=== PATIENT | female | born 2005 | race Caucasian/White ===

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

== ENCOUNTER 2023-02-24 12:30 | Outpatient (CLI) | payer OTHER, SELFPAY ==
[2023-02-24 18:53] LABS: Basophils Absolute Auto 0.1 K/mm3 (0.0-0.1); Basophils Percent Auto 0.6 % (0.2-1.2); Eosinophils Absolute Auto 0.2 K/mm3 (0-0.3); Eosinophils Percent Auto 1.8 % (0-4.4); Hematocrit 38.9 % (37.0-47.0); Hemoglobin 12.2 g/dL (12.0-15.0); Immature Granulocyte Absolute 0.02 K/mm3 (0.00-0.031); Immature Granulocyte Percent A 0.2 % (0-0.5); Lymphocytes Absolute Auto 2.04 K/mm3 (0.9-3.2); Mean Corpuscular HGB Conc 31.4 g/dl (32-36); Mean Corpuscular Hemoglobin 24.9 pg (26-34); Mean Corpuscular Volume 79.4 fl (80-100); Mean Platelet Volume 9.4 fl (7.4-10.4); Monocytes Absolute Auto 0.5 K/mm3 (0.1-0.6); Neutrophils Absolute Auto 5.4 K/mm3 (1.3-6.7); Neutrophils Percent Auto 66.4 % (45.5-73.1); Platelet Count Result 390 k/mm3 (150-375); Red Cell Distribution Width 13.8 % (11.5-14.5); White Blood Count 8.2 K/mm3 (4.5-10.0)
[2023-02-24 18:57] LABS: Alanine Aminotransferase 28 U/L (6-35); Alkaline Phosphatase 94 U/L (38-126); Anion Gap 5 mmol/L (8-16); Aspartate Amino Transferase 47 U/L (14-36); Bilirubin,Total 0.4 mg/dL (0.2-1.3); Blood Urea Nitrogen 12 mg/dL (7-17); Calcium 8.9 mg/dL (8.4-10.2); Carbon Dioxide 30 mmol/L (22-30); Chloride 102 mmol/L (98-107); Cholesterol 168 mg/dL (0-200); Estimated Glomerular Filt Rate > 60; Glucose 72 mg/dL (65-110); HDL Direct 40 mg/dL; Potassium 4.1 mmol/L (3.4-5.0); Sodium 137 mmol/L (137-145); Triglycerides 103 mg/dL (<150)
[2023-02-24 19:11] LABS: LDL Cholesterol Direct 98 mg/dL
[2023-02-24 19:14] LABS: Beta HCG Quantitative < 2.39 mIU/ML
[2023-02-27 12:18] LABS: DHEA-Sulfate 173 mcg/dL (51-321)
[2023-02-28 09:50] LABS: Testosterone Free 3.1 pg/mL (0.1-6.4); Testosterone Total 37 ng/dL (2-45)
[2023-03-02 07:26] LABS: Prolactin 9.4 ng/mL (***)
== END 2023-02-24 12:31 | disposition home or self-care (01) ==
LOC: ANHGOSHLAB 12:32
PROVIDERS: Visit Provider Obstetrics & Gynecology
DX: R79.89 Other specified abnormal findings of blood chemistry (principal); N92.6 Irregular menstruation, unspecified; E66.01 Morbid (severe) obesity due to excess calories
CPT/HCPCS: 36415; 80053; 80061; 82627; 84146; 84402; 84403; 84702; 85025

== ENCOUNTER 2023-04-06 13:54 | Outpatient (CLI) | payer OTHER, SELFPAY ==
--- NOTE | ~2023-04-06 | US_ITS ---
EXAMINATION: US pelvic complete w TV DATE: 04/06/2023 15:24 INDICATION: Unspecified dyspareunia. TECHNIQUE: Multiple transabdominal and transvaginal sonographic images of the pelvis were obtained. COMPARISON: Ultrasound 08/18/2022 FINDINGS: TRANSABDOMINAL ULTRASOUND: The uterus measures 6.4 x 3.9 x 5.8 cm. There is physiologic free fluid in the pelvis. TRANSVAGINAL ULTRASOUND: The endometrial complex measures 3 mm in thickness. There are small nabothian cysts in the cervix. Th e right ovary measures 2.6 x 2.4 x 2.1 cm. The left ovary measures 3.7 x 1.9 x 1.8 cm. There is lilli l vascular flow in the ovaries. IMPRESSION: 1. No etiology for the patient's symptoms. Reviewed, dictated and finalized at location E.
--- NOTE | ~2023-04-06 | US_ITS ---
EXAMINATION: US thyroid DATE: 04/06/2023 15:24 INDICATION: Thyroid disorder. Sofiya's. TECHNIQUE: Multiple ultrasound images of the thyroid were obtained. COMPARISON: None. FINDINGS: The right thyroid lobe measures 5.1 x 1.4 x 2.3 cm. The left thyroid lobe measures 4.8 x 1.5 x 2.2 c m. The thyroid isthmus measures 3-4 mm in maximal thickness. No discrete nodules identified. There is normal echotexture, echogenicity and vascular flow throughout the thyroid gland. IMPRESSION: 1. Normal thyroid ultrasound. Reviewed, dictated and finalized at location A.
== END 2023-04-06 13:55 | disposition home or self-care (01) ==
PROVIDERS: Referring Provider Otolaryngology; Visit Provider Obstetrics & Gynecology
DX: N94.10 Unspecified dyspareunia (principal); R10.2 Pelvic and perineal pain; E07.9 Disorder of thyroid, unspecified
CPT/HCPCS: 76536; 76830; 76856

== ENCOUNTER 2023-08-06 11:32 | Outpatient (CLI) | payer OTHER, SELFPAY ==
[2023-08-06 12:48] LABS: Basophils Percent Auto 0.5 % (0.2-1.2); Eosinophils Absolute Auto 0.1 K/mm3 (0-0.3); Eosinophils Percent Auto 1.5 % (0-4.4); Hematocrit 41.1 % (37.0-47.0); Hemoglobin 12.9 g/dL (12.0-15.0); Immature Granulocyte Absolute 0.02 K/mm3 (0.00-0.031); Immature Granulocyte Percent A 0.2 % (0-0.5); Lymphocytes Absolute Auto 2.48 K/mm3 (0.9-3.2); Lymphocytes Percent Auto 28.6 % (18.3-44.2); Mean Corpuscular HGB Conc 31.4 g/dl (32-36); Mean Corpuscular Hemoglobin 25.4 pg (26-34); Mean Corpuscular Volume 81.1 fl (80-100); Mean Platelet Volume 9.5 fl (7.4-10.4); Monocytes Absolute Auto 0.5 K/mm3 (0.1-0.6); Monocytes Percent Auto 5.8 % (2.6-8.5); Neutrophils Absolute Auto 5.5 K/mm3 (1.3-6.7); Neutrophils Percent Auto 63.4 % (45.5-73.1); Platelet Count Result 416 k/mm3 (150-375); Red Blood Count 5.07 M/mm3 (4.2-5.4); Red Cell Distribution Width 13.2 % (11.5-14.5); White Blood Count 8.7 K/mm3 (4.5-10.0)
[2023-08-06 12:59] LABS: Hemoglobin A1C 4.8 % (<5.7)
[2023-08-06 13:38] LABS: Alanine Aminotransferase 21 U/L (6-35); Albumin Level 4.2 g/dL (3.5-5.1); Alkaline Phosphatase 107 U/L (38-126); Anion Gap 8 mmol/L (8-16); Aspartate Amino Transferase 57 U/L (14-36); Bilirubin,Total 0.5 mg/dL (0.2-1.3); Blood Urea Nitrogen 13 mg/dL (7-17); Calcium 9.5 mg/dL (8.4-10.2); Carbon Dioxide 27 mmol/L (22-30); Chloride 102 mmol/L (98-107); Cholesterol 185 mg/dL (0-200); Estimated Glomerular Filt Rate > 60; Glucose 77 mg/dL (65-110); HDL Direct 44 mg/dL; Potassium 3.9 mmol/L (3.4-5.0); Sodium 137 mmol/L (137-145); Triglycerides 138 mg/dL (<150)
[2023-08-06 13:48] LABS: LDL Cholesterol Direct 104 mg/dL
[2023-08-06 17:05] LABS: Free T4 Free Thyroxine 1.28 ng/mL (0.78-2.19); Vitamin D 25 Hydroxy 19.3 ng/mL
[2023-08-09 03:29] LABS: Thyroid Peroxidase Antibodies <1 IU/mL (<9)
== END 2023-08-06 11:33 | disposition home or self-care (01) ==
LOC: ANHGOSHLAB 11:33
PROVIDERS: PCP Family Medicine; Visit Provider Nurse Practitioner Family
DX: E16.2 Hypoglycemia, unspecified (principal); R53.83 Other fatigue; R60.9 Edema, unspecified; R63.5 Abnormal weight gain; Z00.00 Encounter for general adult medical examination without abnormal findings; E55.9 Vitamin D deficiency, unspecified; Z13.29 Encounter for screening for other suspected endocrine disorder; E78.5 Hyperlipidemia, unspecified; E53.8 Deficiency of other specified B group vitamins
CPT/HCPCS: 36415; 80053; 80061; 82306; 82607; 83036; 84439; 84443; 85025; 86376

== ENCOUNTER 2023-09-30 09:58 | Outpatient (CLI) | payer OTHER, MEDICAID, SELFPAY ==
[2023-09-30 19:05] LABS: Basophils Absolute Auto 0.1 K/mm3 (0.0-0.1); Basophils Percent Auto 0.6 % (0.2-1.2); Eosinophils Absolute Auto 0.1 K/mm3 (0-0.3); Eosinophils Percent Auto 0.5 % (0-4.4); Hematocrit 38.5 % (37.0-47.0); Hemoglobin 12.2 g/dL (12.0-15.0); Immature Granulocyte Absolute 0.02 K/mm3 (0.00-0.031); Immature Granulocyte Percent A 0.2 % (0-0.5); Lymphocytes Absolute Auto 1.95 K/mm3 (0.9-3.2); Lymphocytes Percent Auto 21.1 % (18.3-44.2); Mean Corpuscular HGB Conc 31.7 g/dl (32-36); Mean Corpuscular Hemoglobin 26.1 pg (26-34); Mean Corpuscular Volume 82.4 fl (80-100); Mean Platelet Volume 10.1 fl (7.4-10.4); Monocytes Absolute Auto 0.7 K/mm3 (0.1-0.6); Neutrophils Absolute Auto 6.5 K/mm3 (1.3-6.7); Neutrophils Percent Auto 70.6 % (45.5-73.1); Platelet Count Result 344 k/mm3 (150-375); Red Blood Count 4.67 M/mm3 (4.2-5.4); Red Cell Distribution Width 13.9 % (11.5-14.5); White Blood Count 9.2 K/mm3 (4.5-10.0)
[2023-09-30 19:36] LABS: Glucose 1 Hour PP 50gm Dose 77 mg/dL
[2023-09-30 19:48] LABS: Hepatitis B Surface Antigen Negative (Negative); Rubella IgG Antibody 55.8 IU/ML
[2023-09-30 19:57] LABS: HIV 1/2 Ab P24 Ag Result Negative (Negative)
[2023-10-01 07:33] LABS: Rapid Plasma Reagin Non-Reactive (NonReactive)
[2023-10-02 17:36] LABS: CMV IgG Antibody <0.60 U/mL (<0.60)
== END 2023-09-30 09:59 | disposition home or self-care (01) ==
LOC: ANHGOSHLAB 09:59
PROVIDERS: PCP Family Medicine; Visit Provider Student in an Organized Health Care Education/Training Program
DX: N94.89 Other specified conditions associated with female genital organs and menstrual cycle (principal)
CPT/HCPCS: 36415; 82947; 85025; 86592; 86644; 86703; 86747; 86762; 86787; 86850; 86900; 86901; 87086; 87088; 87340; G0432

== ENCOUNTER 2023-11-02 09:11 | Outpatient (CLI) | payer OTHER, MEDICAID, SELFPAY ==
[2023-11-02 11:35] LABS: Influenza A QL RT-PCR Negative (Negative); Influenza B QL RT-PCR Negative (Negative); RSV RNA, RT-PCR Negative (Negative); SARS-CoV-2 RNA PCR Negative (Negative)
== END 2023-11-02 09:12 | disposition home or self-care (01) ==
LOC: ANHGOSHLAB 09:12
PROVIDERS: PCP Family Medicine; Visit Provider Nurse Practitioner Family
DX: Z34.90 Encounter for supervision of normal pregnancy, unspecified, unspecified trimester (principal); Z20.822 Contact with and (suspected) exposure to COVID-19
CPT/HCPCS: 87637

== ENCOUNTER 2023-11-11 16:01 | Outpatient (CLI) | payer OTHER, MEDICAID, SELFPAY ==
[2023-11-11 16:36] LABS: Basophils Percent Auto 0.3 % (0.2-1.2); Eosinophils Absolute Auto 0.1 K/mm3 (0-0.3); Eosinophils Percent Auto 0.8 % (0-4.4); Hemoglobin 12.2 g/dL (12.0-15.0); Immature Granulocyte Absolute 0.02 K/mm3 (0.00-0.031); Immature Granulocyte Percent A 0.2 % (0-0.5); Lymphocytes Absolute Auto 2.02 K/mm3 (0.9-3.2); Lymphocytes Percent Auto 19.6 % (18.3-44.2); Mean Corpuscular HGB Conc 33.9 g/dl (32-36); Mean Corpuscular Hemoglobin 27.1 pg (26-34); Mean Corpuscular Volume 79.8 fl (80-100); Mean Platelet Volume 9.5 fl (7.4-10.4); Monocytes Absolute Auto 0.5 K/mm3 (0.1-0.6); Monocytes Percent Auto 4.6 % (2.6-8.5); Neutrophils Absolute Auto 7.7 K/mm3 (1.3-6.7); Neutrophils Percent Auto 74.5 % (45.5-73.1); Platelet Count Result 306 k/mm3 (150-375); Red Blood Count 4.51 M/mm3 (4.2-5.4); Red Cell Distribution Width 13.7 % (11.5-14.5); White Blood Count 10.3 K/mm3 (4.5-10.0)
[2023-11-11 16:49] LABS: Alanine Aminotransferase 16 U/L (6-35); Albumin Level 3.9 g/dL (3.5-5.1); Alkaline Phosphatase 73 U/L (38-126); Anion Gap 7 mmol/L (4-12); Aspartate Amino Transferase 20 U/L (14-36); Bilirubin,Total 0.5 mg/dL (0.2-1.3); Blood Urea Nitrogen 8 mg/dL (7-17); Calcium 9.2 mg/dL (8.4-10.2); Carbon Dioxide 23 mmol/L (22-30); Chloride 107 mmol/L (98-107); Estimated Glomerular Filt Rate > 60; Glucose 113 mg/dL (65-110); Lactate Dehydrogenase 159 U/L (120-246); Potassium 3.6 mmol/L (3.4-5.0); Sodium 137 mmol/L (137-145); Uric Acid 4.2 mg/dL (2.5-7.5)
== END 2023-11-11 16:02 | disposition home or self-care (01) ==
LOC: ANHLAB 16:02
PROVIDERS: PCP Family Medicine; Visit Provider Obstetrics & Gynecology
DX: O16.9 Unspecified maternal hypertension, unspecified trimester (principal)
CPT/HCPCS: 36415; 80053; 83615; 84550; 85025

== ENCOUNTER 2023-11-14 11:59 | Outpatient (CLI) | payer OTHER, MEDICAID, SELFPAY ==
[2023-11-14 14:46] LABS: Total Volume 24 Hour Urine 1500 ml
[2023-11-14 14:56] LABS: Creatinine Urine 124.3 mg/dL
[2023-11-14 15:38] LABS: Creatinine 24 Hour Urine 1.8 gm/24 (0.8-1.8); Total Protein Urine 24 Hr 75 mg/24hr (28-141); Total Protein Urine Random < 5 mg/dL; Total Volume 24 Hour Urine 1500 ml
== END 2023-11-14 12:00 | disposition home or self-care (01) ==
LOC: ANHLAB 12:01
PROVIDERS: PCP Family Medicine; Visit Provider Obstetrics & Gynecology
DX: O16.9 Unspecified maternal hypertension, unspecified trimester (principal); Z3A.00 Weeks of gestation of pregnancy not specified
CPT/HCPCS: 81050; 82570; 84156

== ENCOUNTER 2023-11-19 17:20 | Emergency (ER) | payer OTHER, MEDICAID, SELFPAY ==
--- NOTE | ~2023-11-19 | US_ITS ---
EXAMINATION: US OB limited DATE: 11/19/2023 18:10 INDICATION: Fall. Estimated gestational age of 16 weeks and 5 days. TECHNIQUE: Real-time ultrasound of the pelvis was performed. COMPARISON: Ultrasound 10/14/2023 FINDINGS: There is a single fetus in breech presentation. The placenta is fundal and anterior. heart rat e is 142 beats per minute (bpm). The amniotic fluid volume is subjectively normal. IMPRESSION: 1. Single living fetus in breech presentation. Reviewed, dictated and finalized at location E.
[2023-11-19 17:27] VITALS: BP 136/90; PULSE 75; RESP 16; TEMP 36.7; O2SAT 100
[2023-11-19 18:41] LABS: Appearance Urine Clear (Clear); Bacteria Urine Rare /hpf; Bilirubin Urine Negative (Negative); Blood Urine Negative (Negative); Color Urine Yellow (Yellow); Glucose Urine UA Negative (Negative); Ketones Urine Negative (Negative); Leukocyte Esterase Ur Trace LEU/UL (Negative); Nitrate Urine Negative (Negative); Non Pathogenic Casts 0-2; Protein Urine Negative (Negative); RBC Urine 0-2 /hpf (0-2); Specific Grav Ur 1.012 (1.001-1.035); Squamous Epithelial Cell Urine Few /hpf (Few); Urobilinogen Urine 0.2 mg/dL (<2.0); pH Urine 6.5 (5.0-9.0)
[2023-11-19 18:47] LABS: Add Urine Microscopic? YES
--- NOTE | 2023-11-19 18:58 | ED.FALL ---
HPI - Fall General Chief Complaint: Fall Stated Complaint: fall Time Seen by Provider: 11/19/23 17:43 Source: patient Mode of arrival: ambulatory Limitations: no limitations History of Present Illness HPI Narrative: 18-year-old 1 about 16 weeks of here with the complaints of low back pain. Patient states that she fell yesterday on a lower back and while she was at work today started having increased pain. She states occasionally her legs go numb. She denies any vaginal bleeding or discharge complaint: fall Onset (ago): day(s) (1) Fall from: standing Place fall occurred: home Loss of consciousness: none Symptoms prior to fall: none Context: tripped/slipped Location of injury: back Quality: dull Associated symptoms (after fall): denies Related Data Home Medications Medication Instructions Recorded Confirmed vits no.126-ferrous fum tablet PO 09/23/23 11/11/23 28 mg iron-folic acid 800 mcg tablet (Classic ) aspirin 81 mg tablet,delayed 162 mg PO DAILY 11/11/23 11/11/23 release Allergies Allergy/AdvReac Type Severity Reaction Status Date / Time nitrofurantoin Allergy Hives Verified 11/11/23 14:16 [From Macrobid] Review of Systems Review of Systems: All systems reviewed & are unremarkable except as noted in HPI and below Constitutional: Constitutional: Reports no additional constitutional complaints Eyes: Eyes: Reports no additional eye complaints ENT: Reports system reviewed and no additional complaints, except as documented Cardiovascular: Cardiovascular: Reports no additional cardiovascular complaints Respiratory: Respiratory: Reports no additional respiratory complaints Gastrointestinal: Gastrointestinal: Reports no additional gastrointestinal complaints Musculoskeletal: Musculoskeletal: Reports as per HPI Neurologic: Reports system reviewed and no additional complaints, except as documented [facility] Past Medical History Medical History Acute sore throat Annual visit for general adult medical examination without abnormal findings Asthma Contraception management Dyspareunia Ear pain, right Elevated serum creatinine Encounter for elective induction of labor Encounter for imaging to assess thyroid enlargement Encounter for incision and drainage procedure Essential (primary) hypertension Fatigue Healthy female adult Initiation of Depo Provera Irregular menstrual cycle Morbid obesity Morbid obesity with BMI of 50.0-59.9, adult Normal vaginal delivery Obesity affecting in third trimester Perirectal abscess (~05/2019) I&D depression and not yet delivered Suppression of menses Surveillance for Depo-Provera contraception Tonsillectomy planned Vaginal delivery 09/11/21 Vaginal discharge during Weight gain with edema Surgical History Surgical History History of tonsillectomy (~2009) Family History Family History Grandparent Diabetes mellitus paternal grandmother Hypertension Thyroid disorder Mother Depression Grandparent Diabetes mellitus Other No pertinent family history Social History Social History Smoking status: Never smoker Alcohol intake: never Substance use: never Lack of Transportation: No Lack of Food: Never True Current Housing: I Have Housing Concerned About Future Housing: No Difficulty Paying Gas/Electric Bills: No Difficulty Paying for Meds: No Currently Unemployed: No Education: High School Diploma/GED Difficulty w/ Childcare or Family Care: No Living arrangements: alone Additional living arrangements comments: daughter Occupation/Education: occupation Gender identity (if verbalized by the patient): Female Sexual Or
[2023-11-19 19:30] VITALS: BP 132/68; PULSE 70; RESP 15; O2SAT 100
== END 2023-11-19 19:31 | disposition home or self-care (01) ==
PROVIDERS: Emergency Provider Family Medicine; PCP Family Medicine
DX: O9A.212 Injury, poisoning and certain other consequences of external causes complicating pregnancy, second trimester (principal); S30.0XXA Contusion of lower back and pelvis, initial encounter; Z3A.16 16 weeks gestation of pregnancy; W18.30XA Fall on same level, unspecified, initial encounter
CPT/HCPCS: 76815; 81001; 87086; 87088; 99284

== ENCOUNTER 2023-12-15 14:00 | Emergency (ER) | payer MEDICAID, SELFPAY ==
[2023-12-15 14:06] VITALS: BP 122/64; PULSE 94; RESP 17; TEMP 36.3; O2SAT 98
[2023-12-15 14:07] VITALS: BP 122/64; PULSE 96; RESP 19; O2SAT 98
--- NOTE | 2023-12-15 14:09 | ECG_ITS ---
SEE SCANNED COPY FOR CONFIRMED REPORT MTDD
[2023-12-15 14:16] VITALS: BP 116/77; PULSE 102; RESP 15; O2SAT 97
[2023-12-15 14:22] LABS: Basophils Percent Auto 0.1 % (0.2-1.2); Eosinophils Absolute Auto 0.1 K/mm3 (0-0.3); Eosinophils Percent Auto 0.9 % (0-4.4); Hematocrit 33.1 % (37.0-47.0); Hemoglobin 11.5 g/dL (12.0-15.0); Immature Granulocyte Absolute 0.06 K/mm3 (0.00-0.031); Immature Granulocyte Percent A 0.6 % (0-0.5); Lymphocytes Absolute Auto 1.75 K/mm3 (0.9-3.2); Lymphocytes Percent Auto 17.1 % (18.3-44.2); Mean Corpuscular HGB Conc 34.7 g/dl (32-36); Mean Corpuscular Hemoglobin 28.2 pg (26-34); Mean Corpuscular Volume 81.1 fl (80-100); Mean Platelet Volume 9.5 fl (7.4-10.4); Monocytes Absolute Auto 0.4 K/mm3 (0.1-0.6); Monocytes Percent Auto 4.3 % (2.6-8.5); Neutrophils Absolute Auto 7.9 K/mm3 (1.3-6.7); Platelet Count Result 297 k/mm3 (150-375); Red Blood Count 4.08 M/mm3 (4.2-5.4); Red Cell Distribution Width 13.6 % (11.5-14.5); White Blood Count 10.3 K/mm3 (4.5-10.0)
[2023-12-15 14:31] VITALS: BP 112/62; PULSE 89; RESP 18; O2SAT 100
[2023-12-15 14:32] LABS: Alanine Aminotransferase 12 U/L (6-35); Albumin Level 3.5 g/dL (3.5-5.1); Alkaline Phosphatase 85 U/L (38-126); Anion Gap 6 mmol/L (4-12); Aspartate Amino Transferase 19 U/L (14-36); Bilirubin,Total 0.3 mg/dL (0.2-1.3); Blood Urea Nitrogen 9 mg/dL (7-17); Calcium 8.6 mg/dL (8.4-10.2); Carbon Dioxide 24 mmol/L (22-30); Chloride 105 mmol/L (98-107); Estimated CRCL calculation 203 ml/min; Estimated Glomerular Filt Rate > 60; Glucose 102 mg/dL (65-110); Lipase 114 U/L (23-300); Potassium 3.5 mmol/L (3.4-5.0); Sodium 135 mmol/L (137-145)
[2023-12-15 14:34] LABS: Prothrombin Time 13.5 Seconds (11.1-14.7)
[2023-12-15 14:44] LABS: Troponin I < 0.012 ng/mL (0.000-0.034)
--- NOTE | 2023-12-15 15:18 | ED.DIZZY ---
HPI - Dizziness General Chief Complaint: Dizziness Stated Complaint: dizzy, cp Time Seen by Provider: 12/15/23 14:28 Source: patient Mode of arrival: ambulatory Limitations: no limitations History of Present Illness HPI Narrative: This is a 18-year-old female who is approximately 20 weeks and who presents to the ED with chief complaint of dizziness that occurred while at work today. 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 Denies syncope or fall. Endorses associated chest tightness and headache as well. States that time she was seeing spots. Patient is , following with OB. Denies any recent illness. Denies fevers, chills, abdominal pain, vaginal symptoms. Denies any bleeding. Patient states that her symptoms lasted 5 minutes and seemed to have fully resolved . Related Data Home Medications Medication Instructions Recorded Confirmed vits no.126-ferrous fum tablet PO 09/23/23 11/11/23 28 mg iron-folic acid 800 mcg tablet (Classic ) aspirin 81 mg tablet,delayed 162 mg PO DAILY 11/11/23 11/11/23 release Allergies Allergy/AdvReac Type Severity Reaction Status Date / Time nitrofurantoin Allergy Hives Verified 11/11/23 14:16 [From Macrobid] Review of Systems Review of Systems: All systems as dictated in HPI PMFSH Past Medical History Medical History Acute sore throat Annual visit for general adult medical examination without abnormal findings Asthma Contraception management Dyspareunia Ear pain, right Elevated serum creatinine Encounter for elective induction of labor Encounter for imaging to assess thyroid enlargement Encounter for incision and drainage procedure Essential (primary) hypertension Fatigue Healthy female adult Initiation of Depo Provera Irregular menstrual cycle Morbid obesity Morbid obesity with BMI of 50.0-59.9, adult Normal vaginal delivery Obesity affecting in third trimester Perirectal abscess (~05/2019) I&D depression and not yet delivered Suppression of menses Surveillance for Depo-Provera contraception Tonsillectomy planned Vaginal delivery 09/11/21 Vaginal discharge during Weight gain with edema Surgical History Surgical History History of tonsillectomy (~2009) Family History Family History Grandparent Diabetes mellitus paternal grandmother Hypertension Thyroid disorder Mother Depression Grandparent Diabetes mellitus Other No pertinent family history Social History Social History Smoking status: Never smoker Alcohol intake: never Substance use: never Lack of Transportation: No Lack of Food: Never True Current Housing: I Have Housing Concerned About Future Housing: No Difficulty Paying Gas/Electric Bills: No Difficulty Paying for Meds: No Currently Unemployed: No Education: High School Diploma/GED Difficulty w/ Childcare or Family Care: No Living arrangements: alone Additional living arrangements comments: daughter Occupation/Education: occupation Gender identity (if verbalized by the patient): Female Sexual Orientation (if Verbalized by the Patient): Straight or Heterosexual Spiritual care concerns: No Exam Narrative: GENERAL: Well-appearing, well-nourished, and in no acute distress. HEAD: Normocephalic, atraumatic. EYES: PERRLA and EOMI. ENT: Nares clear, no rhinorrhea or epistaxis. Mucous membranes moist. Oropharynx without tonsillar hypertrophy exudate or other lesions. NECK: Supple. No adenopathy or masses. CHEST: No respiratory distress. Clear to auscultation. No wheezes rales or rhonchi HEART: Regular ra
[2023-12-15 15:39] LABS: D Dimer 0.84 ug/mL (<0.48)
[2023-12-15 15:46] LABS: NT Pro B Type Natriuretic Pept < 20 pg/mL (19.9-100)
[2023-12-15 15:51] LABS: Appearance Urine Cloudy (Clear); Bacteria Urine 4+ /hpf; Bilirubin Urine Negative (Negative); Blood Urine Negative (Negative); Color Urine Yellow (Yellow); Glucose Urine UA Negative (Negative); Ketones Urine Trace mg/dL (Negative); Leukocyte Esterase Ur Trace LEU/UL (Negative); Need Manual Microscopic Reviewed; Nitrate Urine Negative (Negative); Non Pathogenic Casts 0-2; Protein Urine Negative (Negative); RBC Urine 0-2 /hpf (0-2); Specific Grav Ur 1.026 (1.001-1.035); Squamous Epithelial Cell Urine Moderate /hpf (Few); pH Urine 6.5 (5.0-9.0)
[2023-12-15 15:52] LABS: Add Urine Microscopic? YES
[2023-12-15 16:06] VITALS: BP 120/69; PULSE 88; RESP 16; TEMP 36.6; O2SAT 99
--- NOTE | 2023-12-17 15:48 | PC.NURSE ---
Was notified by lab that the urine culture that was obtained on 12/15/23 was unable to be processed. Christina CRESPO on duty was asked to review the chart to determine if we needed to have specimen recollected. Christina felt it would be best to recollect. This director called patient at [phone] and had to leave a message ([phone]) for patient to call me back.
== END 2023-12-15 16:07 | disposition home or self-care (01) ==
PROVIDERS: Emergency Medicine; Emergency Provider Physician Assistant; PCP Family Medicine
DX: O26.892 Other specified pregnancy related conditions, second trimester (principal); R42 Dizziness and giddiness; O16.2 Unspecified maternal hypertension, second trimester; O99.512 Diseases of the respiratory system complicating pregnancy, second trimester; J45.909 Unspecified asthma, uncomplicated; O99.212 Obesity complicating pregnancy, second trimester; E66.9 Obesity, unspecified; Z3A.20 20 weeks gestation of pregnancy
CPT/HCPCS: 36415; 80053; 81001; 83690; 83880; 84484; 85025; 85380; 85610; 85730; 87086; 93005; 99284

== ENCOUNTER 2023-12-23 14:28 | Outpatient (CLI) | payer OTHER, SELFPAY ==
[2023-12-23 20:47] LABS: Thyroid Stimulating Hormone Reflex 0.899 uIU/mL (0.465-4.68)
== END 2023-12-23 14:29 | disposition home or self-care (01) ==
LOC: ANHGOSHLAB 14:30
PROVIDERS: PCP Family Medicine; Visit Provider Nurse Practitioner Family
DX: E03.9 Hypothyroidism, unspecified (principal); E07.9 Disorder of thyroid, unspecified; Z34.90 Encounter for supervision of normal pregnancy, unspecified, unspecified trimester
CPT/HCPCS: 36415; 84443

== ENCOUNTER 2024-01-19 10:31 | Observation (INO) | payer OTHER, SELFPAY ==
[2024-01-19 11:05] VITALS: BMI 55.0
[2024-01-19 11:13] VITALS: BP 112/68; PULSE 83
--- NOTE | 2024-01-19 12:00 | PC.NURSE ---
Waiting for UA results due to [employer] downtime.
[2024-01-19 13:09] LABS: Bacteria Urine 4+ /hpf; Need Manual Microscopic Reviewed; RBC Urine 0-2 /hpf (0-2); Squamous Epithelial Cell Urine Moderate /hpf (Few); WBC Urine 21-50 /hpf (0-3)
[2024-01-19 13:16] LABS: Appearance Urine Cloudy (Clear); Bilirubin Urine Negative (Negative); Blood Urine Negative (Negative); Color Urine Dark Yellow (Yellow); Glucose Urine UA Negative (Negative); Ketones Urine Trace mg/dL (Negative); Leukocyte Esterase Ur Trace LEU/UL (Negative); Nitrate Urine Negative (Negative); Protein Urine 1+ mg/dL (Negative); Specific Grav Ur 1.029 (1.001-1.035); pH Urine 6.5 (5.0-9.0)
[2024-01-19 13:17] LABS: Add Urine Microscopic? YES
--- NOTE | 2024-01-20 07:11 | PM.OBTRLD ---
OB - Triage/Final Diagnosis Visit Information Comments/Additional reasons for admission: I have assessed the risk for this patient, Janessa Mendoza, and determined that she would benefit from observation care. Evaluation Laboratory results: Laboratory Tests 01/19/24 11:48 Urine Color Dark yellow Urine Appearance Cloudy H Urine pH 6.5 Ur Specific [place] 1.029 Urine Protein 1+ H Urine Glucose (UA) Negative Urine Ketones Trace H Ur Blood (Man) Negative Urine Nitrate Negative Urine Bilirubin Negative Urine Urobilinogen 1.0 Ur Leukocyte Esterase Trace H Add Ur Microanalysis Reviewed Urine RBC 0-2 Urine WBC 21-50 H Ur Squamous Epith Cells Moderate Urine Bacteria 4+ H Urine Casts 3-5 Vital signs: Vital Signs - 24 hr 01/19/24 11:13 01/19/24 11:05 Pulse Rate 83 Blood Pressure 112/68 Oxygen Delivery Room Air Final Diagnosis (1) Abdominal pain affecting : Code(s): O26.899 - Other specified related conditions, unspecified trimester; R10.9 - Unspecified abdominal pain Status: Acute
== END 2024-01-19 13:30 | disposition home or self-care (01) ==
PROVIDERS: Admitting Provider Obstetrics & Gynecology; PCP Family Medicine; Visit Provider Obstetrics & Gynecology
DX: O26.892 Other specified pregnancy related conditions, second trimester (principal); R10.9 Unspecified abdominal pain; Z3A.25 25 weeks gestation of pregnancy
CPT/HCPCS: 81001; 87086; G0378; G0379

== ENCOUNTER 2024-01-29 10:22 | Outpatient (CLI) | payer OTHER, SELFPAY ==
--- NOTE | ~2024-01-29 | US_ITS ---
US abdomen limited INDICATION: Abdomen pain PROCEDURE: Realtime right upper abdominal ultrasound. COMPARISON: No prior studies for comparison. FINDINGS: The pancreas is normal without focal mass or pancreatic ductal dilation. Liver echotexture is normal without focal mass or intrahepatic biliary dilatation. There is normal directional flow i n the portal vein. Gallstones. No gallbladder wall thickening or pericholecystic fluid. Common bile duct measures 3 mm. No sonographic Hester's sign. IMPRESSION: 1: Cholelithiasis. Reviewed, dictated and finalized at location B. IMPRESSION: 1: Cholelithiasis.
== END 2024-01-29 10:23 | disposition home or self-care (01) ==
PROVIDERS: PCP Family Medicine; Visit Provider Obstetrics & Gynecology
DX: O26.899 Other specified pregnancy related conditions, unspecified trimester (principal); K80.20 Calculus of gallbladder without cholecystitis without obstruction; Z3A.00 Weeks of gestation of pregnancy not specified
CPT/HCPCS: 76705

== ENCOUNTER 2024-02-11 20:45 | Outpatient (CLI) | payer OTHER, SELFPAY ==
[2024-02-11] VITALS (14 sets, daily range): BP systolic 115–128; BP diastolic 63–69; PULSE 86–113; O2SAT 93–100; BMI 53.1
[2024-02-11 21:22] LABS: Basophils Percent Auto 0.3 % (0.2-1.2); Eosinophils Absolute Auto 0.2 K/mm3 (0-0.3); Eosinophils Percent Auto 1.1 % (0-4.4); Hematocrit 31.6 % (37.0-47.0); Hemoglobin 10.6 g/dL (12.0-15.0); Immature Granulocyte Absolute 0.19 K/mm3 (0.00-0.031); Immature Granulocyte Percent A 1.4 % (0-0.5); Lymphocytes Absolute Auto 2.34 K/mm3 (0.9-3.2); Lymphocytes Percent Auto 17.4 % (18.3-44.2); Mean Corpuscular HGB Conc 33.5 g/dl (32-36); Mean Corpuscular Hemoglobin 27.5 pg (26-34); Mean Corpuscular Volume 81.9 fl (80-100); Mean Platelet Volume 9.4 fl (7.4-10.4); Monocytes Absolute Auto 0.8 K/mm3 (0.1-0.6); Neutrophils Absolute Auto 9.9 K/mm3 (1.3-6.7); Neutrophils Percent Auto 73.8 % (45.5-73.1); Platelet Count Result 300 k/mm3 (150-375); Red Blood Count 3.86 M/mm3 (4.2-5.4); Red Cell Distribution Width 13.5 % (11.5-14.5); White Blood Count 13.4 K/mm3 (4.5-10.0)
[2024-02-11 21:23] LABS: Appearance Urine Clear (Clear); Bacteria Urine 2+ /hpf; Bilirubin Urine Negative (Negative); Blood Urine Negative (Negative); Color Urine Yellow (Yellow); Glucose Urine UA Negative (Negative); Ketones Urine Negative (Negative); Leukocyte Esterase Ur Trace LEU/UL (Negative); Nitrate Urine Negative (Negative); Non Pathogenic Casts 0-2; Protein Urine Negative (Negative); RBC Urine 0-2 /hpf (0-2); Specific Grav Ur 1.013 (1.001-1.035); Squamous Epithelial Cell Urine Moderate /hpf (Few); Urobilinogen Urine 0.2 mg/dL (<2.0)
[2024-02-11 21:27] LABS: Creatinine Urine 70.4 mg/dL; Total Protein Urine Random 7 mg/dL
[2024-02-11 21:30] LABS: Alanine Aminotransferase 13 U/L (6-35); Albumin Level 3.4 g/dL (3.5-5.1); Alkaline Phosphatase 98 U/L (38-126); Anion Gap 9 mmol/L (4-12); Aspartate Amino Transferase 18 U/L (14-36); Bilirubin,Total 0.2 mg/dL (0.2-1.3); Blood Urea Nitrogen 8 mg/dL (7-17); Calcium 8.5 mg/dL (8.4-10.2); Carbon Dioxide 21 mmol/L (22-30); Chloride 103 mmol/L (98-107); Estimated Glomerular Filt Rate > 60; Glucose 106 mg/dL (65-110); Potassium 3.5 mmol/L (3.4-5.0); Sodium 133 mmol/L (137-145); Uric Acid 3.5 mg/dL (2.5-7.5)
[2024-02-11 21:31] LABS: Add Urine Microscopic? YES
--- NOTE | 2024-02-11 21:40 | PC.NURSE ---
Called Dr. Hodge with pt admission. Pt brought from ED stating that BP was 179/110. BPs here 115/69, 116/63, 128/66. Reactive tracing and appropriate for gestational age of 28.5weeks. Lab results given. Informed of pt complaints of dizziness, nausea, RUQ pain, swelling, and tingling in feet and legs. Pt states that she has gallstones. Pt complaining of generalized pain and headache. Pt states that she has been unable to sleep for a few days. Orders received. November D/C home. Pt's visitor will be driving home. Ambien, tylenol and zofran given.
[2024-02-11] MEDS: ZOLPIDEM TARTRATE (*CRX) 5 MG TABLET PO (21:56)
[2024-02-11] MEDS: ONDANSETRON HCL ODT 4 MG TABLET PO (21:56)
[2024-02-11] MEDS: ACETAMINOPHEN 500 MG TABLET 1000 MG PO (21:56)
== END 2024-02-11 22:00 | disposition home or self-care (01) ==
LOC: ANHOBOP 20:49 → ANHOBPP 22:00
PROVIDERS: Student in an Organized Health Care Education/Training Program; PCP Family Medicine; Visit Provider Obstetrics & Gynecology
DX: O13.9 Gestational [pregnancy-induced] hypertension without significant proteinuria, unspecified trimester (principal); Z3A.00 Weeks of gestation of pregnancy not specified
CPT/HCPCS: 36415; 59025; 80053; 81001; 82570; 84156; 84550; 85025; 87086; 87088; 99199; A9270

== ENCOUNTER 2024-02-23 14:21 | Outpatient (CLI) | payer OTHER, SELFPAY ==
[2024-02-23] VITALS (17 sets, daily range): BP systolic 80–114; BP diastolic 48–63; PULSE 95–106; O2SAT 97–99
[2024-02-23 14:51] LABS: Glucose Point of Care 91 mg/dl (65-105)
--- NOTE | 2024-02-23 15:45 | PC.NURSE ---
Dr. Cadet notified of patient on unit with complaints of feeling dizzy. notfied of NST and vital signs. Okay to discharge and patient has appt with MD tomorrow.
[2024-02-23 16:55] LABS: Iron 72 ug/dL (37-170); Percent Iron Saturation 18 % (20-50)
== END 2024-02-23 15:45 | disposition home or self-care (01) ==
LOC: ANHOBOP 14:26 → ANHOBPP 14:27
PROVIDERS: PCP Family Medicine; Visit Provider Obstetrics & Gynecology
DX: Z34.90 Encounter for supervision of normal pregnancy, unspecified, unspecified trimester (principal); Z3A.00 Weeks of gestation of pregnancy not specified
CPT/HCPCS: 36415; 59025; 82948; 83540; 83550; 99199

== ENCOUNTER 2024-03-03 15:12 | Observation (INO) | payer OTHER, SELFPAY ==
[2024-03-03] VITALS (12 sets, daily range): BP systolic 91–127; BP diastolic 49–83; PULSE 87–103; RESP 20; TEMP 36.6; O2SAT 99–100; BMI 57.2
--- NOTE | ~2024-03-03 | XR_ITS ---
EXAMINATION: XR chest 2V DATE: 03/03/2024 17:07 INDICATION: Chest pain and shortness of breath. COVID positive. TECHNIQUE: PA and lateral views of the chest were obtained. COMPARISON: Chest radiograph dated 06/03/2023 FINDINGS: The lungs are clear with no focal airspace opacities, pulmonary edema, pleural effusion or pneumothor ax. The cardiomediastinal silhouette is normal. Mild thoracic spondylosis. IMPRESSION: 1. No acute cardiopulmonary disease. Reviewed, dictated and finalized at location A.
--- NOTE | 2024-03-03 16:15 | OBADM ---
This patient, Janessa Mendoza, admitted to the OB room 115 for observation. Patient/family oriented to hospital policies and general routines including ID bracelet, bed and alarms, visiting hours, pain management, procedures, bathroom and other care routines, personal items, smoking policy, room service/diet, and visiting hours. Patient/Family are encouraged to report perceived risks to care and to ask questions if they do not understand what they are told or what they should do.
[2024-03-03 18:02] LABS: Add Urine Microscopic? YES; Appearance Urine Cloudy (Clear); Bacteria Urine 4+ /hpf; Bilirubin Urine Negative (Negative); Blood Urine Negative (Negative); Color Urine Yellow (Yellow); Glucose Urine UA Negative (Negative); Ketones Urine Trace mg/dL (Negative); Leukocyte Esterase Ur 1+ LEU/UL (Negative); Need Manual Microscopic Reviewed; Nitrate Urine Negative (Negative); Non Pathogenic Casts 0-2; Protein Urine Trace mg/dL (Negative); RBC Urine 0-2 /hpf (0-2); Specific Grav Ur 1.028 (1.001-1.035); Squamous Epithelial Cell Urine Many /hpf (Few); WBC Urine 21-50 /hpf (0-3)
--- NOTE | 2024-03-03 18:08 | PC.NURSE ---
Dr. Duran informed of this 31 11/[address] Cadet here with c/o increased shortness of breath with exertion, low back pain since last night, and had 3 episodes at work today of dizziness followed by emesis. Pt tested positive for COVID last Thursday (9 days ago). Breath sounds clear, O2 sats 98-99%. Resp 20 and regular. Pt is 146 kg. Chest xray was normal. FHT's with 10 beat accels and no contractions. Compared UA results from 02/10 and today with her. MD will wait for culture to result. Orders received to send pt home with instructions that she can take Tylenol for her back pain and Meclizine over the counter for dizziness.
--- NOTE | 2024-03-18 10:17 | PM.OBTRLD ---
OB - Triage/Final Diagnosis Visit Information Comments/Additional reasons for admission: I have assessed the risk for this patient, Janessa Mendoza, and determined that she would benefit from observation care. Evaluation Laboratory results: Laboratory Tests 03/03/24 17:19 Urine Color Yellow Urine Appearance Cloudy H Urine pH 7.0 Ur Specific [place] 1.028 Urine Protein Trace Urine Glucose (UA) Negative Urine Ketones Trace H Ur Blood (Man) Negative Urine Nitrate Negative Urine Bilirubin Negative Urine Urobilinogen 1.0 Add Ur Microanalysis Reviewed Leukocyte Esterase Rfl 1+ H Urine RBC 0-2 Urine WBC 21-50 H Ur Squamous Epith Cells Many H Urine Bacteria 4+ H Urine Casts 0-2 Final Diagnosis (1) Back pain affecting : Code(s): O99.891 - Other specified diseases and conditions complicating ; M54.9 - Dorsalgia, unspecified Status: Acute
== END 2024-03-03 18:26 | disposition home or self-care (01) ==
PROVIDERS: Admitting Provider Obstetrics & Gynecology; PCP Family Medicine; Visit Provider Obstetrics & Gynecology
DX: O26.893 Other specified pregnancy related conditions, third trimester (principal); R06.02 Shortness of breath; M54.50 Low back pain, unspecified; R42 Dizziness and giddiness; Z3A.31 31 weeks gestation of pregnancy
CPT/HCPCS: 71046; 81001; 87086; 87088; G0378; G0379

== ENCOUNTER 2024-03-08 13:23 | Outpatient (CLI) | payer OTHER, SELFPAY ==
[2024-03-08 15:02] LABS: Basophils Percent Auto 0.3 % (0.2-1.2); Eosinophils Absolute Auto 0.1 K/mm3 (0-0.3); Eosinophils Percent Auto 1.2 % (0-4.4); Hematocrit 32.5 % (37.0-47.0); Hemoglobin 10.5 g/dL (12.0-15.0); Immature Granulocyte Absolute 0.13 K/mm3 (0.00-0.031); Immature Granulocyte Percent A 1.1 % (0-0.5); Lymphocytes Absolute Auto 1.97 K/mm3 (0.9-3.2); Lymphocytes Percent Auto 16.4 % (18.3-44.2); Mean Corpuscular HGB Conc 32.3 g/dl (32-36); Mean Corpuscular Hemoglobin 26.6 pg (26-34); Mean Corpuscular Volume 82.5 fl (80-100); Mean Platelet Volume 9.6 fl (7.4-10.4); Monocytes Absolute Auto 0.7 K/mm3 (0.1-0.6); Monocytes Percent Auto 5.7 % (2.6-8.5); Neutrophils Percent Auto 75.3 % (45.5-73.1); Platelet Count Result 316 k/mm3 (150-375); Red Blood Count 3.94 M/mm3 (4.2-5.4); Red Cell Distribution Width 14.1 % (11.5-14.5)
[2024-03-08 15:27] LABS: Iron 52 ug/dL (37-170)
[2024-03-08 15:49] LABS: Percent Iron Saturation 14 % (20-50)
[2024-03-08 16:04] LABS: HIV 1/2 Ab P24 Ag Result Negative (Negative)
[2024-03-08 16:11] LABS: Glucose 1 Hour PP 50gm Dose 106 mg/dL
[2024-03-09 11:11] LABS: Rapid Plasma Reagin Non-Reactive (NonReactive)
== END 2024-03-08 13:24 | disposition home or self-care (01) ==
PROVIDERS: PCP Family Medicine; Visit Provider Obstetrics & Gynecology
DX: Z34.90 Encounter for supervision of normal pregnancy, unspecified, unspecified trimester (principal); Z3A.00 Weeks of gestation of pregnancy not specified
CPT/HCPCS: 36415; 82728; 82947; 83540; 83550; 85025; 86592; 86703; G0432

== ENCOUNTER 2024-03-17 14:15 | Observation (INO) | payer OTHER, SELFPAY ==
[2024-03-17 14:44] VITALS: BP 124/79; PULSE 97
[2024-03-17 15:00] VITALS: BP 105/77; PULSE 97
[2024-03-17 15:15] VITALS: BP 116/77; PULSE 100; BMI 57.1
[2024-03-17 15:37] LABS: OBXCEM ROM Plus Negative
--- NOTE | 2024-04-18 09:57 | PM.OBTRLD ---
OB - Triage/Final Diagnosis Visit Information Comments/Additional reasons for admission: I have assessed the risk for this patient, Janessa Mendoza, and determined that she would benefit from observation care. Evaluation Laboratory results: Laboratory Tests 03/17/24 15:31 Membranes Rupture Rom plus negative Final Diagnosis (1) Threatened labor, antepartum: Code(s): O47.00 - False labor before 37 completed weeks of gestation, unspecified trimester Status: Acute
== END 2024-03-17 15:27 | disposition home or self-care (01) ==
PROVIDERS: Admitting Provider Obstetrics & Gynecology; PCP Family Medicine; Visit Provider Obstetrics & Gynecology
DX: O47.03 False labor before 37 completed weeks of gestation, third trimester (principal); Z3A.33 33 weeks gestation of pregnancy
CPT/HCPCS: 70450; 84112; G0378; G0379

== ENCOUNTER 2024-03-17 15:36 | Outpatient (CLI) | payer OTHER, SELFPAY ==
--- NOTE | ~2024-03-17 | CT_ITS ---
EXAMINATION: CT brain wo con DATE: 03/17/2024 15:58 INDICATION: Headache, unspecified. TECHNIQUE: Computed tomography (CT) of the head was performed without intravenous contrast. The mA wa s adjusted according to patient size. Iterative reconstruction technique was employed. The dose-lengt h product was 605.33 mGy-cm. COMPARISON: None FINDINGS: There is no intracranial hemorrhage, acute infarction, or abnormal intracranial mass lesion . The ventricles are normal in size. The paranasal sinuses are clear. The mastoid air cells are lilli l. IMPRESSION: 1. Normal brain. Reviewed, dictated and finalized at location A. IMPRESSION: 1. Normal brain.
== END 2024-03-17 15:37 | disposition home or self-care (01) ==
LOC: ANHIMG 15:38
PROVIDERS: PCP Family Medicine; Visit Provider Obstetrics & Gynecology
DX: R51.9 Headache, unspecified (principal)
CPT/HCPCS: 70450

== ENCOUNTER 2024-03-23 15:24 | Observation (INO) | payer OTHER, SELFPAY ==
[2024-03-23 15:39] VITALS: BP 127/73; PULSE 124
[2024-03-23 15:46] VITALS: BP 126/87; PULSE 109
[2024-03-23 16:01] VITALS: BP 121/66; PULSE 110
[2024-03-23] MEDS: LACTATED RINGERS 1,000 ML 999 ML IV CONT (16:04)
[2024-03-23] MEDS: ONDANSETRON INJ 4 MG/2 ML VIAL IV PUSH (16:05)
[2024-03-23] MEDS: FAMOTIDINE 20 MG/2 ML VIAL IV PUSH (16:06)
[2024-03-23 16:08] VITALS: BP 127/73; PULSE 109
[2024-03-23 16:13] VITALS: BP 126/78; PULSE 119
[2024-03-23 16:15] VITALS: BP 104/68; PULSE 118
[2024-03-23 16:39] LABS: Add Urine Microscopic? YES; Appearance Urine Clear (Clear); Bacteria Urine 2+ /hpf; Bilirubin Urine Negative (Negative); Blood Urine Negative (Negative); Color Urine Yellow (Yellow); Glucose Urine UA Negative (Negative); Ketones Urine Negative (Negative); Leukocyte Esterase Ur Trace LEU/UL (Negative); Nitrate Urine Negative (Negative); Non Pathogenic Casts 0-2; Protein Urine Trace mg/dL (Negative); RBC Urine 0-2 /hpf (0-2); Specific Grav Ur 1.029 (1.001-1.035); Squamous Epithelial Cell Urine Moderate /hpf (Few); Urobilinogen Urine 0.2 mg/dL (<2.0); WBC Urine 21-50 /hpf (0-3)
[2024-03-23 16:56] VITALS: BMI 57.2
--- NOTE | 2024-03-23 17:23 | PC.NURSE ---
Dr Hodge informed that patient is feeling better, orthostatic BP's and UA results. OK to dc home.
--- NOTE | 2024-03-27 18:50 | P.PNOB_ITS ---
OB - Triage/Final Diagnosis Visit Information Date of evaluation: 03/23/24 Reason for evaluation: other (dizziness) Comments/Additional reasons for admission: I have assessed the risk for this patient, Janessa Aguirre Reji, and determined that she would benefit from observation care. Evaluation Laboratory results: Laboratory Tests 03/23/24 16:23 Urine Color Yellow Urine Appearance Clear Urine pH 6.0 Ur Specific [place] 1.029 Urine Protein Trace Urine Glucose (UA) Negative Urine Ketones Negative Ur Blood (Man) Negative Urine Nitrate Negative Urine Bilirubin Negative Urine Urobilinogen 0.2 Ur Leukocyte Esterase Trace H Urine RBC 0-2 Urine WBC 21-50 H Ur Squamous Epith Cells Moderate Urine Bacteria 2+ H Urine Casts 0-2
== END 2024-03-23 17:33 | disposition home or self-care (01) ==
PROVIDERS: Admitting Provider Obstetrics & Gynecology; PCP Family Medicine; Visit Provider Student in an Organized Health Care Education/Training Program
DX: O26.893 Other specified pregnancy related conditions, third trimester (principal); R42 Dizziness and giddiness; Z3A.34 34 weeks gestation of pregnancy
CPT/HCPCS: 59025; 81001; 87086; 87088; 96374; G0378; G0379; J2405; J7120

== ENCOUNTER 2024-03-28 12:55 | Outpatient (CLI) | payer OTHER, SELFPAY ==
--- NOTE | 2024-03-28 13:25 | ECHO_ITS ---
Patient Info Name: Janessa Mendoza Age: 19 years : 2005 Gender: Female Ht: 63 in Wt: 320 lbs BSA: 2.64 m2 HR: 110 bpm BP: 140 / 79 mmHg Heart Rhythm: Sinus Rhythm Technical Quality: Good Exam Date: 03/28/2024 1:35 PM Exam Location: Echo Lab Patient Status: Outpatient Admit Date: 03/28/2024 Staff Ordering Physician: Ning Cadet MD Estate Planning Counselor: Carrie Huff RDCS Attending Provider: Ning Cadet MD Referring Physician: Helio DICKERSON; Exam Type: CA echo doppler color flow Study Info Indications - Fainting episode, , covid recently Complete two-dimensional, color flow and Doppler transthoracic echocardiogram is performed. Summary 1. Complete two-dimensional, color flow and Doppler transthoracic echocardiogram is performed. 2. Left ventricular chamber dimension is normal. 3. Left ventricular systolic function is normal, estimated at 60-65%. 4. The left ventricular diastolic function is normal. 5. E/e' 9 is minimally elevated. 6. There is mild tricuspid valve regurgitation. 7. No pulmonary hypertension, estimated pulmonary arterial systolic pressure is 29 mmHg. 8. There is trace pulmonic regurgitation. 9. There is trivial pericardial effusion. Left Ventricle E/e' 9 is minimally elevated. Left ventricular chamber dimension is normal. Left ventricular systolic function is normal, estimated at 60-65%. The left ventricular diastolic function is normal. Right Ventricle Right ventricular systolic function is normal and with normal TAPSE 2.6 cm. Right ventricular chamber dimension is normal. Left Atria Left atrial chamber dimension is normal. Right Atria Right atrial chamber dimension is normal. Aortic Valve The aortic valve is trileaflet. There is no aortic valve stenosis. There is no aortic valve regurgitation. Pulmonic Valve There is trace pulmonic regurgitation. Mitral Valve There is no mitral valve stenosis. There is no mitral valve regurgitation. Tricuspid Valve There is mild tricuspid valve regurgitation. No pulmonary hypertension, estimated pulmonary arterial systolic pressure is 29 mmHg. Pericardium/Pleural There is trivial pericardial effusion. Inferior Vena Cava Normal inferior vena cava with >50% collapse upon inspiration consistent with normal right atrial pressure, 5 mmHg. Aorta The aortic root size at the sinus of Valsalva is normal. Left Ventricular Outflow Tract Name Value Normal LVOT 2D LVOT Diameter 2.3 cm LVOT Doppler LVOT Peak Gradient 5 mmHg LVOT Mean Gradient 3 mmHg LVOT VTI 19 cm LVOT VTI/AV VTI Ratio 0.9 LVOT Stroke Volume 76 ml LVOT CO 7.2 l/min LVOT CI 2.7 l/min/m2 Pulmonic Valve Name Value Normal RVOT Doppler RVOT Peak Gradient 3 mmHg
== END 2024-03-28 12:56 | disposition home or self-care (01) ==
LOC: ANHCARD 12:56
PROVIDERS: PCP Family Medicine; Visit Provider Obstetrics & Gynecology
DX: O16.9 Unspecified maternal hypertension, unspecified trimester (principal); I07.1 Rheumatic tricuspid insufficiency; J90 Pleural effusion, not elsewhere classified; Z86.16 Personal history of COVID-19
CPT/HCPCS: 93306

== ENCOUNTER 2024-03-29 09:30 | Outpatient (RCR) | payer OTHER, SELFPAY ==
--- NOTE | 2024-03-15 10:36 | OPREHPOC ---
Outpatient Therapy Plan of Care This is a Multidisciplinary Plan of Care that may contain components documented by all disciplines (PT, OT, and ST.) PT Problem 1 PT Problem #1 Knowledge Deficit PT Goal 1 Goal / Goal Update 1. Patient will perform independent HEP Target Visit 3 PT Problem 2 PT Problem #2 Pain PT Goal 1 Goal / Goal Update 1. Patient will report pain no higher than 5/10 with activities including stairs or rolling in bed Target Visit 8 PT Problem 3 PT Problem #3 Impaired Strength PT Goal 1 Goal / Goal Update 1. Hip abduction 4+/5 stephanie and pain free to support activities like stairs Target Visit 8
--- NOTE | 2024-03-15 10:36 | PTOPEVAL1 ---
Assessment and note entered by Mayra Davidson DPT Evaluation Information Assessment Status Evaluation ICD-10 Condition Codes (PT) R10.2 Subjective Information Pt is 33 weeks and reports she is having pain. Also had pain with and since her first (delivered in 2021). Currently states her pain is in her hips and throughout her pelvis. Highest pain recently 10/10 and lowest 5/10. Pain increases with certain movements like trying to roll out of bed, with stairs. Also pain with intercourse, pelvic exam, etc. One flight of stairs to bedroom at home. Voids 6-7 times a day and up to 5 times at night. Can hold urge as long as needed. Denies pain with urination. Leaks urine small amounts throughout the day and has been since her first baby. BM 3 times a week, denies pain. Denies fecal incontinence. First delivery was vaginal with tearing/stitching. Has had cysts behind her rectum surgically removed and has gall stones currently, may need surgery eventually. No other GOLD LETTERER or b/b history. Goal: be pain free Returns to MD next week. Reported Pain Level Pain Score 5: Self Report Assessment PT Clinical Summary The patient is presenting to skilled therapy at 33 weeks with a history of pelvic pain for several years. She presents with decreased hip strength and s/s consistent with pubic symphysis dysfunction which are contributing to her pain and difficulty with activities like stairs and rolling over. She will highly benefit from therapy in order to reduce pain and improve function as her progresses. She may also benefit from internal assessment with OB-GOLD LETTERER approval to further address pelvic pain and reports of urinary incontinence. Plan of Care Interventions Hot Pack/Cold Pack,Manual Therapy,Neuro Re- education,Patient/Caregiver Education,Therapeutic Activities,Therapeutic Exercise PT Services Indicated Yes Treatment Frequency and 1-2 times a week for 4-8 visits Duration These treatments will address the objective and functional deficits as defined above. The patient will be advanced safely and appropriately in order for the patient to progress towards his/her prior level of function. Additional exercises will be introduced and as well as a comprehensive home exercise program upon dis
--- NOTE | 2024-03-22 08:37 | PCPTNOTE ---
Patient called to cancel appointment 03/22/24 due to illness.
--- NOTE | 2024-04-07 13:43 | PCPTNOTE ---
Patient called to cancel appointment due to illness.
--- NOTE | 2024-04-14 15:05 | PCPTNOTE ---
Patient did not show up for appointment 04/14/24. Attempted to call patient and phone was answered but then hung up.
--- NOTE | 2024-05-05 14:59 | PTOPDC ---
Assessment and note entered by Mayra Davidson DPT Evaluation Information Assessment Status Discharge - Pt Not Present ICD-10 Condition Codes (PT) R10.2 Subjective Information - Assessment PT Clinical Summary The patient has not attended therapy since 03/29/24 and has likely delivered her baby. She will be discharged this date. Plan of Care PT Services Indicated No
== END 2024-05-05 15:39 | disposition home or self-care (01) ==
LOC: ANHPT 09:30
PROVIDERS: PCP Family Medicine; Visit Provider Obstetrics & Gynecology
DX: O99.891 Other specified diseases and conditions complicating pregnancy (principal); R10.2 Pelvic and perineal pain; Z3A.33 33 weeks gestation of pregnancy
CPT/HCPCS: 97112; 97161; 97530

== ENCOUNTER 2024-04-15 14:57 | Observation (INO) | payer OTHER, SELFPAY ==
[2024-04-15 15:15] VITALS: BP 119/70; PULSE 106
[2024-04-15 15:30] VITALS: BP 108/71; PULSE 105
[2024-04-15 15:44] LABS: Add Urine Microscopic? YES; Appearance Urine Clear (Clear); Bacteria Urine None Seen /hpf; Bilirubin Urine Negative (Negative); Blood Urine Negative (Negative); Color Urine Yellow (Yellow); Glucose Urine UA Negative (Negative); Ketones Urine Negative (Negative); Leukocyte Esterase Ur Trace LEU/UL (Negative); Nitrate Urine Negative (Negative); Non Pathogenic Casts 0-2; Protein Urine Negative (Negative); RBC Urine 0-2 /hpf (0-2); Specific Grav Ur 1.017 (1.001-1.035); Squamous Epithelial Cell Urine Few /hpf (Few); WBC Urine 0-5 /hpf (0-3)
[2024-04-15 15:45] VITALS: BP 100/60; PULSE 104
[2024-04-15 15:46] VITALS: BMI 57.8
--- NOTE | 2024-04-15 15:47 | LDADM ---
This patient, Janessa Mendoza, was admitted to OB Post 116 on 04/15/24 at 14:57. Plans for labor, pain management and were discussed with patient. Patient/family oriented to hospital policies and general routines including ID bracelet, bed and alarms, visiting hours, pain management, procedures, bathroom and other care routines, personal items, smoking policy, room service/diet and guest tray routines, infant security routines, and visiting hours. Patient/Family are encouraged to report perceived risks to care and to ask questions if they do not understand what they are told or what they should do. See OBIX for further documentation.
[2024-04-15] MEDS: LACTATED RINGERS 1,000 ML 999 ML IV CONT (16:23)
[2024-04-15] MEDS: ONDANSETRON INJ 4 MG/2 ML VIAL IV PUSH (16:23)
[2024-04-15 16:30] LABS: Alanine Aminotransferase 12 U/L (6-35); Albumin Level 3.6 g/dL (3.5-5.1); Alkaline Phosphatase 134 U/L (38-126); Anion Gap 8 mmol/L (4-12); Aspartate Amino Transferase 22 U/L (14-36); Bilirubin,Total 0.3 mg/dL (0.2-1.3); Blood Urea Nitrogen 7 mg/dL (7-17); Calcium 8.6 mg/dL (8.4-10.2); Carbon Dioxide 22 mmol/L (22-30); Chloride 104 mmol/L (98-107); Estimated CRCL calculation 157 ml/min; Estimated Glomerular Filt Rate > 60; Glucose 105 mg/dL (65-110); Potassium 3.9 mmol/L (3.4-5.0); Sodium 134 mmol/L (137-145)
--- NOTE | 2024-04-15 17:13 | PC.NURSE ---
Dr. Duran notified of patient's arrival on unit with complaints of vomiting. NST reactive, no contractions and urine results negative. Orders received to give bolus of LR, zofran and cmp. If patient feels better, okay to discharge. Patient with no complaints and no nausea, feels okay to be discharged.
[2024-04-15 17:21] VITALS: BP 119/70; PULSE 95
--- NOTE | 2024-05-03 12:41 | PM.OBTRLD ---
OB - Triage/Final Diagnosis Visit Information Comments/Additional reasons for admission: I have assessed the risk for this patient, Janessa Mendoza, and determined that she would benefit from observation care. Evaluation Laboratory results: Laboratory Tests 04/15/24 04/15/24 15:35 16:07 Sodium 134 L Potassium 3.9 Chloride 104 Carbon Dioxide 22 Anion Gap 8 BUN 7 Creatinine 0.70 Estim Creat Clear Calc 157 Estimated GFR > 60 Glucose 105 Calcium 8.6 Total Bilirubin 0.3 AST 22 ALT 12 Alkaline Phosphatase 134 H Total Protein 7.0 Albumin 3.6 Urine Color Yellow Urine Appearance Clear Urine pH 7.0 Ur Specific [place] 1.017 Urine Protein Negative Urine Glucose (UA) Negative Urine Ketones Negative Ur Blood (Man) Negative Urine Nitrate Negative Urine Bilirubin Negative Urine Urobilinogen 1.0 Leukocyte Esterase Rfl Trace H Urine RBC 0-2 Urine WBC 0-5 Ur Squamous Epith Cells Few Urine Bacteria None seen Urine Casts 0-2 Final Diagnosis (1) Nausea & vomiting: Code(s): R11.2 - Nausea with vomiting, unspecified Status: Acute
== END 2024-04-15 17:22 | disposition home or self-care (01) ==
PROVIDERS: Admitting Provider Obstetrics & Gynecology; PCP Family Medicine; Visit Provider Obstetrics & Gynecology
DX: O21.2 Late vomiting of pregnancy (principal); Z3A.37 37 weeks gestation of pregnancy
CPT/HCPCS: 36415; 59025; 80053; 81001; 96374; G0378; G0379; J2405; J7120

== ENCOUNTER 2024-04-23 01:28 | Outpatient (CLI) | payer OTHER, SELFPAY ==
[2024-04-23 02:36] LABS: OBXCEM ROM Plus Negative (Negative)
== END 2024-04-23 02:48 ==
LOC: ANHOBOP 02:25 → ANHLDR 02:36
PROVIDERS: Obstetrics & Gynecology; PCP Family Medicine; Visit Provider Obstetrics & Gynecology
DX: O42.90 Premature rupture of membranes, unspecified as to length of time between rupture and onset of labor, unspecified weeks of gestation (principal); Z3A.00 Weeks of gestation of pregnancy not specified
CPT/HCPCS: 59025; 84112; 99199

== ENCOUNTER 2024-04-26 14:35 | Observation (INO) | payer OTHER, SELFPAY ==
[2024-04-26 14:58] VITALS: BP 102/73; PULSE 117
[2024-04-26 15:00] VITALS: BP 103/69; PULSE 113
[2024-04-26] MEDS: ONDANSETRON INJ 4 MG/2 ML VIAL IV PUSH (15:12)
[2024-04-26] MEDS: LACTATED RINGERS 1,000 ML 999 ML IV CONT (15:13)
[2024-04-26 15:15] VITALS: BP 103/58; PULSE 102
[2024-04-26 15:23] LABS: Basophils Percent Auto 0.4 % (0.2-1.2); Eosinophils Absolute Auto 0.1 K/mm3 (0-0.3); Eosinophils Percent Auto 1.3 % (0-4.4); Hematocrit 32.1 % (37.0-47.0); Hemoglobin 10.3 g/dL (12.0-15.0); Immature Granulocyte Absolute 0.11 K/mm3 (0.00-0.031); Immature Granulocyte Percent A 1.1 % (0-0.5); Lymphocytes Absolute Auto 1.87 K/mm3 (0.9-3.2); Lymphocytes Percent Auto 18.4 % (18.3-44.2); Mean Corpuscular HGB Conc 32.1 g/dl (32-36); Mean Corpuscular Hemoglobin 24.9 pg (26-34); Mean Corpuscular Volume 77.5 fl (80-100); Mean Platelet Volume 9.6 fl (7.4-10.4); Monocytes Absolute Auto 0.7 K/mm3 (0.1-0.6); Monocytes Percent Auto 6.9 % (2.6-8.5); Neutrophils Absolute Auto 7.3 K/mm3 (1.3-6.7); Neutrophils Percent Auto 71.9 % (45.5-73.1); Platelet Count Result 353 k/mm3 (150-375); Red Blood Count 4.14 M/mm3 (4.2-5.4); Red Cell Distribution Width 14.6 % (11.5-14.5); White Blood Count 10.2 K/mm3 (4.5-10.0)
[2024-04-26 15:28] LABS: Add Urine Microscopic? YES; Appearance Urine Cloudy (Clear); Bacteria Urine Rare /hpf; Bilirubin Urine Negative (Negative); Blood Urine Negative (Negative); Color Urine Dark Yellow (Yellow); Glucose Urine UA Negative (Negative); Ketones Urine Trace mg/dL (Negative); Leukocyte Esterase Ur 2+ LEU/UL (Negative); Nitrate Urine Negative (Negative); Non Pathogenic Casts 0-2; Protein Urine Trace mg/dL (Negative); RBC Urine 0-2 /hpf (0-2); Specific Grav Ur 1.029 (1.001-1.035); Squamous Epithelial Cell Urine Moderate /hpf (Few); Urobilinogen Urine 0.2 mg/dL (<2.0); pH Urine 6.5 (5.0-9.0)
[2024-04-26 15:36] LABS: Alanine Aminotransferase 13 U/L (6-35); Albumin Level 3.6 g/dL (3.5-5.1); Alkaline Phosphatase 143 U/L (38-126); Anion Gap 10 mmol/L (4-12); Aspartate Amino Transferase 22 U/L (14-36); Bilirubin,Total 0.4 mg/dL (0.2-1.3); Blood Urea Nitrogen 10 mg/dL (7-17); Calcium 8.6 mg/dL (8.4-10.2); Carbon Dioxide 19 mmol/L (22-30); Chloride 102 mmol/L (98-107); Estimated Glomerular Filt Rate > 60; Glucose 98 mg/dL (65-110); Potassium 3.8 mmol/L (3.4-5.0); Sodium 131 mmol/L (137-145)
[2024-04-26 15:44] VITALS: BP 103/58; PULSE 102
[2024-04-26 16:03] VITALS: BMI 57.9
--- NOTE | 2024-04-26 16:09 | PM.OBTRLD ---
OB - Triage/Final Diagnosis Visit Information Comments/Additional reasons for admission: I have assessed the risk for this patient, Janessa Mendoza, and determined that she would benefit from observation care. Evaluation Laboratory results: Laboratory Tests 04/26/24 15:02 WBC 10.2 H RBC 4.14 L Hgb 10.3 L Hct 32.1 L MCV 77.5 L MCH 24.9 L MCHC 32.1 RDW 14.6 H Plt Count 353 MPV 9.6 Immature Gran % (Auto) 1.1 H Neut % (Auto) 71.9 Lymph % (Auto) 18.4 [place] % (Auto) 6.9 Eos % (Auto) 1.3 Baso % (Auto) 0.4 Lymph # (Auto) 1.87 [place] # (Auto) 0.7 H Eos # (Auto) 0.1 Baso # (Auto) 0.0 Abs Immat Gran (auto) 0.11 H Absolute Neuts (auto) 7.3 H Absolute Nucleated RBC 0.000 Nucleated RBC % 0.0 Sodium 131 L Potassium 3.8 Chloride 102 Carbon Dioxide 19 L Anion Gap 10 BUN 10 Creatinine 0.50 L Estim Creat Clear Calc Not Reportable Estimated GFR > 60 Glucose 98 Calcium 8.6 Total Bilirubin 0.4 AST 22 ALT 13 Alkaline Phosphatase 143 H Total Protein 7.0 Albumin 3.6 Urine Color Dark yellow Urine Appearance Cloudy H Urine pH 6.5 Ur Specific [place] 1.029 Urine Protein Trace Urine Glucose (UA) Negative Urine Ketones Trace H Ur Blood (Man) Negative Urine Nitrate Negative Urine Bilirubin Negative Urine Urobilinogen 0.2 Leukocyte Esterase Rfl 2+ H Urine RBC 0-2 Urine WBC 11-20 H Ur Squamous Epith Cells Moderate Urine Bacteria Rare Urine Casts 0-2 Vital signs: Vital Signs - 24 hr 04/26/24 14:58 04/26/24 15:00 04/26/24 15:15 Pulse Rate 117 H 113 H 102 H Blood Pressure 102/73 103/69 103/58 L Blood Pressure [Left Arm] 04/26/24 15:44 Pulse Rate 102 H Blood Pressure Blood Pressure [Left Arm] 103/58 L Final Diagnosis (1) Nausea & vomiting: Code(s): R11.2 - Nausea with vomiting, unspecified Status: Acute
== END 2024-04-26 16:30 | disposition home or self-care (01) ==
PROVIDERS: Admitting Provider Obstetrics & Gynecology; PCP Family Medicine; Visit Provider Obstetrics & Gynecology
DX: O21.2 Late vomiting of pregnancy (principal); Z3A.38 38 weeks gestation of pregnancy
CPT/HCPCS: 36415; 59025; 80053; 81001; 85025; 87086; G0378; G0379; J2405; J7120

== ENCOUNTER 2024-04-29 21:38 | Inpatient (IN) | payer OTHER, SELFPAY ==
[2024-04-29 22:04] VITALS: BP 103/68; PULSE 114; TEMP 36.7
[2024-04-29] MEDS: DINOPROSTONE 10 MG VAG INSERT VAGINAL (22:28)
[2024-04-29 22:30] VITALS: BMI 56.6
[2024-04-29 22:39] LABS: Basophils Absolute Auto 0.1 K/mm3 (0.0-0.1); Basophils Percent Auto 0.4 % (0.2-1.2); Eosinophils Absolute Auto 0.1 K/mm3 (0-0.3); Hematocrit 30.7 % (37.0-47.0); Hemoglobin 9.9 g/dL (12.0-15.0); Immature Granulocyte Absolute 0.14 K/mm3 (0.00-0.031); Immature Granulocyte Percent A 1.1 % (0-0.5); Lymphocytes Absolute Auto 2.54 K/mm3 (0.9-3.2); Lymphocytes Percent Auto 19.5 % (18.3-44.2); Mean Corpuscular HGB Conc 32.2 g/dl (32-36); Mean Corpuscular Hemoglobin 24.9 pg (26-34); Mean Corpuscular Volume 77.1 fl (80-100); Mean Platelet Volume 9.6 fl (7.4-10.4); Monocytes Absolute Auto 0.8 K/mm3 (0.1-0.6); Monocytes Percent Auto 6.4 % (2.6-8.5); Neutrophils Absolute Auto 9.3 K/mm3 (1.3-6.7); Neutrophils Percent Auto 71.6 % (45.5-73.1); Platelet Count Result 405 k/mm3 (150-375); Red Blood Count 3.98 M/mm3 (4.2-5.4); Red Cell Distribution Width 14.6 % (11.5-14.5)
--- NOTE | 2024-04-29 22:58 | LDADM ---
This patient, Janessa Mendoza, was admitted to Labor/Delivery/Recovery 108 on 04/29/24 at 21:38. Plans for labor, pain management and were discussed with patient. Patient/family oriented to hospital policies and general routines including ID bracelet, bed and alarms, visiting hours, pain management, procedures, bathroom and other care routines, personal items, smoking policy, room service/diet and guest tray routines, security routines, and visiting hours. Patient/Family are encouraged to report perceived risks to care and to ask questions if they do not understand what they are told or what they should do. See [facility]BIX for further documentation.
[2024-04-29 23:34] VITALS: BP 112/77; PULSE 99
[2024-04-29 23:48] LABS: HIV 1/2 Ab P24 Ag Result Negative (Negative)
[2024-04-29 23:53] LABS: Rapid Plasma Reagin Non-Reactive (NonReactive)
[2024-04-30] VITALS (291 sets, daily range): BP systolic 78–136; BP diastolic 39–104; PULSE 66–123; TEMP 36.1–38.2; O2SAT 95–100
[2024-04-30] MEDS: LACTATED RINGERS 1,000 ML 125 ML IV CONT ×4 (05:40→18:05)
--- NOTE | 2024-04-30 06:40 | WPDANESEPP ---
Anes - Eval Pre Procedure Procedure: [place] Epidural Date/Time: 04/30/24 06:40 Surgeon: Helio Preop Diagnosis: Labor Pain Pre Op Diagnosis: IOL Patient Data Age: 19 Gender: F Height: 1.6 m Weight: 145 kg Last Vital Signs Temp 36.7 C 04/29/24 22:04 Pulse 98 04/30/24 06:38 BP 105/66 04/30/24 06:38 Pulse Ox 99 04/30/24 06:35 O2 Del Method Room Air 04/29/24 22:32 Allergies Allergy/AdvReac Type Severity Reaction Status Date / Time nitrofurantoin Allergy Hives Verified 04/30/24 00:02 [From Macrobid] Home Medications Medication Instructions Recorded Confirmed Type ergocalciferol (vitamin D2) 1,250 1,250 mcg PO WEEKLY #6 caps 08/07/23 04/30/24 Rx mcg (50,000 unit) capsule (Drisdol) albuterol sulfate 90 mcg/actuation 2 puff inhalation Q4H PRN 09/17/23 04/30/24 Rx aerosol inhaler shortness of breath or wheezing #6.7 grams vits no.126-ferrous fum 1 tablet PO DAILY 09/23/23 04/30/24 History 28 mg iron-folic acid 800 mcg tablet (Classic ) aspirin 81 mg tablet,delayed 162 mg PO DAILY 11/11/23 04/30/24 History release metoclopramide HCl 10 mg tablet 10 mg PO Q6H PRN nausea and 11/11/23 04/30/24 Rx (Reglan) vomiting #40 tabs ferrous sulfate 325 mg (65 mg 325 mg PO DAILY 03/03/24 04/30/24 History iron) tablet Laboratory Tests 04/29/24 21:55 WBC 13.0 H K/mm3 (4.5-10.0) RBC 3.98 L M/mm3 (4.2-5.4) Hgb 9.9 L g/dL (12.0-15.0) Hct 30.7 L % (37.0-47.0) MCV 77.1 L fl (80-100) MCH 24.9 L pg (26-34) MCHC 32.2 g/dl (32-36) RDW 14.6 H % (11.5-14.5) Plt Count 405 H k/mm3 (150-375) MPV 9.6 fl (7.4-10.4) Immature Gran % (Auto) 1.1 H % (0-0.5) Neut % (Auto) 71.6 % (45.5-73.1) Lymph % (Auto) 19.5 % (18.3-44.2) [place] % (Auto) 6.4 % (2.6-8.5) Eos % (Auto) 1.0 % (0-4.4) Baso % (Auto) 0.4 % (0.2-1.2) Lymph # (Auto) 2.54 K/mm3 (0.9-3.2) [place] # (Auto) 0.8 H K/mm3 (0.1-0.6) Eos # (Auto) 0.1 K/mm3 (0-0.3) Baso # (Auto) 0.1 K/mm3 (0.0-0.1) Abs Immat Gran (auto) 0.14 H K/mm3 (0.00-0.031) Absolute Neuts (auto) 9.3 H K/mm3 (1.3-6.7) Absolute Nucleated RBC 0.000 K/mm3 (0.0-0.012) Nucleated RBC % 0.0 % (0.0-0.2) RPR Non-reactive (NonReactive) HIV 1&2 Ab/P24 Ag 4thGn Negative (Negative) Blood Type O Positive Antibody Screen Negative : gestational age ([place] 05/04/24, ) Patient hx anesthesia problems: none Family hx anesthesia problems: none Results Review: All pre-operative results and documents have been reviewed as part of the pre-operative evaluation. [facility] Past Medical History Medical History Acute sore throat Annual visit for general adult medical examination without abnormal findings Asthma Contraception management Dyspareunia Ear pain, right Elevated serum creatinine Encounter for elective induction of labor Encounter for imaging to assess thyroid enlargement Encounter for incision and drainage procedure Essential (primary) hypertension Fainting Fatigue Healthy female adult Initiation of Depo Provera Irregular menstrual cycle Morbid obesity Morbid obesity with BMI of 50.0-59.9, adult Normal vaginal delivery Obesity affecting in third trimester Perirectal abscess (~05/2019) I&D depression and not yet delivered Suppression of menses Surveillance for Depo-Provera contraception Tonsillectomy planned Vaginal delivery 09/11/21 Vaginal discharge during Weight gain with edema Surgical History Surgical History History of tonsillectomy (~2009) Family History Family History Grandparent Diabetes mellitus paternal grandmother Hypertension Thyroid
[2024-04-30] MEDS: ONDANSETRON INJ 4 MG/2 ML VIAL IV PUSH ×3 (07:19→20:48)
--- NOTE | 2024-04-30 09:20 | PM.IMHP ---
H&P: HPI History of Present Illness Date/Time: 04/30/24 09:20 Chief Complaint: IOL Narrative: Janessa is a 19yo @ 39.3wks who presents for elective IOL. She is s/p cervidil and epidural-- now comfortable. Her is complicated by: - CHTN- ASA, EKG, Echo, mfm consult all normal - Obesity-pre preg BMI 51, early GCT wnl - Asthma- albuterol PRN - Covid in @ 13wks, 31wks - Depression/anxiety on Lexapro - LGA fetus Review of Systems Constitutional: Constitutional: Denies chills, Denies fever(s) and Denies headache(s) Eyes: Eyes: Denies change in vision ENT: Denies headache(s) Cardiovascular: Cardiovascular: Denies chest pain and Denies dyspnea Respiratory: Respiratory: Denies dyspnea Genitourinary: Genitourinary: Denies abnormal vaginal bleeding and Denies vaginal discharge Neurologic: Denies headache(s) Psychiatric: Psychiatric: Denies anxiety and Denies depression [facility] Past Medical History Medical History (Updated 04/30/24 @ 09:23 by Ning Cadet MD) Acute sore throat Annual visit for general adult medical examination without abnormal findings Asthma Contraception management Dyspareunia Ear pain, right Elevated serum creatinine Encounter for elective induction of labor Encounter for imaging to assess thyroid enlargement Encounter for incision and drainage procedure Essential (primary) hypertension Fainting Fatigue Healthy female adult Initiation of Depo Provera Irregular menstrual cycle Morbid obesity Morbid obesity with BMI of 50.0-59.9, adult Normal vaginal delivery Obesity affecting in third trimester Perirectal abscess (~05/2019) I&D depression and not yet delivered Suppression of menses Surveillance for Depo-Provera contraception Tonsillectomy planned Vaginal delivery 09/11/21 Vaginal discharge during Weight gain with edema Surgical History Surgical History History of tonsillectomy (~2009) Family History Family History Grandparent Diabetes mellitus paternal grandmother Hypertension Thyroid disorder Mother Depression Grandparent Diabetes mellitus Other No pertinent family history Social History Social History Smoking status: Never smoker Alcohol intake: never Substance use: never Do You Feel Safe in your Home?: Yes Lack of Transportation: No Lack of Food: Never True Current Housing: I Have Housing Concerned About Future Housing: No Difficulty Paying Gas/Electric Bills: No Difficulty Paying for Meds: No Currently Unemployed: No Education: Trade/Vocational Certificate Difficulty w/ Childcare or Family Care: No Living arrangements: alone Additional living arrangements comments: daughter Occupation/Education: occupation Gender identity (if verbalized by the patient): Female Sexual Orientation (if Verbalized by the Patient): Straight or Heterosexual Spiritual care concerns: No Meds Home Medications and Allergies Home Medications Medication Instructions Recorded Confirmed Type ergocalciferol (vitamin D2) 1,250 1,250 mcg PO WEEKLY #6 caps 08/07/23 04/30/24 Rx mcg (50,000 unit) capsule (Drisdol) albuterol sulfate 90 mcg/actuation 2 puff inhalation Q4H PRN 09/17/23 04/30/24 Rx aerosol inhaler shortness of breath or wheezing #6.7 grams vits no.126-ferrous fum 1 tablet PO DAILY 09/23/23 04/30/24 History 28 mg iron-folic acid 800 mcg tablet (Classic ) aspirin 81 mg tablet,delayed 162 mg PO DAILY 11/11/23 04/30/24 History release metoclopramide HCl 10 mg tablet 10 mg PO Q6H PRN nausea and 11/11/23 04/30/24 Rx (Reglan) vomiting #40 tabs ferrous sulfate 325 mg (65 mg 325 mg PO DAILY 03/03/24 04/30/24 History iron) tablet Allergi
[2024-04-30] MEDS: OXYTOCIN 30 UNITS/NS 500 ML 30 UNITS/500 ML BAG 125 UNITS IV CONT (09:31)
[2024-04-30] MEDS: AMPICILLIN 2 GM/NS 100 ML 2 GM/100 ML BAG IVPB (23:14)
[2024-04-30] MEDS: ACETAMINOPHEN 500 MG TABLET 1000 MG PO (23:15)
[2024-04-30] MEDS: diphenhydrAMINE HCl INJ 50 MG/ML VIAL 25 MG IV PUSH (23:28)
[2024-04-30] MEDS: GENTAMICIN SULFATE IVPB (23:45)
[2024-04-30] MEDS: DEXTROSE 5% IVPB (23:45)
[2024-05-01] VITALS (164 sets, daily range): BP systolic 63–144; BP diastolic 28–131; PULSE 62–149; RESP 16–22; TEMP 36.2–37.9; O2SAT 91–100
[2024-05-01] MEDS: LACTATED RINGERS 1,000 ML 125 ML IV CONT (03:21)
[2024-05-01] MEDS: AMPICILLIN 1 GM/NS 50 ML 1 GM/50 ML BAG IVPB ×2 (04:10→07:39)
[2024-05-01] MEDS: CLINDAMYCIN 900 MG/D5W 50 ML 900 MG/50 ML PIGGYBACK 50 MG IVPB ×3 (05:07→21:36)
--- NOTE | 2024-05-01 05:12 | PM.OBPNLAB ---
Pain Control Date/time seen: 05/01/24 05:12 Pain control: epidural (replaced overnight) Pelvic Exam Dilation (cm): 9 Effacement (%): 70 (swollen) station: -1 Amniotic membrane status: Ruptured Contractions Monitor mode: Internal Contraction frequency: 4 Contraction pattern: Regular Status status: Category l Assessment and Plan Plan: Comments: - pt made adequate change to 8-9cm but has since arrested. She now has chorioamnionitis; on amp 2g IV q6, gent 5mg/kg x24 hr and will start clinda 900mg q8h, and will give dose of azithromycin. We have given her a pitocin break/restarted at 2 (got to 32 without adequate mvU's). We tried pushing past the cervix as it is stretchy, but pt has poor maternal effort and declined to push any further. We will proceed with primary section due to arrest of active phase
[2024-05-01] MEDS: ONDANSETRON INJ 4 MG/2 ML VIAL IV PUSH (05:18)
[2024-05-01] MEDS: FAMOTIDINE 20 MG/2 ML VIAL IV PUSH (05:18)
[2024-05-01] MEDS: ACETAMINOPHEN 500 MG TABLET 1000 MG PO (05:20)
--- NOTE | 2024-05-01 05:20 | WPDHPUPDATE1 ---
History and Physical Update Update Date/Time: 05/01/24 05:20 History and Physical has been reviewed, including an updated exam of the patient. There are NO changes in the patient's condition. Risks, benefits, and alternatives have been discussed and questions answered. Patient agrees to proceed with primary section.
[2024-05-01 07:02] LABS: Hematocrit 27.6 % (37.0-47.0); Hemoglobin 8.7 g/dL (12.0-15.0); Mean Corpuscular HGB Conc 31.5 g/dl (32-36); Mean Corpuscular Hemoglobin 24.7 pg (26-34); Mean Corpuscular Volume 78.4 fl (80-100); Mean Platelet Volume 9.5 fl (7.4-10.4); Platelet Count Result 340 k/mm3 (150-375); Red Blood Count 3.52 M/mm3 (4.2-5.4); Red Cell Distribution Width 14.7 % (11.5-14.5); White Blood Count 25.3 K/mm3 (4.5-10.0)
[2024-05-01] MEDS: miSOPROStol 200 MCG TABLET 800 MCG RECTAL (07:10)
[2024-05-01 07:18] LABS: INR 1.1; Partial Thromboplastin Time 28.8 Seconds (22.3-36.8); Prothrombin Time 15.1 Seconds (11.1-14.7)
[2024-05-01 07:19] LABS: Fibrinogen 616 mg/dl (215-510)
--- NOTE | 2024-05-01 07:22 | W.PM.OBCSD ---
OB - Delivery Note Procedure Delivery date: 05/01/24 Pre-op diagnosis: Arrest of Dilation and Chorioamniontis Post-op Diagnosis: Same Induction method: Per Cervidil Protocol Delivery augmentation: Rupture of Membranes and Pitocin Delivery monitor: Internal FHT and Internal Uterine Prior to decision for section, [facility] labor guidelines were considered and discussed with the patient and staff. Decision made to proceed with the section.: Yes Procedure Performed: Primary Primary branch: low cervical, transverse Surgeon: Ning Cadet MD Anesthesia type: General (epidural was not fully working) Description of Procedure/Findings: Epidural was not adequate; went under general anesthesia. Female infant, LOT. Clear fluid. Normal fallopian tubes and ovaries bilateral. Uterine atony noted, given Methergine and additional pitocin. Specimen: Yes Estimated Blood Loss: 1,475 Pathology: Yes (placenta) Complications: No immediate complications Condition: Stable Disposition: Floor [place] Baby Date of : 05/01/24 Time of : 06:03 Gestational Age by Date: 39 (.4) gender: Female Weight (pounds): 10 Weight (ounces): 0 presentation: vertex position: Left Occiput Transverse Placenta delivery description: Manual Removal Cord Vessel Description: 3 Vessels and Clamped/Cut score one minute: 8 score five minutes: 9 Narrative: Janessa was counseled on need for section and all risks and benefits were discussed in detail. She was taken to the operating room and was then prepped and draped in the normal sterile fashion. She received 500mg Azithromycin. She has already received Ampicillin 2g IV, Gentamicin 5mg/kg, and Clindamycin 900mg and a time out was performed. A Traxi was placed to help lift her pannus. Epidural was initially thought to be adequate, but when starting to make the Pfannenstiel incision, she endorsed feeling sharp pain. She was tested and could feel pain. She was then placed under general anesthesia at 0601. The incision was then continued on the skin and carried down to the underlying fascia. The fascia was nicked on either side of the midline and the fascial incision was extended laterally and superiorly using curved Ochoa scissors and blunt traction. The incision was not felt to be adequate for suspected macrosomic baby, therefore, the anterior fascia was then elevated using Radha clamps and the underlying rectus muscles were dissected off the fascia. The rectus muscles were then in the midline and the peritoneum was entered bluntly. Once adequate exposure was obtained, a Mobius self retractor was placed within the abdomen. A low transverse incision was made on the lower uterine segment and clear fluid was noted. The occiput was easily brought to the hysterotomy and the head was easily delivered. The shoulders and body then followed without complications. The infant had spontaneous cry and the mouth and nose were bulb suctioned. The cord was clamped and cut and the infant was handed off to the awaiting pediatric nurse. A segment of the cord was collected for cord gases. The remaining cord blood was collected for typing. With pitocin infusing, the placenta delivered via manual removal without complications. The uterus was then cleared out of all clots and debris using a clean, moist lap. While the hysterotomy was being repaired in a running, interlocking fashion using 0 Vicryl, uterine atony was noted and 40 units of Pitocin was in the bag, and Methergine 0.2mg IM was give. A second layer imbricating suture was then made using 0 Vicryl. Two additional 0 Vicryl figure of eight stitches were placed on the right side of the hysterotomy, and it was found to be hemostatic and good uterine tone was noted. The bilateral adnexa were examined and found to be normal. The pelvis was cleared of all clots and fluid. The Mobius retractor was removed
[2024-05-01] MEDS: OXYTOCIN 30 UNITS/NS 500 ML 30 UNITS/500 ML BAG 125 UNITS IV CONT (07:36)
[2024-05-01] MEDS: HYDROcodone/acetaminophen (*CRX) 10-325 MG TABLET 1 TAB PO ×3 (08:26→20:36)
[2024-05-01] MEDS: MORPHINE SULFATE INJ (*CRX) 10 MG/ML AMP 2 MG IV PUSH (09:59)
--- NOTE | 2024-05-01 10:35 | PC.NURSE ---
0920 called to give report clarissa to call back. 0940 gave report on mother status. 1025 transferring patient to PP with significant other and baby to PP. Pt stable in PP room. tolerated transfer per stretcher well.
--- NOTE | 2024-05-01 11:03 | OBPPTRN ---
1010-Patient transferred to post room #290 via stretcher. Support person present. Oriented to unit, room, information board, rooming in, admission packet and security measures. Patient verbalizes understanding.
[2024-05-01] MEDS: POLYSACCHARIDE IRON COMPLEX 150 MG CAPSULE PO ×2 (11:35→17:30)
[2024-05-01] MEDS: AMPICILLIN 2 GM/NS 100 ML 2 GM/100 ML BAG IVPB ×2 (11:36→20:58)
[2024-05-01] MEDS: DOCUSATE SODIUM 100 MG CAPSULE PO ×2 (11:36→17:30)
[2024-05-01] MEDS: KETOROLAC 15 MG/ML VIAL (*BKC) IV PUSH ×2 (12:09→18:34)
[2024-05-01] MEDS: ACETAMINOPHEN 325 MG TABLET 650 MG PO ×2 (12:10→18:34)
[2024-05-01] MEDS: SIMETHICONE 80 MG TAB.CHEW PO ×2 (12:10→17:30)
[2024-05-01] MEDS: DEXTROSE 5%/0.45% SOD CHL 1,000 ML 125 ML IV CONT (13:25)
[2024-05-01] MEDS: IRON SUCROSE COMPLEX 400 MG, IRON SUCROSE COMPLEX 100 MG in SODIUM CHLORIDE 0.9% IV 250 ML 78.57 MG IVPB (15:02)
--- NOTE | 2024-05-01 18:33 | PC.NURSE ---
Upon entering room Patients iron infusion was not infusing and had approx. 50 mL left in bag. Infusion restarted at this time.
[2024-05-02] MEDS: ACETAMINOPHEN 325 MG TABLET 650 MG PO ×4 (00:56→20:38)
[2024-05-02] MEDS: KETOROLAC 15 MG/ML VIAL (*BKC) IV PUSH (00:56)
[2024-05-02] MEDS: BENZOCAINE/MENTHOL (*BKC) 18 EA LOZENGE 1 LOZENGE PO (00:56)
[2024-05-02 03:30] VITALS: BP 99/57; PULSE 79; RESP 18; TEMP 36.5; O2SAT 99
[2024-05-02] MEDS: HYDROcodone/acetaminophen (*CRX) 10-325 MG TABLET 1 TAB PO ×4 (03:30→22:43)
[2024-05-02 05:00] LABS: Basophils Absolute Auto 0.1 K/mm3 (0.0-0.1); Basophils Percent Auto 0.3 % (0.2-1.2); Eosinophils Absolute Auto 0.1 K/mm3 (0-0.3); Eosinophils Percent Auto 0.7 % (0-4.4); Hematocrit 24.9 % (37.0-47.0); Hemoglobin 7.7 g/dL (12.0-15.0); Immature Granulocyte Absolute 0.14 K/mm3 (0.00-0.031); Immature Granulocyte Percent A 0.9 % (0-0.5); Lymphocytes Absolute Auto 2.09 K/mm3 (0.9-3.2); Lymphocytes Percent Auto 13.9 % (18.3-44.2); Mean Corpuscular HGB Conc 30.9 g/dl (32-36); Mean Corpuscular Hemoglobin 24.1 pg (26-34); Mean Corpuscular Volume 78.1 fl (80-100); Monocytes Absolute Auto 1.2 K/mm3 (0.1-0.6); Monocytes Percent Auto 7.8 % (2.6-8.5); Neutrophils Absolute Auto 11.5 K/mm3 (1.3-6.7); Neutrophils Percent Auto 76.4 % (45.5-73.1); Platelet Count Result 348 k/mm3 (150-375); Red Blood Count 3.19 M/mm3 (4.2-5.4); Red Cell Distribution Width 14.9 % (11.5-14.5); White Blood Count 15.1 K/mm3 (4.5-10.0)
[2024-05-02 07:30] VITALS: BP 102/54; PULSE 87; RESP 18; TEMP 36.2; O2SAT 99
[2024-05-02] MEDS: MULTIVIT/MIN/PREN/FOL AC/IRON TABLET 1 TAB PO (09:24)
[2024-05-02] MEDS: IBUPROFEN 600 MG TABLET PO ×3 (09:24→20:38)
[2024-05-02] MEDS: POLYSACCHARIDE IRON COMPLEX 150 MG CAPSULE PO ×2 (09:24→18:58)
[2024-05-02] MEDS: DOCUSATE SODIUM 100 MG CAPSULE PO ×2 (09:25→18:58)
[2024-05-02] MEDS: SIMETHICONE 80 MG TAB.CHEW PO ×3 (09:25→18:58)
--- NOTE | 2024-05-02 09:25 | PM.OBPNVD ---
OB - PN: Subj Subjective Date/time seen: 05/02/24 08:12 Narrative: POD#1 Janessa reports doing ok today. 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 Her pain is controlled when taking the pain meds. She is tolerating regular diet and voided once since her catheter came out. She doesn't think she's passed gas yet and ambulated once to the bathroom; felt slightly dizzy, but not too bad. She denies any issues with her incision. She is bottle feeding. She has completed the antibiotics, no fevers. She also received the IV iron yesterday. OB - PN: Obj Data Labs 05/02/24 03:35 Labs: Laboratory Results - last 24 hr 05/02/24 03:35 WBC 15.1 H RBC 3.19 L Hgb 7.7 L Hct 24.9 L MCV 78.1 L MCH 24.1 L MCHC 30.9 L RDW 14.9 H Plt Count 348 MPV 10.0 Immature Gran % (Auto) 0.9 H Neut % (Auto) 76.4 H Lymph % (Auto) 13.9 L [place] % (Auto) 7.8 Eos % (Auto) 0.7 Baso % (Auto) 0.3 Lymph # (Auto) 2.09 [place] # (Auto) 1.2 H Eos # (Auto) 0.1 Baso # (Auto) 0.1 Abs Immat Gran (auto) 0.14 H Absolute Neuts (auto) 11.5 H Absolute Nucleated RBC 0.000 Nucleated RBC % 0.0 OB - PN A/P Assessment and Plan (1) S/P section: Code(s): Z98.891 - History of uterine scar from previous surgery Status: Acute (2) Chorioamnionitis: Qualifiers: Fetus number: single or unspecified fetus Trimester: third trimester Qualified Code(s): O41.1230 - Chorioamnionitis, third trimester, not applicable or unspecified Code(s): O41.1290 - Chorioamnionitis, unspecified trimester, not applicable or unspecified Status: Acute (3) Anemia: Qualifiers: Anemia type: other cause Other causes of anemia: acute posthemorrhagic Qualified Code(s): D62 - Acute posthemorrhagic anemia Code(s): D64.9 - Anemia, unspecified Status: Acute Plan day: 1 Plan: routine care Comments: - S/p antibiotics x 24 hours; afebrile, WBC downtrending - S/p Venofer 500mg IV once yesterday - PO pain meds - Regular diet - Ambulation and hydration encouraged Time Spent With Patient Time: Total time spent is greater than 50% in coordination of care (as documented) at patient's floor/unit and/or counseling patient: Review of Systems Constitutional: Constitutional: Denies chills, Denies fever(s) and Denies headache(s) Eyes: Eyes: Denies change in vision ENT: Denies dizziness and Denies headache(s) Cardiovascular: Cardiovascular: Denies chest pain, Denies palpitations and Denies dyspnea Respiratory: Respiratory: Denies cough and Denies dyspnea Gastrointestinal: Gastrointestinal: Denies nausea and Denies vomiting Genitourinary: Comments: normal bleeding Neurologic: Denies dizziness and Denies headache(s) Endocrine: Endocrine: Denies palpitations Exam Const: General: cooperative, comfortable, no acute distress and obese Orientation/consciousness: patient oriented x3 Resp: Effort & Inspection: normal respiratory effort Auscultation: clear to auscultation bilaterally Cardio: Rate: regular rate GI: Inspection: non-distended, incision (BARBARA dressing in place) and Pannus present GI Palp: Yes abdominal tenderness (appropriate) and Yes Soft to palpation Auscultation: normal bowel sounds : Other: fundus firm Skin: General skin exam: normal color Neuro: General: patient oriented x3 Extrem: General: normal to inspection Psych: Appearance: grossly normal Affect: normal affect Attitude: cooperative
--- NOTE | 2024-05-02 15:27 | WPDANLDPN2 ---
Anes-Prog Note L&D Date/Time: 05/02/24 15:27 Comfortable throughout: labor Neuraxial method: epidural Epidural/Spinal procedure site: clean & non-tender Neuro status: Neuro function grossly intact. Cardiovascular status: normal Respiratory status: normal Airway patency: baseline Mental status: baseline Post-Op hydration status: normal Vital Signs: Last Vital Signs Temp 36.2 C L 05/02/24 07:30 Pulse 87 05/02/24 07:30 Resp 18 05/02/24 07:30 BP 102/54 L 05/02/24 07:30 Pulse Ox 99 05/02/24 07:30 O2 Del Method Room Air 05/02/24 09:24 O2 Flow Rate 8 05/01/24 09:07 Pain score (VAS): 4/10 I/O: Intake & Output 05/01/24 05/02/24 05/02/24 23:59 07:59 15:59 Intake Total 2768.8 Output Total 3500 700 600 Balance -731.2 -700 -600 Post-procedural complaints: none Patient feedback: Patient satisfied with anesthetic care.
--- NOTE | 2024-05-02 15:27 | WPDANLDNPN2 ---
Anes-Prog Note L&D-Neuraxial Date/Time: 05/02/24 15:27 Neuraxial medications: epidural PF morphine Opiod-related complaints: none Patient feedback: Patient satisfied with post-operative pain management.
--- NOTE | 2024-05-02 15:28 | WPDANESPN ---
Anes - Prog Note Post-Op Date/Time: 05/02/24 15:28 Cardiovascular status: other (anemia) Respiratory status: normal Airway patency: baseline Mental status: baseline Post-Op hydration status: normal Vital Signs: Last Vital Signs Temp 36.2 C L 05/02/24 07:30 Pulse 87 05/02/24 07:30 Resp 18 05/02/24 07:30 BP 102/54 L 05/02/24 07:30 Pulse Ox 99 05/02/24 07:30 O2 Del Method Room Air 05/02/24 09:24 O2 Flow Rate 8 05/01/24 09:07 Pain Score (VAS): 09/26 I/O: Intake & Output 05/01/24 05/02/24 05/02/24 23:59 07:59 15:59 Intake Total 2768.8 Output Total 3500 700 600 Balance -731.2 -700 -600 Laboratory Tests 05/02/24 03:35 05/02/24 03:35 WBC 15.1 H RBC 3.19 L Hgb 7.7 L Hct 24.9 L MCV 78.1 L MCH 24.1 L MCHC 30.9 L RDW 14.9 H Plt Count 348 MPV 10.0 Immature Gran % (Auto) 0.9 H Neut % (Auto) 76.4 H Lymph % (Auto) 13.9 L [place] % (Auto) 7.8 Eos % (Auto) 0.7 Baso % (Auto) 0.3 Lymph # (Auto) 2.09 [place] # (Auto) 1.2 H Eos # (Auto) 0.1 Baso # (Auto) 0.1 Abs Immat Gran (auto) 0.14 H Absolute Neuts (auto) 11.5 H Absolute Nucleated RBC 0.000 Nucleated RBC % 0.0 Post-procedural complaints: none Patient Feedback: Patient satisfied with anesthetic care.
[2024-05-02 19:00] VITALS: BP 111/64; PULSE 94; RESP 14; TEMP 36.4; O2SAT 100
[2024-05-03] MEDS: IBUPROFEN 600 MG TABLET PO ×3 (02:38→15:20)
[2024-05-03] MEDS: ACETAMINOPHEN 325 MG TABLET 650 MG PO (02:38)
[2024-05-03] MEDS: HYDROcodone/acetaminophen (*CRX) 10-325 MG TABLET 1 TAB PO (04:50)
[2024-05-03 05:45] LABS: Mean Corpuscular HGB Conc 30.7 g/dl (32-36); Mean Corpuscular Hemoglobin 24.3 pg (26-34); Mean Corpuscular Volume 79.2 fl (80-100); Mean Platelet Volume 9.7 fl (7.4-10.4); Platelet Count Result 354 k/mm3 (150-375); Red Blood Count 2.59 M/mm3 (4.2-5.4); Red Cell Distribution Width 15.3 % (11.5-14.5); White Blood Count 13.1 K/mm3 (4.5-10.0)
[2024-05-03 05:49] LABS: Hematocrit 20.5 % (37.0-47.0); Hemoglobin 6.3 g/dL (12.0-15.0)
--- NOTE | 2024-05-03 07:14 | PM.OBPNVD ---
OB - PN: Subj Subjective Date/time seen: 05/03/24 07:14 Narrative: POD#2 Janessa reports doing well today. 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 Her pain is controlled with PO pain meds. She is tolerating regular diet, voiding, passing gas, and ambulating without issues. She denies any issues with her incision. She is bottle feeding. Will be getting a unit of blood today as her hemoglobin dropped down to 6.3-- feeling tired/weak, palpitations when walking. OB - PN: Obj Data Labs 05/03/24 04:37 Labs: Laboratory Results - last 24 hr 05/03/24 04:37 WBC 13.1 H RBC 2.59 L Hgb 6.3 L* Hct 20.5 L* MCV 79.2 L MCH 24.3 L MCHC 30.7 L RDW 15.3 H Plt Count 354 MPV 9.7 OB - PN A/P Assessment and Plan (1) S/P section: Code(s): Z98.891 - History of uterine scar from previous surgery Status: Acute (2) Chorioamnionitis: Qualifiers: Fetus number: single or unspecified fetus Trimester: third trimester Qualified Code(s): O41.1230 - Chorioamnionitis, third trimester, not applicable or unspecified Code(s): O41.1290 - Chorioamnionitis, unspecified trimester, not applicable or unspecified Status: Acute (3) Anemia: Qualifiers: Anemia type: other cause Other causes of anemia: acute posthemorrhagic Qualified Code(s): D62 - Acute posthemorrhagic anemia Code(s): D64.9 - Anemia, unspecified Status: Acute Plan day: 2 Plan: routine care and discharge home (this PM) Comments: - PO pain meds - Regular diet - Ambulation and hydration encouraged - s/p venofer 500mg IV; but H/H dropped further today, will give 1u pRBC - s/p antibiotics and afebrile; WBC 25 --> 15 --> 13 - Pelvic rest; take meds as prescribed; no heavy lifting over 15lbs; incision check/dressing removal 1wk - ER return precautions: fever, n/v/abd pain, bleeding, HTN - D/c this PM after blood transfusion Time Spent With Patient Time: Total time spent is greater than 50% in coordination of care (as documented) at patient's floor/unit and/or counseling patient: Review of Systems Constitutional: Constitutional: Denies chills, Denies fever(s) and Denies headache(s) Eyes: Eyes: Denies change in vision ENT: Denies dizziness and Denies headache(s) Cardiovascular: Cardiovascular: Denies chest pain, Denies palpitations and Denies dyspnea Respiratory: Respiratory: Denies cough and Denies dyspnea Gastrointestinal: Gastrointestinal: Denies nausea and Denies vomiting Genitourinary: Comments: normal bleeding Neurologic: Denies dizziness and Denies headache(s) Endocrine: Endocrine: Denies palpitations Exam Const: General: cooperative, comfortable and no acute distress Nutritional Appearance: obese morbidly obese Orientation/consciousness: patient oriented x3 Resp: Effort & Inspection: normal respiratory effort Auscultation: clear to auscultation bilaterally Cardio: Rate: regular rate GI: Inspection: non-distended and incision (BARBARA dressing) GI Palp: Yes abdominal tenderness (appropriate) and Yes Soft to palpation Auscultation: normal bowel sounds : Other: fundus firm Skin: General skin exam: normal color Neuro: General: patient oriented x3 Extrem: General: normal to inspection Psych: Appearance: grossly normal Affect: normal affect Attitude: cooperative
--- NOTE | 2024-05-03 07:42 | PM.OBDSVD ---
DS: Admitting Diagnosis Discharge Date 05/03/24 Admitting Diagnosis Induction of labor DS: Discharge Diagnosis Discharge Diagnosis (1) S/P section: Code(s): Z98.891 - History of uterine scar from previous surgery Status: Acute (2) Chorioamnionitis: Qualifiers: Fetus number: single or unspecified fetus Trimester: third trimester Qualified Code(s): O41.1230 - Chorioamnionitis, third trimester, not applicable or unspecified Code(s): O41.1290 - Chorioamnionitis, unspecified trimester, not applicable or unspecified Status: Acute (3) Anemia: Qualifiers: Anemia type: other cause Other causes of anemia: acute posthemorrhagic Qualified Code(s): D62 - Acute posthemorrhagic anemia Code(s): D64.9 - Anemia, unspecified Status: Acute OB - DS: Summary OB Procedures : NST, PIH Mgmt and Ultrasound OB Procedures Intrapartum: low cervical, transverse OB Procedures: : Transfusion (x 1u pRBC), Antibiotics and Other (venofer 500mg IV) Peripartum Data Infant Delivery Method: Section Procedures: Procedures Operation Date: 05/01/24 05:00 Actual Procedure Side Surgeon p Section Ning Cadet MD complications: none 1: Gender: Female Disposition of : home Status at Discharge Functional status at discharge: independent ambulation Overall status at discharge: patient is back to baseline Time Spent with Patient Time attestation: Total time spent providing and/or coordinating discharge services: Exam Const: General: cooperative, comfortable and no acute distress Nutritional Appearance: obese morbidly obese Orientation/consciousness: patient oriented x3 Resp: Effort & Inspection: normal respiratory effort Auscultation: clear to auscultation bilaterally Cardio: Rate: regular rate GI: Inspection: non-distended and incision (BARBARA dressing) GI Palp: No abdominal tenderness and Yes Soft to palpation Auscultation: normal bowel sounds : Other: fundus firm Skin: General skin exam: normal color Neuro: General: patient oriented x3 Extrem: General: normal to inspection Psych: Appearance: grossly normal Affect: normal affect Attitude: cooperative DS: Data Data Completed and Pending Pending studies at discharge: Pending at discharge 05/01/24 06:51 Surgical [PTH] Routine Labs on day of discharge: Labs from last 24 hours 05/03/24 04:37 WBC 13.1 H RBC 2.59 L Hgb 6.3 L* Hct 20.5 L* MCV 79.2 L MCH 24.3 L MCHC 30.7 L RDW 15.3 H Plt Count 354 MPV 9.7 Discharge Plan Discharge Attending physician on discharge: Ning Cadet Discharging Clinician: Ning Cadet Anticipated Discharge Date/Time: 05/03/24 16:00 Patient Disposition: Home, Self-Care Activity: may shower and pelvic rest Diet: regular Wound Care Instructions: other - see discharge instructions Discharge Instructions: No lifting over 15 pounds for 6 weeks. Follow up in clinic on 05/09/24 for dressing removal; call with any issues with dressing. Patient Instructions: (DC) Stand Alone Forms: General Discharge Information Follow-up/Referrals: Ning Cadet MD [Physician] - Other (Dressing removal in 1 week. visit in 4 weeks. ) Discharge Medications: New acetaminophen 325 mg Tablet 650 mg PO Q6H Qty: 60 0RF hydrocodone-acetaminophen 5-325 mg Tablet 1 tablet PO Q3H PRN (Reason: Breakthrough Pain Rated 4-6) Qty: 20 0RF docusate sodium 100 mg Capsule 100 mg PO BID Qty: 90 0RF ibuprofen 600 mg Tablet 600 mg PO Q6H Qty: 40 0RF Continued metoclopramide HCl [Reglan] 10 mg tablet 10 mg PO Q6H PRN (Reason: nausea and vomiting) Qty: 40 6RF Classic 28 mg iron- 800 mcg tablet 1 tablet PO DAILY ferrous sulfate 325 mg (65 mg iron) Tablet 325 mg PO DAILY ergocal
[2024-05-03] MEDS: SODIUM CHLORIDE 0.9% IV 250 ML 30 ML IV CONT (08:00)
[2024-05-03] MEDS: ACETAMINOPHEN 500 MG TABLET 1000 MG PO (08:02)
[2024-05-03] MEDS: diphenhydrAMINE HCl CAP 25 MG CAPSULE PO (08:04)
[2024-05-03] MEDS: POLYSACCHARIDE IRON COMPLEX 150 MG CAPSULE PO (08:04)
[2024-05-03] MEDS: SIMETHICONE 80 MG TAB.CHEW PO ×2 (08:04→12:00)
[2024-05-03 08:12] VITALS: BP 103/62; PULSE 75; RESP 22; TEMP 36.4; O2SAT 99
[2024-05-03] MEDS: TUBING, BLOOD PLUM PUMP TUBING 1 EACH XX (08:15)
[2024-05-03 08:34] VITALS: BP 91/54; PULSE 74; RESP 20; TEMP 36.6; O2SAT 100
[2024-05-03 09:34] VITALS: BP 94/55; PULSE 81; RESP 20; TEMP 36.4; O2SAT 100
[2024-05-03] MEDS: DOCUSATE SODIUM 100 MG CAPSULE PO (09:41)
[2024-05-03] MEDS: MULTIVIT/MIN/PREN/FOL AC/IRON TABLET 1 TAB PO (09:41)
[2024-05-03 10:34] VITALS: BP 93/58; PULSE 89; RESP 20; TEMP 36.6; O2SAT 100
[2024-05-03 10:53] VITALS: BP 86/55; PULSE 83; RESP 20; TEMP 36.6; O2SAT 100
[2024-05-03] MEDS: oxyCODONE HCL (*CRX) 5 MG TAB IR PO (12:00)
[2024-05-03 12:14] VITALS: BP 102/64; PULSE 69; RESP 20; O2SAT 99
--- NOTE | 2024-05-03 12:15 | PC.NURSE ---
Explained to pt that this RN spoke with MD and MD suggested that pain is likely gas in the abdomen that her body will need to absorb and this can be painful but typically diminishes within a few days. Further expressed to patient that when she goes home if pain were to worsen or if she were to become SOB to go to the emergency room. Pt verbalized understanding.
[2024-05-04 09:32] VITALS: BP 114/63; PULSE 68; RESP 18; TEMP 36.7; O2SAT 100
== END 2024-05-03 15:42 | disposition home or self-care (01) | DRG 540 ==
LOC: ANHLDR 05-01 06:33 → ANHOB2 05-01 10:39
PROVIDERS: Admitting Provider Obstetrics & Gynecology; PCP Family Medicine; Visit Provider Obstetrics & Gynecology
PROC: 10D00Z1 Extraction of Products of Conception, Low, Open Approach (ICD-10-PCS; CPT 59514; principal; 2024-05-01 05:00)
DX: O62.0 Primary inadequate contractions (principal); O10.92 Unspecified pre-existing hypertension complicating childbirth; O99.214 Obesity complicating childbirth; O99.52 Diseases of the respiratory system complicating childbirth; O99.344 Other mental disorders complicating childbirth; F41.8 Other specified anxiety disorders; O36.63X0 Maternal care for excessive fetal growth, third trimester, not applicable or unspecified; E66.01 Morbid (severe) obesity due to excess calories; O41.1230 Chorioamnionitis, third trimester, not applicable or unspecified; O99.02 Anemia complicating childbirth; Z3A.39 39 weeks gestation of pregnancy; Z37.0 Single live birth; J45.909 Unspecified asthma, uncomplicated; Z86.16 Personal history of COVID-19; D62 Acute posthemorrhagic anemia
CPT/HCPCS: 36415; 36430; 85025; 85027; 85384; 85610; 85730; 86592; 86703; 86850; 86900; 86901; 86923; 88307; A9270; G0432; J0290; J0330; J1200; J1580; J1756; J1885; J2004; J2210; J2270; J2274; J2371; J2405; J2590; J2704; J2795; J7050; J7120; P9016

== ENCOUNTER 2024-06-01 19:22 | Emergency (ER) | payer OTHER, SELFPAY ==
[2024-06-01 19:25] VITALS: BP 131/97; PULSE 114; RESP 15; TEMP 37.1; O2SAT 99
--- NOTE | 2024-06-01 20:33 | PC.NURSE ---
Patient came up to triage desk and advised that she will be leaving. Patient left ED with a steady gait.
== END 2024-06-01 21:15 | disposition left against medical advice (07) ==
PROVIDERS: PCP Family Medicine
DX: R50.9 Fever, unspecified (principal)
CPT/HCPCS: 99199

== ENCOUNTER 2024-06-02 08:29 | Emergency (ER) | payer OTHER, SELFPAY ==
--- NOTE | ~2024-06-02 | CT_ITS ---
EXAMINATION: CTA chest PE protocol DATE: 06/02/2024 10:07 INDICATION: Pleuritic chest pain. Shortness of breath. TECHNIQUE: Computed tomography angiography (CTA) of the chest was performed with 100 mL Omnipaque-350 intravenous contrast timed to evaluate the pulmonary arteries. Coronal maximum intensity projection 3D-reconstructions were created by the technologist. Automated exposure control and iterative reconst ruction technique were employed. The dose-length product was 879.42 mGy-cm. COMPARISON: None. FINDINGS: The lungs demonstrate mild atelectasis. No pleural effusion. Cardiomegaly is noted. No srinivas cardial effusion. There is no pulmonary embolus. There is mild splenomegaly. There is mild thoracic s pondylosis. IMPRESSION: 1. No pulmonary embolus. Reviewed, dictated and finalized at location A. ING INSPECTOR IMPRESSION: 1. No pulmonary embolus.
--- NOTE | ~2024-06-02 | CT_ITS ---
EXAMINATION: CT abdomen pelvis w con DATE: 06/02/2024 09:31 INDICATION: fever and abdominal pain TECHNIQUE: Computed tomography (CT) of the abdomen and pelvis was performed with 100 mL Omnipaque-350 intravenous contrast. Automated exposure control and iterative reconstruction technique were employe d. The dose-length product was 1606.40 mGy-cm. COMPARISON: None FINDINGS: Lung bases are clear. Heart size is normal. No pericardial or pleural effusion. Liver, gallbladder, s pleen, pancreas, bilateral adrenal glands and kidneys are normal. Anteverted, retroflexed uterus with hypodense section scar along the anterior lower uterine segment. Bladder and bilateral adne xa are unremarkable. Normal appendix. Nonspecific 6.8 x 5.3 x 5.5 cm multiloculated cystic lesion with relatively thin wal l and internal septations contacting without intervening fat plane the anterior tip of the coccyx and the posterior wall of the rectum upon which it exerts some mass effect. No associated inflammatory s tranding in the immediately adjacent fat which would argue against abscess. No evident solid soft tis madhavi component to elevate suspicion for malignancy. Bowels are otherwise unremarkable. No free intraperitoneal gas or fluid. No pathologically enlarged abdominal or pelvic lymphadenopathy. Mild lumbar and lower thoracic spondylosis. IMPRESSION: 1. Nonspecific 6.8 x 5.3 x 5.5 cm thin-walled retrorectus cystic lesion without evident solid soft ti ssue component. Differential would include an attempt at cyst, teratoma/epidermoid cyst, abscess, rec elida duplication cyst, rectal mucinous adenocarcinoma, meningomyelocele or well differentiated neurobl astoma. Consider further evaluation with pre and postcontrast MRI Reviewed, dictated and finalized at location B. ARIAN IMPRESSION: 1. Nonspecific 6.8 x 5.3 x 5.5 cm thin-walled retrorectus cystic lesion without evident solid soft tissue component. Differential would include an attempt at cyst, teratoma/epidermoid cyst, abscess, rectal duplication cyst, rectal mucino us adenocarcinoma, meningomyelocele or well differentiated neuroblastoma. Consi smitha further evaluation with pre and postcontrast MRI
--- NOTE | ~2024-06-02 | US_ITS ---
EXAMINATION: US transvaginal DATE: 06/02/2024 14:59 INDICATION: fever and pain. TECHNIQUE: Multiple transvaginal sonographic images of the pelvis were obtained. COMPARISON: CT abdomen and pelvis 06/02/2024 FINDINGS: The uterus measures 10.1 x 4.6 x 6.9 cm. There is no free fluid in the pelvis. The endometrial comple x measures 13 mm in thickness with increased vascular flow. The right ovary is not visualized. The le ft ovary measures 3.2 x 2.0 x 1.9 cm. There is normal vascular flow in left ovary. IMPRESSION: 1. Thickened endometrial complex suspicious for retained products of conception. Reviewed, dictated and finalized at location A. LY AND DIVORCE LEGAL ASSISTANT IMPRESSION: 1. Thickened endometrial complex suspicious for retained products of conception .
--- NOTE | ~2024-06-02 | XR_ITS ---
EXAMINATION: XR chest 2V DATE: 06/02/2024 09:35 INDICATION: fever. Chest pain. Shortness of breath. TECHNIQUE: Frontal and lateral views of the chest were obtained. COMPARISON: Chest 2 views 03/03/2024, CT abdomen and pelvis 06/02/2024 FINDINGS: There is no pneumonia, pleural effusion, or pneumothorax. The heart size is normal. IMPRESSION: 1. No acute cardiopulmonary disease. Reviewed, dictated and finalized at location A. SMISSION WORKER
[2024-06-02 08:33] VITALS: BP 140/89; PULSE 83; RESP 14; TEMP 37.1; O2SAT 100
[2024-06-02 08:48] LABS: BEDSIDEPREGUCG Negative (Negative)
[2024-06-02 08:56] LABS: Basophils Percent Auto 0.9 % (0.2-1.2); Eosinophils Percent Auto 0.9 % (0-4.4); Hematocrit 37.6 % (37.0-47.0); Hemoglobin 12.1 g/dL (12.0-15.0); Immature Granulocyte Absolute 0.01 K/mm3 (0.00-0.031); Immature Granulocyte Percent A 0.3 % (0-0.5); Lymphocytes Percent Auto 24.8 % (18.3-44.2); Mean Corpuscular HGB Conc 32.2 g/dl (32-36); Mean Corpuscular Hemoglobin 25.2 pg (26-34); Mean Corpuscular Volume 78.3 fl (80-100); Mean Platelet Volume 9.1 fl (7.4-10.4); Monocytes Absolute Auto 0.4 K/mm3 (0.1-0.6); Monocytes Percent Auto 11.2 % (2.6-8.5); Neutrophils Percent Auto 61.9 % (45.5-73.1); Platelet Count Result 183 k/mm3 (150-375); Red Cell Distribution Width 15.3 % (11.5-14.5); White Blood Count 3.2 K/mm3 (4.5-10.0)
[2024-06-02 09:02] LABS: Add Urine Microscopic? YES; Appearance Urine Cloudy (Clear); Bacteria Urine None Seen /hpf; Bilirubin Urine Negative (Negative); Blood Urine 1+ (Negative); Color Urine Yellow (Yellow); Glucose Urine UA Negative (Negative); Ketones Urine Negative (Negative); Leukocyte Esterase Ur 1+ LEU/UL (Negative); Nitrate Urine Negative (Negative); Non Pathogenic Casts 0-2; Protein Urine Trace mg/dL (Negative); Specific Grav Ur 1.019 (1.001-1.035); Squamous Epithelial Cell Urine Occasional /hpf (Few); Urobilinogen Urine 0.2 mg/dL (<2.0)
[2024-06-02 09:07] LABS: Alanine Aminotransferase 53 U/L (6-35); Albumin Level 4.1 g/dL (3.5-5.1); Alkaline Phosphatase 104 U/L (38-126); Anion Gap 8 mmol/L (4-12); Aspartate Amino Transferase 72 U/L (14-36); Bilirubin,Total 0.5 mg/dL (0.2-1.3); Blood Urea Nitrogen 12 mg/dL (7-17); Calcium 8.8 mg/dL (8.4-10.2); Carbon Dioxide 24 mmol/L (22-30); Chloride 103 mmol/L (98-107); Estimated CRCL calculation 118 ml/min; Estimated Glomerular Filt Rate > 60; Glucose 104 mg/dL (65-110); Lipase 156 U/L (23-300); Sodium 135 mmol/L (137-145)
--- NOTE | 2024-06-02 09:10 | ED_ITS ---
HPI - Abdominal Pain General Chief Complaint: Abdominal Pain Stated Complaint: fever, abd/back pain, 4 weeks post Time Seen by Provider: 06/02/24 08:39 Source: patient Mode of arrival: ambulatory Limitations: no limitations History of Present Illness HPI narrative: Patient Is a 19-year-old 012 female who presents with abdominal pain and right-sided back pain as well as fevers. Her fever has been going on for the past 3 days and has been as high as 104.0? F. she is 4 weeks from emergency after being in labor for 36 hours With a 10 lb baby. no cough. she is experiencing shortness of breath as well as pleuritic chest pain. she took Motrin at 7:00 a.m. this morning and rates her pain 7/10 severity. OB Gyne doctor Milagros Cadet. she did require a blood transfusion postoperatively. She has had some scant vaginal bleeding although describes it as lochia and otherwise dark blood without gross hemorrhage or clots. She also notes that she had an infection when her water broke this complicated her delivery. Related Data Home Medications Medication Instructions Recorded Confirmed vits no.[id number]-ferrous fum 1 tablet PO DAILY 09/23/23 06/01/24 28 mg iron-folic acid 800 mcg tablet (Classic ) ferrous sulfate 325 mg (65 mg 325 mg PO DAILY 03/03/24 06/01/24 iron) tablet Allergies Allergy/AdvReac Type Severity Reaction Status Date / Time nitrofurantoin Allergy Hives Verified 06/01/24 11:21 [From Macrobid] [facility] Past Medical History Medical History Acute sore throat Asthma Contraception management Dyspareunia Ear pain, right Elevated serum creatinine Encounter for elective induction of labor Encounter for imaging to assess thyroid enlargement Encounter for incision and drainage procedure Essential (primary) hypertension Fainting Fatigue Initiation of Depo Provera Irregular menstrual cycle Morbid obesity Morbid obesity with BMI of 50.0-59.9, adult Normal vaginal delivery Obesity affecting in third trimester Perirectal abscess (~05/2019) I&D depression and not yet delivered Suppression of menses Surveillance for Depo-Provera contraception Tonsillectomy planned Vaginal delivery 09/11/21 Vaginal discharge during Weight gain with edema Surgical History Surgical History Delivery by section (05/01/24) History of tonsillectomy (~2009) Family History Family History Grandparent Diabetes mellitus paternal grandmother Hypertension Thyroid disorder Mother Depression Grandparent Diabetes mellitus Other No pertinent family history Social History Social History (Updated 06/02/24 @ 09:51 by Lola Gustafson MD) Smoking status: Never smoker Alcohol intake: never Substance use: never Do You Feel Safe in your Home?: Yes Lack of Transportation: No Lack of Food: Never True Current Housing: Decline to Answer Concerned About Future Housing: Decline to Answer Difficulty Paying Gas/Electric Bills: Decline to Answer Difficulty Paying for Meds: Decline to Answer Currently Unemployed: Decline to Answer Education: Decline to Answer Difficulty w/ Childcare or Family Care: Decline to Answer Living arrangements: with family Additional living arrangements comments: daughter Occupation/Education: occupation Gender identity (if verbalized by the patient): Female Sexual Orientation (if Verbalized by the Patient): Straight or Heterosexual Spiritual care concerns: No Exam Narrative: GENERAL: Well-appearing, well-nourished, and in no acute distress. HEAD: Normocephalic, atraumatic. EYES: Non injected, non icteric ENT: Nares clear, no rhinorrhea or epistaxis. BREAST: Normal breasts. No evidence of nipple discharge or erythema. Patient does have a slight subcentimeter abrasion under left breast but otherwise without bleeding or signs of infection. No induration NECK: Supple. CHEST: Speaking in full sentences. No respiratory distress. lungs clear to auscultation bilaterally. HEART: Regular rate and rhythm. ABDOMEN: Soft, nondistended. Mild tenderness to palpation in the suprapubic area as well as left and right lower quadrants without rigidity or guarding. Not peritoneal. Caesarean section incision site intact and without purulent discharge, overlying skin changes suggesting infection/induration/abscess : no CVA tenderness. normal external female genitalia. no bullae or crepitus Or induration. normal vaginal mucosa. Scant white vaginal discharge. Normal perineum. EXTREMITIES: Normal range of motion. SKIN: Warm, dry, no rash. NEURO: No focal deficits. Alert and oriented x3. PSYCH: Normal mood and affect. Course Vital Signs Vital signs: Vital Signs Temperature 98.7 F 06/02/24 08:33 Pulse Rate 83 06/02/24 08:33 Respiratory Rate 14 06/02/24 08:33 Blood Pressure 140/89 06/02/24 08:33 Pulse Oximetry 100 06/02/24 08:33 Oxygen Delivery Room Air 06/02/24 08:33 Temperature 98.1 F 06/02/24 15:42 Pulse Rate 76 06/02/24 15:42 Respiratory Rate 16 06/02/24 15:42 Blood Pressure 121/76 06/02/24 15:42 Pulse Oximetry 99 06/02/24 15:42 Oxygen Delivery Room Air 06/02/24 08:52 MDM - Abdominal Pain MDM Narrative Medical decision making narrative: Patient presents with abdominal and back pain as well as fevers for the past 3 days. She is 6 weeks from section. She has had normal lochia. She is also having shortness of breath and pleuritic chest pain. In the emergency department they are afebrile with vital signs within normal limits. Patient had taken Motrin prior to arrival. DIFFERENTIAL DIAGNOSIS Late peurperal fever (>48 hours but <6 weeks after delivery) diagnoses may include uterine pelvic infections, abdominal and perineal wound infections, breast infections, or thrombophlebitis. Also considered post-op/hospital acquired pneumonia, pulmonary embolism, UTI/pyelonephritis. Lower abdominal pain is nonspecific and might represent inflammation retained placental products and persistent contractions. Considered endometritis. No evidence of cellulitis, necrotizing fasciitis or dehiscence. Mastitis can present with fever, fatigue, and URI symptoms but breasts appear normal and patient has no complaints of pain; not . Considered post /hospital acquired pneumonia or acute viral syndrome. PE also on the differential. Will order a CBC, urinalysis, and blood cultures; also Chest x-ray. Patient has leukopenia. She previously had leukocytosis. Her hemoglobin/ hematocrit is greatly improved from previous (after transfusion). Dimer is elevated so will proceed with CT imaging to assess for pulmonary embolism given she is still at risk / hypercoagulable. Patient's urinalysis without bacteria but with 1+ leukocyte esterase and some white blood cells. although her urinalysis showed no bacteria, there was leukocyte esterase and some white blood cells. Out of an abundance of precaution will treat as urinary tract infection and furthermore as a pyelonephritis given she has some suprapubic tenderness and is complaining of back pain. 1st dose of antibiotic received in the emergency department Discussed patient with her Ob Gyne doctor Ning Cadet. She notes patient did not mention fever at her post appointment yesterday. I did further discuss the CT findings with radiologist Dr. Hilton Coker who confirms this is a nonspecific finding behind the rectum. Further discussed with Dr. Pérez who recommended follow-up in his office once MRI obtained. Discussed with Dr. Ning Cadet once more. Order for MRI placed under her name with the results to be CC for her. is also aware of the read of the ultrasound as possible retained products of conception however she performed the herself and is less suspicious for this and feels it is probably more related to a clot and in addition because it is less than 3 cm less concerning for retained POC Especially since vaginal bleeding has been normal/scant though she did advise patient strict emergency department return precautions. Discussed all this with the patient she verifies understanding. Stable for discharge. Medical Records Attestation: I reviewed the patient's medical records. Medical records narrative: Patient had appointment with her Ob Gyne yesterday, Dr. Ning Cadet who noted s/p pLTCS on 05/01/24, due to arrest of active phase. She also had pre-operative anemia and after surgery, required blood transfusion of 1u pRBC. Lab Data Attestation: I reviewed the patient's lab results. Lab results narrative: Mild AST and ALT elevation 06/02/24 08:49 06/02/24 08:49 Labs: Lab Results 06/02/24 06/02/24 06/02/24 Range/Units 08:47 08:49 10:47 WBC 3.2 L (4.5-10.0) K/mm3 RBC 4.80 (4.2-5.4) M/mm3 Hgb 12.1 D (12.0-15.0) g/dL Hct 37.6 (37.0-47.0) % MCV 78.3 L (80-100) fl MCH 25.2 L (26-34) pg MCHC 32.2 (32-36) g/dl RDW 15.3 H (11.5-14.5) % Plt Count 183 (150-375) k/mm3 MPV 9.1 (7.4-10.4) fl Immature Gran % (Auto) 0.3 (0-0.5) % Neut % (Auto) 61.9 (45.5-73.1) % Lymph % (Auto) 24.8 (18.3-44.2) % [place] % (Auto) 11.2 H (2.6-8.5) % Eos % (Auto) 0.9 (0-4.4) % Baso % (Auto) 0.9 (0.2-1.2) % Lymph # (Auto) 0.80 L (0.9-3.2) K/mm3 [place] # (Auto) 0.4 (0.1-0.6) K/mm3 Eos # (Auto) 0.0 (0-0.3) K/mm3 Baso # (Auto) 0.0 (0.0-0.1) K/mm3 Abs Immat Gran (auto) 0.01 (0.00-0.031) K/mm3 Absolute Neuts (auto) 2.0 (1.3-6.7) K/mm3 Absolute Nucleated RBC 0.000 (0.0-0.012) K/mm3 Nucleated RBC % 0.0 (0.0-0.2) % D-Dimer 6.96 H (<0.48) ug/mL Sodium 135 L (137-145) mmol/L Potassium 4.0 (3.4-5.0) mmol/L Chloride 103 (98-107) mmol/L Carbon Dioxide 24 (22-30) mmol/L Anion Gap 8 (4-12) mmol/L BUN 12 (7-17) mg/dL Creatinine 0.90 (0.7-1.0) mg/dL Estim Creat Clear Calc 118 ml/min Estimated GFR > 60 (59 - ) Glucose 104 (65-110) mg/dL Calcium 8.8 (8.4-10.2) mg/dL Total Bilirubin 0.5 (0.2-1.3) mg/dL AST 72 H (14-36) U/L ALT 53 H (6-35) U/L Alkaline Phosphatase 104 (38-126) U/L Total Protein 8.0 (6.3-8.2) g/dL Albumin 4.1 (3.5-5.1) g/dL Lipase 156 (23-300) U/L Urine Color Yellow (Yellow) Urine Appearance Cloudy H (Clear) Urine pH 6.0 (5.0-9.0) Ur Specific [place] 1.019 (1.001-1.035) Urine Protein Trace (Negative) mg/dL Urine Glucose (UA) Negative (Negative) mg/dL Urine Ketones Negative (Negative) mg/dL Ur Blood (Man) 1+ H (Negative) Urine Nitrate Negative (Negative) Urine Bilirubin Negative (Negative) Urine Urobilinogen 0.2 (<2.0) mg/dL Leukocyte Esterase Rfl 1+ H (Negative) [place]AR/UL Urine RBC 3-5 H (0-2) /hpf Urine WBC 11-20 H (0-3) /hpf Ur Squamous Epith Cells Occasional (Few) /hpf Urine Bacteria None seen /hpf Urine Casts 0-2 POC Urine HCG, Qual Negative (Negative) Influenza A (RT-PCR) Negative (Negative) Influenza B (RT-PCR) Negative (Negative) RSV (RT-PCR) Negative (Negative) SARS-CoV-2 RNA (RT-PCR) Negative (Negative) Imaging Data Radiologist's impression: ITS Impressions Abdomen/Pelvis CT 06/02/24 09:33 IMPRESSION: 1. Nonspecific 6.8 x 5.3 x 5.5 cm thin-walled retrorectus cystic lesion without evident solid soft tissue component. Differential would include an attempt at cyst, teratoma/epidermoid cyst, abscess, rectal duplication cyst, rectal mucinous adenocarcinoma, meningomyelocele or well differentiated neuroblastoma. Consider further evaluation with pre and postcontrast MRI Chest X-Ray 06/02/24 09:42 IMPRESSION: 1. No acute cardiopulmonary disease. Chest CTA 06/02/24 10:08 IMPRESSION: 1. No pulmonary embolus. Transvaginal US 06/02/24 15:10 IMPRESSION: 1. Thickened endometrial complex suspicious for retained products of conception. ECG Data EKG #1: Attestation: I personally reviewed and interpreted this ECG as follows: ECG completion date: 06/02/24 ECG completion time: 10:20 Interpretation: Normal sinus rhythm at a rate of 70 beats per minute. UT interval 167. QRS 110. QT/ QTC 391/412. T-wave inversion in lead 3 but otherwise upright or flat in contiguous inferior leads. Also a T-wave inversion in V3. Discharge Plan Discharge Clinical Impression: fever, pain, Leukopenia, Elevated AST (SGOT), Elevated ALT measurement, Abnormal urinalysis, Abnormal CT of the abdomen, Abnormal CT scan, pelvis Patient Disposition: Home, Self-Care Condition: Stable Instructions: Antibiotic Form, Kidney Infection (ED), Magnetic Resonance Imaging (ED) Additional Instructions: Your urinalysis showed some signs of an infection and, given her symptoms, reasonable to treat as a urinary tract infection that might of ascended to your kidneys and become a kidney infection/pyelonephritis. you received the 1st dose of antibiotics in the emergency department for the rest of the course prescribed. Given the findings on your CT scan of a Nonspecific thin-walled cystic lesion behind your rectum, the recommendation was that you receive an MRI. this was discussed with your Ob Gyne as well as a general surgeon. You can then follow- up with Dr. Pérez after this is performed. He has clinic on Mondays and so call for an appointment . it is safe to take acetaminophen with ibuprofen as prescribed for both fever and pain. Return to the emergency department with any new or worsening symptoms such as fever persisting despite taking medication, intractable pain, intractable nausea or vomiting, fainting or feeling like you might pass out, or vaginal bleeding saturating 2 maxi pads/hour for 2-3 hours, etc. Prescriptions: New acetaminophen 650 mg tablet extended release 650 mg PO Q8H PRN (Reason: pain) Qty: 30 0RF ibuprofen 600 mg tablet 600 mg PO TID PRN (Reason: pain) Qty: 30 0RF sulfamethoxazole-trimethoprim [Bactrim DS] 800-160 mg tablet 1 tablet PO Q12H 12 Days Qty: 24 0RF Rx Instructions: begin 06/03; first dose received in ED 06/02 No Action Classic 28 mg iron- 800 mcg tablet 1 tablet PO DAILY sertraline 50 mg tablet 50 mg PO DAILY Qty: 90 1RF ferrous sulfate 325 mg (65 mg iron) Tablet 325 mg PO DAILY Other Ambulatory Orders: MR abdomen wo/w con (Routine) Timeframe: 1 Week Location: Determined by Patient Ordered By: Lola Gustafson MR pelvis wo/w con (Routine) Timeframe: 1 Week Location: Determined by Patient Ordered By: Lola Gustafson Follow-up/Referrals: Ning Cadet MD [Physician] - Pancho Pérez MD [Physician] - ( general surgery) Cait Jacobs MD [Primary Care Provider] - Stand Alone Forms: Work/School Release IP Time of Disposition: 15:32
[2024-06-02 09:46] LABS: D Dimer 6.96 ug/mL (<0.48)
--- NOTE | 2024-06-02 09:48 | ECG_ITS ---
Test Date: 2024-06-02 10:20:24 Measurements Intervals [place] Rate: 70 P: 24 MN: 167 QRS: -10 QRSD: 110 T: 5 QT: 391 QTc: 424 Interpretive Statements SINUS RHYTHM DELAYED PRECORDIAL R/S TRANSITION INFERIOR INFARCT, AGE INDETERMINATE BASELINE ARTIFACT- I, II, AVR, AVL ABNORMAL ECG No previous ECG available for comparison Electronically Signed On 06-02-2024 11:53:12 [employer]ICE [employer] ATTENDANT by Ivan Douglas D.O.
[2024-06-02] MEDS: HYDROcodone/acetaminophen (*CRX) 5-325 MG TABLET 1 TAB PO (10:21)
[2024-06-02 10:29] VITALS: BP 125/77; PULSE 73; RESP 16; O2SAT 99
[2024-06-02 11:32] LABS: Influenza A QL RT-PCR Negative (Negative); Influenza B QL RT-PCR Negative (Negative); RSV RNA, RT-PCR Negative (Negative); SARS-CoV-2 RNA PCR Negative (Negative)
--- NOTE | 2024-06-02 12:26 | PC.NURSE ---
Pt requesting something to snack on/drink. Dr. Gustafson states pt can have water and crackers.
[2024-06-02 13:49] VITALS: BP 114/76; PULSE 80; RESP 14; O2SAT 100
[2024-06-02 15:42] VITALS: BP 121/76; PULSE 76; RESP 16; TEMP 36.7; O2SAT 99
[2024-06-02] MEDS: SULFAMETHOXAZOLE/TRIMETHOPRIM 800/160 MG DS TABLET 1 TAB PO (15:42)
== END 2024-06-02 15:47 | disposition home or self-care (01) ==
PROVIDERS: Emergency Provider Student in an Organized Health Care Education/Training Program; PCP Family Medicine
DX: O86.4 Pyrexia of unknown origin following delivery (principal); R10.9 Unspecified abdominal pain; D72.819 Decreased white blood cell count, unspecified; R74.01 Elevation of levels of liver transaminase levels; R82.90 Unspecified abnormal findings in urine; R93.5 Abnormal findings on diagnostic imaging of other abdominal regions, including retroperitoneum; Z20.822 Contact with and (suspected) exposure to COVID-19; I10 Essential (primary) hypertension; E66.01 Morbid (severe) obesity due to excess calories; Z68.43 Body mass index [BMI] 50.0-59.9, adult
CPT/HCPCS: 36415; 71046; 71275; 74177; 76830; 80053; 81001; 81025; 83690; 85025; 85380; 87040; 87637; 93005; 99284; A9270; Q9967

== ENCOUNTER 2024-12-29 13:10 | Outpatient (CLI) | payer OTHER, SELFPAY ==
[2024-12-29 13:42] LABS: Basophils Percent Auto 0.4 % (0.2-1.2); Eosinophils Absolute Auto 0.2 K/mm3 (0-0.3); Eosinophils Percent Auto 2.5 % (0-4.4); Hematocrit 38.8 % (37.0-47.0); Hemoglobin 12.3 g/dL (12.0-15.0); Immature Granulocyte Absolute 0.03 K/mm3 (0.00-0.031); Immature Granulocyte Percent A 0.4 % (0-0.5); Lymphocytes Absolute Auto 1.82 K/mm3 (0.9-3.2); Lymphocytes Percent Auto 26.4 % (18.3-44.2); Mean Corpuscular HGB Conc 31.7 g/dl (32-36); Mean Corpuscular Hemoglobin 24.3 pg (26-34); Mean Corpuscular Volume 76.5 fl (80-100); Monocytes Absolute Auto 0.4 K/mm3 (0.1-0.6); Monocytes Percent Auto 5.4 % (2.6-8.5); Neutrophils Absolute Auto 4.5 K/mm3 (1.3-6.7); Neutrophils Percent Auto 64.9 % (45.5-73.1); Platelet Count Result 397 k/mm3 (150-375); Red Blood Count 5.07 M/mm3 (4.2-5.4); White Blood Count 6.9 K/mm3 (4.5-10.0)
--- OUTSIDE RECORDS SUMMARY | 2024-12-29 13:46 | XMS_ITS | Clinical Summary ---
Author Organization [facility] Virtual Care Address [address] [place] [phone] Phone Care Team Providers Care Elevator Service Technician Name Role Phone Nimo Jacobs MD Primary Care Provider Gelacio Smith MD Unavailable [phone] Allergies Active Allergy Reactions Criticality Noted Date Comments Nitrofurantoin Itching,Swelling,Rash Medium 04/24/2021 Medications ibuprofen (ADVIL,MOTRIN) 600 mg tabletIndications :Pain Take 1 tablet (600 mg total) by mouth every 8 (eight) hours as needed for pain 08/12/19 25 Active mupirocin (BACTROBAN) 2 % ointment Apply topically 2 (two) times a day Apply to wound with each dressing change. Collaborating physician García Short MD 44 g 2 09/03/19 25 Active acetaminophen (TYLENOL) 325 mg tablet Take 2 tablets (650 mg total) by mouth every 6 (six) hours as needed for pain Active traMADoL (ULTRAM) 50 mg tablet Take 1 tablet (50 mg total) by mouth every 6 (six) hours 5 tablet 09/27/19 25 Active ondansetron ODT (ZOFRAN-ODT) 4 mg disintegrating tablet Take 1 tablet (4 mg total) by mouth every 8 (eight) hours as needed for nausea or vomiting 20 tablet 12/11/19 25 Active ondansetron ODT (ZOFRAN-ODT) 4 mg disintegrating tablet Take 1 tablet (4 mg total) by mouth every 8 (eight) hours as needed for nausea or vomiting 20 tablet 09/27/19 25 025 Discontin ued(Dupli alysia order) Active Problems Problem Noted Date Diagnosed Date Disruption of external surgical wound 09/03/2024 Cyst of buttocks 08/02/2024 MARY (amniotic fluid index) decreased 09/03/2021 Acne vulgaris 02/10/2019 Overview (04/21/2022): onset age 13 02/10/19 mild; anticipatory guidance Hidradenitis suppurativa 02/10/2019 Overview (04/21/2022): onset boils at axillae age 12, S/P I&D via ED 02/10/19 scarring at axillae only; Rx doxy 100mg BID + Hibiclens wash Obesity 02/10/2019 Overview (04/21/2022): 70# weight gain age 12-16 02/10/19 BMI 43.25 kg/m2; Bariatric Surgery clinic referral Radial fracture 10/27/2012 Encounters Date Type Department Care Team Description 12/23/2024 2:45 PM CDT Office Visit [facility] [address] [place] [address] Gelacio Smith MD Non-healing surgical wound, subsequent encounter (Primary Dx) 12/20/2024 10:15 AM CDT Office Visit [facility] Cardiology [address] [facility] Advanced [facility] 8th [place] [address] [place] [address] Richar Grover MD Paroxysmal SVT (supraventricular tachycardia) 12/20/2024 Results Follow-Up Cardiology Richar Grover MD ECG 12 lead 12/10/2024 9:40 PM CDT - 12/11/2024 12:05 AM CDT Emergency [facility] Emergency Department [address] [place] [address] Nausea and vomiting, unspecified vomiting type (Primary Dx); Visit for wound check Discharge Disposition: Discharge to home or self care 12/10/2024 Telephone [facility] Surgeon [address] [place] [address] Josiah Cruz MD 12/09/2024 2:45 PM CDT Office Visit [facility] [address] [facility] 2nd Floor [address] [place] [phone] Gelacio Smith MD Non-healing surgical wound, subsequent encounter (Primary Dx) 11/25/2024 12:45 PM CDT Office Visit [facility] [address] [facility] 2nd Floor [address] [place] [phone] Gelacio Smith MD Non-healing surgical wound, subsequent encounter (Primary Dx) 11/23/2024 Telephone [facility] 8th [place] [address] [place] [address] Shannan Oglesby 10/14/2024 1:45 PM CDT Office Visit [facility] Surgery [address] [place] [address] 2nd Floor [address] [place] [phone] Gelacio Smith MD Disruption of external surgical wound, subsequent encounter (Primary Dx) from Last 3 Months Immunizations Immunization Administration Dates Next Due DTaP 01/10/2008, 5,2003,06/02,2003 HPV, Quadrivalent 05/29/2014,01/24/2014,02/02/20 13 Hep A, Ped Unspecified 12/31/2006,2006 Hep B, Adolescent or Pediatric 2003,2002,2003 HiB 09/26/2004, 4,2003,04/03 IPV 01/10/2008, 5,2003,04/03 Influenza, Quadrivalent, Johanna l Culture-based MDCK, Preservative Free, Antibiotic Free, Intramuscular 07/03/2021 Influenza, Quadrivalent, Spl it, Preservative Free, Intramuscular 05/09/2014 Influenza, Split 04/14/2009,04/28/2008 Influenza, Unspecified 06/09/2007,2004,05/06/2005,09/26 MMR 01/10/2008,06/25/2004 Meningococcal Conjugate (Menveo) 02/21/2019 Meningococcal MCV4P (Menactra) 01/24/2014 Pneumococcal Conjugate 7-Valent 06/25/20 04,2003,2003,04/03 Tdap 09/12/2021,01/24/2014 Varicella 01/10/2008,02/12/2004 Surgical History Surgery Date Site/Laterality Comments TONSILLECTOMY/ADENOIDECTO MY 07/20/2009 - 07/19/2010 SECTION 05/01/2024 VAGINAL DELIVERY 08/20/2021 - 09/16/2021 epidural COCCYGECTOMY 08/10/2024 Coccygectomy and excision of presacral cystic mass and reconstruction of pelvic floor with biologic mesh Medical History Medical History Date Comments Anxiety Depression Migraines Family History Medical History Relation Name Comments Hypertension Brother Mental illness Mother Anesthesia problems Neg Hx Relation Name Status Comments Brother Mother Social History Tobacco Use Types Packs/Day Years Used Date Smoking Tobacco: Never Passive Smoke Exposure: Never Smokeless Tobacco: Never Tobacco Cessation:Counseling Given: Not Answered AUDIT-C Answer Date Recorded Q1: How often do you have a drink containing alcohol? Never 08/02/2024 Q2: How many drinks containi ng alcohol do you have on a typical day when you are drinking? Patient does not drink Q3: How often do you have si x or more drinks on one occasion? Never 08/02/2024 Personal Safety Answer Date Recorded Have you ever been in or are you currently in a harmful physical or emotional relationship or is someone making you feel afraid or unsafe? Denies 12/10/2024 Comments No Sex and Gender Information Value Date Recorded Sex Assigned at Not on file Legal Sex Female 10:18 AM CDT Gender Identity Not on file Sexual Orientation Not on file Obstetrics History Para Term AB IAB SAB Ectopic Multiple Livin g Live Births 2 2 Date Outcome GA Total Labor Labor/2nd/3rd Weight Sex Type Anes PTL Ashli A1 A5 Name Clin Para Para Last Filed Vital Signs Vital Sign Reading Time Taken Comments Blood Pressure 129/86 12/23/2024 2:53 PM CDT Pulse 67 12/23/2024 2:53 PM CDT Temperature 36.7 C (98.1 F) 12/23/2024 2:53 PM CDT Respiratory Rate 16 12/10/2024 11:0 5 PM CDT Oxygen Saturation 99% 12/23/2024 2:53 PM CDT Inhaled Oxygen Concentration - - Weight 149.3 kg (329 lb 3.2 oz) 12/23/2024 2:53 PM CDT Height 160 cm (5' 3) 12/23/2024 2:53 PM CDT Body Mass Index 58.32 12/23/2024 2:53 PM CDT Plan of Treatment Health Maintenance Due Date Last Done Comments Cervical Cancer Screening 2003 Depression Screening 2003 Hepatitis C Screening 2003 Pneumococcal vaccine <65 (1 of 1 - PPSV23) 2009 06/25/2004, 2003, 2003, Additional history exists Meningococcal B Vaccine (1 o f 2 - Standard) 2019 Regular Well Visit/Exam 18-64 2021 Covid-19 Vaccine (2 - 2023-2 5 season) 2024 11/13/2021 Influenza Vaccine (Season Ended) 2025 07/03/2021, 05/09/2014, 04/14/2009, Additional history exists DTaP/Tdap/Td Vaccine (8 - Td or Tdap) 09/12/2031 09/12/2021, 01/24/2014, 01/10/2008, Additional history exists Hepatitis B Screening Completed 2003 , 2003, 2003 Varicella Vaccines Completed 01/10/2008, 02/12/2004 HPV Vaccines Completed 05/29/2014, 02/2014, 02/01/2013 Meningococcal Vaccine Completed 02/21/2019, 014 Medical Devices Implanted Type Area [place] [employer] Device Identifier Shelf Expiration Date Model / Serial / Lot [employer] Strattice 8x6cm Reconstructive Matrix Tissue Porcine Dermis Latex Free [id number] - [id number] Implanted:Qty: 1 on 08/10/2024 by Gelacio Smith MD at [facility] Mesh N/A: Sacrum [employer] [id number] 08/19/2025 [id number] / / [id number] Procedures Procedure Name Priority Date/Time Associated Diagnosis Comments ECG 12-LEAD Routine 12/20/2024 10:24 AM CDT Paroxysmal SVT (supraventricular tachycardia) EGFR STAT 12/10/2024 9:41 PM CDT DIFFERENTIAL AUTO STAT 12/10/2024 9:4 1 PM CDT COMPREHENSIVE METABOLIC PANEL STAT 12/10/2024 9:41 PM CDT CBC WITH AUTO DIFFERENTIAL STAT 12/10/2024 9:41 PM CDT from Last 3 Months Results * ECG 12 lead (12/20/2024 10:24 AM CDT) us Richar Grover MD ECG ORDERABLES Edited Re sult - Final * eGFR (12/10/2024 9:41 PM CDT) eGFR >90 >=60 mL/min/1. 73 m2 Comment: Interpretive Data Reference Interval Normal >/= 90 mL/min/1.73m2 Mildly decreased* 60 - 89 mL/min/1.73m2 Mildly to moderately decreased 45 - 59 mL/min/1.73m2 Moderately to severely decreased 30 - 44 mL/min/1.73m2 Severely decreased 15 - 29 mL/min/1.73m2 Kidney Failure < 15 mL/min/1.73m2 *Relative to young adult level Estimated glomerular filtration rate is determined by the 2020 CKD-EPI equation recommended by the National Kidney Foundation (A Unifying Approach to GFR Estimation: Recommendations of the NKF-ASK Task Force on Reassessing the Inclusion of Race in Diagnosing Kidney Disease, JASN 2020). The CKD-EPI equation should not be used for patients with unstable renal function and has not been validated in children and those over 70. Current interpretive data was last reviewed 2021. Blood 12/10/2024 9:41 PM CDT 12/10/2024 9:51 PM CDT us Pamela Handley MD LAB BLOOD ORDERABLES Final Result [facility] [address] [facility]. Department [place] [address] * (ABNORMAL) Differential, auto (12/10/2024 9:41 PM CDT) Neutrophil abs 7.15(H) 1.50 - 6.50 K/cumm Imm gran abs 0.05 0.00 - 0.10 K/cumm [facility] Lymphocyte abs 2.47 0.80 - 3.30 K/cumm [facility] Monocyte abs 0.55 0.20 - 0.80 K/cumm [facility] Eosinophil abs 0.14 0.00 - 0.50 K/cumm [facility] Basophil abs 0.05 0.00 - 0.10 K/cumm [facility] Neutrophil pct 68.7 % [facility] Comment: Interpretive Data Percent cell count reference ranges are not reported, since discordance with absolute values may lead to misinterpretation of CBC data. Current Interpretive Data was last revised on 2017. Imm gran pct 0.5 % [facility] Comment: Interpretive Data Percent cell count reference ranges are not reported, since discordance with absolute values may lead to misinterpretation of CBC data. Current Interpretive Data was last revised on 2017. Lymphocyte pct 23.7 % [facility] Comment: Interpretive Data Percent cell count reference ranges are not reported, since discordance with absolute values may lead to misinterpretation of CBC data. Current Interpretive Data was last revised on 2017. Monocyte pct 5.3 % [facility] Comment: Interpretive Data Percent cell count reference ranges are not reported, since discordance with absolute values may lead to misinterpretation of CBC data. Current Interpretive Data was last revised on 2017. Eosinophil pct 1.3 % [facility] Comment: Interpretive Data Percent cell count reference ranges are not reported, since discordance with absolute values may lead to misinterpretation of CBC data. Current Interpretive Data was last revised on 2017. Basophil pct 0.5 % [facility] Comment: Interpretive Data Percent cell count reference ranges are not reported, since discordance with absolute values may lead to misinterpretation of CBC data. Current Interpretive Data was last revised on 2017. Blood 12/10/2024 9:41 PM CDT 12/10/2024 9:51 PM CDT us Pamela Handley MD LAB BLOOD ORDERABLES Final Result [facility] [address] [facility]. [place] [address] * (ABNORMAL) CBC with auto differential (12/10/2024 9:41 PM CDT) Pathologist [facility] WBC 10.41(H) 3.80 - 9.90 K/cumm Hgb 12.4 11.9 - 15.5 g/dL [facility] Hct 38.9 35.6 - 45.5 % [facility] Plt 417(H) 150 - 400 K/cumm [facility] MPV 9.2 9.1 - 12.3 fL [facility] RBC 5.13 3.90 - 5.20 M/cumm [facility] MCV 75.8(L) 81.3 - 96.4 fL [facility] MCH 24.2(L) 27.1 - 33.3 pg [facility] MCHC 31.9(L) 32.3 - 35.7 g/dL [facility] RDW CV 13.8 11.1 - 14.9 % [facility] RDW SD 36.9 35.7 - 48.1 fL [facility] NRBC abs 0.00 0.00 - 0.01 K/cumm [facility] Blood Venous blood specimen / Unknown 12/10/2024 9:41 PM CDT 12/10/2024 9:51 PM CDT us Pamela Handley MD LAB BLOOD ORDERABLES Final Result [facility] [address] Department [place] [address] * Comprehensive metabolic panel (12/10/2024 9:41 PM CDT) Sodium 137 135 - 145 mmol/L Potassium, pl 3.7 3.3 - 4.9 mmol/L [facility] Chloride 101 97 - 110 mmol/L [facility] CO2 23 22 - 32 mmol/L [facility] Anion gap 13 2 - 15 mmol/L [facility] BUN 15 6 - 25 mg/dL [facility] Creatinine 0.80 0.60 - 1.10 mg/dL [facility] Glucose 93 70 - 199 mg/dL [facility] Comment: Interpretive Data Fasting glucose >/= 126 mg/dl is diagnostic for diabetes. Fasting is defined as no caloric intake for at least 8 hours. Fasting glucose between 100 mg/dl to 125 mg/dl is diagnostic of prediabetes. In a patient with classic symptoms of hyperglycemia or hyperglycemic crisis, a random glucose >/= 200 mg/dl is diagnostic for diabetes. In the absence of unequivocal hyperglycemia, results should be confirmed by repeat testing. The classification and Diagnosis of Diabetes Diabetes Care 2021; 46: S19-S40. Current interpretive data was last revised 2022. Calcium 9.2 8.5 - 10.3 mg/dL [facility] Bilirubin, total 0.2 0.1 - 1.2 mg/dL [facility] Protein, pl 7.6 6.5 - 8.5 g/dL [facility] Albumin 4.2 3.5 - 5.0 g/dL [facility] Alk phos 102 40 - 130 Units/L [facility] ALT 17 7 - 45 Units/L [facility] AST 19 10 - 45 Units/L [facility] Blood Venous blood specimen / Unknown 12/10/2024 9:41 PM CDT 12/10/2024 9:51 PM CDT us Pamela Handley MD LAB BLOOD ORDERABLES Final Result [facility] [address] Department [place] [address] from Last 3 Months Insurance [facility] Advance Directives For more information, please contact: [phone] * Full Code (Latest Code Status on File) Date Activated Date Inactivated Comments 08/10/2024 1:20 PM 08/12/2024 7:18 PM Care Teams Elevator Service Technician Relationship Specialty Start Date End Date Nimo Jacobs MD [address] [facility] [address] [address] PCP - General Family Practice 07/29/24 Gelacio Smith MD [phone] [place] [address] Surgeon Colon and Rectal Surgery 08/02/24
--- OUTSIDE RECORDS SUMMARY | 2024-12-29 13:46 | XMS_ITS | Referral Summary ---
Author Organization [facility] Virtual Care Address [address] [place] [phone] Phone Care Team Providers Care Brancher Name Role Phone Nimo Jacobs MD Primary Care Provider Gelacio Smith MD Unavailable [phone] Encounters Date Type Department Care Team Description 12/23/2024 2:45 PM CDT Office Visit [facility] Surgery [address] [facility] 2nd [address] [phone] Gelacio Smith MD Non-healing surgical wound, subsequent encounter (Primary Dx) 12/20/2024 Results Follow-Up Cardiology Richar Grover MD ECG 12 lead 12/20/2024 10:15 AM CDT Office Visit [facility] Cardiology [address] [facility] 8th [place] [address] [place] [address] Richar Grover MD Paroxysmal SVT (supraventricular tachycardia) 12/10/2024 9:40 PM CDT - 12/11/2024 12:05 AM CDT Emergency [facility] Emergency Department [address] [place] [address] Nausea and vomiting, unspecified vomiting type (Primary Dx); Visit for wound check Discharge Disposition: Discharge to home or self care 12/10/2024 Telephone [facility] Surgeon [address] [place] [address] Josiah Cruz MD 12/09/2024 2:45 PM CDT Office Visit [facility] Surgery [address] [facility] 2nd [address] [phone] Gelacio Smith MD Non-healing surgical wound, subsequent encounter (Primary Dx) 11/25/2024 12:45 PM CDT Office Visit [facility] Surgery [address] [facility] 2nd [address] [phone] Gelacio Smith MD Non-healing surgical wound, subsequent encounter (Primary Dx) 11/23/2024 Telephone [facility] Cardiology [address] [facility] 8th [place] [address] [place] [address] Johnnie Oglesbya 10/14/2024 1:45 PM CDT Office Visit [facility] Surgery [address] [facility] 2[address] [phone] Gelacio Smith MD Disruption of external surgical wound, subsequent encounter (Primary Dx) from Last 3 Months Allergies Active Allergy Reactions Criticality Noted Date [...] vomiting 20 tablet 09/27/19 25 025 Discontin ued(Richli alysia order) Active Problems Problem Noted Date [...] Bariatric Surgery clinic referral Radial fracture 10/27/2012 Immunizations Immunization Administration Dates Next Due DTaP [...] 7-Valent 06/25/20 04,2003,2003,04/03 Tdap 09/12/2021,01/24/2014 Varicella 01/10/2008,02/12/2004 Social History Tobacco Use Types Packs/Day Years [...] on file Sexual Orientation Not on file Last Filed Vital Signs Vital Sign Reading [...] 12/23/2024 2:53 PM CDT Plan of Treatment Not on file Medical Devices Implanted Type Area 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 Department [place] [address] * (ABNORMAL) Differential, auto (12/10/2024 9:41 PM [...] K/cumm [facility] Neutrophil pct 68.7 % [facility] Comment: Interpretive Data Percent cell count reference ranges are not reported, since discordance with absolute values may lead to misinterpretation of CBC data. Current Interpretive Data was last revised on 2017. Imm gran pct 0.5 % [facility] Comment: Interpretive Data Percent cell count reference ranges are not reported, since discordance with absolute values may lead to misinterpretation of CBC data. Current Interpretive Data was last revised on 2017. Lymphocyte pct 23.7 % [facility] Comment: Interpretive Data Percent cell count reference ranges are not reported, since discordance with absolute values may lead to misinterpretation of CBC data. Current Interpretive Data was last revised on 2017. Monocyte pct 5.3 % [facility] Comment: Interpretive Data Percent cell count reference ranges are not reported, since discordance with absolute values may lead to misinterpretation of CBC data. Current Interpretive Data was last revised on 2017. Eosinophil pct 1.3 % [facility] Comment: Interpretive Data Percent cell count reference ranges are not reported, since discordance with absolute values may lead to misinterpretation of CBC data. Current Interpretive Data was last revised on 2017. Basophil pct 0.5 % [facility] Comment: Interpretive Data Percent cell count reference ranges are not reported, since discordance with absolute values may lead to misinterpretation of CBC data. Current Interpretive Data was last revised on 2017. Blood 12/10/2024 9:41 PM CDT 12/10/2024 9:51 PM CDT us Pamela Handley MD LAB BLOOD ORDERABLES Final Result [facility] [address] [facility] Department [place] [address] * (ABNORMAL) CBC with auto differential (12/10/2024 9:41 PM CDT) WBC 10.41(H) 3.80 - 9.90 K/cumm Hgb 12.4 11.9 - 15.5 g/dL [facility] Hct 38.9 35.6 - 45.5 % [facility] Plt 417(H) 150 - 400 K/cumm [facility] MPV 9.2 9.1 - 12.[address] [facility] RBC 5.13 3.90 - 5.20 M/cumm [facility] MCV 75.8(L) 81.3 - 96.[address] [facility] MCH 24.2(L) 27.1 - 33.[address] [facility] MCHC 31.9(L) 32.3 - 35.7 g/dL [facility] RDW CV 13.8 11.1 - 14.9 % [facility] RDW SD 36.9 35.7 - 48.1 fL [facility] NRBC abs 0.00 0.00 - 0.01 K/cumm [facility] Blood Venous blood specimen / Unknown 12/10/2024 9:41 PM CDT 12/10/2024 9:51 PM CDT us Pamela Handley MD LAB BLOOD ORDERABLES Final Result [facility] [address] [facility]. Department [place] [address] * Comprehensive metabolic panel (12/10/2024 9:41 PM CDT) Sodium 137 135 - 145 mmol/L Potassium, pl 3.7 3.3 - 4.9 mmol/L [facility] Chloride 101 97 - 110 mmol/L [facility] CO2 23 22 - 32 mmol/L [facility] Anion gap 13 2 - 15 mmol/L [facility] BUN 15 6 - 25 mg/dL [facility] Creatinine 0.80 0.60 - 1.10 mg/dL [facility] Glucose 93 70 - 199 mg/dL [facility] Comment: Interpretive Data Fasting glucose >/= 126 [...] 9:41 PM CDT 12/10/2024 9:51 PM CDT Pamela Handley MD LAB BLOOD ORDERABLES Final Result Performing Organization Address City/State/[facility] Co de Phone Number [facility] [address] [facility]. Department [place] [address] from Last 3 Months Insurance [facility] Advance Directives For more information, please contact: [phone] * Full Code (Latest Code Status on File) Date Activated Date Inactivated Comments 08/10/2024 1:20 PM 08/12/2024 7:18 PM Care Teams Brancher Relationship Specialty Start Date End Date Nimo Jacobs MD [address] [facility] [address] [place] [address] [place] [id number] PCP - General Family Practice 07/29/24 Gelacio Smith MD [address] [phone] Surgeon Colon and Rectal Surgery 08/02/24
--- OUTSIDE RECORDS SUMMARY | 2024-12-29 13:46 | XMS_ITS | Data Portability ---
Author Organization [facility] [employer], Main Office Address [address] [place] [address] Assessment Encounter Date Assessment Date Assessment LastModified by Organization Details LastModified Time 10/14/2022 10/14/2022 Physical exam grossly unremarkable. Patient is not having symptoms regarding cyst. Stable 4cm cystic mass contiguous with and posterior to the anus, anterior to sacrum. No significant change in size through 2019. Stability suggested benign entity. Recommended watchful waiting, f/u here PRN if skin changes occur, pain, or drainage occur. Patient agreeable. She is establishing care with GI next week for diarrhea and abdominal pain. Not available 10/14/2022 12:39:15 07/21/2024 07/21/2024 perianal cyst. Per patient for his increased in size considerably. We will obtain CT scan and review patient will follow-up for further recommendation Not available 07/21/2024 11:24:00 Plan of Treatment Reminders Order Date Submit Date Provider Last Modified By Organization Details Last Modified Time Details Appointments None recorded. Lab urinalysis , dipstick [email or web address], [address] [facility] [address], [place], [address], 15:24:21 Referral None recorded. Procedures None recorded. Surgeries None recorded. Imaging None recorded. Medication Orders None recorded. Patient TargetsNo targets recorded. Patient InstructionsNo instructions recorded. Reason for Referral None Reported. Results Created Date Observation Date Name Description Value Unit Range Abnormal Flag Note LastModifiedBy Organization Detail LastModifiedTime 04/01/2004/01/2022 urina lysis , dipst ick Leukocytes (reference range: negative litzy/ l) Negati ve Not Available [address], [address], 04/01/2022 15:48:09 04/01/20 22 04/01/2022 urina lysis , dipst ick Nitrite (reference rage: negative mg/dl) negati ve Not Available [address], [address], 04/01/2022 15:48:04/01/20 22 04/01/2022 urina lysis , dipst ick Urobilinogen (reference range: 0.2-1 mg/dl) 0.2 Not Available [address], [address], 04/01/2022 15:48:09 04/01/20 22 04/01/2022 urina lysis , dipst ick Protein (reference range: negative mg/dl) Negati ve Not Available [address], [address], 04/01/2022 15:48:04/01/20 22 04/01/2022 urina lysis , dipst ick pH (reference range: 5-7) 6.0 Not Available [address], [address], 04/01/2022 15:48:09 04/01/20 22 04/01/2022 urina lysis , dipst ick Blood (reference range: negative Donte/ l) Negati ve Not Available [address] [address], [place], [address], 04/01/2022 15:48:09 04/01/2004/01/2022 urina lysis , dipst ick Specific [place] (reference range: 1.005-1.030) 1.020 Not Available [address], [address], 04/01/2022 15:48:09 04/01/20 22 04/01/2022 urina lysis , dipst ick Ketone (reference range: negative mg/dl) Negati ve Not Available [address], [address], 04/01/2022 15:48:09 04/01/20 22 04/01/2022 urina lysis , dipst ick Bilirubin (reference range: negative mg/dl) Negati ve Not Available [address], [address], 04/01/2022 15:48:09 04/01/20 22 04/01/2022 urina lysis , dipst ick Glucose (reference range: negative mg/dl) Negati ve Not Available [address], [address], 04/01/2022 15:48:09 04/01/20 22 04/01/2022 urina lysis , dipst ick Appearance Clear Not Available [address], [address], 04/01/2022 15:48:09 04/01/20 22 04/01/2022 urina lysis , dipst ick Color Yellow Not Available [address], [address], 04/01/2022 15:48:09 04/15/20 22 04/15/2022 urina lysis , dipst ick Leukocytes (reference range: negative litzy/ l) Trace Not Available [address], [address], 04/15/2022 14:34:49 04/15/2004/15/2022 urina lysis , dipst ick Nitrite (reference rage: negative mg/dl) negati ve Not Available [address], [address], 04/15/2022 14:34:49 04/15/20 22 04/15/2022 urina lysis , dipst ick Urobilinogen (reference range: 0.2-1 mg/dl) 0.2 Not Available [address], [address], 04/15/2022 14:34:49 04/15/20 22 04/15/2022 urina lysis , dipst ick Protein (reference range: negative mg/dl) Negati ve Not Available [address], [address], 04/15/2022 14:34:49 04/15/20 22 04/15/2022 urina lysis , dipst ick pH (reference range: 5-7) 6.0 Not Available [address], [address], 04/15/2022 14:34:49 04/15/20 22 04/15/2022 urina lysis , dipst ick Blood (reference range: negative Donte/ l) Non-He molyze d: Trace Not Available [address], [address], 04/15/2022 14:34:49 04/15/20 22 04/15/2022 urina lysis , dipst ick Specific [place] (reference range: 1.005-1.030) 1.025 Not Available [address], [address], 04/15/2022 14:34:49 04/15/20 22 04/15/2022 urina lysis , dipst ick Ketone (reference range: negative mg/dl) Negati ve Not Available [address], [address], 04/15/2022 14:34:49 04/15/20 22 04/15/2022 urina lysis , dipst ick Bilirubin (reference range: negative mg/dl) Negati ve Not Available [address], [address], 04/15/2022 14:34:49 04/15/20 22 04/15/2022 urina lysis , dipst ick Glucose (reference range: negative mg/dl) Negati ve Not Available [address], [address], 04/15/2022 14:34:49 04/15/20 22 04/15/2022 urina lysis , dipst ick Appearance Clear Not Available [facility] [address] [place] [address], [address], [place], [address], 04/15/2022 14:34:49 04/15/20 22 04/15/2022 urina lysis , dipst ick Color Yellow Not Available [facility] [address], [address], [place], [address], 04/15/2022 14:34:49 10/15/19 23 10/14/2022 urina lysis , dipst ick Leukocytes (reference range: negative litzy/ l) Negati ve Not Available [facility] [address] [place] [address] [address], [place], [address], 10/14/2022 15:10:29 10/15/19 23 10/14/2022 urina lysis , dipst ick Nitrite (reference rage: negative mg/dl) negati ve Not Available s_[facility] [address] [place] [address] [address], [place], [address], 10/14/2022 15:10:29 10/15/19 23 10/14/2022 urina lysis , dipst ick Urobilinogen (reference range: 0.2-1 mg/dl) 0.2 Not Available [facility] [address] [place] [address] [address], [place], [address], 10/14/2022 15:10:29 10/15/19 23 10/14/2022 urina lysis , dipst ick Protein (reference range: negative mg/dl) Negati ve Not Available [facility] [address], [place], [address], 10/14/2022 15:10:29 10/15/19 23 10/14/2022 urina lysis , dipst ick pH (reference range: 5-7) 6.0 Not Available [facility] [address], [place], [address], 10/14/2022 15:10:29 10/15/19 23 10/14/2022 urina lysis , dipst ick Blood (reference range: negative Donte/ l) Negati ve Not Available [facility] [address], [place], [address], 10/14/2022 15:10:29 10/15/19 23 10/14/2022 urina lysis , dipst ick Specific [place] (reference range: 1.005-1.030) 1.020 Not Available s _gmg [facility] [address] [place] [address] [address], [place], [address], 10/14/2022 15:10:29 10/15/19 23 10/14/2022 urina lysis , dipst ick Ketone (reference range: negative mg/dl) Negati ve Not Available s_[facility] [address] [place] [address] [address], [place], [address], 10/14/2022 15:10:29 10/15/19 23 10/14/2022 urina lysis , dipst ick Bilirubin (reference range: negative mg/dl) Negati ve Not Available s_[facility] [address] [place] [address] [address], [place], [address], 10/14/2022 15:10:29 10/15/19 23 10/14/2022 urina lysis , dipst ick Glucose (reference range: negative mg/dl) Negati ve Not Available s_g[facility] [address] [place] [address] [address], [place], [address], 10/14/2022 15:10:29 10/15/19 23 10/14/2022 urina lysis , dipst ick Appearance Clear Not Available [facility] [address], [place], [address], 10/14/2022 15:10:29 10/15/19 23 10/14/2022 urina lysis , dipst ick Color Yellow Not Available [facility] [address], [place], [address], 10/14/2022 15:10:29 12/27/19 23 12/26/2022 urina lysis , dipst ick Leukocytes (reference range: negative litzy/ l) Negati ve Not Available [facility] [address] [place] [address] [address], [place], [address], 12/26/2022 14:41:56 12/27/19 23 12/26/2022 urina lysis , dipst ick Nitrite (reference rage: negative mg/dl) negati ve Not Available [facility] [address] [place] [address] [address], [place], [address], 12/26/2022 14:41:56 12/27/19 23 12/26/2022 urina lysis , dipst ick Urobilinogen (reference range: 0.2-1 mg/dl) 0.2 Not Available [facility] [address] [place] [address] [address], [place], [address], 12/26/2022 14:41:56 12/27/19 23 12/26/2022 urina lysis , dipst ick Protein (reference range: negative mg/dl) Negati ve Not Available [facility] [address], [place], [address], 12/26/2022 14:41:56 12/27/19 23 12/26/2022 urina lysis , dipst ick pH (reference range: 5-7) 6.5 Not Available s_ gmg [facility] [address], [place], [address], 12/26/2022 14:41:56 12/27/19 23 12/26/2022 urina lysis , dipst ick Blood (reference range: negative Donte/ l) Negati ve Not Available [facility] [address], [place], [address], 12/26/2022 14:41:56 12/27/1912/26/2022 urina lysis , dipst ick Specific [place] (reference range: 1.005-1.030) 1.015 Not Available s _[facility] [address] [place] [address] [address], [place], [address], 12/26/2022 14:41:56 12/27/1912/26/2022 urina lysis , dipst ick Ketone (reference range: negative mg/dl) Negati ve Not Available [facility] [address] [place] [address] [address], [place], [address], 12/26/2022 14:41:56 12/27/1912/26/2022 urina lysis , dipst ick Bilirubin (reference range: negative mg/dl) Negati ve Not Available [facility] [address] [place] [address] [address], [place], [address], 12/26/2022 14:41:56 12/27/1912/26/2022 urina lysis , dipst ick Glucose (reference range: negative mg/dl) Negati ve Not Available [facility] [address] [place] [address] [address], [place], [address], 12/26/2022 14:41:56 12/27/19 23 12/26/2022 urina lysis , dipst ick Appearance Clear Not Available [facility] [address] [facility] [address], [place], [address], 12/26/2022 14:41:56 12/27/19 23 12/26/2022 urina lysis , dipst ick Color Dark Yellow Not Available [facility] [address] [facility] [address], [place], [address], 12/26/2022 14:41:56 03/13/20 22 03/12/2022 US, kidne y No observ ation record ed. [id number], [place], [address], 09/17/2022 21:12:49 04/05/20 22 04/05/2022 CT, abdom en + pelvi s, w/wo contr ast No observ ation record ed. [id number] [place], [address], 09/17/2022 21:12:49 04/11/20 22 04/11/2022 CT, abdom en + pelvi s, w/wo contr ast No observ ation record ed. [id number], [place], [address], 09/17/2022 21:12:49 10/14/19 23 10/08/2022 CT, abdom en + pelvi s, w/ contr ast No observ ation record ed. BARCODE Not Available 2022 11:26:31 Result Notes None recorded. Problems Name Problem SNOMED Code Status Onset Date Resolution Date Notes Provider Name and Address Organization Details Recorded Time 94252986 Active 2020 Not Available [employer] 21:12:02 Recurrent urinary tract infection 651800209 Active 2022 Gelacio Longo MD [address] [facility] [address], [place], [address] , [facility] [employer] [facility] [email or web address] [facility] 3 15:23:28 Epidermoid cyst 348773263 Active 2022 Malcolm ragland MD [address] [facility], [facility] [address], [place], [address] , [facility] [employer] [facility] [email or web address] [facility] 3 13:38:43 Acute urinary tract infection 554000929 Active 2022 Lakesha Arzola MA [facility] [place] [employer] [facility] [email or web address] [facility] 3 14:42:15 Problem Notes None recorded. Procedures Surgical History Date Name Laterality Status Provider Name and Address Organization Details Recorded Time incision and drainage completed Not Available Pending sale to [facility] 09/17/2022 21:11:45 Tonsillectomy completed Not Available [facility] 09/17/2022 21:11:45 Imaging Results None recorded. Procedure Notes None recorded. Medical Equipment None Reported. Allergies Allergen ID Allergen Name Allergen Category Reaction Reaction Severity Criticality Documentation Date Start Date Code Code System Note Provider Name and Address Organization Details Recorded Time 70872 Macrobid medicatio n itching Not available Not available 09/17/2022 99433 1 RxNorm Not Available Pending sale to [facility] 3 21:12:47 Medications Name Sig Start Date Stop Date Status Note LastModified by Organization Details LastModified Time cyclobenzap rine 10 mg tablet 10 MG ORALLY THREE TIMES A DAY NEEDED FOR MUSCLE SPASM 02/24 completed Not Available Not Available Not Available Lice Killing 0.33 %-4 % shampoo 03/01 completed Not Available Not Available Not Available acetaminoph en 325 mg tablet TAKE 2 TABLETS BY MOUTH EVERY 6 HOURS active Not Available Not Available No t Available Vitamin B-6 25 mg tablet Take 1 tablet 3 times a day by oral route. 04/01 completed Not Available Not Available Not Available naproxen 375 mg tablet TAKE 1 TABLET BY MOUTH TWICE A DAY 02/24 completed Not Available Not Available Not Available azithromyci n 250 mg tablet TAKE 2 TABLETS BY MOUTH TODAY, THEN TAKE 1 TABLET DAILY FOR 4 DAYS DIRECTED active Not Available Not Available No t Available fluconazole 150 mg tablet Take 1 tablet by oral route for 1 day. 01/25 completed Not Available Not Available Not Available hydrocodone 5 mg-acetamin ophen 325 mg tablet TAKE 1 TABLET BY MOUTH EVERY 3 HOURS NEEDED FOR BREAKTHRO UGH PAIN RATED 4-6 active Not Available Not Available No t Available polysacchar villa iron complex 150 mg iron capsule TAKE 1 CAPSULE BY MOUTH DAILY 02/24 completed Not Available Not Available Not Available ondansetron HCl 4 mg tablet TAKE 1 TABLET BY MOUTH EVERY 8 HOURS 10/14 completed Not Available Not Available Not Available prednisone 20 mg tablet TAKE 3 TABLETS BY MOUTH ONCE DAILY FOR 5 DAYS active Not Available Not Available No t Available metronidazo le 500 mg tablet TAKE 1 TABLET BY MOUTH EVERY 12 HOURS 10/14 completed Not Available Not Available Not Available acetaminoph en 300 mg-codeine 30 mg tablet 03/01 completed Not Available Not Available Not Available sulfamethox azole 800 mg-trimetho prim 160 mg tablet TAKE 1 TABLET BY MOUTH EVERY 12 HOURS X12 DAYS *START ON 06/03 active Not Available Not Available No t Available omeprazole 40 mg capsule,del ayed release 03/01 completed Not Available Not Available Not Available aspirin 81 mg tablet,reno yed release Take 1 tablet every day by oral route. 02/24 completed Not Available Not Available Not Available tramadol 50 mg tablet TAKE 1 TABLET BY MOUTH EVERY 8 HOURS NEEDED 10/14 completed Not Available Not Available Not Available triamcinolo ne acetonide 0.1 % topical cream APPLY TOPICALLY TWICE A DAY active Not Available Not Available No t Available acetaminoph en ER 650 mg tablet,exte nded release TAKE 1 TABLET BY MOUTH EVERY 8 HOURS NEEDED FOR PAIN active Not Available Not Available No t Available oxycodone-a cetaminophe n 5 mg-325 mg tablet 04/23 completed Not Available Not Available Not Available amoxicillin 875 mg tablet 03/01 completed Not Available Not Available Not Available famotidine 20 mg tablet TAKE 1 TABLET BY MOUTH EVERY 12 HOURS FOR 10 DAYS active Not Available Not Available No t Available magnesium oxide 400 mg (241.3 mg magnesium) tablet TAKE 1 TABLET BY MOUTH DAILY 02/24 completed Not Available Not Available Not Available dicyclomine 20 mg tablet TAKE 1 TABLET BY MOUTH 3 TIMES A DAY active Not Available Not Available No t Available phenazopyri dine 100 mg tablet Take 1 tablet three times daily as needed for pain active Not Available Not Available No t Available benzonatate 100 mg capsule TK 1 C PO TID 03/01 completed Not Available Not Available Not Available doxycycline monohydrate 100 mg capsule 10/02 completed Not Available Not Available Not Available cephalexin 500 mg capsule TAKE 1 CAPSULE BY MOUTH EVERY 12 HOURS FOR 7 DAYS 02/24 completed Not Available Not Available Not Available oseltamivir 75 mg capsule TAKE 1 CAPSULE BY MOUTH EVERY 12 HOURS X5 DAYS active Not Available Not Available No t Available docusate sodium 100 mg capsule TAKE 1 TABLET BY MOUTH TWICE A DAY active Not Available Not Available No t Available hydrocortis one 2.5 % topical cream APPLY THIN LAYER TOPICALLY TO THE AFFECTED AREA TWICE DAILY 02/24 completed Not Available Not Available Not Available montelukast 10 mg tablet 04/23 completed Not Available Not Available Not Available ergocalcife rol (vitamin D2) 1,250 mcg (50,000 unit) capsule TAKE 1 CAPSULE BY MOUTH ONCE WEEKLY active Not Available Not Available No t Available ibuprofen 600 mg tablet TAKE 1 TABLET BY MOUTH THREE TIMES A DAY NEEDED FOR PAIN active Not Available Not Available No t Available Septra DS 800 mg-160 mg tablet 04/23 completed Not Available Not Available Not Available methylpredn isolone 4 mg tablets in a dose pack TAKE PER PACKAGE INSERT active Not Available Not Available No t Available albuterol sulfate HFA 90 mcg/actuati on aerosol inhaler INHALE 2 PUFFS EVERY 4 HOURS NEEDED FOR WHEEZE OR FOR SHORTNESS OF BREATH active Not Available Not Available No t Available ondansetron 4 mg disintegrat ing tablet DISSOLVE 1 TABLET ON THE TONGUE EVERY 6 HOURS NEEDED FOR NAUSEA OR VOMITING 02/24 completed Not Available Not Available Not Available cefdinir 300 mg capsule 01/25 completed Not Available Not Available Not Available fluticasone propionate 50 mcg/actuati on nasal spray,suspe nsion 01/25 completed Not Available Not Available Not Available sertraline 50 mg tablet TAKE 1 TABLET BY MOUTH EVERY DAY active Not Available Not Available No t Available Depo-Estrad iol 5 mg/mL intramuscul ar oil Inject 0.2 mL every 4 weeks by intramusc ular route. 04/01 completed Not Available Not Available Not Available Unisom (doxylamine ) 25 mg tablet Take 1 tablet every day by oral route at dinner. 02/24 completed Not Available Not Available Not Available medroxyprog esterone 150 mg/mL intramuscul ar suspension ADMINISTE R 1 ML IN THE MUSCLE EVERY 3 MONTHS 10/14 completed Not Available Not Available Not Available metoclopram villa 10 mg tablet TAKE 1 TABLET BY MOUTH EVERY 6 HOURS NEEDED FOR NAUSEA AND VOMITING active Not Available Not Available No t Available amoxicillin 875 mg-potassiu m clavulanate 125 mg tablet TAKE 1 TABLET BY MOUTH TWICE A DAY active Not Available Not Available No t Available cyclobenzap rine 5 mg tablet 01/25 completed Not Available Not Available Not Available June FE 08/08 () 1 mg-20 mcg (21)/75 mg (7) tablet active Not Available Not Available N ot Available escitalopra m 5 mg tablet TAKE 1 TABLET BY MOUTH EVERY DAY X2 WEEKS active Not Available Not Available No t Available nitrofurant oin monohydrate /macrocryst als 100 mg capsule Take 1 capsule every 12 hours by oral route for 7 days. 02/28 completed Not Available Not Available Not Available Flovent HFA 110 mcg/actuati on aerosol inhaler 02/24 completed Not Available Not Available Not Available Uribel 118 mg-10 mg-40.8 mg-36 mg capsule Take one capsule three times daily as needed for pain 04/01 completed Not Available Not Available Not Available Merced 3 mg-0.03 mg tablet TAKE 1 TABLET BY MOUTH EVERY DAY 01/25 completed Not Available Not Available Not Available cefixime 400 mg capsule TAKE 1 CAPSULE BY MOUTH EVERY DAY FOR 7 DAYS 05/01 completed Not Available Not Available Not Available riboflavin (vitamin B2) 400 mg tablet Take 1 tablet every day by oral route. 02/24 completed Not Available Not Available Not Available Aurovela 1.5/30 (21) 1.5 mg-30 mcg tablet TAKE 1 TABLET BY MOUTH DAILY 02/24 completed Not Available Not Available Not Available Aurovela Fe 1.530 (28) 1.5 mg-30 mcg (21)/75 mg (7) tablet active Not Available Not Available Not Available Vitals Date Recorded Body height Body weight Body mass index (BMI) Heart rate Oxygen saturation Oxygen saturation in Arterial blood by Pulse oximetry Systolic blood pressure Diastolic blood pressure Provider Name and Address Organization Details Last Updated DateTime 5 160.02 cm 398650. 63 g 54.9 kg/m2 80 /min 99 % 99 % 140 mm[Hg] 88 mm[Hg] Man Mabry Denae [place] [employer] 5 10:39:29 Date Recorded Body height Body mass index (BMI) Body mass index (BMI) [Percentile] Per age and sex Body weight Heart rate Body temperature Respiratory rate Oxygen saturation Oxygen saturation in Arterial blood by Pulse oximetry Systolic blood pressure Diastolic blood pressure Provider Name and Address Organization Details Last Updated DateTime 3 160.02 cm 49.6 kg/m2 99 % 082259. 86 g 98 /min 97.5 [degF] 14 /min 98 % 98 % 120 mm[Hg] 82 mm[Hg] Lucy [place] [employer] [facility] [employer] 3 11:23:01 Date Recorded Body height Provider Name an d Address Organization Details Last Updated DateTime 10/14/2022 160.02 cm Lakesha Arzola MA [facility] 10/14/2022 15:06:47 Date Recorded Body mass index (BMI) [Percentile] Per age and sex Body mass index (BMI) Body weight Body temperature Heart rate Oxygen saturation Oxygen saturation in Arterial blood by Pulse oximetry Systolic blood pressure Diastolic blood pressure Provider Name and Address Organization Details Last Updated DateTime 3 99 % 54.9 kg/m2 001535. 63 g 98.1 [degF] 81 /min 98 % 98 % 141 mm[Hg] 90 mm[Hg] Sree Vale Denae [place] [employer] [facility] [employer] 3 15:10:12 Date Recorded Body mass index (BMI) Body height Oxygen saturation Oxygen saturation in Arterial blood by Pulse oximetry Heart rate Body temperature Body weight Provider Name and Address Organization Details Last Updated DateTime 2 53.1 kg/m2 160.02 cm 98 % 98 % 94 /min 97.9 [degF] 448036. 71 g Not Available [facility] 3 21:11:50 Date Recorded Body mass index (BMI) Body height Oxygen saturation Oxygen saturation in Arterial blood by Pulse oximetry Body temperature Body weight Provider Name and Address Organization Details Last Updated DateTime 2 53.1 kg/m2 160.02 cm 99 % 99 % 98.2 [degF] 133896. 71 g Not Available [facility] 21:11:50 Social History Question Answer Notes LastModified by [employer] Details LastModified Time Tobacco Smoking Status Never Smoker DEVON Brito [place] [employer] [facility] 10/14/2022 14:53:48 What Is Your Level Of Caffeine Consumption? Moderate [id number] Information not available 09/17/2022 Which Illicit Or Recreational Drugs Have You Used? No Information not available 10/14/2022 Has Tobacco Cessation Counseling Been Provided? No Information not available 10/14/2022 Sex: Unknown Functional Status Question Answer Note LastModified by [employer] Details LastModified Time Do you use any illicit or recreational drugs? No Information not available 10/14/2022 Do you or have you ever used any other forms of tobacco or nicotine? No Information not available 10/14/2022 What is your level of alcohol consumption? None [id number] Information not available 09/17/2022 Do you or have you ever used smokeless tobacco? Never used smokeless tobacco [id number] Information not available 09/17/2022 Do you or have you ever used e-cigarettes or vape? Never used electronic cigarettes Information not available 10/14/2022 What is your exercise level? Occasional [id number] Information not available 09/17/2022 Mental Status None recorded. Family History Relationship Description Onset Age of this Age Resolved Age Notes LastModified by Organization Details LastModified Time Paternal Grandmother Diabetes mellitus [id number] Not available 09/17/2022 21:11:45 Unspecified Relation Kidney stone Not available 14:53:48 Unspecified Relation Hypertensive disorder [id number] Not available 09/17/2022 21:11:45 Medical History Condition Response CYSTITIS N BLINDNESS N RHEUMATIC FEVER N BLADDER PROBLEMS N KIDNEY STONES N Enlarged Prostate N MRSA N SLEEP APNEA N INFECTIOUS DISEASE N HEART ARRHYTHMIA N PROSTATE N LUNG DISEASE/DISORDER N HISTORY OF DRUG ABUSE N INSOMNIA N COPD N RADIATION / CHEMOTHERAPY N HIGH CHOLESTEROL / HYPERLIPIDEMIA N HYPERTHYROIDISM N UTI N BLOOD DISEASES N EDEMA N HYPOTHYROIDISM N SHINGLES N BOWEL PROBLEMS N BACK / NECK PROBLEMS N DEPRESSION (INCLUDING POST ) Y HAVE YOU BEEN HOSPITALIZED OR SEEN IN [facility] IN THE PAST YEAR ? N STROKE/TIA N THYROID DISEASE N BENIGN PROSTATIC HYPERPLASIA N DIALYSIS N OBESITY Y GERD/NAUSEA N ANEURYSM N OSTEOPOROSIS N URINARY/BLADDER/KIDNEY PROBLEMS N Increased Urination N CORONARY ARTERY DISEASE (CAD) N ARTHRITIS N USE OF BLOOD THINNERS N NO SIGNIFICANT PAST MEDICAL HISTORY N SKIN PROBLEMS Y DIABETES, TYPE N EMPHYSEMA N PARKINSON N GASTROINTESTINAL DISORDER N GASTROINTESTINAL BLEEDING N BLOOD CLOTS N Difficulty Urinating N HEPATITIS / LIVER DISEASE N ASTHMA N CATARACTS N GOUT N SLEEP DISORDER N ALZHEIMER'S DISEASE N HERPES N ERECTILE DYSFUNCTION N SEIZURES/EPILEPSY N HEADACHES/MIGRAINES N GI PROBLEMS N PACEMAKER N Low Testosterone N HEART MURMUR N DIZZINESS N KIDNEY DISEASE N HEART DISEASE/HEART PROBLEMS N AIDS/HIV N MULTIPLE SCLEROSIS N LIVER DISEASE N MALE HYPOGONADISM N HYPERTENSION N CANCER: SPECIFY N TOURETTE'S N ANXIETY DISORDER Y BLOOD TRANSFUSION N ANESTHESIA COMPLICATIONS N ANEMIA/BLOOD DISORDER N ATRIAL FIBRILLATION N AUTOIMMUNE DISEASE N TUBERCULOSIS N GLAUCOMA N Gynecological History Statement/Question Response Date of Last Pap Smear Current Control Method Date of LMP 12/10/2020 Breast Problems none Obstetrics History GPAL:G 1 P 0 0 0 0 Past Encounters Encounter ID Performer Location Encounter Start Date Encounter Closed Date Diagnosis/Indication Diagnosis SNOMED-CT Code Diagnosis ICD10 Code Diagnosis Note [id number] [facility] _ATHENA_M IGRATION_ DEFAULT_1 _1 , 10/02/2020 00:00:00 10/02/2020 12:29:32 [id number] [facility] _ATHENA_M IGRATION_ DEFAULT_1 _1 , 10/15/2020 00:00:00 10/15/2020 12:06:40 [id number] S_[facility] _ATHENA_M IGRATION_ DEFAULT_1 _1 , 01/25/2021 00:00:00 01/25/2021 14:28:08 [id number] S_[facility] _ATHENA_M IGRATION_ DEFAULT_1 _1 , 02/11/2021 00:00:00 02/11/2021 11:09:56 [id number] [facility] _ATHENA_M IGRATION_ DEFAULT_1 _1 , 02/28/2021 00:00:00 02/28/2021 14:08:22 [id number] [facility] _ATHENA_M IGRATION_ DEFAULT_1 _1 , 04/03/2021 00:00:00 04/03/2021 12:43:00 [id number] [facility] _ATHENA_M IGRATION_ DEFAULT_1 _1 , 05/01/2021 00:00:00 05/01/2021 15:16:25 [id number] [facility] _ATHENA_M IGRATION_ DEFAULT_1 _1 , 05/29/2021 00:00:00 05/29/2021 17:09:35 [id number] [facility] _ATHENA_M IGRATION_ DEFAULT_1 _1 , 07/01/2021 00:00:00 07/01/2021 14:54:25 [id number] MIKE AsifS_GMG [facility] [address] [place] [phone] 1 02/24/2022 00:00:00 02/24/2022 15:48:51 [id number] MD ANNETTA De La Fuente_[facility] [address] [place] [phone] 1 04/01/2022 00:00:00 04/02/2022 12:21:31 [id number] MD ALLY De La FuenteS_[facility]arm[facility] [address] [place] [address] [phone] 1 04/15/2022 00:00:00 04/15/2022 14:47:02 [id number] MD ANNETTA Reyes_GMG General Surgery [address] [place] [address] [phone] 1 10/14/2022 11:12:56 10/14/2022 12:40:22 Epidermoid cyst 121668678 K09.8 anal [id number] MD ANNTETA De La Fuente_GMG [address] [facility] [address] [place] [address] 10/14/2022 14:49:23 10/14/2022 15:22:37 Recurrent urinary tract infection [id number] N39.0 No recurrence on conservati ve measures ,went over them again. Will call if has trouble. [id number] Malcolm ragland MD [facility] General Surgery [address] [place] [address] 07/21/2024 10:34:20 07/21/2024 12:51:53 Epidermoid cyst [id number] K09.8 anal Health Concerns Section Related Observation LastModified by Organization Detai ls LastModified Time None Recorded Concern Status LastModified by Organization Details LastModified Time None Recorded Advance Directives Directive None Recorded Payers Insurance Date Sequence Insurance Name Policy Number Policy Salgado Covered Member ID Salgado Member ID Guarantor Name 07/21/2024 1 [facility] ON OR AFTER 01/17/21 (MEDICAID REPLACEMENT - HMO) [facility] [id number] [facility] 07/21/2024 2 [place] [facility] [id number] [facility] 12/01/2024 1 [facility] ON OR AFTER 01/17/21 (MEDICAID REPLACEMENT - HMO) [facility] [id number] [facility] Notes Date Note Type Note Provider Name and Address Organization Details Recorded Time 10/14/2022 text/html Recurrent UTIReported bypatient.Notes:Pt is doing fine, no more utis, no dysuria or hematuria.Prior evaluation with ct was negative. Gelacio Longo MD [address] [facility], [address], [place], [address], [facility] [employer] [facility] 10/14/2022 15:24:25 10/14/2022 text/html Patient presents to clinic to discuss cyst of sacrum. States she had a CT scan in the ER of her abdomen which showed a cyst. States it has been present for years, unchanged. ER recommended she f/u here to discuss options. She had a perirectal abscess drained under anesthesia about 3-4 years ago. Malcolm Briceño MD [address], [address], [place], [address], [facility] 10/16/2022 13:38:49 07/21/2024 text/html patient followin g up for perianal cyst. Patient recently had a 2nd child and on follow-up had a CT scan at outside facility which presumably showed the cyst to be quite large thick. Patient complains of pressure with sitting down the as well as pain around that area. Denies fevers or chills. Denies trouble with bowel movements or urination. Malcolm Briceño MD [address], [address], [place], [address], [facility] 07/21/2024 15:07:15 OBGyn Episode No OBEpisode recorded.
--- OUTSIDE RECORDS SUMMARY | 2024-12-29 13:46 | XMS_ITS | Encounter Summary ---
Author Organization [facility] Healthcare Address [address] [place] [address] Care Team Providers Care Neuro Urologist Name Role Phone Nimo Jacobs MD Primary Care Provider Gelacio Smith MD Unavailable [phone] Encounter Details Date Type Department Care Team (Latest Contact Info) Description 12/20/2024 Results Follow-Up Cardiology Richar Grover MD [address] [address] ECG 12 lead Social History Tobacco Use Types Packs/Day Years Used Date Smoking Tobacco: Never Passive Smoke Exposure: Never Smokeless Tobacco: Never AUDIT-C Answer Date Recorded Q1: How often [...] on file Sexual Orientation Not on file documented as of this encounter Plan of Treatment Not on file documented as of this encounter Visit Diagnoses Not on filedocumented in this encounter Care Teams Neuro Urologist Relationship Specialty Start Date End Date Nimo Jacobs MD [address] [facility] [address] [address] PCP - General Family Practice 07/29/24 Gelacio Smith MD [phone] [place] [address] Surgeon Colon and Rectal Surgery 08/02/24 documented as of this encounter
--- OUTSIDE RECORDS SUMMARY | 2024-12-29 13:46 | XMS_ITS | Clinical Summary ---
Author Organization [facility] Address [address] [place] [address] Care Team Providers Care Shuttle Preparation Supervisor Name Role Phone Unavailable Primary Care Provider Unavailabl e Source Comments [facility],non-owned Affiliates and Associated Physician Practices is amultiple site organization consisting of ambulatory clinics and hospital sitesin [place], [place], [place] and [place]. This disclosure is being madepursuant to the Care Everywhere program and may not contain all information available regarding this patient. Last updated 18.[facility] Allergies Active Allergy Reactions Criticality Noted Date Comments Nitrofurantoin Urticaria,Itching Medium 04/24/2021 Medications * Be aware that medications may not be up to date on this document. Alwaysverify current medications with the patient. mupirocin (BACTROBAN) 2 % ointment Apply to abscess to left upper thigh 2-3 times per day for 7-10 days 22 g 7 Active Additional Information Patient not taking.Reported on 10/20/2018 acetaminophen (TYLENOL) 500 MG tablet Take 500 mg by mouth every 4 hours as needed for Fever or Pain Maximum allowable Acetaminophen amount = 4 Grams (4000 mg) / 24 hours. Active doxycycline monohydrate 100 MG capsule Take 1 capsule by mouth every 12 hours 60 capsule 2 9 Active Additional Information Patient not taking.Reported on 12/25/2020 Vit-DSS-Fe Fum-FA ( vitamin with iron) tablet Take 1 (one) tablet by mouth once daily Active aspirin (Aspirin) 81 MG chew tablet Take 2 (two) tablets by mouth once daily Active albuterol HFA (Proventil; Ventolin; Proair) 108 (90 Base) MCG/ACT inhaler Inhale 2 (two) puffs by mouth every 6 hours as needed for Cough Active ergocalciferol (Drisdol) 200 MCG (8000 UNITS)/ML drops Take 50,000 Units by mouth once daily Active escitalopram (Lexapro) 5 MG tablet Take 1 (one) tablet by mouth once daily Active Active Problems Problem Noted Date Diagnosed Date MARY (amniotic fluid index) decreased 09/03/2021 BMI 45.0-49.9, adult 04/24/2021 Supervision of normal first 04/24/2021 Overview (04/24/2021): O+, Ab: Negative, Rubella- Immune, RPR-NR, HIV-NR, Hbsag- Indeterminate (primary OB to reevaluate in third trimester). CMV: NonImmune Parvo: Immune 02/14/21 1hr : 109 Obesity 02/10/2019 Overview (02/15/2019): 70# weight gain age 12-16 02/10/19 BMI 43.25 kg/m2; Bariatric Surgery clinic referral Hidradenitis suppurativa 02/10/2019 Overview (02/15/2019): onset boils at axillae age 12, S/P I&D via ED 02/10/19 scarring at axillae only; Rx doxy 100mg BID + Hibiclens wash Acne vulgaris 02/10/2019 Overview (02/15/2019): onset age 13 02/10/19 mild; anticipatory guidance Closed fracture of left radius 11/09/2013 Radial fracture 10/27/2012 Resolved Problems Problem Noted Date Diagnosed Date Resolved Date 32 weeks gestation of 06/19/2021 09/03/2021 Encounter for anatomic survey 04/24/2021 09/03/2021 Overview (04/24/2021): NIPT: Low Risk/ Female AFP- Ordered, pending results. Family History Medical History Relation Name Comments Cancer - Cervical Mother Relation Name Status Comments Brother 1 Alive Brother 2 Alive Brother 3 Alive Father Alive Mother Alive Social History Tobacco Use Types Packs/Day Years Used Date Smoking Tobacco: Never Smokeless Tobacco: Never Tobacco Cessation:Counseling Given: Not Answered Alcohol Use Standard Drinks/Week Comments No 0 (1 standard drink = 0.6 oz pur e alcohol) [place] Depression Scale Answer Date Recorded [place] Depression Scale Total 16 12/16/2023 The thought of harming myself has occurred to me . 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 Gender Identity Not on file Sexual Orientation Not on file Last Filed Vital Signs Vital Sign Reading Time Taken Comments Blood Pressure 111/74 04/22/2024 9:05 AM CDT Pulse 91 04/22/2024 9:05 AM CDT Temperature 36.8 C (98.3 F) 12/25/2020 9:40 PM CDT Respiratory Rate 20 12/25/2020 9:40 PM CDT Oxygen Saturation 100% 12/25/2020 9:40 PM CDT Inhaled Oxygen Concentration - - Weight 139.9 kg (308 lb 6.4 oz) 12/16/2023 2:17 PM CDT Height 160 cm (5' 3) 12/16/2023 2:17 PM CDT Body Mass Index 54.63 12/16/2023 2:17 PM CDT Plan of Treatment Health Maintenance Due Date Last Done Comments PAP SMEAR 2003 HPV VACCINE (1 - 3-dose series) 2018 MENINGOCOCCAL (Group B) VACCINE SHARED DECISION-MAKING (1 of 2 - Standard) 2019 HEPATITIS C SCREENING 01/24/2021 CHLAMYDIA/GONORRHEA SCREENING 12/25/2021 12/25/2020 DTAP/TDAP/TD VACCINES (1 - Tdap) 2022 HEPATITIS B VACCINE (1 of 3 - 19+ 3-dose series) 2022 PNEUMOCOCCAL VACCINE (1 of 2 - PCV) 2022 COVID-19 VACCINE (1 - 2023-2 5 season) 2024 DEPRESSION SCREENING 07/20/2024 12/16/2023 INFLUENZA VACCINE (Season Ended) 2025 07/03/2021, 05/09/2014 ZOSTER VACCINE (1 of 2) 2053 HIV SCREENING Completed 12/25/2020 HIB VACCINE Aged Out No longer eligi ble based on patient's age to complete this topic MENINGOCOCCAL GROUPS A/C/Y/W VACCINE Aged Out No longer eligible b ased on patient's age to complete this topic Procedures Procedure Name Priority Date/Time Associated Diagnosis Comments HIV-1 HIV-2 ANTIBODY + HIV P24 AG PANEL STAT 12/25/2020 6:46 PM CDT CHLAMYDIA + GC AMPLIFIED PROBE STAT 12/25/2020 6:30 PM CDT from Last 3 Months or Most Recently Relevant to Health Maintenance Results * HIV-1 HIV-2 ANTIBODY + HIV P24 AG PANEL (12/25/2020 6:46 PM CDT) Pathologist [facility] HIV Antigen/Antibod y 1 & 2 Non-reacti ve Non-react sangita 12/25/2020 8:12 PM CDT [facility] Comment:Neither HIV-1 p24 An tigen nor HIV-1/HIV-2 Antibodies are detected. Blood BLOOD SPECIMEN / Unknown Venipuncture / Unknown 12/25/2020 6:46 PM CDT 12/25/2020 7:28 PM CDT Mahesh Chamberlain MD LAB - CHEMISTRY ORDERABLES Final Result [facility] [address] [place] [phone], [facility] [phone] * CHLAMYDIA + GC AMPLIFIED PROBE (STL) (12/25/2020 6:30 PM CDT) [facility] Chlamydia Amplified Probe Negative Negative 12/26/2020 2:53 AM CDT [facility] GC Amplified Probe Negative Negative 12/26/2020 2:53 AM CDT [facility] Microbiology URINE / Unknown Collection / Unknown 12/25/2020 6:30 PM CDT 12/25/2020 6:42 PM CDT Narrative [facility] - 12/26/2020 2:53 AM CDT Results based on detection/no detection of ribosomal RNA by amplified method. us Mahesh Chamberlain MD LAB - MICROBIOLOGY ORDERABLES Fi nal Result [facility] [address] [place] [address], [facility] [phone] from Last 3 Months or Most Recently Relevant to Health Maintenance Insurance [facility] SELF PAY NO INSURANCE Member Subscriber Plan / Payer (Ef fective for All Dates) Name:Janessa Mendoza Member ID:Not on file Relation to Subscriber:Not on file Name:JANESSA MENDOZA Subscriber ID:Not on file (Home) Address: [address] [place] [phone] Payer ID:Not on file Group ID:Not on file Type:Self Pay Address: [place], [place]
--- OUTSIDE RECORDS SUMMARY | 2024-12-29 13:46 | XMS_ITS | Continuity of Care Document ---
Author Organization [facility] Address [address] [place] [address] [address] [place] [address] Phone Care Team Providers Care Dioramist Name Role Phone Hdez OD, Familia Unavailable Unavailable Procedures Procedure Date Eye Exam & Treatment Refraction Eye Exam, New Patient Refraction Advance Directives Directive Yes / No Effective Date File Name No Information Encounters Encounter Description Practice Location Reason(s) For Visit Diagnoses Date Provider Providers Copied on Encounter [facility], [address] [place] [address] [address], [place], [place], [id number], tel:[phone] [facility] No Information 4-201 0 Hdez OD Familia. [address] , [address], [place], [place], [facility], [place]. tel:[phone] [facility], [address] [place] [address] [address], [place], [place], [id number], tel:[phone] [facility] No Information 0-200 8 Hdez OD Familia. [address] , [address], [place], [address], [place]. tel:[phone] Family History Family Member Type Diagnosis Age At Onset No Information Payers Payer name Insurance type Covered libertarian ID Authoriza tion(s) Medicaid [facility] [id number] Social History Type Description Quantity Date Captured [...]
[2024-12-29 13:53] LABS: Alanine Aminotransferase 21 U/L (6-35); Albumin Level 4.4 g/dL (3.5-5.1); Anion Gap 9 mmol/L (4-12); Aspartate Amino Transferase 30 U/L (14-36); Blood Urea Nitrogen 12 mg/dL (7-17); Carbon Dioxide 26 mmol/L (22-30); Chloride 104 mmol/L (98-107); Estimated Glomerular Filt Rate > 60; Sodium 139 mmol/L (137-145)
[2024-12-29 14:01] LABS: Erythrocyte Sedimentation Rate 27 mm/hr (0-20)
[2024-12-29 14:05] LABS: LDL Cholesterol Direct 97 mg/dL
[2024-12-29 14:06] LABS: Alkaline Phosphatase 84 U/L (38-126); Bilirubin,Total 0.4 mg/dL (0.2-1.3); Calcium 9.2 mg/dL (8.4-10.2); Cholesterol 175 mg/dL (0-200); Glucose 98 mg/dL (65-110); HDL Direct 47 mg/dL; Iron 49 ug/dL (37-170); Total Protein 8.2 g/dL (6.3-8.2); Triglycerides 104 mg/dL (<150)
[2024-12-29 14:08] LABS: CRP 1.4 mg/dL (<1.0)
[2024-12-29 14:09] LABS: Prothrombin Time 13.4 Seconds (11.1-14.7)
[2024-12-29 14:13] LABS: Percent Iron Saturation 17 % (20-50)
[2024-12-29 14:15] LABS: Vitamin D 25 Hydroxy 22.3 ng/mL
[2024-12-29 14:23] LABS: Hemoglobin A1C 4.8 % (<5.7)
[2025-01-02 17:07] LABS: Immunoglobulin A 229 mg/dL (47-310); TTG IGA AB <1.0 U/mL
== END 2024-12-29 13:11 | disposition home or self-care (01) ==
PROVIDERS: PCP Family Medicine; Visit Provider Nurse Practitioner
DX: Z00.00 Encounter for general adult medical examination without abnormal findings (principal); E53.8 Deficiency of other specified B group vitamins; R73.9 Hyperglycemia, unspecified; R10.12 Left upper quadrant pain; G89.29 Other chronic pain; K52.9 Noninfective gastroenteritis and colitis, unspecified; I10 Essential (primary) hypertension; E55.9 Vitamin D deficiency, unspecified; E78.5 Hyperlipidemia, unspecified
CPT/HCPCS: 36415; 80053; 80061; 81596; 82306; 82607; 82728; 82784; 83036; 83540; 83550; 84443; 85025; 85610; 85652; 86140

== ENCOUNTER 2025-01-07 11:26 | Outpatient (CLI) | payer OTHER, SELFPAY | END 2025-01-07 11:27 | disposition home or self-care (01) | LOC: ANHLAB 11:27 | PROVIDERS: PCP Family Medicine; Visit Provider Nurse Practitioner | DX: R10.12 Left upper quadrant pain (principal); G89.29 Other chronic pain; K52.9 Noninfective gastroenteritis and colitis, unspecified | CPT/HCPCS: 82653; 83993; 87045; 87269; 87427; 87449 ==

== ENCOUNTER 2025-02-14 09:22 | Outpatient (CLI) | payer OTHER, SELFPAY ==
--- NOTE | ~2025-02-14 | US_ITS ---
EXAM: ABDOMEN ULTRASOUND HISTORY: R10.12 -mid upper quadrant pain COMPARISON: None FINDINGS: LIVER: The liver is unremarkable in echogenicity and size. The portal vein is patent, demonstrating hepatopedal flow. GALLBLADDER: A single calcified stone is identified within the neck of the gallbladder, possibly impa cted. This stone measures 17 x 14 x 14 mm. No gallbladder wall thickening or pericholecystic fluid. BILE DUCTS: Common bile duct measures 6.4mm. PANCREAS: Limited evaluation of the pancreas secondary to overlying bowel gas IMPRESSION: Limited evaluation of the pancreas secondary to overlying bowel gas A single 17 mm calcified stone possibly impacted within the neck of the distended gallbladder, as det sabine above. Reviewed, dictated and finalized at location A. IMPRESSION: Limited evaluation of the pancreas secondary to overlying bowel gas A single 17 mm calcified stone possibly impacted within the neck of the distend ed gallbladder, as detailed above.
--- OUTSIDE RECORDS SUMMARY | 2025-02-14 09:24 | XMS_ITS | Clinical Summary ---
Author Organization [facility] Address [address] [place] [address] Care Team Providers Care Search Engine Marketing Strategist Name Role Phone Unavailable Primary Care Provider Unavailabl e Source Comments [facility],non-owned Affiliates and Associated Physician Practices is amultiple site organization consisting of ambulatory clinics and hospital sitesin [place], [place], [place] and [place]. This disclosure is being madepursuant to the Care Everywhere program and may not contain all information available regarding this patient. Last updated 18.[facility] Allergies Active Allergy Reactions Criticality Noted Date [...] drink = 0.6 oz pur e alcohol) [place] Depression Scale Answer Date Recorded [place] Depression Scale Total 16 12/16/2023 The thought of harming myself has occurred to me . 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 Gender Identity Not on file Sexual Orientation [...] Health Maintenance Due Date Last Done Comments HPV VACCINE (1 - 3-dose series) 2018 MENINGOCOCCAL (Group B) VACCINE SHARED DECISION-MAKING (1 of 2 - Standard) 2019 HEPATITIS C SCREENING 01/24/2021 CHLAMYDIA/GONORRHEA SCREENING 12/25/2021 12/25/2020 DTAP/TDAP/TD VACCINES (1 - Tdap) 2022 HEPATITIS B VACCINE (1 of 3 - 19+ 3-dose series) 2022 PNEUMOCOCCAL VACCINE (1 of 2 - PCV) 2022 PAP SMEAR 01/30/2024 COVID-19 VACCINE (1 - 2023-2 5 season) 2024 DEPRESSION SCREENING 07/20/2024 INFLUENZA VACCINE (#1) 2025 , 05/09/2014 ZOSTER VACCINE (1 of 2) 2053 [...] AG PANEL (12/25/2020 6:46 PM CDT) Pathologist [facility] HIV Antigen/Antibod y 1 & 2 Non-reacti ve Non-react sangita 12/25/2020 8:12 PM CDT [facility] Comment:Neither HIV-1 p24 An tigen nor HIV-1/HIV-2 Antibodies are detected. Blood BLOOD SPECIMEN / Unknown Venipuncture / Unknown 12/25/2020 6:46 PM CDT 12/25/2020 7:28 PM CDT Mahesh Chamberlain MD LAB - CHEMISTRY ORDERABLES Final Result Performing Organization Address City/State/[facility] [[email or web address]] Co de Phone Number [facility] [address] [place] [phone], [facility] [phone] * CHLAMYDIA + GC AMPLIFIED PROBE (STL) (12/25/2020 6:30 PM CDT) Pathologist [facility] Chlamydia Amplified Probe Negative Negative 12/26/2020 2:53 AM CDT [facility] GC Amplified Probe Negative Negative 12/26/2020 2:53 AM CDT [facility] Microbiology URINE / Unknown Collection / Unknown 12/25/2020 6:30 PM CDT 12/25/2020 6:42 PM CDT Narrative [facility] - 12/26/2020 2:53 AM CDT Results based on detection/no detection of ribosomal RNA by amplified method. us Mahesh Chamberlain MD LAB - MICROBIOLOGY ORDERABLES Fi nal Result [facility] [address] [place] [address], [facility] [phone] from Last 3 Months or Most Recently Relevant to Health Maintenance Insurance [facility] SELF PAY NO INSURANCE Member Subscriber Plan / Payer (Ef fective for All Dates) Name:Janessa Mendoza Member ID:Not on file Relation to Subscriber:Not on file Name:JANESSA MENDOZA Subscriber ID:Not on file (Home) Address: [address] [place] [phone] Payer ID:Not on file Group ID:Not on file Type:Self Pay Address: [place], [place]
--- OUTSIDE RECORDS SUMMARY | 2025-02-14 09:24 | XMS_ITS | Clinical Summary ---
Author Organization [facility] Virtual Care Address [address] [place] [phone] Phone Care Team Providers Care Architectural Engineer Name Role Phone Nimo Jacobs MD Primary Care Provider Gelacio Smith MD Unavailable [phone] Allergies Active Allergy Reactions Criticality Noted Date Comments Nitrofurantoin Itching,Swelling,Rash Medium 04/24/2021 Medications ibuprofen (ADVIL,MOTRIN) 600 mg tabletIndications: Pain Take 1 tablet (600 mg total) by [...] or vomiting 20 tablet 12/11/19 25 Active Active Problems Problem Noted Date Diagnosed Date Syncope and collapse 12/30/2024 Disruption of external surgical wound 09/03/2024 Cyst [...] Encounters Date Type Department Care Team Description 01/11/2025 8:45 AM CDT - 01/11/2025 10:25 AM CDT Surgery [facility] Electrophysiology Lab 1 [place] [address] Richar Grover MD TILT TABLE EVALUATION 01/11/2025 5:55 AM CDT - 01/11/2025 10:45 AM CDT Hospital Encounter [facility] Electrophysiology Lab [address] [place] [address] Richar Grover MD Syncope and collapse Discharge Disposition: Discharge to home or self care 01/10/2025 Telephone [facility] Cardiology [facility] 8th [place] [address] [place] [address] Richar Grover MD 12/30/2024 Telephone [facility] Cardiology [facility] 8th [place] [address] [place] [address] Richar Grover MD 12/23/2024 2:45 PM CDT Office Visit [facility] Surgery [address] [facility] 2nd Floor [address] [place] [phone] Gelacio Smith MD Non-healing surgical wound, subsequent encounter (Primary Dx) 12/20/2024 10:15 AM CDT Office Visit [facility] Cardiology [address] [place] [address] 8th [place] [address] [place] [address] Richar Grover MD Paroxysmal SVT (supraventricular tachycardia) 12/20/2024 Results Follow-Up Cardiology Rihcar Grover MD ECG 12 lead 12/10/2024 9:40 PM CDT - 12/11/2024 12:05 AM CDT Emergency [facility] [address] [place] [address] Nausea and vomiting, unspecified vomiting type (Primary Dx); Visit for wound check Discharge Disposition: Discharge to home or self care 12/10/2024 Telephone [facility] Surgeon [address] [place] [address] Josiah Cruz MD 12/09/2024 2:45 PM CDT Office Visit [facility] Surgery [address] [place] [phone] Gelacio Smith MD Non-healing surgical wound, subsequent encounter (Primary Dx) 11/25/2024 12:45 PM CDT Office Visit [facility] Surgery [address] [place] [phone] Gelacio Smith MD Non-healing surgical wound, subsequent encounter (Primary Dx) 11/23/2024 Telephone [facility] Cardiology [address] [place] [address] [place] [address] [place] [address] Shannan Oglesby from Last 3 Months Immunizations Immunization Administration [...] you have a drink containing alcohol? Never 01/11/2025 Q2: How many drinks containi ng alcohol do you have on a typical day when you are drinking? Patient does not drink Q3: How often do you have si x or more drinks on one occasion? Never 01/11/2025 Personal Safety Answer Date Recorded Have you ever been in or are you currently in a harmful physical or emotional relationship or is someone making you feel afraid or unsafe? Denies 01/11/2025 Comments No Sex and Gender Information Value [...] Sign Reading Time Taken Comments Blood Pressure 136/74 01/11/2025 10:30 AM CDT Pulse 84 01/11/2025 10:30 AM CDT Temperature 36.7 C (98.1 F) 01/11/2025 6:18 AM CDT Respiratory Rate 21 01/11/2025 10:3 0 AM CDT Oxygen Saturation 98% 01/11/2025 10: 30 AM CDT Inhaled Oxygen Concentration - - Weight 149.9 kg (330 lb 7.5 oz) 01/11/2025 6:18 AM CDT Height 160 cm (5' 3) 01/11/2025 6:18 AM CDT Body Mass Index 58.54 01/11/2025 6:18 AM CDT Plan of Treatment Health Maintenance Due Date Last Done Comments Cervical Cancer Screening 2003 Depression Screening 2003 Hepatitis C Screening 2003 Meningococcal B Vaccine (1 o f 2 - Standard) 2019 Regular Well Visit/Exam 18-64 2021 Covid-19 Vaccine (2 - 2023-2 5 season) 2024 11/13/2021 Influenza Vaccine (#1) 2025 , 05/09/2014, 04/14/2009, Additional history exists DTaP/Tdap/Td Vaccine (8 - Td or Tdap) 09/12/2031 09/12/2021, 01/24/2014, 01/10/2008, Additional history exists Hepatitis B Screening Completed 2003 , 2003, 2003 Pneumococcal vaccine <65 Completed 004, 2003, 2003, Additional history exists Varicella Vaccines Completed 01/10/2008, 02/12/2004 HPV Vaccines Completed 05/29/2014, 02/2014, 02/01/2013 Medical Devices Implanted Type Area Court [employer]ailiff [employer] Sheriff Device Identifier Shelf Expiration Date Model / Serial / Lot [employer] Strattice 8x6cm Reconstructive Matrix Tissue Porcine Dermis Latex Free [id number] - [id number] Implanted:Qty: 1 on 08/10/2024 by Gelacio Smith MD at [facility] Mesh N/A: Sacrum [employer] [id number] 08/19/2025 [id number] / / [id number] Procedures Procedure Name Priority Date/Time Associated Diagnosis Comments TILT TABLE EVALUATION Routine 01/11/2025 9:51 AM CDT Syncope and collapse POCT HCG, URINE Routine 01/11/2025 6:22 AM CDT EGFR STAT 01/11/2025 5:57 AM CDT BASIC METABOLIC PANEL STAT 01/11/2025 5:57 AM CDT CBC WITHOUT DIFFERENTIAL STAT 01/11/2025 5:57 AM CDT ECG 12-LEAD Routine 12/20/2024 10:24 AM CDT Paroxysmal SVT (supraventricular tachycardia) EGFR STAT 12/10/2024 9:41 PM CDT DIFFERENTIAL AUTO STAT 12/10/2024 9:4 1 PM CDT COMPREHENSIVE METABOLIC PANEL STAT 12/10/2024 9:41 PM CDT CBC WITH AUTO DIFFERENTIAL STAT 12/10/2024 9:41 PM CDT from Last 3 Months Results * TILT TABLE EVALUATION (01/11/2025 9:51 AM CDT) Anatomical Region Laterality Modality X-Ray Angiograph y Narrative 01/11/2025 9:57 AM CDT Table formatting from the original result was not included. Patient Name: Janessa Mendoza Date of : 2005 Primary Care Provider: Nimo Jacobs MD Primary Wood Machinist Apprentice: Ivan Douglas MD Procedure Date: 01/11/2025 Attending Environmental Laboratory Technician: Richar Grover MD SOURAV Procedure 1. Head-Upright Tilt Table Test (TTT) Patient History Ms. Mendoza is an extremely pleasant 19 year old young lady with medical history of PCOS, presacral cyst s/p coccygectomy, and recurrent presyncope who was originally referred to the [facility] by her primary cardiogist, Dr. Ivan Douglas, in 12/2024 for tilt table testing as additional diagnostic testing for ongoing evaluation of unexplained syncope. Method After informed consent was obtained, the patient was brought to the EP lab in a post-absorptive, non-sedated state. A peripheral IV was in place. Continuous electrocardiography, blood pressure and pulse oximetry monitoring was initiated and cardioversion / defibrillator electrodes were positioned on the chest in an AP orientation. The patient was positioned/secured safely with soft straps on the TILT table in supine position. HR was monitored constantly and BP was measured at 3-4 minute intervals or anytime new symptoms developed. The patient was resting in supine position for at least 20 minutes prior to tilt. Then, the patient was tilted at 60-70 degrees for ~20 minutes (passive phase). At the end of the procedure, the patient was returned to the supine position and, subsequently, transported to the recovery area in stable condition. Results Time HR (bpm) BP (mmHg) Tilt (degrees) Symptoms/Notes 0857 62 105/63 0 Comfortable, no abnormal symptoms 0900 64 108/66 0 Comfortable, no abnormal symptoms 0903 64 119/65 0 Comfortable, no abnormal symptoms 0906 65 125/65 0 Comfortable, no abnormal symptoms 0909 68 122/65 0 Comfortable, no abnormal symptoms 0912 75 130/70 60 Dizzy with initial tilt 0915 73 124/66 60 Ongoing dizziness that is consistent with symptoms at home, whole body tingling 0918 69 110/67 60 Dizziness, whole body tingling, short of breath No chest pain 0923 84 130/89 60 Persistent dizziness, systemic tingling improving, intermittent shortness of breath 0926 77 143/77 60 Ongoing dizziness, nauseated, shortness of breath resolved 0929 79 142/67 60 Persistent dizziness without change in severity, nauseated Tingling and shortness of breath resolved 0932 81 142/68 60 Persistent dizziness 0935 79 142/96 60 Persistent dizziness 0938 66 142/87 0 Extreme dizziness upon returning to supine position, seeing black spots 0942 69 143/86 0 Persistent dizziness and still seeing spots in vision 0944 68 136/84 0 Dizziness improving, nausea resolved 0948 68 143/82 0 Comfortable, no abnormal symptoms Procedural Assessment The head upright tilt table test (HUT) is often utilized in the evaluation of patients with orthostatic symptoms and/or syncope. Depending on the underlying etiology of symptoms, sensitivity and specificity of HUT results can impact usefulness of data and impact on diagnosis/management. Therefore, HUT results do not necessarily completely exclude or confirm diagnoses and should be placed in context of clinical symptoms and pretest probability of a specific diagnosis. The normal response to tilt table testing consists of an increase in heart rate of approximately 10-15 beats per minute with an elevation of diastolic pressure of about 10 mmHg and little change in systolic pressure. Abnormal responses can be seen in patients with postural orthostatic tachycardia syndrome (POTS) or orthostatic hypotension. The POTS pattern consists of a sustained increase in heart rate of at least 30 beats per minute or sustained pulse rate of 120 beats per minute or above with HUT, typically within first 10 minutes of tilt and without hypotension Patients with inappropriate sinus tachycardia (IAST) have resting heart rates greater than 100 beats per minute with average heart rate greater than 90 over a 24 hour period with exertional heart rates greater than 100 and higher than perceived necessary for level of exertion for that individual patient. Typically, IAST has no clear relationship to postural changes like POTS. They also have no other identifiable cause of sinus tachycardia. The orthostatic hypotension pattern is defined as a reduction of systolic blood pressure of at least 20 mm Hg or a reduction in diastolic blood pressure of at least 10 mmHg. Neurocardiogenic syncope often appears as a symptomatic, sudden drop in blood pressure, often seen after 10 minutes or more of testing and can be accompanied by simultaneous bradycardia. Findings including immediate and continuing drop in blood pressure without a significant increase in heart rate may signal the presence of dysautonomia. A psychogenic reaction may be present if significant symptoms develop without any change in HR or BP. Conclusions Patient reports symptoms of extreme dizziness during change of position phases (upright tilt and return to supine) with appropriate change in BP and HR. Experienced persistent dizziness late into tilt phase without significant changes in HR and BP, Electrophysiologic findings of normal sinus rhythm throughout study. The results reported above in this patient are not consistent with inappropriate sinus tachycardia (IAST), orthostatic hypotension, positional tachycardia syndrome with or without orthostasis (PoTS), or arrhythmogenic syncope. Negative tilt table test (TTT). Recommendations 1. Patient to return to holding area with plans for discharge in ~ 30 minutes. 2. Resume all home medications tonight. 3. Recommend routine follow up with PCP as well as primary patient services technician, Dr. Ivan Douglas 4. No indication for scheduled follow-up in the [facility]. 5. No medication changes or additional testing at this time. The attending was present for the duration of the study and confirmed the above report. MD DIONICIO NolascoA Claim Administratorcertified medical technician assistant [facility] [employer] Division of Cardiology, Section of Electrophysiology 01/11/2025 9:52 AM Richar Grover MD CV ELECTROPHYSIOLOGY PROC S Final Result * POCT hCG, urine (01/11/2025 6:22 AM CDT) [facility] HCG, ur, POC Negative Negative Lot Number [id number] QC Backgroud Clear Acceptable QC Control Line Acceptable Urine 01/11/2025 6:22 AM CDT Richar Grover MD POINT OF CARE TEST ORDERA BLES Final Result * eGFR (01/11/2025 5:57 AM CDT) [facility] eGFR >90 >=60 mL/min/1. 73 m2 Comment: [...] of Race in Diagnosing Kidney Disease, JASN 202). The CKD-EPI equation should not be used for patients with unstable renal function and has not been validated in children and those over 70. Current interpretive data was last reviewed 2021. Blood 01/11/2025 5:57 AM CDT 01/11/2025 6:43 AM CDT us Richar Grover MD LAB BLOOD ORDERABLES Umu taylor Result [facility] Department [place] [address] * (ABNORMAL) CBC without differential (01/11/2025 5:57 AM CDT) WBC 7.16 3.80 - 9.90 K/cumm Hgb 11.6(L) 11.9 - 15.5 g/dL [facility] Hct 36.2 35.6 - 45.5 % [facility] Plt 366 150 - 400 K/cumm [facility] MPV 9.5 9.1 - 12.[address] [facility] RBC 4.83 3.90 - 5.20 M/cumm [facility] MCV 74.9(L) 81.3 - 96.[address] [facility] MCH 24.0(L) 27.1 - 33.[address] [facility] MCHC 32.0(L) 32.3 - 35.7 g/dL [facility] RDW CV 14.0 11.1 - 14.9 % [facility] RDW SD 36.9 35.7 - 48.[address] [facility] NRBC abs 0.00 0.00 - 0.01 K/cumm [facility] Blood 01/11/2025 5:57 AM CDT 01/11/2025 6:43 AM CDT Richar Grover MD LAB BLOOD ORDERABLES Umu l Result Performing Organization Address [facility] Co de Phone Number [facility] Department [place] [address] * Basic metabolic panel (01/11/2025 5:57 AM CDT) [facility] Sodium 140 135 - 145 mmol/L Potassium, pl 3.8 3.3 - 4.9 mmol/L [facility] Chloride 104 97 - 110 mmol/L [facility] CO2 26 22 - 32 mmol/L [facility] Anion gap 10 2 - 15 mmol/L [facility] BUN 12 6 - 25 mg/dL [facility] Creatinine 0.82 0.60 - 1.10 mg/dL [facility] Glucose 95 70 - 199 mg/dL [facility] Comment: Interpretive Data Fasting glucose >/= 126 [...] interpretive data was last revised 2022. Calcium 8.8 8.5 - 10.3 mg/dL [facility] Blood 01/11/2025 5:57 AM CDT 01/11/2025 6:43 AM CDT Richar Grover MD LAB BLOOD ORDERABLES Umu l Result Performing Organization Address [facility] Co de Phone Number [facility] Department [place] [address] * ECG 12 lead (12/20/2024 10:24 AM [...] Handley MD LAB BLOOD ORDERABLES Final Result [facility] [address] [facility] Department [place] [address] * (ABNORMAL) Differential, auto (12/10/2024 9:41 PM CDT) Neutrophil abs 7.15(H) 1.50 - 6.50 K/cumm Imm gran abs 0.05 0.00 - 0.10 K/cumm [facility] Lymphocyte abs 2.47 0.80 - 3.30 [facility] Monocyte abs 0.55 0.20 - 0.80 K/cumm [facility] Eosinophil abs 0.14 0.00 - 0.50 K/cumm [facility] Basophil abs 0.05 0.00 - 0.10 K/cumm [facility] Neutrophil pct 68.7 % [facility] Comment: Interpretive Data Percent cell count reference ranges are not reported, since discordance with absolute values may lead to misinterpretation of CBC data. Current Interpretive Data was last revised on 2017. Imm gran pct 0.5 % [facility] Comment: Interpretive Data Percent cell count reference ranges are not reported, since discordance with absolute values may lead to misinterpretation of CBC data. Current Interpretive Data was last revised on 2017. Lymphocyte pct 23.7 % [facility] Comment: Interpretive Data Percent cell count reference ranges are not reported, since discordance with absolute values may lead to misinterpretation of CBC data. Current Interpretive Data was last revised on 2017. Monocyte pct 5.3 % [facility] Comment: Interpretive Data Percent cell count reference ranges are not reported, since discordance with absolute values may lead to misinterpretation of CBC data. Current Interpretive Data was last revised on 2017. Eosinophil pct 1.3 % [facility] Comment: Interpretive Data Percent cell count reference ranges are not reported, since discordance with absolute values may lead to misinterpretation of CBC data. Current Interpretive Data was last revised on 2017. Basophil pct 0.5 % [facility] Comment: Interpretive Data Percent cell count reference ranges are not reported, since discordance with absolute values may lead to misinterpretation of CBC data. Current Interpretive Data was last revised on 2017. Blood 12/10/2024 9:41 PM CDT 12/10/2024 9:51 PM CDT us Pamela Handley MD LAB BLOOD ORDERABLES Final Result [facility] [address] [facility] Department of Laboratories [place], [place] [id number] * (ABNORMAL) CBC with auto differential (12/10/2024 9:41 PM CDT) WBC 10.41(H) 3.80 - 9.90 K/cumm Hgb 12.4 11.9 - 15.5 g/dL [facility] Hct 38.9 35.6 - 45.5 % [facility] Plt 417(H) 150 - 400 K/cumm [facility] MPV 9.2 9.1 - 12.3 fL [facility] RBC 5.13 3.90 - 5.20 M/cumm [facility] MCV 75.8(L) 81.3 - 96.4 fL [facility] MCH 24.2(L) 27.1 - 33.3 pg [facility] MCHC 31.9(L) 32.3 - 35.7 g/dL [facility] RDW CV 13.8 11.1 - 14.9 % [facility] RDW SD 36.9 35.7 - 48.1 fL [facility] NRBC abs 0.00 0.00 - 0.01 K/cumm [facility] Blood Venous blood specimen / Unknown 12/10/2024 9:41 PM CDT 12/10/2024 9:51 PM CDT us Pamela Handley MD LAB BLOOD ORDERABLES Final Result [facility] [id number] [facility]. Department [place] [address] * Comprehensive metabolic panel (12/10/2024 9:41 PM CDT) [facility] Sodium 137 135 - 145 mmol/L Potassium, pl 3.7 3.3 - 4.9 mmol/L [facility] Chloride 101 97 - 110 mmol/L [facility] CO2 23 22 - 32 mmol/L [facility] Anion gap 13 2 - 15 mmol/L [facility] BUN 15 6 - 25 mg/dL [facility] Creatinine 0.80 0.60 - 1.10 mg/dL [facility] Glucose 93 70 - 199 mg/dL [facility] Comment: Interpretive Data Fasting glucose >/= 126 [...] MD LAB BLOOD ORDERABLES Final Result [facility] [id number] [facility]. Department [place] [address] from Last 3 Months Insurance [facility] Advance Directives For more information, please contact: [phone] * Full Code (Latest Code Status on File) Date Activated Date Inactivated Comments 08/10/2024 1:20 PM 08/12/2024 7:18 PM Care Teams Architectural Engineer Relationship Specialty Start Date End Date Nimo Jacobs MD [address] [place] [address] PCP - General Family Practice 07/29/24 Gelacio Smith MD [address] [facility] [id number] [place] [address] Surgeon Colon and Rectal Surgery 08/02/24
--- OUTSIDE RECORDS SUMMARY | 2025-02-14 09:24 | XMS_ITS | Data Portability ---
Author Organization [facility] [employer], Main Office Address [address] [place] [address] Assessment Encounter Date Assessment Date Assessment LastModified [...] , dipstick 2022 023 [id number] [facility] [place], [address] [facility] [address], [place], [address], 15:24:21 Referral None recorded. Procedures None recorded. Surgeries None recorded. Imaging None recorded. Medication Orders None recorded. Patient TargetsNo targets recorded. Patient InstructionsNo instructions recorded. Reason for Referral None Reported. Results Created Date Observation Date Name Description Value Unit Range Abnormal Flag Note LastModifiedBy Organization Detail LastModifiedTime 04/01/2004/01/2022 urina lysis , dipst ick Leukocytes (reference range: negative litzy/ l) Negati ve Not Available [address], [address], 04/01/2022 15:48:09 04/01/20 22 04/01/2022 urina lysis , dipst ick Nitrite (reference rage: negative mg/dl) negati ve Not Available [address], [address], 04/01/2022 15:48:09 04/01/20 22 04/01/2022 urina lysis , dipst ick Urobilinogen (reference range: 0.2-1 mg/dl) 0.2 Not Available [address], [address], 04/01/2022 15:48:09 04/01/20 22 04/01/2022 urina lysis , dipst ick Protein (reference range: negative mg/dl) Negati ve Not Available [address], [address], 04/01/2022 15:48:09 04/01/20 22 04/01/2022 urina lysis , dipst ick pH (reference range: 5-7) 6.0 Not Available [address], [address], 04/01/2022 15:48:09 04/01/20 22 04/01/2022 urina lysis , dipst ick Blood (reference range: negative Donte/ l) Negati ve Not Available [facility], [place], [address], 04/01/2022 15:48:04/01/2004/01/2022 urina lysis , dipst ick Specific [place] (reference range: 1.005-1.030) 1.020 Not Available [address], [address], 04/01/2022 15:48:09 04/01/20 22 04/01/2022 urina lysis , dipst ick Ketone (reference range: negative mg/dl) Negati ve Not Available [address], [address], 04/01/2022 15:48:09 04/01/20 22 04/01/2022 urina lysis , dipst ick Bilirubin (reference range: negative mg/dl) Negati ve Not Available [address], [address], 04/01/2022 15:48:09 04/01/20 22 04/01/2022 urina lysis , dipst ick Glucose (reference range: negative mg/dl) Negati ve Not Available [address], [address], 04/01/2022 15:48:04/01/20 22 04/01/2022 urina lysis , dipst ick Appearance Clear Not Available [address], [address], 04/01/2022 15:48:09 04/01/20 22 04/01/2022 urina lysis , dipst ick Color Yellow Not Available [address], [address], 04/01/2022 15:48:09 04/15/20 22 04/15/2022 urina lysis , dipst ick Leukocytes (reference range: negative litzy/ l) Trace Not Available [address], [address], 04/15/2022 14:34:49 04/15/20 22 04/15/2022 urina lysis , dipst ick Nitrite (reference rage: negative mg/dl) negati ve Not Available [address], [address], 04/15/2022 14:34:49 04/15/20 22 04/15/2022 urina lysis , dipst ick Urobilinogen (reference range: 0.2-1 mg/dl) 0.2 Not Available [address], [address], 04/15/2022 14:34:49 04/15/20 22 04/15/2022 urina lysis , dipst ick Protein (reference range: negative mg/dl) Negati ve Not Available [address], [address], 04/15/2022 14:34:49 04/15/20 22 04/15/2022 urina lysis , dipst ick pH (reference range: 5-7) 6.0 Not Available [address], [address], 04/15/2022 14:34:49 04/15/20 22 04/15/2022 urina lysis , dipst ick Blood (reference range: negative Donte/ l) Non-He molyze d: Trace Not Available [address], [address], 04/15/2022 14:34:49 04/15/20 22 04/15/2022 urina lysis , dipst ick Specific [place] (reference range: 1.005-1.030) 1.025 Not Available [address], [address], 04/15/2022 14:34:49 04/15/20 22 04/15/2022 urina lysis , dipst ick Ketone (reference range: negative mg/dl) Negati ve Not Available [address], [address], 04/15/2022 14:34:49 04/15/20 22 04/15/2022 urina lysis , dipst ick Bilirubin (reference range: negative mg/dl) Negati ve Not Available [address], [address], 04/15/2022 14:34:49 04/15/20 22 04/15/2022 urina lysis , dipst ick Glucose (reference range: negative mg/dl) Negati ve Not Available [address], [address], 04/15/2022 14:34:49 04/15/20 22 04/15/2022 urina lysis , dipst ick Appearance Clear Not Available Z_[facility] _[facility] [address] [place] [address], [address], [place], [address], 04/15/2022 14:34:49 04/15/20 22 04/15/2022 urina lysis , dipst ick Color Yellow Not Available Z_[facility]_[address], [facility], [place], [address], 04/15/2022 14:34:49 10/15/19 23 10/14/2022 urina lysis , dipst ick Leukocytes (reference range: negative litzy/ l) Negati ve Not Available s_[address], [place], [address], 10/14/2022 15:10:29 10/15/19 23 10/14/2022 urina lysis , dipst ick Nitrite (reference rage: negative mg/dl) negati ve Not Available s_[address], [place], [address], 10/14/2022 15:10:29 10/15/19 23 10/14/2022 urina lysis , dipst ick Urobilinogen (reference range: 0.2-1 mg/dl) 0.2 Not Available s_[facility] [address] [place] [address] [address], [place], [address], 10/14/2022 15:10:29 10/15/19 23 10/14/2022 urina lysis , dipst ick Protein (reference range: negative mg/dl) Negati ve Not Available s_[address], [place], [address], 10/14/2022 15:10:29 10/15/19 23 10/14/2022 urina lysis , dipst ick pH (reference range: 5-7) 6.0 Not Available s_ g[facility] [address], [place], [address], 10/14/2022 15:10:29 10/15/19 23 10/14/2022 urina lysis , dipst ick Blood (reference range: negative Donte/ l) Negati ve Not Available s_gmg [facility] [address], [place], [address], 10/14/2022 15:10:10/15/19 23 10/14/2022 urina lysis , dipst ick Specific [place] (reference range: 1.005-1.030) 1.020 Not Available s _g [facility] [address] [place] [address] [address], [place], [address], 10/14/2022 15:10:29 10/15/19 23 10/14/2022 urina lysis , dipst ick Ketone (reference range: negative mg/dl) Negati ve Not Available s_g [facility] [address], [place], [address], 10/14/2022 15:10:10/15/19 23 10/14/2022 urina lysis , dipst ick Bilirubin (reference range: negative mg/dl) Negati ve Not Available s_gmg [facility] [address], [place], [address], 10/14/2022 15:10:10/15/19 23 10/14/2022 urina lysis , dipst ick Glucose (reference range: negative mg/dl) Negati ve Not Available s_[facility]mg [facility] [address] [place] [address] [address], [place], [address], 10/14/2022 15:10:29 10/15/19 23 10/14/2022 urina lysis , dipst ick Appearance Clear Not Available [facility] [place] [address], [place], [address], 10/14/2022 15:10:29 10/15/19 23 10/14/2022 urina lysis , dipst ick Color Yellow Not Available [facility] [place] [address], [place], [address], 10/14/2022 15:10:29 12/27/19 23 12/26/2022 urina lysis , dipst ick Leukocytes (reference range: negative litzy/ l) Negati ve Not Available [facility] [place] [address], [place], [address], 12/26/2022 14:41:56 12/27/19 23 12/26/2022 urina lysis , dipst ick Nitrite (reference rage: negative mg/dl) negati ve Not Available [facility] [place] [address] [place] [address] [address] [facility], [place], [address], 12/26/2022 14:41:56 12/27/19 23 12/26/2022 urina lysis , dipst ick Urobilinogen (reference range: 0.2-1 mg/dl) 0.2 Not Available [facility] [place] [address] [place] [address] [address] [facility] [address], [place], [address], 12/26/2022 14:41:56 12/27/19 23 12/26/2022 urina lysis , dipst ick Protein (reference range: negative mg/dl) Negati ve Not Available [facility] [place] [address] [facility] [address], [place], [address], 12/26/2022 14:41:56 12/27/19 23 12/26/2022 urina lysis , dipst ick pH (reference range: 5-7) 6.5 Not Available [facility] [place] [address], [place], [address], 12/26/2022 14:41:56 12/27/19 23 12/26/2022 urina lysis , dipst ick Blood (reference range: negative Donte/ l) Negati ve Not Available [facility] [place] [address], [place], [address], 12/26/2022 14:41:56 12/27/19 23 12/26/2022 urina lysis , dipst ick Specific [place] (reference range: 1.005-1.030) 1.015 Not Available A[facility] _gmg [address], [place], [address], 12/26/2022 14:41:56 12/27/19 23 12/26/2022 urina lysis , dipst ick Ketone (reference range: negative mg/dl) Negati ve Not Available [facility] [address] [place] [address] [address], [place], [address], 12/26/2022 14:41:56 12/27/19 23 12/26/2022 urina lysis , dipst ick Bilirubin (reference range: negative mg/dl) Negati ve Not Available [facility] [place] [address] [place] [address] [address], [place], [address], 12/26/2022 14:41:56 12/27/19 23 12/26/2022 urina lysis , dipst ick Glucose (reference range: negative mg/dl) Negati ve Not Available s_gmg Ent [address], [place], [address], 12/26/2022 14:41:56 12/27/19 23 12/26/2022 urina lysis , dipst ick Appearance Clear Not Available s_gmg [facility] [address] [facility] [address], [place], [address], 12/26/2022 14:41:56 12/27/19 23 12/26/2022 urina lysis , dipst ick Color Dark Yellow Not Available [facility] [address] [facility] [address], [place], [address], 12/26/2022 14:41:56 03/13/20 22 03/12/2022 US, kidne y No observ ation record ed. [id number], [place], [address], 09/17/2022 21:12:49 04/05/20 22 04/05/2022 CT, abdom en + pelvi s, w/wo contr ast No observ ation record ed. [id number] [place], [address], 09/17/2022 21:12:49 04/11/20 22 04/11/2022 CT, abdom en + pelvi s, w/wo contr ast No observ ation record ed. [id number], [place], [address], 09/17/2022 21:12:49 10/14/19 23 10/08/2022 CT, abdom en + pelvi s, w/ contr ast No observ ation record ed. BARCODE Not Available 2022 11:26:31 Result Notes None recorded. Problems Name Problem SNOMED Code Status Onset Date Resolution Date Notes Provider Name and Address Organization Details Recorded Time 35061220 Active 2020 Not Available [employer] 21:12:02 Recurrent urinary tract infection 747188446 Active 2022 Gelacio Longo MD [address] [facility], [address], [place], [address] , [facility] 3 15:23:28 Epidermoid cyst 524806857 Active 2022 Malcolm ragland MD [address] [facility], [address], [place], [address] , [facility] 3 13:38:43 Acute urinary tract infection 673561031 Active 2022 Lakesha Arzola MA [facility], [facility] 3 14:42:15 Problem Notes None recorded. Procedures Surgical History Date Name Laterality Status Provider Name and Address Organization Details Recorded Time incision and drainage completed Not Available [facility] 09/17/2022 21:11:45 Tonsillectomy completed Not Available [facility] 09/17/2022 21:11:45 Imaging Results None recorded. Procedure Notes None recorded. Medical Equipment None Reported. Allergies Allergen ID Allergen Name Allergen Category Reaction Reaction Severity Criticality Documentation Date Start Date Code Code System Note Provider Name and Address Organization Details Recorded Time 78212 Macrobid medicatio n itching Not available Not available 09/17/2022 07046 1 RxNorm Not Available [facility] 3 21:12:47 Medications Name Sig Start Date [...] completed Not Available Not Available Not Available Jun[facility] FE 08/08 () 1 mg-20 mcg (21)/75 [...] in Arterial blood by Pulse oximetry Systolic And Diastolic Provider Name and Address Organization Details Last Updated DateTime 5 160.02 cm 899577. 63 g 54.9 kg/m2 80 /min 99 % 99 % 140/88 mm[Hg] Man Mabry Denae [place] [employer] 5 10:39:29 Date Recorded Body height Body mass index (BMI) Body mass index (BMI) [Percentile] Per age and sex Body weight Heart rate Body temperature Respiratory rate Oxygen saturation Oxygen saturation in Arterial blood by Pulse oximetry Systolic And Diastolic Provider Name and Address Organization Details Last Updated DateTime 3 160.02 cm 49.6 kg/m2 99 % 097562. 86 g 98 /min 97.5 [degF] 14 /min 98 % 98 % 120/82 mm[Hg] Lucy Freeman [place] [employer] [facility] [employer] 3 11:23:01 Date Recorded Body height Provider Name an d Address Organization Details Last Updated DateTime 10/14/2022 160.02 cm Lakesha Arzola MA [facility] [employer] 10/14/2022 15:06:47 Date Recorded Body mass index (BMI) [Percentile] Per age and sex Body mass index (BMI) Body weight Body temperature Heart rate Oxygen saturation Oxygen saturation in Arterial blood by Pulse oximetry Systolic And Diastolic Provider Name and Address Organization Details Last Updated DateTime 3 99 % 54.9 kg/m2 954581. 63 g 98.1 [degF] 81 /min 98 % 98 % 141/90 mm[Hg] Sree Vale Denae [place] [employer] [facility] [employer] [facility] 3 15:10:12 Date Recorded Body mass index (BMI) Body height Oxygen saturation Oxygen saturation in Arterial blood by Pulse oximetry Heart rate Body temperature Body weight Provider Name and Address Organization Details Last Updated DateTime 2 53.1 kg/m2 160.02 cm 98 % 98 % 94 /min 97.9 [degF] 499227. 71 g Not Available [employer] 3 21:11:50 Date Recorded Body mass index (BMI) Body height Oxygen saturation Oxygen saturation in Arterial blood by Pulse oximetry Body temperature Body weight Provider Name and Address Organization Details Last Updated DateTime 2 53.1 kg/m2 160.02 cm 99 % 99 % 98.2 [degF] 437817. 71 g Not Available [facility] 21:11:50 Social History Question Answer Notes LastModified by [employer] Details LastModified Time Tobacco Smoking Status Never Smoker DEVON Brito [place] [employer] [facility] 10/14/2022 14:53:48 What Is Your Level Of Caffeine Consumption? Moderate [id number] Information not available 09/17/2022 Which Illicit Or Recreational Drugs Have You Used? No Information not available 10/14/2022 Has Tobacco Cessation Counseling Been Provided? No Information not available 10/14/2022 Sex: Unknown Functional Status Question Answer Note LastModified by [employer] Details LastModified Time Do you use any illicit or recreational drugs? No Information not available 10/14/2022 Do you or have you ever used any other forms of tobacco or nicotine? No Information not available 10/14/2022 What is your level of alcohol consumption? None [id number] Information not available 09/17/2022 Do you or have you ever used smokeless tobacco? Never used smokeless tobacco [id number] Information not available 09/17/2022 Do you or have you ever used e-cigarettes or vape? Never used electronic cigarettes Information not available 10/14/2022 What is your exercise level? Occasional [id number] Information not available 09/17/2022 Mental Status None recorded. Family History Relationship Description Onset Age of this Age Resolved Age Notes LastModified by Organization Details LastModified Time Paternal Grandmother Diabetes mellitus [id number] Not available 09/17/2022 21:11:45 Unspecified Relation Kidney stone Not available 14:53:48 Unspecified Relation Hypertensive disorder [id number] Not available 09/17/2022 21:11:45 Medical History Condition Response CYSTITIS N BLINDNESS N RHEUMATIC FEVER N KIDNEY STONES N BLADDER PROBLEMS N Enlarged Prostate N MRSA N SLEEP APNEA N INFECTIOUS DISEASE N LUNG DISEASE/DISORDER N HEART ARRHYTHMIA N PROSTATE N HISTORY OF DRUG ABUSE N INSOMNIA N COPD N RADIATION / CHEMOTHERAPY N HIGH CHOLESTEROL / HYPERLIPIDEMIA N HYPERTHYROIDISM N UTI N BLOOD DISEASES N EDEMA N HYPOTHYROIDISM N SHINGLES N BOWEL PROBLEMS N BACK / NECK PROBLEMS N DEPRESSION (INCLUDING POST ) Y HAVE YOU BEEN HOSPITALIZED OR SEEN IN [facility] IN THE PAST YEAR ? N STROKE/TIA N THYROID DISEASE N BENIGN PROSTATIC HYPERPLASIA N DIALYSIS N OBESITY Y GERD/NAUSEA N ANEURYSM N OSTEOPOROSIS N URINARY/BLADDER/KIDNEY PROBLEMS N Increased Urination N CORONARY ARTERY DISEASE (CAD) N ARTHRITIS N USE OF BLOOD THINNERS N NO SIGNIFICANT PAST MEDICAL HISTORY N SKIN PROBLEMS Y DIABETES, TYPE N EMPHYSEMA N GASTROINTESTINAL DISORDER N PARKINSON N GASTROINTESTINAL BLEEDING N BLOOD CLOTS N Difficulty Urinating N ASTHMA N HEPATITIS / LIVER DISEASE N CATARACTS N GOUT N SLEEP DISORDER N ALZHEIMER'S DISEASE N ERECTILE DYSFUNCTION N HERPES N SEIZURES/EPILEPSY N HEADACHES/MIGRAINES N GI PROBLEMS N Low Testosterone N PACEMAKER N HEART MURMUR N DIZZINESS N AIDS/HIV N KIDNEY DISEASE N HEART DISEASE/HEART PROBLEMS N LIVER DISEASE N MULTIPLE SCLEROSIS N MALE HYPOGONADISM N HYPERTENSION N CANCER: SPECIFY N TOURETTE'S N ANXIETY DISORDER Y BLOOD TRANSFUSION N ANEMIA/BLOOD DISORDER N ANESTHESIA COMPLICATIONS N ATRIAL FIBRILLATION N AUTOIMMUNE DISEASE N TUBERCULOSIS N GLAUCOMA N Gynecological History Statement/Question Response Date of Last Pap Smear Current Control Method Date of LMP 12/10/2020 Breast Problems none Obstetrics History GPAL:G 1 P 0 0 0 0 Past Encounters Encounter ID Performer Location Encounter Start Date Encounter Closed Date Diagnosis/Indication Diagnosis SNOMED-CT Code Diagnosis ICD10 Code Diagnosis Note [id number] [facility]_ DEFAULT_1 _1 , 10/02/2020 00:00:00 10/02/2020 12:29:32 [id number] [facility] _[facility] IGR[facility]_ DEFAULT_1 _1 , 10/15/2020 00:00:00 10/15/2020 12:06:40 [id number] [facility] _[facility]_M IGR[facility]_ DEFAULT_1 _1 , 01/25/2021 00:00:00 01/25/2021 14:28:08 [id number] [facility]_ DEFAULT_1 _1 , 02/11/2021 00:00:00 02/11/2021 11:09:56 [id number] [facility]GR[facility]_ DEFAULT_1 _1 , 02/28/2021 00:00:00 02/28/2021 14:08:22 [id number] [facility]_ DEFAULT_1 _1 , 04/03/2021 00:00:00 04/03/2021 12:43:00 [id number] [facility] _[facility]_M IGR[facility]_ DEFAULT_1 _1 , 05/01/2021 00:00:00 05/01/2021 15:16:25 [id number] [facility] _[facility] I[facility]_ DEFAULT_1 _1 , 05/29/2021 00:00:00 05/29/2021 17:09:35 [id number] [facility] _[facility]_M IGR[facility]_ DEFAULT_1 _1 , 07/01/2021 00:00:00 07/01/2021 14:54:25 [id number] Bhavin Hussein NP [facility] [address] [address] 02/24/2022 00:00:00 02/24/2022 15:48:51 [id number] MD ANNETTA De La Fuente_[facility] [address] [address] 04/01/2022 00:00:00 04/02/2022 12:21:31 [id number] MD ANNETTA De La Fuente_[facility] [address] [place] [address] 04/15/2022 00:00:00 04/15/2022 14:47:02 [id number] Malcolm ragland MD S_[facility] General Surgery [address] [place] [address] 10/14/2022 11:12:56 10/14/2022 12:40:22 Epidermoid cyst 812688473 K09.8 anal [id number] MD ALLY De La FuenteS_[facility] [address] [place] [address] 10/14/2022 14:49:23 10/14/2022 15:22:37 Recurrent urinary tract infection 665455790 N39.0 No recurrence on conservati ve measures ,went over them again. Will call if has trouble. [id number] Malcolm ragland MD [facility] General [facility] [address] [facility] [address] [place] [address] 07/21/2024 10:34:20 07/21/2024 12:51:53 Epidermoid cyst 426646670 K09.8 anal Health Concerns Section Related Observation LastModified by Organization Detai ls LastModified Time None Recorded Concern Status LastModified by Organization Details LastModified Time None Recorded Advance Directives Directive None Recorded Payers Insurance Date Sequence Insurance Name Policy Number Policy Salgado Covered Member ID Salgado Member ID Guarantor Name 07/21/2024 1 [facility] ON OR AFTER 01/17/21 (MEDICAID REPLACEMENT - HMO) Janessa [place] [id number] [facility] [place] 07/21/2024 2 [place] Janessa [place] [id number] Janessa [place] 12/01/2024 1 [facility] ON OR AFTER 01/17/21 (MEDICAID REPLACEMENT - HMO) [facility] [place] [id number] [facility] [place] OBGyn Episode No OBEpisode recorded.
--- OUTSIDE RECORDS SUMMARY | 2025-02-14 09:24 | XMS_ITS | Encounter Summary ---
Author Organization [facility] Healthcare Address [address] [place] [address] Care Team Providers Care [employer] Teacher Name Role Phone Nimo Jacobs MD Primary Care Provider Gelacio Smith MD Unavailable [phone] Encounter Details Date Type Department Care Team (Latest Contact Info) Description 12/20/2024 Results Follow-Up Cardiology Richar Grover MD [address] [address] ECG 12 lead Social History [...] on filedocumented in this encounter Care Teams [employer] Teacher Relationship Specialty Start Date End Date Nimo Jacobs MD [address] [facility] [address] [address] PCP - General Family Practice 07/29/24 Gelacio Smith MD [phone] [place] [address] Surgeon Colon and Rectal Surgery 08/02/24 documented as of this encounter
--- OUTSIDE RECORDS SUMMARY | 2025-02-14 09:24 | XMS_ITS | Referral Summary ---
Author Organization [facility] Virtual Care Address [facility] [place] [address] Phone Care Team Providers Care Liquor Grinder Mill Operator Name Role Phone Nimo Jacobs MD Primary Care Provider Gelacio Smith MD Unavailable [phone] Encounters Date Type Department Care Team Description 01/11/2025 8:45 AM CDT - 01/11/2025 10:25 AM CDT Surgery [facility] Electrophysiology Lab 1 [place] [address] Richar Grover MD TILT TABLE EVALUATION 01/11/2025 5:55 AM CDT - 01/11/2025 10:45 AM CDT Hospital Encounter [facility] Electrophysiology Lab 1 [place] [address] Richar Grover MD Syncope and collapse Discharge Disposition: Discharge to home or self care 01/10/2025 Telephone [facility] Cardiology [facility] Advanced Medicine 8th [place] [address] [place] [phone] Richar Grover MD 12/30/2024 Telephone [facility] Cardiology [address] [facility] Advanced Medicine 8th [place] [address] [place] [address] Richar Grover MD 12/23/2024 2:45 PM CDT Office Visit [facility] Surgery [address] [facility] 2nd Floor [address] [place] [address] Gelacio Smith MD Non-healing surgical wound, subsequent encounter (Primary Dx) 12/20/2024 Results Follow-Up Cardiology Richar Grover MD ECG 12 lead 12/20/2024 10:15 AM CDT Office Visit [facility] Cardiology [address] [place] [address] [place] [address] Richar Grover MD Paroxysmal SVT (supraventricular tachycardia) 12/10/2024 9:40 PM CDT - 12/11/2024 12:05 AM CDT Emergency [facility] Emergency Department [address] [place] [address] Nausea and vomiting, unspecified vomiting type (Primary Dx); Visit for wound check Discharge Disposition: Discharge to home or self care 12/10/2024 Telephone [facility] Surgeon [address] [place] [address] Josiah Cruz MD 12/09/2024 2:45 PM CDT Office Visit [facility] Surgery [address] [place] [phone] Gelacio Smith MD Non-healing surgical wound, subsequent encounter (Primary Dx) 11/25/2024 12:45 PM CDT Office Visit [facility] Surgery [address] [place] [phone] Gelacio Smith MD Non-healing surgical wound, subsequent encounter (Primary Dx) 11/23/2024 Telephone [facility] Cardiology [facility] 8th [place] [address] [place] [address] Shannan Oglesby from Last 3 Months Allergies Active Allergy Reactions Criticality Noted Date Comments Nitrofurantoin Itching,Swelling,Rash Medium 04/24/2021 Medications ibuprofen (ADVIL,MOTRIN) 600 mg tabletIndications: Pain Take 1 tablet (600 mg total) by mouth every 8 (eight) hours as needed for pain 08/12/19 Active mupirocin (BACTROBAN) 2 % ointment Apply topically 2 (two) times a day Apply to wound with each dressing change. Collaborating physician García Short MD 44 g 2 09/03/19 Active acetaminophen (TYLENOL) 325 mg tablet Take 2 tablets (650 mg total) by mouth every 6 (six) hours as needed for pain Active traMADoL (ULTRAM) 50 mg tablet Take 1 tablet (50 mg total) by mouth every 6 (six) hours 5 tablet 09/27/19 Active ondansetron ODT (ZOFRAN-ODT) 4 mg disintegrating [...] 01/11/2025 6:18 AM CDT Plan of Treatment Not on file Medical Devices Implanted Type Area Tank Farm Operator Device Identifier Shelf Expiration Date Model / Serial / Lot [employer] Strattice 8x6cm Reconstructive Matrix Tissue Porcine Dermis Latex Free [id number] - [id number] Implanted:Qty: 1 on 08/10/2024 by Gelacio Smith MD at [facility] Mesh N/A: Sacrum [employer] [id number] 08/19/2025 [id number] / / [id number] Procedures Procedure Name Priority Date/Time Associated [...] Primary Care Provider: Nimo Jacobs MD Primary Plywood Matcher: Ivan Douglas MD Procedure Date: 01/11/2025 Attending Licensed Bondsman: Richar Grover MD SOURAV Procedure 1. Head-Upright [...] up with PCP as well as primary power supply engineer, Dr. Ivan Douglas 4. No indication for scheduled follow-up in the [facility]. 5. No medication changes or additional testing at this time. The attending was present for the duration of the study and confirmed the above report. MD DIONICIO NolascoA Drama Teacherroofer assistant [facility] [employer] Division of Cardiology, Section of Electrophysiology 01/11/2025 9:52 AM Richar Grover MD CV ELECTROPHYSIOLOGY PROC S Final Result * POCT hCG, urine (01/11/2025 6:22 AM CDT) HCG, ur, POC Negative Negative Lot Number [id number] QC Backgroud Clear Acceptable QC Control Line Acceptable Urine 01/11/2025 6:2 2 AM CDT Richar Grover MD POINT OF CARE TEST ORDERA BLES Final Result * eGFR (01/11/2025 5:57 AM CDT) [facility] eGFR >90 >=60 mL/min/1. 73 m2 Comment: [...] MD LAB BLOOD ORDERABLES Umu taylor Result [facility] [place] [address] * (ABNORMAL) CBC without differential (01/11/2025 5:57 AM CDT) [facility] WBC 7.16 3.80 - 9.90 K/cumm Hgb 11.6(L) 11.9 - 15.5 g/dL [facility] Hct 36.2 35.6 - 45.5 % [facility] Plt 366 150 - 400 K/cumm [facility] MPV 9.5 9.1 - 12.3 fL [facility] RBC 4.83 3.90 - 5.20 M/cumm [facility] MCV 74.9(L) 81.3 - 96.4 fL [facility] MCH 24.0(L) 27.1 - 33.3 pg [facility] MCHC 32.0(L) 32.3 - 35.7 g/dL [facility] RDW CV 14.0 11.1 - 14.9 % [facility] RDW SD 36.9 35.7 - 48.1 fL [facility] NRBC abs 0.00 0.00 - 0.01 K/cumm [facility] Blood 01/11/2025 5:57 AM CDT 01/11/2025 6:43 AM CDT us Richar Grover MD LAB BLOOD ORDERABLES Umu l Result [facility] Department [place] [address] * Basic metabolic panel (01/11/2025 5:57 AM CDT) Sodium 140 135 - 145 mmol/L Potassium, pl 3.8 3.3 - 4.9 mmol/L [facility] Chloride 104 97 - 110 mmol/L [facility] CO2 26 22 - 32 mmol/L [facility] Anion gap 10 2 - 15 mmol/L [facility] BUN 12 6 - 25 mg/dL [facility] Creatinine 0.82 0.60 - 1.10 mg/dL [facility] Glucose 95 70 - 199 mg/dL [facility] Comment: Interpretive Data Fasting glucose >/= [...] 2022. Calcium 8.8 8.5 - 10.3 mg/dL [facility] Blood 01/11/2025 5:57 AM CDT 01/11/2025 6:43 AM CDT Richar Grover MD LAB BLOOD ORDERABLES Umu l Result [facility] Department [place] [address] * ECG 12 lead (12/20/2024 10:24 AM CDT) Richar Grover MD ECG ORDERABLES Edited Re [...] LAB BLOOD ORDERABLES Final Result [facility] [address] [facility] [place] [address] * (ABNORMAL) Differential, auto (12/10/2024 9:41 PM CDT) Neutrophil abs 7.15(H) 1.50 - 6.50 K/cumm Imm gran abs 0.05 0.00 - 0.10 K/cumm [facility] Lymphocyte abs 2.47 0.80 - 3.30 K/cumm [facility] Monocyte abs 0.55 0.20 - 0.80 K/cumm [facility] Eosinophil abs 0.14 0.00 - 0.50 K/cumm [facility] Basophil abs 0.05 0.00 - 0.10 K/cumm [facility] Neutrophil pct 68.7 % [facility] Comment: Interpretive Data Percent cell count reference ranges are not reported, since discordance with absolute values may lead to misinterpretation of CBC data. Current Interpretive Data was last revised on 2017. Imm gran pct 0.5 % [facility] Comment: Interpretive Data Percent cell count reference ranges are not reported, since discordance with absolute values may lead to misinterpretation of CBC data. Current Interpretive Data was last revised on 2017. Lymphocyte pct 23.7 % [facility] Comment: Interpretive Data Percent cell count reference ranges are not reported, since discordance with absolute values may lead to misinterpretation of CBC data. Current Interpretive Data was last revised on 2017. Monocyte pct 5.3 % [facility] Comment: Interpretive Data Percent cell count reference ranges are not reported, since discordance with absolute values may lead to misinterpretation of CBC data. Current Interpretive Data was last revised on 2017. Eosinophil pct 1.3 % [facility] Comment: Interpretive Data Percent cell count reference ranges are not reported, since discordance with absolute values may lead to misinterpretation of CBC data. Current Interpretive Data was last revised on 2017. Basophil pct 0.5 % [facility] Comment: Interpretive Data Percent cell count reference ranges are not reported, since discordance with absolute values may lead to misinterpretation of CBC data. Current Interpretive Data was last revised on 2017. Blood 12/10/2024 9:41 PM CDT 12/10/2024 9:51 PM CDT Pamela Handley MD LAB BLOOD ORDERABLES Final Result [facility] MARTINEZ [address] [facility]. [facility] [place], [place] [id number] * (ABNORMAL) CBC with auto differential (12/10/2024 9:41 PM CDT) WBC 10.41(H) 3.80 - 9.90 K/cumm Hgb 12.4 11.9 - 15.5 g/dL [facility] Hct 38.9 35.6 - 45.5 % [facility] Plt 417(H) 150 - 400 K/cumm [facility] MPV 9.2 9.1 - 12.3 fL [facility] RBC 5.13 3.90 - 5.20 M/cumm [facility] MCV 75.8(L) 81.3 - 96.4 fL [facility] MCH 24.2(L) 27.1 - 33.3 pg [facility] MCHC 31.9(L) 32.3 - 35.7 g/dL [facility] RDW CV 13.8 11.1 - 14.9 % [facility] RDW SD 36.9 35.7 - 48.1 fL [facility] NRBC abs 0.00 0.00 - 0.01 K/cumm [facility] Blood Venous blood specimen / Unknown 12/10/2024 9:41 PM CDT 12/10/2024 9:51 PM CDT Pamela Handley MD LAB BLOOD ORDERABLES Final Result [facility] JEAN [address] [facility]. Department of [place], [place] [id number] * Comprehensive metabolic panel (12/10/2024 9:41 PM [...] classification and Diagnosis of Diabetes Diabetes Care 202; 46: S19-S40. Current interpretive data was last [...] MD LAB BLOOD ORDERABLES Final Result [facility] [address] [facility]. [place] [address] from Last 3 Months Insurance [facility] Advance Directives For more information, please contact: [phone] * Full Code (Latest Code Status on File) Date Activated Date Inactivated Comments 08/10/2024 1:20 PM 08/12/2024 7:18 PM Care Teams Liquor Grinder Mill Operator Relationship Specialty Start Date End Date Nimo Jacobs MD [facility] [facility] [address] [place] [address] [place] [address] PCP - General Family Practice 07/29/24 Gelacio Smith MD [phone] [place] [address] Surgeon Colon and Rectal Surgery 08/02/24
--- OUTSIDE RECORDS SUMMARY | 2025-02-14 09:24 | XMS_ITS | Continuity of Care Document ---
Author Organization [facility] Address [address] [place] [address] [address] [place] [address] Phone Care Team Providers Care Narrow Gauge Brakeman Name Role Phone Hdez OD, Familia Unavailable Unavailable Procedures Procedure Date Eye Exam & Treatment Refraction Eye Exam, New Patient Refraction Advance Directives Directive Yes / No Effective Date File Name No Information Encounters Encounter Description Practice Location Reason(s) For Visit Diagnoses Date Provider Providers Copied on Encounter [facility], [address] [place] [address] [address], [place], [place], [id number], tel:[phone] SEC [facility] No Information 4-201 0 Hdez OD Familia. [address] [facility] , [address], [place], [place], [facility], [place]. tel:[phone] [facility], [address] [place] [address] [address], [place], [place], [id number], tel:[phone] SEC [facility] No Information 0-200 8 Hdez OD Familia. [address] , [address], [place], [address], [place]. tel:[phone] Family History Family Member Type Diagnosis Age At Onset No Information Payers Payer name Insurance type Covered republican ID Authoriza tion(s) Medicaid [facility] [id number] Social History Type Description Quantity Date Captured [...]
--- OUTSIDE RECORDS SUMMARY | 2025-02-14 09:39 | XMS_ITS | Continuity of Care Document ---
Author Organization [facility] Address [address] [place] [address] [address] [place] [address] Phone Care Team Providers Care Testing Coordinator Name Role Phone Hdez OD, Familia Unavailable Unavailable Procedures Procedure Date Eye Exam & Treatment Refraction Eye Exam, New Patient Refraction Advance Directives Directive Yes / No Effective Date File Name No Information Encounters Encounter Description Practice Location Reason(s) For Visit Diagnoses Date Provider Providers Copied on Encounter [facility], [address] [place] [address] [address], [place], [place], [id number], tel:[phone] SEC [facility] No Information 4-201 0 Hdez OD Familia. [address] [facility] , [address], [place], [place], [facility], [place]. tel:[phone] [facility], [address] [place] [address] [address], [place], [place], [id number], tel:[phone] [facility] No Information 0-200 8 Hdez OD Familia. [address] , [address], [place], [address], [place]. tel:[phone] Family History Family Member Type Diagnosis Age At Onset No Information Payers Payer name Insurance type Covered democrat ID Authoriza tion(s) Medicaid [facility] [id number] Social History Type Description Quantity Date Captured [...]
== END 2025-02-14 09:23 | disposition home or self-care (01) ==
LOC: ANHIMG 09:27
PROVIDERS: PCP Family Medicine; Visit Provider Nurse Practitioner
DX: K80.20 Calculus of gallbladder without cholecystitis without obstruction (principal); K52.9 Noninfective gastroenteritis and colitis, unspecified; G89.29 Other chronic pain
CPT/HCPCS: 76705

== ENCOUNTER 2025-02-20 13:52 | Outpatient (CLI) | payer OTHER, SELFPAY ==
--- OUTSIDE RECORDS SUMMARY | 2025-02-20 14:05 | XMS_ITS | Clinical Summary ---
Author Organization [facility] Address [address] [place] [address] Care Team Providers Care Exercise Physiologist Certified Name Role Phone Unavailable Primary Care Provider Unavailabl e Source Comments [facility],non-owned Affiliates and Associated Physician Practices is amultiple site organization consisting of ambulatory clinics and hospital sitesin [place], [place], [place] and [place]. This disclosure is being madepursuant to the Care Everywhere program and may not contain all information available regarding this patient. Last updated 18.[facility] Allergies Active Allergy Reactions Criticality Noted Date [...] drink = 0.6 oz pur e alcohol) Hardtner Depression Scale Answer Date Recorded Hardtner Depression Scale Total 16 12/16/2023 The thought of harming myself has occurred to me . Never 12/16/2023 Comments No Sex and Gender Information Value Date Recorded Sex Assigned at Not on file Legal Sex Female 5:42 AM MEDIA LIAISON OFFICER Gender Identity Not on file Sexual Orientation [...] AG PANEL (12/25/2020 6:46 PM CDT) Pathologist [facility] HIV Antigen/Antibod y 1 & 2 Non-reacti ve Non-react sangita 12/25/2020 8:12 PM CDT [facility] Comment:Neither HIV-1 p24 An tigen nor HIV-1/HIV-2 Antibodies are detected. Blood BLOOD SPECIMEN / Unknown Venipuncture / Unknown 12/25/2020 6:46 PM CDT 12/25/2020 7:28 PM CDT Mahesh Chamberlain MD LAB - CHEMISTRY ORDERABLES Final Result Performing Organization Address City/State/[facility] Co de Phone Number [facility] [address] [place] [phone], [facility] [phone] * CHLAMYDIA + GC AMPLIFIED PROBE (STL) (12/25/2020 6:30 PM CDT) Pathologist [facility] Chlamydia Amplified Probe Negative Negative 12/26/2020 2:53 AM CDT [facility] GC Amplified Probe Negative Negative 12/26/2020 2:53 AM CDT [facility] Microbiology URINE / Unknown Collection / Unknown 12/25/2020 6:30 PM CDT 12/25/2020 6:42 PM CDT Narrative [facility] - 12/26/2020 2:53 AM CDT Results based on detection/no detection of ribosomal RNA by amplified method. us Mahesh Chamberlain MD LAB - MICROBIOLOGY ORDERABLES Fi nal Result [facility] [address] [place] [address], [facility] [phone] from Last 3 Months or Most Recently Relevant to Health Maintenance Insurance [facility] SELF PAY NO INSURANCE Member Subscriber Plan / Payer (Ef fective for All Dates) Name:Janessa Mendoza Member ID:Not on file Relation to Subscriber:Not on file Name:JANESSA MENDOZA Subscriber ID:Not on file (Home) Address: [address] [place] [phone] Payer ID:Not on file Group ID:Not on file Type:Self Pay Address: [place], [place] [employer]
--- OUTSIDE RECORDS SUMMARY | 2025-02-20 14:05 | XMS_ITS | Clinical Summary ---
Author Organization [facility] Address [facility] [place] [address] Care Team Providers Care Instructor Programmable Controllers Name Role Phone None, Provider MD Primary Care Provider Unavaila ble Allergies Active Allergy Reactions Criticality Noted Date Comments Nitrofurantoin Hives 04/05/2022 Medications naproxen (NAPROSYN) 500 MG tablet Take 1 tablet (500 mg total) by mouth 2 (two) times daily with meals. 60 tablet 3 Active ondansetron (ZOFRAN-ODT) 4 MG disintegrating tablet Take 1 tablet (4 mg total) by mouth every 8 (eight) hours as needed for Nausea. 20 tablet 3 Active Social History Tobacco Use Types Packs/Day Years Used Date Smoking Tobacco: Never Smokeless Tobacco: Never Tobacco Cessation:Counseling Given: Not Answered Alcohol Use Standard Drinks/Week Comments Never 0 (1 standard drink = 0.6 oz pur e alcohol) Comments Unknown Sex and Gender Information Value Date Recorded Sex Assigned at Not on file Legal Sex Female 8:21 PM CDT Gender Identity Not on file Sexual Orientation Not on file Last Filed Vital Signs Vital Sign Reading Time Taken Comments Blood Pressure 146/97 04/30/2023 7:09 AM CDT Pulse 74 04/30/2023 7:09 AM CDT Temperature 36.7 C (98.1 F) 04/30/2023 7:09 AM CDT Respiratory Rate 19 04/30/2023 7:09 AM CDT Oxygen Saturation 100% 04/30/2023 7:09 AM CDT Inhaled Oxygen Concentration - - Weight 127 kg (280 lb) 04/30/2023 7:09 AM CDT Height 160 cm (5' 3) 04/30/2023 7:09 AM CDT Body Mass Index 49.6 04/30/2023 7:09 AM CDT Plan of Treatment Health Maintenance Due Date Last Done Comments Cervical Cancer Screening Pap Smear (Age 21 to 29) Every 3 Years 2003 Cervical Cancer Screening 2003 Annual Physical 2006 Meningococcal B Vaccine (1 of 2 - Standard) 2019 Hepatitis C 2021 COVID-19 Vaccine (2 - season) 2024 11/13/2021 DTaP, Tdap and Td Vaccines (8 - Td or Tdap) 09/12/2031 09/12/2021, 01/24/2014, 01/10/2008, Additional history exists Hepatitis B Vaccines Completed 2003, 2003, 2003 Pneumococcal Vaccine: Pediatrics (0 to 5 Years) and At-Risk Patients (6 to 49 Years) Aged Out 06/25/2004, 2003, 2003, Additional history exists No longer eligible based on patient's age to complete this topic HPV Vaccines Completed 05/29/2014, 02/2014, 02/01/2013 Meningococcal Vaccine Completed 02/21/2019, 014 RSV Immunizations Under 20 Months Aged Out No longer eligible based on patient's age to complete this topic Insurance [employer] Member Subscriber Plan / Payer (Ef fective 2023-Present) Name:Janessa Mendoza Relation to Subscriber:Self Name:Janessa Mendoza Payer ID:Not on file Group ID:Not on file Type:Not on file Address: [address] [id number] Care Teams Instructor Programmable Controllers Relationship Specialty Start Date End Date None, Provider, MD PCP - General UNKNOWN PHYSICIAN SPECIALTY 01/31/23
--- OUTSIDE RECORDS SUMMARY | 2025-02-20 14:05 | XMS_ITS | Referral Summary ---
Author Organization [facility] Virtual Care Address [facility] [place] [address] Phone Care Team Providers Care Engineer Technical Staff Name Role Phone Nimo Jacobs MD Primary Care Provider Gelacio Smith MD Unavailable [phone] Encounters Date Type Department Care Team Description 01/11/2025 8:45 AM CDT - 01/11/2025 10:25 AM CDT Surgery [facility] Electrophysiology Lab 1 [place] [address] Richar Grover MD TILT TABLE EVALUATION 01/11/2025 5:55 AM CDT - 01/11/2025 10:45 AM CDT Hospital Encounter [facility] Electrophysiology Lab 1 [place] [address] Richar Grover MD Syncope and collapse Discharge Disposition: Discharge to home or self care 01/10/2025 Telephone [facility] Cardiology [facility] Advanced Medicine 8th [place] [address] [place] [phone] Richar Grover MD 12/30/2024 Telephone [facility] Cardiology [address] [facility] Advanced Medicine 8th [place] [address] [place] [address] Richar Grover MD 12/23/2024 2:45 PM CDT Office Visit [facility] Surgery [address] [facility] 2nd Floor [address] [place] [address] Gelacio Smith MD Non-healing surgical wound, subsequent encounter (Primary Dx) 12/20/2024 Results Follow-Up Cardiology Richar Grover MD ECG 12 lead 12/20/2024 10:15 AM CDT Office Visit [facility] Cardiology [address] [facility] 8th [place] [address] [place] [address] Richar Grover MD Paroxysmal SVT (supraventricular tachycardia) 12/10/2024 9:40 PM CDT - 12/11/2024 12:05 AM CDT Emergency [facility] Emergency Department [address] [place] [address] Nausea and vomiting, unspecified vomiting type (Primary Dx); Visit for wound check Discharge Disposition: Discharge to home or self care 12/10/2024 Telephone [facility] Surgeon 1 [place] [address] Josiah Cruz MD 12/09/2024 2:45 PM CDT Office Visit [facility] Surgery [address] [place] [address] Gelacio Smith MD Non-healing surgical wound, subsequent encounter (Primary Dx) 11/25/2024 12:45 PM CDT Office Visit [facility] Surgery [address] [place] [address] Gelacio Smith MD Non-healing surgical wound, subsequent encounter (Primary Dx) 11/23/2024 Telephone [facility] Cardiology [facility] 8th [place] [address] [place] [address] Shannan Oglesby from Last 3 Months Allergies [...] surgical wound 09/03/2024 Cyst of buttocks 08/02/2024 MAYR (amniotic fluid index) decreased 09/03/2021 Acne vulgaris [...] on file Medical Devices Implanted Type Area Electrical Tester Device Identifier Shelf Expiration Date Model / Serial / Lot [employer] Strattice 8x6cm Reconstructive Matrix Tissue Porcine Dermis Latex Free [id number] - [id number] Implanted:Qty: 1 on 08/10/2024 by Gelacio Smith MD at [facility] Mesh N/A: Sacrum [employer] [id number] 08/19/2025 [id number] / / [id number] Procedures Procedure Name Priority Date/Time Associated [...] Primary Care Provider: Nimo Jacobs MD Primary Mental Health Clinician: Ivan Douglas MD Procedure Date: 01/11/2025 Attending Bunk Assembler: Richar Grover MD SOURAV Procedure 1. Head-Upright [...] up with PCP as well as primary smoking pipe coater, Dr. Ivan Douglas 4. No indication for scheduled follow-up in the [facility]hythmia [facility]. 5. No medication changes or additional testing at this time. The attending was present for the duration of the study and confirmed the above report. MD DIONICIO NolascoA [facility] Educatormobile developer [facility] Division of Cardiology, Section [...] Result * eGFR (01/11/2025 5:57 AM CDT) [facility] eGFR >90 >=60 mL/min/1. 73 m2 Comment: [...] AM CDT 01/11/2025 6:43 AM CDT us Rihcar Grover MD LAB BLOOD ORDERABLES Umu taylor Result [facility] One [facility] Department [place] [address] * (ABNORMAL) CBC without differential (01/11/2025 5:57 AM CDT) [facility] WBC 7.16 3.80 - 9.90 K/cumm Hgb 11.6(L) 11.9 - 15.5 g/dL [facility] Hct 36.2 35.6 - 45.5 % [facility] Plt 366 150 - 400 K/cumm [facility] MPV 9.5 9.1 - 12.3 fL [facility] RBC 4.83 3.90 - 5.20 M/cumm [facility] MCV 74.9(L) 81.3 - 96.4 fL [facility] MCH 24.0(L) 27.1 - 33.3 pg [facility] MCHC 32.0(L) 32.3 - 35.7 g/dL [facility] RDW CV 14.0 11.1 - 14.9 % [facility] RDW SD 36.9 35.7 - 48.1 fL [facility] NRBC abs 0.00 0.00 - 0.01 K/cumm [facility] Blood 01/11/2025 5:57 AM CDT 01/11/2025 6:43 AM CDT us Richar Grover MD LAB BLOOD ORDERABLES Umu l Result [facility] One [facility] Department [place] [address] * Basic metabolic panel (01/11/2025 5:57 AM CDT) Sodium 140 135 - 145 mmol/L Potassium, pl 3.8 3.3 - 4.9 mmol/L [facility] Chloride 104 97 - 110 mmol/L [facility] CO2 26 22 - 32 mmol/L [facility] Anion gap 10 2 - 15 mmol/L [facility] BUN 12 6 - 25 mg/dL [facility] Creatinine 0.82 0.60 - 1.10 mg/dL [facility] Glucose 95 70 - 199 mg/dL [facility] Comment: Interpretive Data Fasting glucose >/= [...] 2022. Calcium 8.8 8.5 - 10.3 mg/dL [facility] Blood 01/11/2025 5:57 AM CDT 01/11/2025 6:43 AM CDT Richar Grover MD LAB BLOOD ORDERABLES Umu l Result [facility] Department [place] [address] * ECG 12 lead (12/20/2024 10:24 AM [...] LAB BLOOD ORDERABLES Final Result [facility] [address] [facility]. Department [place] [address] * (ABNORMAL) Differential, auto (12/10/2024 9:41 PM CDT) Neutrophil abs 7.15(H) 1.50 - 6.50 K/cumm Imm gran abs 0.05 0.00 - 0.10 K/cumm [facility] Lymphocyte abs 2.47 0.80 - 3.30 K/cumm [facility] Monocyte abs 0.55 0.20 - 0.80 K/cumm [facility] Eosinophil abs 0.14 0.00 - 0.50 K/cumm [facility] Basophil abs 0.05 0.00 - 0.10 K/cumm [facility] Neutrophil pct 68.7 % [facility] Comment: Interpretive Data Percent cell count reference ranges are not reported, since discordance with absolute values may lead to misinterpretation of CBC data. Current Interpretive Data was last revised on 2017. Imm gran pct 0.5 % [facility] Comment: Interpretive Data Percent cell count reference ranges are not reported, since discordance with absolute values may lead to misinterpretation of CBC data. Current Interpretive Data was last revised on 2017. Lymphocyte pct 23.7 % [facility] Comment: Interpretive Data Percent cell count reference ranges are not reported, since discordance with absolute values may lead to misinterpretation of CBC data. Current Interpretive Data was last revised on 2017. Monocyte pct 5.3 % [facility] Comment: Interpretive Data Percent cell count reference ranges are not reported, since discordance with absolute values may lead to misinterpretation of CBC data. Current Interpretive Data was last revised on 2017. Eosinophil pct 1.3 % [facility] Comment: Interpretive Data Percent cell count reference ranges are not reported, since discordance with absolute values may lead to misinterpretation of CBC data. Current Interpretive Data was last revised on 2017. Basophil pct 0.5 % [facility] Comment: Interpretive Data Percent cell count reference ranges are not reported, since discordance with absolute values may lead to misinterpretation of CBC data. Current Interpretive Data was last revised on 2017. Blood 12/10/2024 9:41 PM CDT 12/10/2024 9:51 PM CDT Pamela Handely MD LAB BLOOD ORDERABLES Final Result [facility] MARTINEZ [address] [facility]. [facility] [place], [place] [id number] * (ABNORMAL) CBC with auto differential (12/10/2024 9:41 PM CDT) WBC 10.41(H) 3.80 - 9.90 K/cumm Hgb 12.4 11.9 - 15.5 g/dL [facility] Hct 38.9 35.6 - 45.5 % [facility] Plt 417(H) 150 - 400 K/cumm [facility] MPV 9.2 9.1 - 12.3 fL [facility] RBC 5.13 3.90 - 5.20 M/cumm [facility] MCV 75.8(L) 81.3 - 96.4 fL [facility] MCH 24.2(L) 27.1 - 33.3 pg [facility] MCHC 31.9(L) 32.3 - 35.7 g/dL [facility] RDW CV 13.8 11.1 - 14.9 % [facility] RDW SD 36.9 35.7 - 48.1 fL [facility] NRBC abs 0.00 0.00 - 0.01 K/cumm [facility] Blood Venous blood specimen / Unknown 12/10/2024 9:41 PM CDT 12/10/2024 9:51 PM CDT Pamela Handley MD LAB BLOOD ORDERABLES Final Result [facility] JE[facility] [address] [facility] Department of [facility] [place], [place] [id number] * Comprehensive metabolic panel (12/10/2024 9:41 PM [...] MD LAB BLOOD ORDERABLES Final Result [facility] [address] [facility]. Department [place] [address] from Last 3 Months Insurance [facility] Advance Directives For more information, please contact: [phone] * Full Code (Latest Code Status on File) Date Activated Date Inactivated Comments 08/10/2024 1:20 PM 08/12/2024 7:18 PM Care Teams Engineer Technical Staff Relationship Specialty Start Date End Date Nimo Jacobs MD [address] [place] [address] [address] [place] [address] PCP - General Family Practice 07/29/24 Gelacio Smith MD [phone] [place] [address] Surgeon Colon and Rectal Surgery 08/02/24
--- OUTSIDE RECORDS SUMMARY | 2025-02-20 14:05 | XMS_ITS | Clinical Summary ---
Author Organization [facility] Virtual Care Address [address] [place] [phone] Phone Care Team Providers Care Merchandise Associate Name Role Phone Nmio Jacobs MD Primary Care Provider Gelacio Smith MD Unavailable [phone] Allergies Active Allergy Reactions Criticality Noted [...] CDT - 01/11/2025 10:25 AM CDT Surgery [facility] Electrophysiology Lab 1 [place] [address] Richar Grover MD TILT TABLE EVALUATION 01/11/2025 5:55 AM CDT - 01/11/2025 10:45 AM CDT Hospital Encounter [facility] Electrophysiology Lab 1 [place] [address] Richar Grover MD Syncope and collapse Discharge Disposition: Discharge to home or self care 01/10/2025 Telephone [facility] Cardiology [facility] Advanced Medicine 8th [place] [address] [place] [address] Richar Grover MD 12/30/2024 Telephone [facility] Cardiology [facility] Advanced Medicine 8th [place] [address] [place] [address] Richar Grover MD 12/23/2024 2:45 PM CDT Office Visit [facility] Surgery [address] [facility] 2nd Floor [address] [place] [phone] Gelacio Smith MD Non-healing surgical wound, subsequent encounter (Primary Dx) 12/20/2024 10:15 AM CDT Office Visit [facility] Cardiology [address] [place] [address] 8th [place] [address] [place] [address] Richar Grover MD Paroxysmal SVT (supraventricular tachycardia) 12/20/2024 Results Follow-Up Cardiology Richar Grover MD ECG 12 lead 12/10/2024 9:40 PM CDT - 12/11/2024 12:05 AM CDT Emergency [facility] Emergency Department [address] [place] [address] Nausea and vomiting, unspecified vomiting type (Primary Dx); Visit for wound check Discharge Disposition: Discharge to home or self care 12/10/2024 Telephone [facility] Surgeon 1 [place] [address] Josiah Cruz MD 12/09/2024 2:45 PM CDT Office Visit [facility] Surgery [address] [place] [phone] Gelacio Smith MD Non-healing surgical wound, subsequent encounter (Primary Dx) 11/25/2024 12:45 PM CDT Office Visit [facility] Surgery [address] Floor [address] [place] [phone] Gelacio Smith MD Non-healing surgical wound, subsequent encounter (Primary Dx) 11/23/2024 Telephone [facility] Cardiology [address] [place] [address] [place] [address] [place] [address] Shannan Oglesby from Last 3 Months Immunizations [...] 02/2014, 02/01/2013 Medical Devices Implanted Type Area Union Organiser Device Identifier Shelf Expiration Date Model / Serial / Lot [employer] Strattice 8x6cm Reconstructive Matrix Tissue Porcine Dermis Latex Free [id number] - [id number] Implanted:Qty: 1 on 08/10/2024 by Gelacio Smith MD at [facility] Mesh N/A: Sacrum [employer] [id number] 08/19/2025 [id number] / / [id number] Procedures Procedure Name Priority Date/Time Associated [...] Primary Care Provider: Nimo Jacobs MD Primary Manager Graphic: Ivan Douglas MD Procedure Date: 01/11/2025 Attending Real Estate Rep: Richar Grover MD SOURAV Procedure 1. Head-Upright [...] up with PCP as well as primary hand braille transcriber, Dr. Ivan Douglas 4. No indication for scheduled follow-up in the [facility]rhythmia [facility]. 5. No medication changes or additional testing at this time. The attending was present for the duration of the study and confirmed the above report. MD DIONICIO NolascoA Submersible Pilottest department helper [facility] Division of Cardiology, Section of Electrophysiology 01/11/2025 9:52 AM Richar Grover MD CV ELECTROPHYSIOLOGY PROC S Final Result * POCT hCG, urine (01/11/2025 6:22 AM CDT) [facility] HCG, ur, POC Negative Negative Lot Number [id number] QC Backgroud Clear Acceptable QC Control Line Acceptable Urine 01/11/2025 6:22 AM CDT Richar Grover MD POINT OF CARE TEST ORDERA BLES Final Result * eGFR (01/11/2025 5:57 AM CDT) [facility] eGFR >90 >=60 mL/min/1. 73 m2 [...] MD LAB BLOOD ORDERABLES Umu taylor Result [facility] One [facility] Department [place] [address] * (ABNORMAL) CBC without differential (01/11/2025 5:57 AM CDT) WBC 7.16 3.80 - 9.90 K/cumm Hgb 11.6(L) 11.9 - 15.5 g/dL [facility] Hct 36.2 35.6 - 45.5 % [facility] Plt 366 150 - 400 K/cumm [facility] MPV 9.5 9.1 - 12.3 fL [facility] RBC 4.83 3.90 - 5.20 M/cumm [facility] MCV 74.9(L) 81.3 - 96.4 fL [facility] MCH 24.0(L) 27.1 - 33.3 pg [facility] MCHC 32.0(L) 32.3 - 35.7 g/dL [facility] RDW CV 14.0 11.1 - 14.9 % [facility] RDW SD 36.9 35.7 - 48.1 fL [facility] NRBC abs 0.00 0.00 - 0.01 K/cumm [facility] Blood 01/11/2025 5:57 AM CDT 01/11/2025 6:43 AM CDT Richar Grover MD LAB BLOOD ORDERABLES Umu l Result Performing Organization Address [facility] Co de Phone Number [facility] Department [place] [address] * Basic metabolic panel (01/11/2025 5:57 AM CDT) [facility] Sodium 140 135 - 145 mmol/L Potassium, pl 3.8 3.3 - 4.9 mmol/L [facility] Chloride 104 97 - 110 mmol/L [facility] CO2 26 22 - 32 mmol/L [facility] Anion gap 10 2 - 15 mmol/L [facility] BUN 12 6 - 25 mg/dL [facility] Creatinine 0.82 0.60 - 1.10 mg/dL [facility] Glucose 95 70 - 199 mg/dL [facility] Comment: Interpretive Data Fasting glucose >/= [...] 2022. Calcium 8.8 8.5 - 10.3 mg/dL [facility] Blood 01/11/2025 5:57 AM CDT 01/11/2025 6:43 AM CDT Richar Grover MD LAB BLOOD ORDERABLES Umu l Result Performing Organization Address [facility] Co de Phone Number [facility] Department [place] [address] * ECG 12 lead (12/20/2024 10:24 AM [...] Handley MD LAB BLOOD ORDERABLES Final Result [facility] [address] [facility] Department [place] [address] * (ABNORMAL) Differential, auto (12/10/2024 9:41 PM CDT) Neutrophil abs 7.15(H) 1.50 - 6.50 K/cumm Imm gran abs 0.05 0.00 - 0.10 K/cumm [facility] Lymphocyte abs 2.47 0.80 - 3.30 K/cumm [facility] Monocyte abs 0.55 0.20 - 0.80 [...] on 2017. Basophil pct 0.5 % [facility] Comment: Interpretive Data Percent cell count reference ranges are not reported, since discordance with absolute values may lead to misinterpretation of CBC data. Current Interpretive Data was last revised on 2017. Blood 12/10/2024 9:41 PM CDT 12/10/2024 9:51 PM CDT us Pamela Handley MD LAB BLOOD ORDERABLES Final Result [facility] [address] [facility]. Department of Laboratories [place], [place] [id number] * (ABNORMAL) CBC with auto differential (12/10/2024 9:41 PM CDT) WBC 10.41(H) 3.80 - 9.90 K/cumm Hgb 12.4 11.9 - 15.5 g/dL [facility] Hct 38.9 35.6 - 45.5 % [facility] Plt 417(H) 150 - 400 K/cumm [facility] MPV 9.2 9.1 - 12.3 fL [facility] RBC 5.13 3.90 - 5.20 M/cumm [facility] MCV 75.8(L) 81.3 - 96.4 fL [facility] MCH 24.2(L) 27.1 - 33.3 pg [facility] MCHC 31.9(L) 32.3 - 35.7 g/dL [facility] RDW CV 13.8 11.1 - 14.9 % [facility] RDW SD 36.9 35.7 - 48.1 fL [facility] NRBC abs 0.00 0.00 - 0.01 K/cumm [facility] Blood Venous blood specimen / Unknown 12/10/2024 9:41 PM CDT 12/10/2024 9:51 PM CDT us Pamela Handley MD LAB BLOOD ORDERABLES Final Result [facility] [address] [facility]. Department [place] [address] * Comprehensive metabolic panel (12/10/2024 9:41 PM CDT) [facility] Sodium 137 135 - 145 mmol/L Potassium, pl 3.7 3.3 - 4.9 mmol/L [facility] Chloride 101 97 - 110 mmol/L [facility] CO2 23 22 - 32 mmol/L [facility] Anion gap 13 2 - 15 mmol/L [facility] BUN 15 6 - 25 mg/dL [facility] Creatinine 0.80 0.60 - 1.10 mg/dL [facility] Glucose 93 70 - 199 mg/dL [facility] Comment: Interpretive Data Fasting glucose >/= 126 [...] LAB BLOOD ORDERABLES Final Result [facility] [address] [facility]. [place] [address] from Last 3 Months Insurance [facility] Advance Directives For more information, please contact: [phone] * Full Code (Latest Code Status on File) Date Activated Date Inactivated Comments 08/10/2024 1:20 PM 08/12/2024 7:18 PM Care Teams Merchandise Associate Relationship Specialty Start Date End Date Nimo Jacobs MD [address] [facility] [place] [address] PCP - General Family Practice 07/29/24 Gelacio Smith MD [address] [facility] [phone] [place] [address] Surgeon Colon and Rectal Surgery 08/02/24
--- OUTSIDE RECORDS SUMMARY | 2025-02-20 14:05 | XMS_ITS | Encounter Summary ---
Author Organization [facility] Healthcare Address [address] [place] [address] Care Team Providers Care Chief Controller Station Name Role Phone Nimo Jacobs MD Primary Care Provider Gelacio Smith MD Unavailable [phone] Encounter Details Date Type Department Care Team (Latest Contact Info) Description 12/20/2024 Results Follow-Up Cardiology Richar Grover MD [address] [address] ECG 12 lead Social History [...] on file documented as of this encounter Functional Status * Audit-C Score Answer Date of Assessment Author 0 01/11/2025 6:07 AM Jyotsna Fraser RN * Question Answer Date of Assessment Author Q1: How often do you have a drink containing alcohol? Never 01/11/2025 6:07 AM Jyotsna Fraser RN Q2: How many drinks containing alcohol do you have on a typical day when you are drinking? Patient does not drink 01/11/2025 6:07 AM Jyotsna Fraser RN Q3: How often do you have six or more drinks on one occasion? Never 01/11/2025 6:07 AM Jyotsna Fraser RN documented as of this encounter Plan of Treatment Not on file documented as of this encounter Visit Diagnoses Not on filedocumented in this encounter Care Teams Chief Controller Station Relationship Specialty Start Date End Date Nimo Jacobs MD [address] [facility] [address] [place] [address] PCP - General Family Practice 07/29/24 Gelacio Smith MD [phone] [place] [address] Surgeon Colon and Rectal Surgery 08/02/24 documented as of this encounter
[2025-02-20 15:08] LABS: Hematocrit 37.8 % (37.0-47.0); Hemoglobin 12.1 g/dL (12.0-15.0); Immature Granulocyte Percent A 0.4 % (0-0.5); Lymphocytes Absolute Auto 2.64 K/mm3 (0.9-3.2); Mean Corpuscular HGB Conc 32.0 g/dl (32-36); Mean Corpuscular Hemoglobin 24.7 pg (26-34); Mean Corpuscular Volume 77.1 fl (80-100); Nucleated Red Blood Cells Absolute Auto 0.000 K/mm3 (0.0-0.012); Nucleated Red Blood Cells Perc 0.0 % (0.0-0.2); Platelet Count Result 395 k/mm3 (150-375); Red Blood Count 4.90 M/mm3 (4.2-5.4); White Blood Count 11.3 K/mm3 (4.5-10.0)
[2025-02-20 15:30] LABS: Alanine Aminotransferase 22 U/L (6-35); Albumin Level 4.2 g/dL (3.5-5.1); Alkaline Phosphatase 98 U/L (38-126); Anion Gap 8 mmol/L (4-12); Aspartate Amino Transferase 40 U/L (14-36); Bilirubin,Total 0.4 mg/dL (0.2-1.3); Blood Urea Nitrogen 14 mg/dL (7-17); Calcium 9.1 mg/dL (8.4-10.2); Carbon Dioxide 26 mmol/L (22-30); Chloride 101 mmol/L (98-107); Estimated Glomerular Filt Rate > 60; Glucose 113 mg/dL (65-110); Potassium 4.2 mmol/L (3.4-5.0); Sodium 135 mmol/L (137-145); Total Protein 8.2 g/dL (6.3-8.2)
[2025-02-21 08:47] LABS: Hemoglobin A1C 4.7 % (<5.7)
== END 2025-02-20 13:53 | disposition home or self-care (01) ==
PROVIDERS: Nurse Practitioner Family; PCP Family Medicine; Visit Provider Nurse Practitioner Family
DX: R82.90 Unspecified abnormal findings in urine (principal); K80.20 Calculus of gallbladder without cholecystitis without obstruction; R73.01 Impaired fasting glucose
CPT/HCPCS: 36415; 80053; 83036; 85025; 87086

== ENCOUNTER 2025-02-23 12:31 | Outpatient (CLI) | payer OTHER, SELFPAY ==
--- OUTSIDE RECORDS SUMMARY | 2025-02-23 12:37 | XMS_ITS | Clinical Summary ---
Author Organization [facility] Address [facility] [place] [address] Care Team Providers Care Pricing Manager Name Role Phone None, Provider MD Primary [...] ID:Not on file Type:Not on file Address: [address] [id number] Care Teams Pricing Manager Relationship Specialty Start Date End Date None, Provider, MD PCP - General UNKNOWN PHYSICIAN SPECIALTY 01/31/23
--- OUTSIDE RECORDS SUMMARY | 2025-02-23 12:37 | XMS_ITS | Continuity of Care Document ---
Author Organization [facility] Address [address] [place] [address] [address] [place] [address] Phone Care Team Providers Care Chassis Driver Name Role Phone Hdez OD, Familia Unavailable Unavailable Procedures Procedure Date Eye Exam & Treatment Refraction Eye Exam, New Patient Refraction Advance Directives Directive Yes / No Effective Date File Name No Information Encounters Encounter Description Practice Location Reason(s) For Visit Diagnoses Date Provider Providers Copied on Encounter [facility], [address] [place] [address] [address], [place], [place], [id number], tel:[phone] [facility] No Information 4-201 0 Hdez OD Familia. [address] , [address], [place], [place], [facility], [place]. tel:[phone] [facility], [address] [place] [address] [address], [place], [place], [id number], tel:[phone] [facility] No Information 0-200 8 Hdez OD Familia. [address] , [address], [place], [address], [place]. tel:[phone] Family History Family Member Type Diagnosis Age At Onset No Information Payers Payer name Insurance type Covered republican ID Authoriza tion(s) Medicaid [facility] [id number] Social History Type Description Quantity Date Captured [...]
--- OUTSIDE RECORDS SUMMARY | 2025-02-23 12:37 | XMS_ITS | Clinical Summary ---
Author Organization [facility] Virtual Care Address [address] [place] [phone] Phone Care Team Providers Care Beauty Operator Apprentice Name Role Phone Nimo Jacobs MD Primary Care Provider Gelacio Smith MD Unavailable [phone] Allergies Active Allergy Reactions Criticality Noted [...] CDT - 01/11/2025 10:25 AM CDT Surgery [facility] Electrophysiology Lab [address] [place] [address] Richar Grover MD TILT TABLE EVALUATION 01/11/2025 5:55 AM CDT - 01/11/2025 10:45 AM CDT Hospital Encounter [facility] Electrophysiology Lab [address] [place] [address] Richar Grover MD Syncope and collapse Discharge Disposition: Discharge to home or self care 01/10/2025 Telephone [facility] Cardiology [facility] 8th [place] [address] [place] [address] Richar Grover MD 12/30/2024 Telephone [facility] 8th [place] [address] [place] [address] Richar Grover MD 12/23/2024 2:45 PM CDT Office Visit [facility] Surgery [address] [facility] 2nd Floor [address] [place] [phone] Gelacio Smith MD Non-healing surgical wound, subsequent encounter (Primary Dx) 12/20/2024 10:15 AM CDT Office Visit [facility] Cardiology [address] [place] [address] 8th [place] [address] [place] [address] Richar Grover MD Paroxysmal SVT (supraventricular tachycardia) 12/20/2024 Results Follow-Up Cardiology Richar Grover MD ECG 12 lead 12/10/2024 9:40 PM CDT - 12/11/2024 12:05 AM CDT Emergency [facility] Emergency Department [address] [place] [address] Nausea and vomiting, unspecified vomiting type (Primary Dx); Visit for wound check Discharge Disposition: Discharge to home or self care 12/10/2024 Telephone [facility] Surgeon [address] [place] [address] Josiah Cruz MD 12/09/2024 2:45 PM CDT Office Visit [facility] Surgery [address] [place] [phone] Gelacio Smith MD Non-healing surgical wound, subsequent encounter (Primary Dx) 11/25/2024 12:45 PM CDT Office Visit [facility] Surgery [address] Floor [address] [place] [phone] Gelacio Smith MD Non-healing surgical wound, subsequent encounter (Primary Dx) 11/23/2024 Telephone [facility] Cardiology [address] [place] [address] [place] [address] [place] [address] Shannan Oglesby from Last 3 Months Immunizations [...] 02/2014, 02/01/2013 Medical Devices Implanted Type Area Cutting Table Operator First Device Identifier Shelf Expiration Date Model / Serial / Lot [employer] Strattice 8x6cm Reconstructive Matrix Tissue Porcine Dermis Latex Free [id number] - [id number] Implanted:Qty: 1 on 08/10/2024 by Gelacio Smith MD at [facility] Mesh N/A: Sacrum [employer] [id number] 08/19/2025 [id number] / / [id number] Procedures Procedure Name Priority Date/Time Associated [...] Primary Care Provider: Nimo Jacobs MD Primary Recovery Operator Helper: Ivan Douglas MD Procedure Date: 01/11/2025 Attending Rn Field: Richar Grover MD SOURAV Procedure 1. Head-Upright [...] up with PCP as well as primary maintenance construction helper, Dr. Ivan Douglas 4. No indication for scheduled follow-up in the [facility]. 5. No medication changes or additional testing at this time. The attending was present for the duration of the study and confirmed the above report. MD DIONICIO NolascoA Correction Wardenspecial weapons unit officer [facility] Division of Cardiology, Section of Electrophysiology 01/11/2025 9:52 AM Richar Grover MD CV ELECTROPHYSIOLOGY PROC S Final Result * POCT hCG, urine (01/11/2025 6:22 AM CDT) [facility] HCG, ur, POC Negative Negative Lot Number [id number] QC Backgroud Clear Acceptable QC Control Line Acceptable Urine 01/11/2025 6:22 AM CDT Richar Grover MD POINT OF CARE TEST ORDERA BLES Final Result * eGFR (01/11/2025 5:57 AM CDT) [facility] eGFR >90 >=60 mL/min/1. 73 m2 Comment: [...] MD LAB BLOOD ORDERABLES Umu taylor Result [facility] [place] [address] * (ABNORMAL) CBC without differential (01/11/2025 5:57 AM CDT) WBC 7.16 3.80 - 9.90 K/cumm Hgb 11.6(L) 11.9 - 15.5 g/dL [facility] Hct 36.2 35.6 - 45.5 % [facility] Plt 366 150 - 400 K/cumm [facility] MPV 9.5 9.1 - 12.3 fL [facility] RBC 4.83 3.90 - 5.20 M/cumm [facility] MCV 74.9(L) 81.3 - 96.4 fL [facility] MCH 24.0(L) 27.1 - 33.3 pg [facility] MCHC 32.0(L) 32.3 - 35.7 g/dL [facility] RDW CV 14.0 11.1 - 14.9 % [facility] RDW SD 36.9 35.7 - 48.1 fL [facility] NRBC abs 0.00 0.00 - 0.01 K/cumm [facility] Blood 01/11/2025 5:57 AM CDT 01/11/2025 6:43 AM CDT Richar Grover MD LAB BLOOD ORDERABLES Umu l Result Performing Organization Address [facility] Co de Phone Number [facility] Department [place] [address] * Basic metabolic panel (01/11/2025 5:57 AM CDT) [facility] Sodium 140 135 - 145 mmol/L Potassium, pl 3.8 3.3 - 4.9 mmol/L [facility] Chloride 104 97 - 110 mmol/L [facility] CO2 26 22 - 32 mmol/L [facility] Anion gap 10 2 - 15 mmol/L [facility] BUN 12 6 - 25 mg/dL [facility] Creatinine 0.82 0.60 - 1.10 mg/dL [facility] Glucose 95 70 - 199 mg/dL [facility] Comment: Interpretive Data Fasting glucose >/= [...] 2022. Calcium 8.8 8.5 - 10.3 mg/dL [facility] Blood 01/11/2025 5:57 AM CDT 01/11/2025 6:43 AM CDT Richar Grover MD LAB BLOOD ORDERABLES Umu l Result Performing Organization Address [facility] Co de Phone Number [facility] Department [place] [address] * ECG 12 lead (12/20/2024 10:24 AM [...] Handley MD LAB BLOOD ORDERABLES Final Result [facility] [address] [facility] [place] [address] * (ABNORMAL) Differential, auto (12/10/2024 9:41 PM CDT) Neutrophil abs 7.15(H) 1.50 - 6.50 K/cumm Imm gran abs 0.05 0.00 - 0.10 K/cumm [facility] Lymphocyte abs 2.47 0.80 - 3.30 K/cumm [facility] Monocyte abs 0.55 0.20 - [...] on 2017. Basophil pct 0.5 % [facility] Comment: Interpretive Data Percent cell count reference ranges are not reported, since discordance with absolute values may lead to misinterpretation of CBC data. Current Interpretive Data was last revised on 2017. Blood 12/10/2024 9:41 PM CDT 12/10/2024 9:51 PM CDT us Pamela Handley MD LAB BLOOD ORDERABLES Final Result [facility] [address] [facility]. Department of Laboratories [place], [place] [id number] * (ABNORMAL) CBC with auto differential (12/10/2024 9:41 PM CDT) WBC 10.41(H) 3.80 - 9.90 K/cumm Hgb 12.4 11.9 - 15.5 g/dL [facility] Hct 38.9 35.6 - 45.5 % [facility] Plt 417(H) 150 - 400 K/cumm [facility] MPV 9.2 9.1 - 12.3 fL [facility] RBC 5.13 3.90 - 5.20 M/cumm [facility] MCV 75.8(L) 81.3 - 96.4 fL [facility] MCH 24.2(L) 27.1 - 33.3 pg [facility] MCHC 31.9(L) 32.3 - 35.7 g/dL [facility] RDW CV 13.8 11.1 - 14.9 % [facility] RDW SD 36.9 35.7 - 48.1 fL [facility] NRBC abs 0.00 0.00 - 0.01 K/cumm [facility] Blood Venous blood specimen / Unknown 12/10/2024 9:41 PM CDT 12/10/2024 9:51 PM CDT us Pamela Handley MD LAB BLOOD ORDERABLES Final Result [facility] [address] [facility]. [place] [address] * Comprehensive metabolic panel (12/10/2024 9:41 PM CDT) [facility] Sodium 137 135 - 145 mmol/L Potassium, pl 3.7 3.3 - 4.9 mmol/L [facility] Chloride 101 97 - 110 mmol/L [facility] CO2 23 22 - 32 mmol/L [facility] Anion gap 13 2 - 15 mmol/L [facility] BUN 15 6 - 25 mg/dL [facility] Creatinine 0.80 0.60 - 1.10 mg/dL [facility] Glucose 93 70 - 199 mg/dL [facility] Comment: Interpretive Data Fasting glucose >/= [...] LAB BLOOD ORDERABLES Final Result [facility] [address] [facility]. [place] [address] from Last 3 Months Insurance [facility] Advance Directives For more information, please contact: [phone] * Full Code (Latest Code Status on File) Date Activated Date Inactivated Comments 08/10/2024 1:20 PM 08/12/2024 7:18 PM Care Teams Beauty Operator Apprentice Relationship Specialty Start Date End Date Nimo Jacobs MD [address] [place] [address] PCP - General Family Practice 07/29/24 Gelacio Smith MD [address] [facility] [phone] [place] [address] Surgeon Colon and Rectal Surgery 08/02/24
--- OUTSIDE RECORDS SUMMARY | 2025-02-23 12:37 | XMS_ITS | Clinical Summary ---
Author Organization [facility] Address [address] [place] [address] Care Team Providers Care Electronics Commodity Manager Name Role Phone Unavailable Primary Care Provider Unavailabl e Source Comments [facility],non-owned Affiliates and Associated Physician Practices is amultiple site organization consisting of ambulatory clinics and hospital sitesin [place], [place], [place] and [place]. This disclosure is being madepursuant to the Care Everywhere program and may not contain all information available regarding this patient. Last updated 18.[facility] Allergies Active Allergy Reactions Criticality Noted Date [...] drink = 0.6 oz pur e alcohol) [place] Depression Scale Answer Date Recorded [place] Depression Scale Total 16 12/16/2023 The thought of harming myself has occurred to me . Never 12/16/2023 Comments No Sex and Gender Information Value Date Recorded Sex Assigned at Not on file Legal Sex Female 5:42 AM TRANSFORMER ASSEMBLER Gender Identity Not on file Sexual Orientation [...] of 3 - 19+ 3-dose series) 2022 PAP SMEAR 01/30/2024 COVID-19 VACCINE (1 [...] on patient's age to complete this topic PNEUMOCOCCAL VACCINE Aged Out No long er eligible based on patient's age to complete [...] P24 AG PANEL (12/25/2020 6:46 PM CDT) [facility] HIV Antigen/Antibod y 1 & 2 Non-reacti ve Non-react sangita 12/25/2020 8:12 PM CDT [facility] Comment:Neither HIV-1 p24 An tigen nor HIV-1/HIV-2 Antibodies are detected. Blood BLOOD SPECIMEN / Unknown Venipuncture / Unknown 12/25/2020 6:46 PM CDT 12/25/2020 7:28 PM CDT Mahesh Chamberlain MD LAB - CHEMISTRY ORDERABLES Final Result Performing Organization Address City/State/[facility] Co de Phone Number [facility] [address] [place] [phone], [facility] [phone] * CHLAMYDIA + GC AMPLIFIED PROBE (STL) (12/25/2020 6:30 PM CDT) [facility] Chlamydia Amplified Probe Negative Negative 12/26/2020 2:53 AM CDT [facility]CRO[facility] GC Amplified Probe Negative Negative 12/26/2020 2:53 AM CDT [facility]CRO[facility] Microbiology URINE / Unknown Collection / Unknown 12/25/2020 6:30 PM CDT 12/25/2020 6:42 PM CDT Narrative [facility] - 12/26/2020 2:53 AM CDT Results based on detection/no detection of ribosomal RNA by amplified method. us Mahesh Chamberalin MD LAB - MICROBIOLOGY ORDERABLES Fi nal Result [facility] MICRO[facility]OLOGY [address] [place] [address], [facility] [phone] from Last 3 Months or Most Recently Relevant to Health Maintenance Insurance [facility] SELF PAY NO INSURANCE Member Subscriber Plan / Payer (Ef fective for All Dates) Name:Janessa Mendoza Member ID:Not on file Relation to Subscriber:Not on file Name:JANESSA MENDOZA Subscriber ID:Not on file (Home) Address: [address] [place] [phone] Payer ID:Not on file Group ID:Not on file Type:Self Pay Address: [place], [place] [employer]
[2025-02-23 13:23] LABS: Amylase 72 U/L (30-110); Lipase 94 U/L (23-300)
== END 2025-02-23 12:32 | disposition home or self-care (01) ==
LOC: ANHSURGERY 12:35
PROVIDERS: PCP Family Medicine; Visit Provider Surgery
DX: K81.1 Chronic cholecystitis (principal); Z01.818 Encounter for other preprocedural examination
CPT/HCPCS: 36415; 82150; 83690; 86850; 86880; 86900; 86901; 86902; 86922

== ENCOUNTER 2025-03-01 23:44 | Emergency (ER) | payer OTHER, SELFPAY ==
--- OUTSIDE RECORDS SUMMARY | 2025-03-01 23:47 | XMS_ITS | Clinical Summary ---
Author Organization [facility] Virtual [facility] Address [address] [place] [phone] Phone Care Team Providers Care Felled Seam Operator Chainstitch Name Role Phone Nimo Jacobs MD Primary Care Provider Gelacio Smith MD Unavailable [phone] Allergies Active Allergy Reactions Criticality Noted [...] CDT - 01/11/2025 10:25 AM CDT Surgery [facility] Electrophysiology Lab 1 [place] [address] Richar Grover MD TILT TABLE EVALUATION 01/11/2025 5:55 AM CDT - 01/11/2025 10:45 AM CDT Hospital Encounter [facility] Electrophysiology Lab 1 [place] [address] Richar Grover MD Syncope and collapse Discharge Disposition: Discharge to home or self care 01/10/[address] [facility] Cardiology Formerly [facility] [address]th [place] [address] [place] [address] Richar Grover MD 12/30/[address] [facility] Cardiology [facility]ly [facility] 8th [place] [address] [place] [address] Richar Grover MD 12/23/2024 2:45 PM CDT Office Visit [facility] Surgery [address] [facility] 2nd Floor [address] [place] [address] Gelacio Smith MD Non-healing surgical wound, subsequent encounter (Primary Dx) 12/20/2024 10:15 AM CDT Office Visit [facility] Cardiology [address] [facility] 8[address] [place] [address] [place] [address] Richar Grover MD Paroxysmal SVT (supraventricular tachycardia) 12/20/2024 Results Follow-Up Cardiology Richar Grover MD ECG 12 lead 12/10/2024 9:40 PM CDT - 12/11/2024 12:05 AM CDT Emergency [facility] Emergency Department [address] [place] [address] Nausea and vomiting, unspecified vomiting type (Primary Dx); Visit for wound check Discharge Disposition: Discharge to home or self care 12/10/2024 Telephone [facility] Surgeon 1 [place] [address] Josiah Cruz MD 12/09/2024 2:45 PM CDT Office Visit [facility] Surgery [address] [facility] 2nd Floor [address] [facility] [place] [address] Gelacio Smith MD Non-healing surgical wound, subsequent encounter (Primary Dx) from [...] 02/2014, 02/01/2013 Medical Devices Implanted Type Area Flexo Press Operator Device Identifier Shelf Expiration Date Model / Serial / Lot [employer] Strattice 8x6cm Reconstructive Matrix Tissue Porcine Dermis Latex Free [id number] - [id number] Implanted:Qty: 1 on 08/10/2024 by Gelacio Smith MD at [facility] Mesh N/A: Sacrum [employer] [id number] 08/19/2025 [id number] / / [id number] Procedures Procedure Name Priority Date/Time Associated [...] Primary Care Provider: Nimo Jacobs MD Primary Customer Advisor: Ivan Douglas MD Procedure Date: 01/11/2025 Attending Wheel Truing Machine Tender: Richar Grover MD MBA Procedure 1. Head-Upright Tilt Table Test (TTT) [...] up with PCP as well as primary television tube inspector, Dr. Ivan Douglas 4. No indication for scheduled follow-up in the [facility]. 5. No medication changes or additional testing at this time. The attending was present for the duration of the study and confirmed the above report. MD DIONICIO NolascoA Multi Share Program Coordinatorscience manager [facility] Division of Cardiology, [...] Result * eGFR (01/11/2025 5:57 AM CDT) eGFR >90 >=60 mL/min/1. 73 m2 [...] ORDERABLES Umu l Result Performing Organization Address City/[facility]/ZIP Co de Phone Number [facility] [place] [address] * (ABNORMAL) CBC without differential (01/11/2025 5:57 AM CDT) Pathologist [facility] WBC 7.16 3.80 - 9.90 K/cumm Hgb 11.6(L) 11.9 - 15.5 g/dL [facility] Hct 36.2 35.6 - 45.5 % [facility] Plt 366 150 - 400 K/cumm [facility] MPV 9.5 9.1 - 12.3 fL [facility] RBC 4.83 3.90 - 5.20 M/cumm [facility] MCV 74.9(L) 81.3 - 96.4 fL [facility] MCH 24.0(L) 27.1 - 33.3 pg [facility] MCHC 32.0(L) 32.3 - 35.7 g/dL [facility] RDW CV 14.0 11.1 - 14.9 % [facility] RDW SD 36.9 35.7 - 48.1 fL [facility] NRBC abs 0.00 0.00 - 0.01 K/cumm [facility] Blood 01/11/2025 5:57 AM CDT 01/11/2025 6:43 AM CDT Richar Grover MD LAB BLOOD ORDERABLES Umu l Result [facility] [place] [address] * Basic metabolic panel (01/11/2025 5:57 AM CDT) [facility] Sodium 140 135 - 145 mmol/L Potassium, pl 3.8 3.3 - 4.9 mmol/L [facility] Chloride 104 97 - 110 mmol/L [facility] CO2 26 22 - 32 mmol/L [facility] Anion gap 10 2 - 15 mmol/L [facility] BUN 12 6 - 25 mg/dL [facility] Creatinine 0.82 0.60 - 1.10 mg/dL [facility] Glucose 95 70 - 199 mg/dL [facility] Comment: Interpretive Data Fasting glucose >/= [...] Calcium 8.8 8.5 - 10.3 mg/dL [facility] Blood 01/11/2025 5:57 AM CDT 01/11/2025 6:43 AM CDT Richar Grover MD LAB BLOOD ORDERABLES Umu l Result [facility] Department [place] [address] * ECG 12 lead (12/20/2024 10:24 AM CDT) Richar Grover MD ECG ORDERABLES Edited Re sult - Final * eGFR (12/10/2024 9:41 PM CDT) [facility] eGFR >90 >=60 mL/min/1. 73 m2 [...] MD LAB BLOOD ORDERABLES Final Result [facility] [address] [facility]. Department [place] [address] * (ABNORMAL) Differential, auto (12/10/2024 9:41 PM CDT) Neutrophil abs 7.15(H) 1.50 - 6.50 K/cumm Imm gran abs 0.05 0.00 - 0.10 K/cumm [facility] Lymphocyte abs 2.47 0.80 - 3.30 K/cumm [facility] Monocyte abs 0.55 0.20 - 0.80 K/cumm [facility] Eosinophil abs 0.14 0.00 - 0.50 K/cumm [facility] Basophil abs 0.05 0.00 - 0.10 K/cumm [facility] Neutrophil pct 68.7 % [facility] Comment: [...] on 2017. Lymphocyte pct 23.7 % [facility] Comment: Interpretive Data Percent cell count reference ranges are not reported, since discordance with absolute values may lead to misinterpretation of CBC data. Current Interpretive Data was last revised on 2017. Monocyte pct 5.3 % [facility] Comment: Interpretive Data Percent cell count reference ranges are not reported, since discordance with absolute values may lead to misinterpretation of CBC data. Current Interpretive Data was last revised on 2017. Eosinophil pct 1.3 % [facility] Comment: Interpretive Data Percent cell count reference ranges are not reported, since discordance with absolute values may lead to misinterpretation of CBC data. Current Interpretive Data was last revised on 2017. Basophil pct 0.5 % [facility] Comment: Interpretive Data Percent cell count reference ranges are not reported, since discordance with absolute values may lead to misinterpretation of CBC data. Current Interpretive Data was last revised on 2017. Blood 12/10/2024 9:41 PM CDT 12/10/2024 9:51 PM CDT us Pamela Handley MD LAB BLOOD ORDERABLES Final Result [facility] [address] [facility]. Department of Laboratories [place], [place] [id number] * (ABNORMAL) CBC with auto differential (12/10/2024 9:41 PM CDT) Pathologist [facility] WBC 10.41(H) 3.80 - 9.90 K/cumm Hgb 12.4 11.9 - 15.5 g/dL [facility] Hct 38.9 35.6 - 45.5 % [facility] Plt 417(H) 150 - 400 K/cumm [facility] MPV 9.2 9.1 - 12.3 fL [facility] RBC 5.13 3.90 - 5.20 M/cumm [facility] MCV 75.8(L) 81.3 - 96.4 fL [facility] MCH 24.2(L) 27.1 - 33.3 pg [facility] MCHC 31.9(L) 32.3 - 35.7 g/dL [facility] RDW CV 13.8 11.1 - 14.9 % [facility] RDW SD 36.9 35.7 - 48.1 fL [facility] NRBC abs 0.00 0.00 - 0.01 K/cumm [facility] Blood Venous blood specimen / Unknown 12/10/2024 9:41 PM CDT 12/10/2024 9:51 PM CDT us Pamela Handley MD LAB BLOOD ORDERABLES Final Result [facility] [address] [facility]. [place] [address] * Comprehensive metabolic panel (12/10/2024 9:41 PM CDT) Sodium 137 135 - 145 mmol/L Potassium, pl 3.7 3.3 - 4.9 mmol/L [facility] Chloride 101 97 - 110 mmol/L [facility] CO2 23 22 - 32 mmol/L [facility] Anion gap 13 2 - 15 mmol/L [facility] BUN 15 6 - 25 mg/dL [facility] Creatinine 0.80 0.60 - 1.10 mg/dL [facility] Glucose 93 70 - 199 mg/dL [facility] Comment: Interpretive Data Fasting glucose >/= [...] MD LAB BLOOD ORDERABLES Final Result [facility] [address] [facility]. Department of Laboratories [place], [place] [phone] from Last 3 Months Insurance [facility] PPO Advance Directives For more information, please contact: [phone] * Full Code (Latest Code Status on File) Date Activated Date Inactivated Comments 08/10/2024 1:20 PM 08/12/2024 7:18 PM Care Teams Felled Seam Operator Chainstitch Relationship Specialty Start Date End Date Nimo Jacobs MD [facility] [address] PCP - General Family Practice 07/29/24 Gelacio Smith MD [phone] [place] [address] Surgeon Colon and Rectal Surgery 08/02/24
--- OUTSIDE RECORDS SUMMARY | 2025-03-01 23:47 | XMS_ITS | Clinical Summary ---
Author Organization [facility] Address [facility] [place] [address] Care Team Providers Care Supervisor Landscape Name Role Phone None, Provider MD Primary [...] ID:Not on file Type:Not on file Address: [address] [phone] Care Teams Supervisor Landscape Relationship Specialty Start Date End Date None, Provider, MD PCP - General UNKNOWN PHYSICIAN SPECIALTY 01/31/23
--- OUTSIDE RECORDS SUMMARY | 2025-03-01 23:47 | XMS_ITS | Clinical Summary ---
Author Organization [facility] Address [address] [place] [address] Care Team Providers Care Animal Eviscerator Name Role Phone Unavailable Primary Care Provider Unavailabl e Source Comments [facility],non-owned Affiliates and Associated Physician Practices is amultiple site organization consisting of ambulatory clinics and hospital sitesin [place], [place], [place] and [place]. This disclosure is being madepursuant to the Care Everywhere program and may not contain all information available regarding this patient. Last updated 18.[facility] Allergies Active Allergy Reactions Criticality Noted Date [...] drink = 0.6 oz pur e alcohol) O'Brien Depression Scale Answer Date Recorded O'Brien Depression Scale Total 16 12/16/2023 The thought of harming myself has occurred to me . Never 12/16/2023 Comments No Sex and Gender Information Value Date Recorded Sex Assigned at Not on file Legal Sex Female 5:42 AM FIELD MANAGER Gender Identity Not on file Sexual Orientation [...] P24 AG PANEL (12/25/2020 6:46 PM CDT) [facility] HIV Antigen/Antibod y 1 & 2 Non-reacti ve Non-react sangita 12/25/2020 8:12 PM CDT [facility] Comment:Neither HIV-1 p24 An tigen nor HIV-1/HIV-2 Antibodies are detected. Blood BLOOD SPECIMEN / Unknown Venipuncture / Unknown 12/25/2020 6:46 PM CDT 12/25/2020 7:28 PM CDT Mahesh Chamberlain MD LAB - CHEMISTRY ORDERABLES Final Result Performing Organization Address City/State/[facility] Co de Phone Number [facility] [address] [place] [phone], [facility] [phone] * CHLAMYDIA + GC AMPLIFIED PROBE (STL) (12/25/2020 6:30 PM CDT) [facility] Chlamydia Amplified Probe Negative Negative 12/26/2020 2:53 AM CDT [facility] GC Amplified Probe Negative Negative 12/26/2020 2:53 AM CDT [facility] Microbiology URINE / Unknown Collection / Unknown 12/25/2020 6:30 PM CDT 12/25/2020 6:42 PM CDT Narrative [facility] - 12/26/2020 2:53 AM CDT Results based on detection/no detection of ribosomal RNA by amplified method. us Mahesh Chamberlain MD LAB - MICROBIOLOGY ORDERABLES Fi nal Result [facility] [address] [place] [address], [facility] [phone] from Last 3 Months or Most Recently Relevant to Health Maintenance Insurance [facility] SELF PAY NO INSURANCE Member Subscriber Plan / Payer (Ef fective for All Dates) Name:Janessa Mendoza Member ID:Not on file Relation to Subscriber:Not on file Name:JANESSA MENDOZA Subscriber ID:Not on file (Home) Address: [address] [place] [id number] Payer ID:Not on file Group ID:Not on file Type:Self Pay Address: [place], [place] [facility] Address: [facility] [id number] [place] [address]
--- OUTSIDE RECORDS SUMMARY | 2025-03-01 23:47 | XMS_ITS | Continuity of Care Document ---
Author Organization [facility] Address [address] [place] [address] [address] [place] [address] Phone Care Team Providers Care Fruit Ii Farmworker Name Role Phone Hdez OD, Familia Unavailable Unavailable Procedures Procedure Date Eye Exam & Treatment Refraction Eye Exam, New Patient Refraction Advance Directives Directive Yes / No Effective Date File Name No Information Encounters Encounter Description Practice Location Reason(s) For Visit Diagnoses Date Provider Providers Copied on Encounter [facility], [address] [place] [address] [address], [place], [place], [id number], tel:[phone] [address] [facility] No Information 4-201 0 Hdez OD Familia. [address] , [address], [place], [place], [facility], [place]. tel:[phone] [facility], [address] [place] [address] [address], [place], [place], [id number], tel:[phone] [address] [facility] No Information 0-200 8 Hdez OD Familia. [address] , [address], [place], [place], [facility], [place]. tel:[phone] Family History Family Member Type Diagnosis Age At Onset No Information Payers Payer name Insurance type Covered republican ID Authoriza tion(s) Medicaid [facility] [id number] Social History Type Description Quantity Date Captured [...]
[2025-03-01 23:50] VITALS: BP 139/87; PULSE 101; RESP 20; TEMP 36.7; O2SAT 98
--- OUTSIDE RECORDS SUMMARY | 2025-03-02 02:48 | XMS_ITS | Clinical Summary ---
Author Organization [facility] [employer] Address [address] [place] [address] Care Team Providers Care Assistant Front Desk Manager Name Role Phone Unavailable Primary Care Provider Unavailabl e Source Comments [facility] [employer],non-owned Affiliates and Associated Physician Practices is amultiple site organization consisting of ambulatory clinics and hospital sitesin [place], [place], [place] and [place]. This disclosure is being madepursuant to the Care Everywhere program and may not contain all information available regarding this patient. Last updated 18.[facility] [employer] Allergies Active Allergy Reactions Criticality Noted Date [...] drink = 0.6 oz pur e alcohol) [place] Depression Scale Answer Date Recorded [place] Depression Scale Total 16 12/16/2023 The thought of harming myself has occurred to me . 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 Blood BLOOD SPECIMEN / Unknown Venipuncture / Unknown 12/25/2020 6:46 PM CDT 12/25/2020 7:28 PM CDT Mahesh Chamberlain MD LAB - CHEMISTRY ORDERABLES Final Result Performing Organization Address City/State/[facility] Co de Phone Number [facility] [address] [place] [address], [facility] [phone] * CHLAMYDIA + GC AMPLIFIED PROBE (STL) (12/25/2020 6:30 PM CDT) [facility] Chlamydia Amplified Probe Negative Negative 12/26/2020 2:[address] [facility] GC Amplified Probe Negative Negative 12/26/2020 2:[address] [facility] Microbiology URINE / Unknown Collection / Unknown 12/25/2020 6:30 PM CDT 12/25/2020 6:42 PM CDT Narrative [facility] - 12/26/2020 2:53 AM CDT Results based on detection/no detection of ribosomal RNA by amplified method. us Mahesh Chamberlain MD LAB - MICROBIOLOGY ORDERABLES Fi nal Result [facility] [address] [place] [address], [facility] [phone] from Last 3 Months or Most Recently Relevant to Health Maintenance Insurance [facility] SELF PAY NO INSURANCE Member Subscriber Plan / Payer (Ef fective for All Dates) Name:Janessa Mendoza Member ID:Not on file Relation to Subscriber:Not on file Name:JANESSA MENDOZA Subscriber ID:Not on file (Home) Address: [address] [place] [phone] Payer ID:Not on file Group ID:Not on file Type:Self Pay Address: [place], [place]
--- OUTSIDE RECORDS SUMMARY | 2025-03-02 02:48 | XMS_ITS | Clinical Summary ---
Author Organization [facility] Virtual Care Address [address] [place] [phone] Phone Care Team Providers Care Senior Cognos Developer Name Role Phone Nimo Jacobs MD Primary Care Provider Gelacio Smith MD Unavailable [phone] Allergies Active Allergy Reactions Criticality Noted [...] CDT - 01/11/2025 10:25 AM CDT Surgery [facility] [address] [place] [address] Richar Grover MD TILT TABLE EVALUATION 01/11/2025 5:55 AM CDT - 01/11/2025 10:45 AM CDT Hospital Encounter [facility] [address] [place] [address] Richar Grover MD Syncope and collapse Discharge Disposition: Discharge to home or self care 01/10/2025 Telephone [facility] Cardiology [facility] 8th [place] [address] [place] [address] Richar Grover MD 12/30/2024 Telephone [facility] Cardiology [facility] 8th [place] [address] [place] [address] Richar Grover MD 12/23/2024 2:45 PM CDT Office Visit [facility] Surgery [address] [facility] 2nd Floor [address] [place] [address] Gelacio Smith MD Non-healing surgical wound, subsequent encounter (Primary Dx) 12/20/2024 10:15 AM CDT Office Visit [facility] Cardiology [address] [facility] 8th [place] [address] [place] [address] Richar Grover MD Paroxysmal SVT (supraventricular tachycardia) 12/20/2024 Results Follow-Up Cardiology Richar Grover MD ECG 12 lead 12/10/2024 9:40 PM CDT - 12/11/2024 12:05 AM CDT Emergency [facility] Emergency Department [address] [place] [address] Nausea and vomiting, unspecified vomiting type (Primary Dx); Visit for wound check Discharge Disposition: Discharge to home or self care 12/10/2024 Telephone [facility] Surgeon [address] [place] [address] Josiah Cruz MD 12/09/2024 2:45 PM CDT Office Visit [facility] Surgery [address] [facility] 2nd Floor [address] [facility] [place] [address] Gelacio Smith MD Non-healing surgical wound, subsequent [...] 02/2014, 02/01/2013 Medical Devices Implanted Type Area Inspector Handbag Frames Device Identifier Shelf Expiration Date Model / Serial / Lot [employer] Strattice 8x6cm Reconstructive Matrix Tissue Porcine Dermis Latex Free [id number] - [id number] Implanted:Qty: 1 on 08/10/2024 by Gelacio Smith MD at [facility] Mesh N/A: Sacrum [employer] [id number] 08/19/2025 [id number] / / [id number] Procedures Procedure Name Priority Date/Time Associated [...] Primary Care Provider: Nimo Jacobs MD Primary Medical Data Analyst: Ivan Douglas MD Procedure Date: 01/11/2025 Attending Welt Drawer: Richar Grover MD MBA Procedure 1. Head-Upright [...] up with PCP as well as primary dry ice machine operator, Dr. Ivan Douglas 4. No indication for scheduled follow-up in the [facility]. 5. No medication changes or additional testing at this time. The attending was present for the duration of the study and confirmed the above report. MD DIONICIO NolascoA Certified Surgical First Assistantmacroeconomics professor [facility] Division [...] ORDERABLES Umu l Result Performing Organization Address City/[facility]/ZIP Co de Phone Number [facility] Department of [employer] [address] * (ABNORMAL) CBC without differential (01/11/2025 5:57 AM CDT) Pathologist [facility] WBC 7.16 3.80 - 9.90 K/cumm Hgb 11.6(L) 11.9 - 15.5 g/dL [facility] Hct 36.2 35.6 - 45.5 % [facility] Plt 366 150 - 400 K/cumm [facility] MPV 9.5 9.1 - 12.3 fL [facility] RBC 4.83 3.90 - 5.20 M/cumm [facility] MCV 74.9(L) 81.3 - 96.4 fL [facility] MCH 24.0(L) 27.1 - 33.3 pg [facility] MCHC 32.0(L) 32.3 - 35.7 g/dL [facility] RDW CV 14.0 11.1 - 14.9 % [facility] RDW SD 36.9 35.7 - 48.1 fL [facility] NRBC abs 0.00 0.00 - 0.01 K/cumm [facility] Blood 01/11/2025 5:57 AM CDT 01/11/2025 6:43 AM CDT Richar Grover MD LAB BLOOD ORDERABLES Umu l Result [facility] [place] [employer] [address] * Basic metabolic panel (01/11/2025 5:57 AM CDT) [facility] Sodium 140 135 - 145 mmol/L Potassium, pl 3.8 3.3 - 4.9 mmol/L [facility] Chloride 104 97 - 110 mmol/L [facility] CO2 26 22 - 32 mmol/L [facility] Anion gap 10 2 - 15 mmol/L [facility] BUN 12 6 - 25 mg/dL [facility] Creatinine 0.82 0.60 - 1.10 mg/dL [facility] Glucose 95 70 - 199 mg/dL [facility] Comment: Interpretive Data Fasting glucose [...] 2022. Calcium 8.8 8.5 - 10.3 mg/dL [facility] Blood 01/11/2025 5:57 AM CDT 01/11/2025 6:43 AM CDT Richar Grover MD LAB BLOOD ORDERABLES Umu l Result [facility] Department [place] [address] * ECG 12 lead (12/20/2024 10:24 AM CDT) Richar Grover MD ECG ORDERABLES Edited Re sult - Final * eGFR (12/10/2024 9:41 PM CDT) [facility] eGFR >90 >=60 mL/min/1. 73 m2 [...] MD LAB BLOOD ORDERABLES Final Result [facility] [address] [facility]. Department [place] [address] * (ABNORMAL) Differential, auto (12/10/2024 9:41 PM CDT) Neutrophil abs 7.15(H) 1.50 - 6.50 K/cumm Imm gran abs 0.05 0.00 - 0.10 K/cumm [facility] Lymphocyte abs 2.47 0.80 - 3.30 K/cumm [facility] Monocyte abs 0.55 0.20 - 0.80 K/cumm [facility] Eosinophil abs 0.14 0.00 - 0.50 K/cumm [facility] Basophil abs 0.05 0.00 - 0.10 K/cumm [facility] Neutrophil pct 68.7 % [facility] [...] on 2017. Lymphocyte pct 23.7 % [facility] Comment: Interpretive Data Percent cell count reference ranges are not reported, since discordance with absolute values may lead to misinterpretation of CBC data. Current Interpretive Data was last revised on 2017. Monocyte pct 5.3 % [facility] Comment: Interpretive Data Percent cell count reference ranges are not reported, since discordance with absolute values may lead to misinterpretation of CBC data. Current Interpretive Data was last revised on 2017. Eosinophil pct 1.3 % [facility] Comment: Interpretive Data Percent cell count reference ranges are not reported, since discordance with absolute values may lead to misinterpretation of CBC data. Current Interpretive Data was last revised on 2017. Basophil pct 0.5 % [facility] Comment: Interpretive Data Percent cell count reference ranges are not reported, since discordance with absolute values may lead to misinterpretation of CBC data. Current Interpretive Data was last revised on 2017. Blood 12/10/2024 9:41 PM CDT 12/10/2024 9:51 PM CDT us Pamela Handley MD LAB BLOOD ORDERABLES Final Result [facility] [address] [facility]. Department of Laboratories [address], [place] [id number] * (ABNORMAL) CBC with auto differential (12/10/2024 9:41 PM CDT) Pathologist [facility] WBC 10.41(H) 3.80 - 9.90 K/cumm Hgb 12.4 11.9 - 15.5 g/dL [facility] Hct 38.9 35.6 - 45.5 % [facility] Plt 417(H) 150 - 400 K/cumm [facility] MPV 9.2 9.1 - 12.[address] [facility] RBC 5.13 3.90 - 5.20 M/cumm [facility] MCV 75.8(L) 81.3 - 96.4 fL [facility] MCH 24.2(L) 27.1 - 33.3 pg [facility] MCHC 31.9(L) 32.3 - 35.7 g/dL [facility] RDW CV 13.8 11.1 - 14.9 % [facility] RDW SD 36.9 35.7 - 48.1 fL [facility] NRBC abs 0.00 0.00 - 0.01 K/cumm [facility] Blood Venous blood specimen / Unknown 12/10/2024 9:41 PM CDT 12/10/2024 9:51 PM CDT us Pamela Handley MD LAB BLOOD ORDERABLES Final Result [facility] [address] [facility]. Department [place] [address] * Comprehensive metabolic panel (12/10/2024 9:41 PM CDT) Sodium 137 135 - 145 mmol/L Potassium, pl 3.7 3.3 - 4.9 mmol/L [facility] Chloride 101 97 - 110 mmol/L [facility] CO2 23 22 - 32 mmol/L [facility] Anion gap 13 2 - 15 mmol/L [facility] BUN 15 6 - 25 mg/dL [facility] Creatinine 0.80 0.60 - 1.10 mg/dL [facility] Glucose 93 70 - 199 mg/dL [facility] Comment: Interpretive Data Fasting glucose [...] MD LAB BLOOD ORDERABLES Final Result [facility] [address] [facility]. Department of Laboratories [address], [place] [id number] from Last 3 Months Insurance [facility] PPO Advance Directives For more information, please contact: [phone] * Full Code (Latest Code Status on File) Date Activated Date Inactivated Comments 08/10/2024 1:20 PM 08/12/2024 7:18 PM Care Teams Senior Cognos Developer Relationship Specialty Start Date End Date Nimo Jacobs MD [facility] [address] PCP - General Family Practice 07/29/24 Gelacio Smith MD [phone] [place] [address] Surgeon Colon and Rectal Surgery 08/02/24
--- OUTSIDE RECORDS SUMMARY | 2025-03-02 02:48 | XMS_ITS | Clinical Summary ---
Author Organization [facility] Address formerly [facility] [place] [address] Care Team Providers Care Roping Tender Name Role Phone None, Provider MD Primary [...] ID:Not on file Type:Not on file Address: [address] [id number] Care Teams Roping Tender Relationship Specialty Start Date End Date None, Provider, MD PCP - General UNKNOWN PHYSICIAN SPECIALTY 01/31/23
== END 2025-03-02 02:00 | disposition left against medical advice (07) ==
LOC: ANHED 03-02 02:46
PROVIDERS: PCP Family Medicine
DX: R10.30 Lower abdominal pain, unspecified (principal)
CPT/HCPCS: 99199

== ENCOUNTER 2025-03-02 00:58 | Day surgery (SDC) | payer OTHER, SELFPAY ==
[2025-02-22 15:22] VITALS: BMI 57.2
--- NOTE | 2025-02-22 15:31 | PC.NURSE ---
Report to the Outpatient Waiting Room, entrance under the green pavilion located off [facility], at time _0800_ on date _[id number]_. Planned Procedure Time: _1000_.? Time changes happen often and if your time is changed the preop area will call you the afternoon before. - You and your visitor will be asked to self-screen and do not enter if you have any COVID symptoms. Please call surgeon if you need to reschedule. - A mask is optional within the hospital at this time. Patients may have clear liquids (water, carbonated beverages, clear teas, apple juice) until 3 hours prior to surgery with a maximum of 20 ounces. - No food from midnight until time of surgery and no smoking, or chewing tobacco (or any form of nicotine). No chewing gum, candy or mints. Take only the following medications with a SIP of water on the morning of surgery: __Bactrim if still taking. DO NOT STOP ANY OF YOUR OTHER PRESCRIPTION MEDICATIONS PRIOR TO SURGERY EXCEPT THE FOLLOWING Hold all vitamins and supplements for 3 days per anesthesiologist. Medications to discontinue per physician Date to take last [id number]__[id number]____ Please no make-up, nail australian, hairspray, perfume, deodorant, or body powder the day of surgery.? No jewelry (including any body piercings) or valuables the day of surgery, leave them at home.? Please take a shower or bath the night before, or the morning of, surgery with an antibacterial soap.? Wear comfortable, loose fitting clothing.? - Jewelry must be removed prior to entering the operating room.? Rings and piercings that are not removed may be cut off. - The hospital will not accept responsibility for valuables.? - Please leave all valuables, including medications, at home the day of surgery. If you are going home after surgery, a licensed lifter driver must drive you home.? - NO public transportation without another adult if you receive anesthesia. - We recommend that an adult stay with you for 24 hours following discharge. - We also recommend that you do not drive, make important decision, drink alcoholic beverages, or take any drugs that were not prescribed by your health care provider for at least 24 hours after your discharge time. Follow any additional instructions given to you from your surgeon. Telephone instructions given to __Janessa__and asked if any additional questions and then verbalized understanding. Patient advised to call surgeon office or pre surgery nurse liaison [phone] if any additional questions.
[2025-03-02] VITALS (12 sets, daily range): BP systolic 102–140; BP diastolic 64–98; PULSE 58–119; RESP 14–20; TEMP 36.3–36.8; O2SAT 94–100
--- OUTSIDE RECORDS SUMMARY | 2025-03-02 01:01 | XMS_ITS | Clinical Summary ---
Author Organization [facility] Address [facility] [place] [address] Care Team Providers Care Client Technologies Analyst Name Role Phone None, Provider MD Primary [...] ID:Not on file Type:Not on file Address: [address] [phone] Care Teams Client Technologies Analyst Relationship Specialty Start Date End Date None, Provider, MD PCP - General UNKNOWN PHYSICIAN SPECIALTY 01/31/23
--- OUTSIDE RECORDS SUMMARY | 2025-03-02 01:01 | XMS_ITS | Clinical Summary ---
Author Organization [facility] Virtual Care Address [address] [place] [phone] Phone Care Team Providers Care Seo Intern Name Role Phone Nimo Jacobs MD Primary Care Provider Gelacio Smith MD Unavailable [phone] Allergies Active Allergy Reactions Criticality Noted [...] - 01/11/2025 10:25 AM CDT Surgery [facility] Electrophysiology Lab [address] [place] [address] Richar Grover MD TILT TABLE EVALUATION 01/11/2025 5:55 AM CDT - 01/11/2025 10:45 AM CDT Hospital Encounter [facility] Electrophysiology Lab 1 [place] [address] Richar Grover MD Syncope and collapse Discharge Disposition: Discharge to home or self care 01/10/2025 Telephone [facility] Cardiology [facility] Advanced Medicine 8th [place] [address] [place] [address] Richar Grover MD 12/30/2024 Telephone [facility] Cardiology [facility] Advanced Medicine 8th [place] [address] [place] [address] Richar Grover MD 12/23/2024 2:45 PM CDT Office Visit [facility] Surgery [address] [facility] 2nd Floor [address] [place] [address] Gelacio Smith MD Non-healing surgical wound, subsequent encounter (Primary Dx) 12/20/2024 10:15 AM CDT Office Visit [facility] Cardiology [address] [facility] 8th [place] [address] [place] [address] Richar Grover MD Paroxysmal SVT (supraventricular tachycardia) 12/20/2024 Results Follow-Up Cardiology Richar Grover MD ECG 12 lead 12/10/2024 9:40 PM CDT - 12/11/2024 12:05 AM CDT Emergency [facility] Emergency Department [address] [place] [address] Nausea and vomiting, unspecified vomiting type (Primary Dx); Visit for wound check Discharge Disposition: Discharge to home or self care 12/10/[address] [facility] Surgeon 1 [place] [address] Josiah Cruz MD 12/09/2024 2:45 PM CDT Office Visit [facility] Surgery [address] [facility] 2nd Floor Suite [facility] [place] [address] Gelacio Smith MD Non-healing surgical wound, subsequent [...] 02/2014, 02/01/2013 Medical Devices Implanted Type Area Dredge Pumper Device Identifier Shelf Expiration Date Model / Serial / Lot [employer] Strattice 8x6cm Reconstructive Matrix Tissue Porcine Dermis Latex Free [id number] - [id number] Implanted:Qty: 1 on 08/10/2024 by Gelacio Smith MD at [facility] Mesh N/A: Sacrum [employer] [id number] 08/19/2025 [id number] / / [id number] Procedures Procedure Name Priority Date/Time Associated [...] of : 2005 Primary Care Provider: Nimo aJcobs MD Primary Fruit Express Agent: Ivan Douglas MD Procedure Date: 01/11/2025 Attending Identity Management Developer: Richar Grover MD MBA Procedure 1. Head-Upright [...] up with PCP as well as primary gimp buttonhole machine operator, Dr. Ivan Douglas 4. No indication for scheduled follow-up in the [facility]. 5. No medication changes or additional testing at this time. The attending was present for the duration of the study and confirmed the above report. MD DIONICIO NolascoA Electrician Locomotivecentrifuge separator operator [facility] [employer] Division of Cardiology, [...] ORDERABLES Umu l Result Performing Organization Address City/[facility]/ZIP Co de Phone Number [facility] [place] [address] * (ABNORMAL) CBC without differential (01/11/2025 5:57 AM CDT) Pathologist [facility] WBC 7.16 3.80 - 9.90 K/cumm Hgb 11.6(L) 11.9 - 15.5 g/dL [facility] Hct 36.2 35.6 - 45.5 % [facility] Plt 366 150 - 400 K/cumm [facility] MPV 9.5 9.1 - 12.3 fL [facility] RBC 4.83 3.90 - 5.20 M/cumm [facility] MCV 74.9(L) 81.3 - 96.4 fL [facility] MCH 24.0(L) 27.1 - 33.3 pg [facility] MCHC 32.0(L) 32.3 - 35.7 g/dL [facility] RDW CV 14.0 11.1 - 14.9 % [facility] RDW SD 36.9 35.7 - 48.1 fL [facility] NRBC abs 0.00 0.00 - 0.01 K/cumm [facility] Blood 01/11/2025 5:57 AM CDT 01/11/2025 6:43 AM CDT Richar Grover MD LAB BLOOD ORDERABLES Umu l Result [facility] [place] [address] * Basic metabolic panel (01/11/2025 5:57 AM CDT) [facility] Sodium 140 135 - 145 mmol/L Potassium, pl 3.8 3.3 - 4.9 mmol/L [facility] Chloride 104 97 - 110 mmol/L [facility] CO2 26 22 - 32 mmol/L [facility] Anion gap 10 2 - 15 mmol/L [facility] BUN 12 6 - 25 mg/dL [facility] Creatinine 0.82 0.60 - 1.10 mg/dL [facility] Glucose 95 70 - 199 mg/dL [facility] Comment: Interpretive Data Fasting glucose [...] 2022. Calcium 8.8 8.5 - 10.3 mg/dL [facility] Blood 01/11/2025 5:57 AM CDT 01/11/2025 6:43 AM CDT Richar Grover MD LAB BLOOD ORDERABLES Umu l Result [facility] [place] [address] * ECG 12 lead (12/20/2024 10:24 AM CDT) Richar Grover MD ECG ORDERABLES Edited Re sult - Final * eGFR (12/10/2024 9:41 PM CDT) [facility] eGFR >90 >=60 mL/min/1. 73 m2 Comment: [...] MD LAB BLOOD ORDERABLES Final Result [facility] [address] [facility]. [place] [address] * (ABNORMAL) Differential, auto (12/10/2024 9:41 PM CDT) Neutrophil abs 7.15(H) 1.50 - 6.50 K/cumm Imm gran abs 0.05 0.00 - 0.10 K/cumm [facility] Lymphocyte abs 2.47 0.80 - 3.30 K/cumm [facility] Monocyte abs 0.55 0.20 - 0.80 K/cumm [facility] Eosinophil abs 0.14 0.00 - 0.50 K/cumm [facility] Basophil abs 0.05 0.00 - 0.10 K/cumm [facility] Neutrophil pct 68.7 % [facility] JEAN [...] on 2017. Lymphocyte pct 23.7 % [facility] Comment: Interpretive Data Percent cell count reference ranges are not reported, since discordance with absolute values may lead to misinterpretation of CBC data. Current Interpretive Data was last revised on 2017. Monocyte pct 5.3 % [facility] Comment: Interpretive Data Percent cell count reference ranges are not reported, since discordance with absolute values may lead to misinterpretation of CBC data. Current Interpretive Data was last revised on 2017. Eosinophil pct 1.3 % [facility] Comment: Interpretive Data Percent cell count reference ranges are not reported, since discordance with absolute values may lead to misinterpretation of CBC data. Current Interpretive Data was last revised on 2017. Basophil pct 0.5 % [facility] Comment: Interpretive Data Percent cell count reference ranges are not reported, since discordance with absolute values may lead to misinterpretation of CBC data. Current Interpretive Data was last revised on 2017. Blood 12/10/2024 9:41 PM CDT 12/10/2024 9:51 PM CDT us Pamela Handley MD LAB BLOOD ORDERABLES Final Result [facility] [address] [facility]. Department of Laboratories [place], [place] [phone] * (ABNORMAL) CBC with auto differential (12/10/2024 9:41 PM CDT) Pathologist [facility] WBC 10.41(H) 3.80 - 9.90 K/cumm Hgb 12.4 11.9 - 15.5 g/dL [facility] Hct 38.9 35.6 - 45.5 % [facility] Plt 417(H) 150 - 400 K/cumm [facility] MPV 9.2 9.1 - 12.3 fL [facility] RBC 5.13 3.90 - 5.20 M/cumm [facility] MCV 75.8(L) 81.3 - 96.4 fL [facility] MCH 24.2(L) 27.1 - 33.3 pg [facility] MCHC 31.9(L) 32.3 - 35.7 g/dL [facility] RDW CV 13.8 11.1 - 14.9 % [facility] RDW SD 36.9 35.7 - 48.1 fL [facility] NRBC abs 0.00 0.00 - 0.01 K/cumm [facility] Blood Venous blood specimen / Unknown 12/10/2024 9:41 PM CDT 12/10/2024 9:51 PM CDT us Pamela Handley MD LAB BLOOD ORDERABLES Final Result [facility] [address] [facility] [address] * Comprehensive metabolic panel (12/10/2024 9:41 PM CDT) Sodium 137 135 - 145 mmol/L Potassium, pl 3.7 3.3 - 4.9 mmol/L [facility] Chloride 101 97 - 110 mmol/L [facility] CO2 23 22 - 32 mmol/L [facility] Anion gap 13 2 - 15 mmol/L [facility] BUN 15 6 - 25 mg/dL [facility] Creatinine 0.80 0.60 - 1.10 mg/dL [facility] Glucose 93 70 - 199 mg/dL [facility] Comment: Interpretive Data Fasting glucose >/= 126 [...] MD LAB BLOOD ORDERABLES Final Result [facility] [address] [facility]. Department of Laboratories [place], [place] [phone] from Last 3 Months Insurance [facility] PPO Advance Directives For more information, please contact: [phone] * Full Code (Latest Code Status on File) Date Activated Date Inactivated Comments 08/10/2024 1:20 PM 08/12/2024 7:18 PM Care Teams Seo Intern Relationship Specialty Start Date End Date Nimo Jacobs MD [facility] [place] [address] PCP - General Family Practice 07/29/24 Gelacio Smith MD [phone] [place] [address] Surgeon Colon and Rectal Surgery 08/02/24
--- OUTSIDE RECORDS SUMMARY | 2025-03-02 01:01 | XMS_ITS | Continuity of Care Document ---
Author Organization [facility] Address [address] [place] [address] [address] [place] [address] Phone Care Team Providers Care Process Planner Name Role Phone Hdez OD, Familia Unavailable Unavailable Procedures Procedure Date Eye Exam & Treatment Refraction Eye Exam, New Patient Refraction Advance Directives Directive Yes / No Effective Date File Name No Information Encounters Encounter Description Practice Location Reason(s) For Visit Diagnoses Date Provider Providers Copied on Encounter [facility], [address] [place] [address] [address], [place], [place], [id number], tel:[phone] [address] [facility] No Information 4-201 0 Hdez OD Familia. [address] , [address], [place], [place], [facility], [place]. tel:[phone] [facility], [address] [place] [address] [address], [place], [place], [id number], tel:[phone] SEC [facility] No Information 0-200 8 Hdez OD Familia. [address] , [address], [place], [place], [facility], [place]. tel:[phone] Family History Family Member Type Diagnosis Age At Onset No Information Payers Payer name Insurance type Covered constitution party ID Authoriza tion(s) Medicaid [facility] [id number] Social History Type Description Quantity Date Captured [...]
--- OUTSIDE RECORDS SUMMARY | 2025-03-02 01:01 | XMS_ITS | Clinical Summary ---
Author Organization [facility] [employer] Address [address] [place] [address] Care Team Providers Care Line Servicer Name Role Phone Unavailable Primary Care Provider Unavailabl e Source Comments [facility] [employer],non-owned Affiliates and Associated Physician Practices is amultiple site organization consisting of ambulatory clinics and hospital sitesin [place], [place], [place] and [place]. This disclosure is being madepursuant to the Care Everywhere program and may not contain all information available regarding this patient. Last updated 18.[facility] [employer] Allergies Active Allergy Reactions Criticality Noted Date [...] drink = 0.6 oz pur e alcohol) [place] Depression Scale Answer Date Recorded [place] Depression Scale Total 16 12/16/2023 The thought of harming myself has occurred to me . 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 HIV Antigen/Antibod y 1 & 2 Non-reacti ve Non-react sangita 12/25/2020 8:12 PM CDT [facility] Comment:Neither HIV-1 p24 An tigen nor HIV-1/HIV-2 Antibodies are detected. Blood BLOOD SPECIMEN / Unknown Venipuncture / Unknown 12/25/2020 6:46 PM CDT 12/25/2020 7:28 PM CDT Mahesh Chamberlain MD LAB - CHEMISTRY ORDERABLES Final Result Performing Organization Address City/State/[facility] Co de Phone Number [facility] [address] [place] [phone], [facility] [phone] * CHLAMYDIA + GC AMPLIFIED PROBE (STL) (12/25/2020 6:30 PM CDT) [facility] Chlamydia Amplified Probe Negative Negative 12/26/2020 2:53 AM CDT [facility] GC Amplified Probe Negative Negative 12/26/2020 2:53 AM CDT [facility] Microbiology URINE / Unknown Collection / Unknown 12/25/2020 6:30 PM CDT 12/25/2020 6:42 PM CDT Narrative [facility] - 12/26/2020 2:53 AM CDT Results based on detection/no detection of ribosomal RNA by amplified method. us Mahesh Chamberlain MD LAB - MICROBIOLOGY ORDERABLES Fi nal Result [facility] [address] [place] [address], [facility] [phone] from Last 3 Months or Most Recently Relevant to Health Maintenance Insurance [facility] SELF PAY NO INSURANCE Member Subscriber Plan / Payer (Ef fective for All Dates) Name:Janessa Mendoza Member ID:Not on file Relation to Subscriber:Not on file Name:JANESSA MENDOZA Subscriber ID:Not on file (Home) Address: [address] [place] [phone] Payer ID:Not on file Group ID:Not on file Type:Self Pay Address: [place], [place] [employer]
--- NOTE | 2025-03-02 07:18 | WPDHPUPDATE1 ---
History and Physical Update Update Date/Time: 03/02/25 07:18 History and Physical has been reviewed, including an updated exam of the patient. There are NO changes in the patient's condition. Risks, benefits, and alternatives have been discussed and questions answered. Patient agrees to proceed with procedure.
[2025-03-02] MEDS: LACTATED RINGERS 1,000 ML 30 ML IV CONT ×2 (08:00→11:15)
[2025-03-02] MEDS: ACETAMINOPHEN 500 MG TABLET 1000 MG PO (09:22)
[2025-03-02] MEDS: KETOROLAC 15 MG/ML VIAL (*BKC) IV PUSH (09:22)
[2025-03-02 09:23] LABS: BEDSIDEPREGUCG Negative (Negative)
--- NOTE | 2025-03-02 09:23 | P.PNAN_ITS ---
Anes - Initial Pre Proc Eval Procedure: Operation Date: 03/02/25 10:00 Proposed Procedures p Robotic Laparoscopic Cholecystectomy - Stacey Palomo MD Date/Time: 03/02/25 09:23 Surgeon: Stacey Palomo MD Pre Op Diagnosis: chronic cholecystitis Patient Data Age: 20 Gender: F Height: 1.6 m Weight: 149.6 kg Last Vital Signs Temp 36.3 C L 03/02/25 09:00 Pulse 87 03/02/25 09:00 Resp 14 03/02/25 09:00 BP 140/90 03/02/25 09:00 Pulse Ox 100 03/02/25 09:00 O2 Del Method Room Air 03/02/25 09:00 Allergies Allergy/AdvReac Type Severity Reaction Status Date / Time nitrofurantoin (From Allergy Hives Verified 03/02/25 09:13 Macrobid) Home Medications ?Medication ?Instructions ?Recorded ?Confirmed ?Type cholecalciferol (vitamin D3) 1,250 1,250 mcg PO WEEKLY #14 tabs 12/29/24 02/22/25 Rx mcg (50,000 unit) tablet ferrous sulfate 325 mg (65 mg 325 mg PO DAILY #90 tabs 01/09/25 02/22/25 Rx iron) tablet,delayed release sulfamethoxazole 800 1 tablet PO Q12H #14 tabs 02/20/25 02/22/25 Rx mg-trimethoprim 160 mg tablet (Bactrim DS) Laboratory Tests 03/02/25 09:00 POC Urine HCG, Qual Negative (Negative) Patient hx anesthesia problems: post op nausea/vomiting Family hx anesthesia problems: none Results Review: All pre-operative results and documents have been reviewed as part of the pre- operative evaluation. [facility] Past Medical History Medical History GERD (gastroesophageal reflux disease) Depression Hypertension affecting (~10/2023) Morbid obesity with BMI of 50.0-59.9, adult Fatigue Asthma as a child Morbid obesity Perirectal abscess (~05/2019) I&D depression Surgical History Surgical History Vaginal delivery 09/11/21 S/P section (~04/2024) History of back surgery (~07/2024) distal sacrectomy and excision of large presacral cyst Delivery by section (05/01/24) History of tonsillectomy (~2009) Family History Family History Grandparent Diabetes mellitus paternal grandmother Hypertension Thyroid disorder Mother Depression Grandparent Diabetes mellitus Other No pertinent family history Social History Social History Smoking status: Never smoker Alcohol intake: never Substance use: never Substance use type: does not use Do You Feel Safe in your Home?: Yes Lack of Transportation: No Lack of Food: Never True Current Housing: Decline to Answer Concerned About Future Housing: Decline to Answer Difficulty Paying Gas/Electric Bills: Decline to Answer Difficulty Paying for Meds: Decline to Answer Currently Unemployed: Decline to Answer Education: Decline to Answer Difficulty w/ Childcare or Family Care: Decline to Answer Living arrangements: with family Additional living arrangements comments: daughter Occupation/Education: occupation Gender identity (if verbalized by the patient): Female Sexual Orientation (if Verbalized by the Patient): Straight or Heterosexual Spiritual care concerns: No Anes - Eval Final PreProcedure Day of Procedure 03/02/25 09:23 Patient weight: super morbidly obese Heart: regular rate and rhythm Lungs: clear to auscultation Airway: Mallampati scale class II Neurological: alert and oriented Last oral intake: >/= 8 hours ASA classification: III Emergent: no Anesthetic plan: proceed Anesthesia type and monitoring: general ETT and standard monitoring Results Review: All pre-operative results and documents have been reviewed as part of the pre- operative evaluation. Informed Consent: The patient's anesthetic plan and its attendant risks and benefits were discussed with the patient/family/POA. Questions were solicited and answers provided to the satisfaction of the patient/family/POA.
[2025-03-02] MEDS: SCOPOLAMINE 1 MG PATCH 1 PATCH TRANSDERM (09:24)
[2025-03-02] MEDS: INDOCYANINE GREEN 25 MG VIAL WITH DILUENT 3.75 MG IV PUSH (09:45)
[2025-03-02] MEDS: ceFAZolin 3 GM/D5W 100 ML 100 ML IVPB (09:51)
[2025-03-02] MEDS: BUPIVACAINE/EPINEPHRINE 0.5% 30 ML VIAL INFILTRATE (10:23)
--- NOTE | 2025-03-02 10:24 | S_PTH ---
PATIENT: Janessa Mendoza LOC: [facility] U#:[id number] AGE/SX: 20/F ROOM: RE03/02/[address]: Stacey Palomo MD : 2005 BED: DIS: 03/02/2025 SPEC #: [id number] RECD: 03/02/25 13:30 STATUS: EL[place]IA REQ #: [id number] MIROSLAVA: 03/02/25 10:[address]: Stacey Palomo DEPT: [facility] Surgical RECD BY: Kim Flores ENTERED: 03/02/25 13:31 SP TYPE: Surgical OTHR DR: Nimo Jacobs MD Tissues: A - Gallbladder Procedures: Hematoxylin and Eosin Stain Gross and Microscopic Level 3
--- NOTE | 2025-03-02 11:09 | P.OP_ITS ---
Procedure Note - Detailed Date of Procedure 03/02/25 Pre-op Diagnosis chronic cholecystitis Post-op Diagnosis Same Procedure Performed Robotic assisted cholecystectomy Surgeon Stacey Palomo MD Anesthesia General Indications A 20-year-old female presenting with upper abdominal pain associated with nausea, bloating. Workup, including imaging, consistent with chronic cholecystitis Findings moderate cholecystitis Description of Procedure The patient was taken to the operating room and placed in the supine position. After adequate induction of general anesthesia, the patient was prepped and draped in the normal sterile fashion. A time-out was then done to verify the patient's identity, as well as the procedure being performed. I began by making a 8 mm incision in the periumbilical region. A Veress needle was then placed in the peritoneal cavity and CO2 gas was insufflated. After adequate pneumoperitoneum was achieved, the Veress needle was removed and a 8 mm Optiview trocar was placed under direct visualization. Once into the abdominal cavity, the introducer was removed and the laparoscope was placed through this trocar site. Under direct visualization, I placed a further 8 mm port in the left mid abdomen and 2 additional 8 mm ports in the right mid abdomen. The robot was then docked to these ports sites. I then went to the console. The gallbladder was then identified and noted to be moderately inflamed. I was able to place a grasper at the dome of the gallbladder and this was retracted up and over the liver. A 2nd retractor was used to grasp the infundibulum and retracted lat erally. This allowed visualization and dissection of the triangle of Calot. There were some omental adhesions to the gallbladder and these were taken down with the cautery. I then began dissection around the triangle Calot. I first identified the cystic duct, I was able to visualize the entirety of the duct from its proximal insertion into the gallbladder to its distal junction with the common hepatic/common bile duct junction. I then used the firefly visualization at this point to confirm the anatomy. The proximal cystic duct was then further skeletonized, clipped, and transected. Next I visualized the cystic artery. Again the structure was skeletonized, clipped, and transected. I then again used firefly to confirm anatomy and no aberrant anatomy was noted. I then used the Bovie cautery to take down the peritoneal attachments of the gallbladder off the liver bed. Once the gallbladder specimen was completely detached, an Endo pouch was placed through the left 8 mm port site and the gallbladder specimen was placed in the endo-pouch and subsequently removed. Of note, I made a cholecystostomy and decompressed the gallbladder to facilitate removal. I then re-examined the right upper quadrant. Hemostasis was noted in the liver bed and the clips were noted to be in good position on both the duct and the artery. No other pathology was seen in the right upper quadrant. All instruments were then removed and the robot was undocked. The abdomen was then desufflated and all ports were removed. All port sites were then closed with 4-0 Monocryl subcuticular suture. Dermabond was placed on each was wound. The patient tolerated the procedure well and was extubated in the operating room postop. The patient will now be transferred to the recovery room in stable condition. Estimated Blood Loss 10 Drains No Packing No Pathology Yes Complications No immediate complications Condition Stable Disposition PACU [facility] Billing Surgery - Charge Forward: Surgery Billing
[2025-03-02] MEDS: fentaNYL CITRATE INJ (*CRX) 100 MCG/2 ML VIAL 25 MCG IV PUSH ×2 (11:27→11:37)
[2025-03-02] MEDS: ONDANSETRON INJ 4 MG/2 ML VIAL IV PUSH (11:39)
[2025-03-02] MEDS: oxyCODONE HCL (*CRX) 5 MG TAB IR PO (13:29)
== END 2025-03-02 14:36 | disposition home or self-care (01) ==
PROVIDERS: PCP Family Medicine; Visit Provider Surgery
PROC: 0FT44ZZ Resection of Gallbladder, Percutaneous Endoscopic Approach (ICD-10-PCS; CPT 47562; principal; 2025-03-02 10:00)
DX: K80.10 Calculus of gallbladder with chronic cholecystitis without obstruction (principal); K66.0 Peritoneal adhesions (postprocedural) (postinfection); K21.9 Gastro-esophageal reflux disease without esophagitis; F32.A Depression, unspecified; I10 Essential (primary) hypertension; R53.83 Other fatigue; J45.909 Unspecified asthma, uncomplicated; E66.01 Morbid (severe) obesity due to excess calories; Z68.43 Body mass index [BMI] 50.0-59.9, adult; Z98.890 Other specified postprocedural states; Z98.1 Arthrodesis status
CPT/HCPCS: 47562; S2900; 88304; A9270; J0690; J1100; J1171; J1200; J1885; J2003; J2250; J2405; J2704; J3010; J7120

== ENCOUNTER 2025-05-19 00:19 | Day surgery (SDC) | payer OTHER, SELFPAY ==
--- OUTSIDE RECORDS SUMMARY | 2010-02-20 05:00 | XMS_ITS | Continuity of Care Document ---
Author Organization [facility] Address [address] [place] [address] [address] [place] [address] Phone Care Team Providers Care Insole Coverer Name Role Phone Hdez OD, Familia Unavailable Unavailable Procedures Procedure Date Eye Exam & Treatment Refraction Eye Exam, New Patient Refraction Advance Directives Directive Yes / No Effective Date File Name No Information Encounters Encounter Description Practice Location Reason(s) For Visit Diagnoses Date Provider Providers Copied on Encounter [facility], [address] [place] [address] [address], [place], [place], [id number], tel:[phone] [facility] No Information 4-201 0 Hdez OD Familia. [address] [facility] , [address], [place], [place], [facility], [place]. tel:[phone] [facility], [address] [place] [address] [address], [place], [place], [id number], tel:[phone] [facility] No Information 0-200 8 Hdez OD Familia. [address] , [address], [place], [address], [place]. tel:[phone] Family History Family Member Type Diagnosis Age At Onset No Information Payers Payer name Insurance type Covered republican ID Authoriza tion(s) Medicaid [facility] [id number] Social History Type Description Quantity Date Captured Comments Sex Female Smoking Status No Information Chief Complaint And Reason For Visit No Information Reason For Referral Reason For Referral No Information History Of Present Illness Encounter Date Complaint History Of Prese nt Illness No Information Functional Status Date Functional Assessmen t No Information Instructions Date Instruction Additional Infor mation No Information Assessments Type Assessment Date No Information Patient Care Teams Name Effective Dates (start - stop) Status Members No Information
--- OUTSIDE RECORDS SUMMARY | 2010-02-20 05:00 | XMS_ITS | Continuity of Care Document ---
Author Organization [facility] Address [address] [place] [address] [address] [place] [address] Phone Care Team Providers Care Metallurgist Helper Name Role Phone Hdez OD, Familia Unavailable Unavailable Procedures Procedure Date Eye Exam & Treatment Refraction Eye Exam, New Patient Refraction Advance Directives Directive Yes / No Effective Date File Name No Information Encounters Encounter Description Practice Location Reason(s) For Visit Diagnoses Date Provider Providers Copied on Encounter [facility], [address] [place] [address] [address], [place], [place], [id number], tel:[phone] [facility] No Information 4-201 0 Hdez OD Familia. [address] [facility] , [address], [place], [place], [facility], [place]. tel:[phone] [facility], [address] [place] [address] [address], [place], [place], [id number], tel:[phone] [facility] No Information 0-200 8 Hdez OD Familia. [address] , [address], [place], [address], [place]. tel:[phone] Family History Family Member Type Diagnosis Age At Onset No Information Payers Payer name Insurance type Covered constitution party ID Authoriza tion(s) Medicaid [facility] [id number] Social History Type Description Quantity Date Captured [...]
[2025-04-07 11:40] VITALS: BMI 56.6
--- OUTSIDE RECORDS SUMMARY | 2025-04-20 00:31 | XMS_ITS | Clinical Summary ---
Author Organization [facility] [employer] Address [address] [place] [address] Care Team Providers Care Lot Porter Name Role Phone Unavailable Primary Care Provider Unavailabl e Source Comments [facility] [employer],non-owned Affiliates and Associated Physician Practices is amultiple site organization consisting of ambulatory clinics and hospital sitesin [place], [place], [place] and [place]. This disclosure is being madepursuant to the Care Everywhere program and may not contain all information available regarding this patient. Last updated 18.[facility] [employer] Allergies Active Allergy Reactions Criticality Noted Date [...] drink = 0.6 oz pur e alcohol) [place] Depression Scale Answer Date Recorded [place] Depression Scale Total 16 12/16/2023 The thought of harming myself has occurred to me . 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 HIV Antigen/Antibod y 1 & 2 Non-reacti ve Non-react sangita 12/25/2020 8:12 PM CDT [facility] Comment:Neither HIV-1 p24 An tigen nor HIV-1/HIV-2 Antibodies are detected. Blood BLOOD SPECIMEN / Unknown Venipuncture / Unknown 12/25/2020 6:46 PM CDT 12/25/2020 7:28 PM CDT Mahesh Chamberlain MD LAB - CHEMISTRY ORDERABLES Final Result Performing Organization Address City/State/[facility] Co de Phone Number [facility] [address] [place] [phone], [facility] [phone] * CHLAMYDIA + GC AMPLIFIED PROBE (STL) (12/25/2020 6:30 PM CDT) [facility] Chlamydia Amplified Probe Negative Negative 12/26/2020 2:53 AM CDT [facility] GC Amplified Probe Negative Negative 12/26/2020 2:53 AM CDT [facility] Microbiology URINE / Unknown Collection / Unknown 12/25/2020 6:30 PM CDT 12/25/2020 6:42 PM CDT Narrative [facility] - 12/26/2020 2:53 AM CDT Results based on detection/no detection of ribosomal RNA by amplified method. Mahesh Chamberlain MD LAB - MICROBIOLOGY ORDERABLES Fi nal Result [facility] [address] [place] [address], [facility] [phone] from Last 3 Months or Most Recently Relevant to Health Maintenance Insurance [facility] SELF PAY NO INSURANCE Member Subscriber Plan / Payer (Ef fective for All Dates) Name:Janessa Mendoza Member ID:Not on file Relation to Subscriber:Not on file Name:JANESSA MENDOZA Subscriber ID:Not on file (Home) Address: [address] [place] [id number] Payer ID:Not on file Group ID:Not on file Type:Self Pay Address: [place], [place] [employer]
--- OUTSIDE RECORDS SUMMARY | 2025-04-20 00:31 | XMS_ITS | Encounter Summary ---
Author Organization [facility] Address [address] [place] [address] Phone Care Team Providers Care Geological Survey Field Assistant Name Role Phone Nimo Jacobs MD Primary Care Provider Gelacio Smith MD Unavailable Encounter Details Date Type Department Care Team (Late st Contact Info) Description 04/06/2025 Results Follow-Up [facility] Minimally Invasive Surgery [facility] Medical Office Building [address] [place] [address] Raul Zamudio NP [address] [facility] [phone] [place] [address] Ferritin, Iron profile w/ IBC, Vitamin B12, Additional followed-up results: 11 Social History Tobacco Use Types Packs/Day Years Used Date Smoking Tobacco: Never Passive Smoke Exposure: Never Smokeless Tobacco: Never Alcohol Use Standard Drinks/Week Comments Never 0 (1 standard drink = 0.6 oz pur e alcohol) AUDIT-C Answer Date Recorded Q1: How often do you have a drink containing alcohol? Never 04/05/2025 Q2: How many drinks containi ng alcohol do you have on a typical day when you are drinking? Patient does not drink Q3: How often do you have si x or more drinks on one occasion? Never 04/05/2025 Personal Safety Answer Date Recorded Have you [...] on filedocumented in this encounter Care Teams Geological Survey Field Assistant Relationship Specialty Start Date End Date Nimo Jacobs MD [address] [facility] [address] [address] PCP - General Family Practice 07/29/24 Gelacio Smith MD [phone] [place] [address] Surgeon Colon and Rectal Surgery 08/02/24 documented as of this encounter
--- OUTSIDE RECORDS SUMMARY | 2025-04-20 00:31 | XMS_ITS | Clinical Summary ---
Author Organization [facility] Virtual Care Address [address] [place] [phone] Phone Care Team Providers Care Store Administrative Assistant Name Role Phone Nimo Jacobs MD Primary Care Provider Gelacio Smith MD Unavailable [phone] Allergies Active Allergy Reactions Criticality Noted Date Comments Nitrofurantoin Itching,Rash,Swellin g,Hi ves Medium 04/24/2021 Nitrofurantoin Monohyd/M-Cryst Itching Low 08/02/2024 Medications cholecalciferol (VITAMIN D-3) 62585 unit tablet Take 1,250 mcg by mouth 025 Active ferrous sulfate 325 mg (65 mg of elemental iron) tablet 025 Active dicyclomine (BENTYL) 10 mg capsule TAKE 1 TO 2 CAPSULES BY MOUTH EVERY 6 HOURS 025 Active ibuprofen (ADVIL,MOTRIN) 600 mg tabletIndications :Pain Take 1 tablet (600 mg total) by mouth every 8 (eight) hours as needed for pain 025 2024 Discontinued mupirocin (BACTROBAN) 2 % ointment Apply topically 2 (two) times a day Apply to wound with each dressing change. Collaborating physician García Short MD 44 g 2 025 2024 Discontinued acetaminophen (TYLENOL) 325 mg tablet Take 2 tablets (650 mg total) by mouth every 6 (six) hours as needed for pain 2024 Discontinued traMADoL (ULTRAM) 50 mg tablet Take 1 tablet (50 mg total) by mouth every 6 (six) hours 5 tablet 025 2024 Discontinued ondansetron ODT (ZOFRAN-ODT) 4 mg disintegrating tablet Take 1 tablet (4 mg total) by mouth every 8 (eight) hours as needed for nausea or vomiting 20 tablet 025 2024 Discontinued Active Problems Problem Noted Date Diagnosed Date [...] Encounters Date Type Department Care Team Description 04/06/2025 Results Follow-Up [facility] Medicine Minimally Invasive Surgery [address] [facility] Medical Office Building [address] [place] [address] Raul Zamudio NP Ferritin, Iron profile w/ IBC, Vitamin B12, Additional followed-up results: 11 04/05/2025 2:25 PM CDT Lab [facility] [address] [address] [id number] Morbid obesity (HCC); BMI 50.0-59.9, adult (HCC); Gastroesophageal reflux disease, unspecified whether esophagitis present 04/05/2025 2:00 PM CDT Office Visit [facility] Minimally Invasive Surgery [address] [place] [address] Medical Office Building [address] [place] [address] Raul Zamudio NP Morbid obesity (HCC) (Primary Dx); BMI 50.0-59.9, adult (HCC); Gastroesophageal reflux disease, unspecified whether esophagitis present from Last 3 Months Immunizations Immunization Administration [...] reconstruction of pelvic floor with biologic mesh CHOLECYSTECTOMY 03/02/25 COLONOSCOPY First colonoscopy is on 04/20/25 Medical History Medical History Date Comments Anxiety Depression Migraines GERD (gastroesophageal reflux disease) 07/2020 Anemia 09/11/21, 05/01/24 History of transfusion 05/02/24 Fractures 2017 Vitamin D deficiency 07/2020 Cholelithiasis Gallbladder removal 03/02/25 Morbid obesity (HCC) My whole life Family History Medical History Relation Name Comments Asthma Brother Hypertension Brother Alcohol abuse Maternal Grandfather Sleep apnea Maternal Grandfather Stroke Maternal Grandmother Depression Mother Mental illness Mother Obesity Mother Diabetes Paternal Grandmother Anesthesia problems Neg Hx Relation Name Status Comments Brother Maternal Grandfather Alive Maternal Grandmother Alive Mother Paternal Grandmother Alive Social History Tobacco Use Types Packs/Day [...] Sign Reading Time Taken Comments Blood Pressure 136/91 04/05/2025 1:45 PM CDT Pulse 95 04/05/2025 1:45 PM CDT Temperature 36.7 C (98.1 F) 01/11/2025 6:18 AM CDT Respiratory Rate 21 01/11/2025 10:30 AM CDT Oxygen Saturation 98% 04/05/2025 1:45 PM CDT Inhaled Oxygen Concentration - - Weight 146.1 kg (322 lb) 04/05/2025 1:45 PM CDT Height 160 cm (5' 3) 04/05/2025 1:45 PM CDT Body Mass Index 57.04 04/05/2025 1:45 PM CDT Plan of Treatment Health Maintenance Due Date Last Done Comments Cervical Cancer Screening 2003 Chlamydia and Gonorrhea (GC/ CT) Screening 2003 Depression Screening 2003 Hepatitis C Screening 2003 Meningococcal B Vaccine (1 o f 2 - Standard) 2019 Regular Well Visit/Exam 18-64 2021 Covid-19 Vaccine (2 - 2024-2 6 season) 2025 11/13/2021 Influenza Vaccine (#1) 2025 , 06/07/2022, 07/03/2021, Additional history exists DTaP/Tdap/Td Vaccine (9 - Td or Tdap) 03/25/2034 03/25/2024, 09/12/2021, 01/24/2014, Additional history exists Hepatitis B Screening Completed 2003 , 2003, 2003 Pneumococcal vaccine <65 Completed 004, 2003, 2003, Additional history exists Varicella Vaccines Completed 01/10/2008, 02/12/2004 HPV Vaccines Completed 05/29/2014, 02/2014, 02/01/2013 Medical Devices Implanted Type Area Prescription Clerk Lenses Device Identifier Shelf Expiration Date Model / Serial / Lot [employer] Strattice 8x6cm Reconstructive Matrix Tissue Porcine Dermis Latex Free [id number] - [id number] Implanted:Qty: 1 on 08/10/2024 by Gelacio Smith MD at [facility] Mesh N/A: Sacrum [employer] [id number] 08/19/2025 [id number] / / [id number] Procedures Procedure Name Priority Date/Time Associated Diagnosis Comments EGFR Routine 04/05/2025 2:47 PM CDT Morbid obesity (HCC) BMI 50.0-59.9, adult (HCC) Gastroesophageal reflux disease, unspecified whether esophagitis present DIFFERENTIAL AUTO Routine 04/05/2025 2:4 7 PM CDT Morbid obesity (HCC) BMI 50.0-59.9, adult (HCC) Gastroesophageal reflux disease, unspecified whether esophagitis present VITAMIN K Routine 04/05/2025 2:47 PM CDT Morbid obesity (HCC) BMI 50.0-59.9, adult (HCC) Gastroesophageal reflux disease, unspecified whether esophagitis present VITAMIN E Routine 04/05/2025 2:47 PM CDT Morbid obesity (HCC) BMI 50.0-59.9, adult (HCC) Gastroesophageal reflux disease, unspecified whether esophagitis present VITAMIN A Routine 04/05/2025 2:47 PM CDT Morbid obesity (HCC) BMI 50.0-59.9, adult (HCC) Gastroesophageal reflux disease, unspecified whether esophagitis present VITAMIN B1 Routine 04/05/2025 2:47 PM CDT Morbid obesity (HCC) BMI 50.0-59.9, adult (HCC) Gastroesophageal reflux disease, unspecified whether esophagitis present FOLATE Routine 04/05/2025 2:47 PM CDT Morbid obesity (HCC) BMI 50.0-59.9, adult (HCC) Gastroesophageal reflux disease, unspecified whether esophagitis present DRUGS OF ABUSE SCREEN, URINE WITH REFLEX CONFIRMATION Routine 04/05/2025 2:47 PM CDT Morbid obesity (HCC) BMI 50.0-59.9, adult (HCC) Gastroesophageal reflux disease, unspecified whether esophagitis present CBC WITH AUTO DIFFERENTIAL Routine 04/05/2025 2:47 PM CDT Morbid obesity (HCC) BMI 50.0-59.9, adult (HCC) Gastroesophageal reflux disease, unspecified whether esophagitis present COMPREHENSIVE METABOLIC PANEL Routine 04/05/2025 2:47 PM CDT Morbid obesity (HCC) BMI 50.0-59.9, adult (HCC) Gastroesophageal reflux disease, unspecified whether esophagitis present HEMOGLOBIN A1C Routine 04/05/2025 2:47 PM CDT Morbid obesity (HCC) BMI 50.0-59.9, adult (HCC) Gastroesophageal reflux disease, unspecified whether esophagitis present TSH Routine 04/05/2025 2:47 PM CDT Morbid obesity (HCC) BMI 50.0-59.9, adult (HCC) Gastroesophageal reflux disease, unspecified whether esophagitis present LIPID PANEL Routine 04/05/2025 2:47 PM CDT Morbid obesity (HCC) BMI 50.0-59.9, adult (HCC) Gastroesophageal reflux disease, unspecified whether esophagitis present PTH Routine 04/05/2025 2:47 PM CDT Morbid obesity (HCC) BMI 50.0-59.9, adult (HCC) Gastroesophageal reflux disease, unspecified whether esophagitis present VITAMIN D 25 HYDROXY Routine 04/05/2025 2:47 PM CDT Morbid obesity (HCC) BMI 50.0-59.9, adult (HCC) Gastroesophageal reflux disease, unspecified whether esophagitis present VITAMIN B12 Routine 04/05/2025 2:47 PM CDT Morbid obesity (HCC) BMI 50.0-59.9, adult (HCC) Gastroesophageal reflux disease, unspecified whether esophagitis present IRON PROFILE W/ IBC Routine 04/05/2025 2 :47 PM CDT Morbid obesity (HCC) BMI 50.0-59.9, adult (HCC) Gastroesophageal reflux disease, unspecified whether esophagitis present FERRITIN Routine 04/05/2025 2:47 PM CDT Morbid obesity (HCC) BMI 50.0-59.9, adult (HCC) Gastroesophageal reflux disease, unspecified whether esophagitis present H. PYLORI BREATH TEST Routine 04/05/2025 2:47 PM CDT Morbid obesity (HCC) BMI 50.0-59.9, adult (HCC) Gastroesophageal reflux disease, unspecified whether esophagitis present NICOTINE METABOLITE SCREEN, URINE Routine 04/05/2025 2:47 PM CDT Morbid obesity (HCC) BMI 50.0-59.9, adult (HCC) Gastroesophageal reflux disease, unspecified whether esophagitis present from Last 3 Months Results * Drugs of Abuse Screen, Urine with Reflex Confirmation (04/05/2025 2:47 PM CDT) Amphetamine, ur Not Detected CutOff 500ng/mL Comment: Interpretive Data - Amphetamines: Samples containing greater than 500 ng/mL d-methamphetamine or other cross-reacting amphetamine compounds are reported as positive. Amphetamine immunoassays are subject to significant false positive rates due to cross-reactivity of non-amphetamine drugs. Confirmatory testing required for definitive results. Current Interpretive Data was last reviewed 2023. Barbiturates, ur Not Detected CutOff 200ng/mL BOBY JEAN Comment: Interpretive Data - Barbiturates: Samples containing greater than 200 ng/mL secobarbital or other cross-reacting barbiturate compounds are reported as positive. False positive and false negative results are possible. Confirmatory testing required for definitive results. Current Interpretive Data was last reviewed 2023. Benzodiazepines, ur Not Detected CutOff 100ng/mL BOBY JEAN Comment: Interpretive Data - Benzodiazepines: Samples containing greater than 100 ng/mL nordiazepam or other cross-reacting compounds are reported as positive. False positive and false negative results are possible. Confirmatory testing required for definitive results. Current Interpretive Data was last reviewed 2023. Cannabinoids, ur Not Detected CutOff 50 ng/mL BOBY JEAN Comment: Interpretive Data - Cannabinoids: Samples containing greater than 50 ng/mL delta-9 THC -COOH or other cross- reacting compounds are reported as positive. False positive and false negative results are possible. Confirmatory testing required for definitive results. Current Interpretive Data was last reviewed 2023. Cocaine, ur Not Detected CutOff 150ng/mL CERLAUREN JEAN Comment: Interpretive Data - Cocaine: Samples containing greater than 150 ng/mL benzoylecgonine or other cross- reacting compounds are reported as positive. False positive and false negative results are possible. Confirmatory testing required for definitive results. Current Interpretive Data was last reviewed 2023. Fentanyl, Ur Not Detected Cutoff 1 ng/mL BOBY JEAN Comment: Interpretive Data - Fentanyl: Samples containing greater than 1 ng/mL fentanyl or other cross-reacting fentanyl compounds are reported as positive. False positive and false negative results are possible. Confirmatory testing required for definitive results. Current Interpretive Data was last reviewed 2023. Methadone, ur Not Detected CutOff 300ng/mL CERLAUREN MARTINEZCH Comment: Interpretive Data - Methadone: Samples containing greater than 300 ng/mL d,l-methadone or other cross-reacting compounds are reported as positive. False positive and false negative results are possible. Confirmatory testing required for definitive results. Current Interpretive Data was last reviewed 2023. Opiates, ur Not Detected CutOff 300ng/mL CERLAUREN JEAN Comment: Interpretive Data - Opiates: Samples containing greater than 300 ng/mL morphine or other cross-reacting compounds are reported as positive. False positive and false negative results are possible. Confirmatory testing required for definitive results. Current Interpretive Data was last reviewed 2023. Oxycodone, ur Not Detected CutOff 100ng/mL BOBY JEAN Comment: Interpretive Data - Oxycodone: Samples containing greater than 100 ng/mL oxycodone or other cross-reacting compounds are reported as positive. False positive and false negative results are possible. Confirmatory testing required for definitive results. Current Interpretive Data was last reviewed 2023. Phencyclidine, ur Not Detected CutOff 25 ng/mL CERLAUREN JEAN Comment: Interpretive Data - Phencyclidine: Samples containing greater than 25 ng/mL phencyclidine or other cross-reacting compounds are reported as positive. False positive and false negative results are possible. Confirmatory testing required for definitive results. Current Interpretive Data was last reviewed 2023. Urine Creatinine 181 mg/dL BOBY JEAN Comment: Interpretive Data Urine Creatinine: < 10 mg/dL is extremely dilute = or > 10 but < 20 mg/dL is dilute = or > 20 mg/dL is normal Current Interpretive Data was last revised on 2017. Urine 04/05/2025 2:47 PM CDT 04/05/2025 2:57 PM CDT Narrative BOBY JEAN - 04/05/2025 3:27 PM CDT Drug Screening is performed by immunoassay for medical purposes. If positive, confirmation testing will be performed for amphetamines, benzodiazepines, cocaine, fentanyl, methadone, opiates, oxycodone, and phencyclidine. Raul Zamudio NP LAB URINE ORDERABLES Final Result Performing Organization Address City/[facility] Co de Phone Number BOBY MARTINEZCH [address] [facility]. Department of [address] [place] [address] * eGFR (04/05/2025 2:47 PM CDT) eGFR >90 >=60 mL/min/1. 73 [...] interpretive data was last reviewed 2021. Blood 04/05/2025 2:47 PM CDT 04/05/2025 2:57 PM CDT Raul Zamudio NP LAB BLOOD ORDERABLES Final Result BOBY JEAN [address] [address] Department [place] [address] * Differential, auto (04/05/2025 2:47 PM CDT) Neutrophil abs 5.14 1.50 - 6.50 K/cumm Imm gran abs 0.01 0.00 - 0.10 K/cumm CERNER [facility] Lymphocyte abs 2.13 0.80 - 3.30 K/cumm [facility] Monocyte abs 0.51 0.20 - 0.80 K/cumm [facility] Eosinophil abs 0.18 0.00 - 0.50 K/cumm [facility] Basophil abs 0.04 0.00 - 0.10 K/cumm [facility] Neutrophil pct 64.2 % BOBY JEAN Comment: Interpretive Data Percent cell count reference ranges are not reported, since discordance with absolute values may lead to misinterpretation of CBC data. Current Interpretive Data was last revised on 2017. Imm gran pct 0.1 % BOBY WHITLEYNEY Comment: Interpretive Data Percent cell count reference ranges are not reported, since discordance with absolute values may lead to misinterpretation of CBC data. Current Interpretive Data was last revised on 2017. Lymphocyte pct 26.6 % [facility] Comment: Interpretive Data Percent cell count reference ranges are not reported, since discordance with absolute values may lead to misinterpretation of CBC data. Current Interpretive Data was last revised on 2017. Monocyte pct 6.4 % BOBY JEAN Comment: Interpretive Data Percent cell count reference ranges are not reported, since discordance with absolute values may lead to misinterpretation of CBC data. Current Interpretive Data was last revised on 2017. Eosinophil pct 2.2 % [facility] Comment: Interpretive Data Percent cell count reference ranges are not reported, since discordance with absolute values may lead to misinterpretation of CBC data. Current Interpretive Data was last revised on 2017. Basophil pct 0.5 % [facility] Comment: Interpretive Data Percent cell count reference ranges are not reported, since discordance with absolute values may lead to misinterpretation of CBC data. Current Interpretive Data was last revised on 2017. Blood 04/05/2025 2:47 PM CDT 04/05/2025 2:57 PM CDT Raul Zamudio HOSPITAL DIRECTOR LAB BLOOD ORDERABLES Final Result Performing Organization Address [facility] de Phone Number BOBY MARTINEZCH [address] [facility] [address] [place], [place] [id number] * (ABNORMAL) Iron profile w/ IBC (04/05/2025 2:47 PM CDT) Pathologist [facility] Iron 42 35 - 145 mcg/dL Comment:Testing performed by : [facility], [address] [place] [address]., [id number] TIBC 276 250 - 400 mcg/dL [facility] Comment:Testing performed by : [facility], [address] [place] [address]., [id number] Transferrin saturation 15(L) 20 - 50 % B[facility]Y [facility] Comment:Testing performed by : [facility], [address] [place] [address]., [id number] Blood 04/05/2025 2:47 PM CDT 04/05/2025 5:10 PM CDT Raul Zamudio HOSPITAL DIRECTOR LAB BLOOD ORDERABLES Final Result Performing Organization Address [facility] de Phone Number BOBY WHITLEYWCH [address] [facility] [address] [place], [place] [id number] * (ABNORMAL) CBC with auto differential (04/05/2025 2:47 PM CDT) WBC 8.01 3.80 - 9.90 K/cumm Hgb 12.9 11.9 - 15.5 g/dL BOBY JEAN Hct 39.3 35.6 - 45.5 % BOBY MARTINEZ Plt 379 150 - 400 K/cumm BOBY WHITLEYW MPV 9.2 9.1 - 12.3 fL BOBY JEAN RBC 5.09 3.90 - 5.20 M/cumm BOBY JEAN MCV 77.2(L) 81.3 - 96.4 fL BOBY JEAN MCH 25.3(L) 27.1 - 33.3 pg BOBY JEAN MCHC 32.8 32.3 - 35.7 g/dL BOBY JEAN RDW CV 13.5 11.1 - 14.9 % BOBY JEAN RDW SD 37.7 35.7 - 48.1 fL BOBY JEAN NRBC abs 0.00 0.00 - 0.01 K/cumm BOBY MARTINEZ Blood 04/05/2025 2:47 PM CDT 04/05/2025 2:57 PM CDT Raul Zamudio NP LAB BLOOD ORDERABLES Final Result Performing Organization Address [facility] de Phone Number BOBY WHITLEYWCH [address] [facility] Department of [address] [place] [address] * Vitamin A (04/05/2025 2:47 PM CDT) [facility] Vitamin A 32.7 32.5 - 78.0 mcg/dL [facility] Comment: ADDITIONAL INFORMATION This test was developed and its performance characteristics determined by [facility] in a manner consistent with CLIA requirements. This test has not been cleared or approved by the U.S. Food and Drug Administration. Test Performed by: [facility] - [address] [address] Operator: Deanne Lawrence Ph.D.; CLIA# [id number] Blood 04/05/2025 2:47 PM CDT 04/05/2025 2:57 PM CDT Raul Zamudio NP LAB BLOOD ORDERABLES Final Result Performing Organization Address [facility] Co de Phone Number BOBY [facility] [address] [employer] [address] [place] [address] [facility] * H. pylori breath test (04/05/2025 2:47 PM CDT) H. pylori, breath test Negative Negative [facility] Comment: Result indicates the absence of current Helicobacter pylori infection. Test Performed by: [place] [address] Operator: Deanne Lawrence Ph.D.; CLIA# [id number] Breath 04/05/2025 2:47 PM CDT 04/05/2025 3:43 PM CDT Raul Zamudio NP LAB BODY FLUIDS AND STOOLS ORDERABLES Final Result Performing Organization Address [facility] de Phone Number BOBY WHITLEYWCH [address] [place] [address] [facility] * (ABNORMAL) Vitamin K (04/05/2025 2:47 PM CDT) Pathologist [facility] Phylloquinone (Vit K) 0.09(L) 0.10 - 2.20 ng/mL [facility] Comment: ADDITIONAL INFORMATION This test was developed and its performance characteristics determined by [facility] in a manner consistent with CLIA requirements. This test has not been cleared or approved by the U.S. Food and Drug Administration. Test Performed by: [facility] [place] [address] Operator: Deanne Lawrence Ph.D.; CLIA# [id number] Blood 04/05/2025 2:47 PM CDT 04/05/2025 2:57 PM CDT Raul Zamudio NP LAB BLOOD ORDERABLES Final Result Performing Organization Address [facility] Co de Phone Number BOBY WHITLEYWCH [address] [place] [facility] [place] [address] [facility] ref [facility] * Nicotine metabolite screen, urine (04/05/2025 2:47 PM CDT) Pathologist [facility] Nicotine, ur <5.0 <5.0 ng/mL [facility] Cotinine, ur <5.0 <5.0 ng/mL BOBY MARTINEZ Anabasine ur <2.0 <2.0 ng/mL BOBY MARTINEZCH Comment: ADDITIONAL INFORMATION This test was developed and its performance characteristics determined by [facility] in a manner consistent with CLIA requirements. This test has not been cleared or approved by the U.S. Food and Drug Administration. Test Performed by: [place] [address] Operator: Deanne Lawrence Ph.D.; CLIA# [id number] Nornicotine, ur <2.0 <2.0 ng/mL BOBY WHITLEYWCH Urine 04/05/2025 2:47 PM CDT 04/05/2025 2:57 PM CDT Raul Zamudio HOSPITAL DIRECTOR LAB URINE ORDERABLES Final Result Performing Organization Address [facility] de Phone Number BOBY WHITLEYWCH [address] [facility]. [facility] [place] [address] [facility] ref [facility] * (ABNORMAL) Vitamin D 25 hydroxy (04/05/2025 2:47 PM CDT) Pathologist [facility] Vitamin D 25-OH 28(L) 30 - 80 ng/mL Blood 04/05/2025 2:47 PM CDT 04/05/2025 2:57 PM CDT Raul Zamudio HOSPITAL DIRECTOR LAB BLOOD ORDERABLES Final Result BOBY WHITLEYWCH [address] [address] [employer] [facility] [place] [address] * Vitamin E (04/05/2025 2:47 PM CDT) Pathologist [facility] Tocopherol (Vit E) 6.4 5.5 - 17.0 mg/L [facility] Comment: ADDITIONAL INFORMATION This test was developed and its performance characteristics determined by [facility] in a manner consistent with CLIA requirements. This test has not been cleared or approved by the U.S. Food and Drug Administration. Test Performed by: [facility] [place] [id number] Operator: Deanne Lawrence Ph.D.; CLIA# [id number] Blood 04/05/2025 2:47 PM CDT 04/05/2025 2:57 PM CDT Raul Zamudio NP LAB BLOOD ORDERABLES Final Result Performing Organization Address [facility] Co de Phone Number BOBY BJWCH [address] [address] [employer] [facility] [address] [place] [address] [facility] * TSH (04/05/2025 2:47 PM CDT) [facility] Thyroid Stimulating Hormone 0.95 0.30 - 4.20 mcIUnit/mL Blood 04/05/2025 2:47 PM CDT 04/05/2025 2:57 PM CDT Raul Zamudio HOSPITAL DIRECTOR LAB BLOOD ORDERABLES Edited Result - Final Performing Organization Address [facility]/State/ZIP Co de Phone Number BOBY BJWCH [address] [address] [employer] [facility] [place] [address] * Vitamin B1 (04/05/2025 2:47 PM CDT) Pathologist [facility] Thiamine (Vit B1) 109 70 - 180 nmol/L [facility] ref [facility] Comment: ADDITIONAL INFORMATION This test was developed and its performance characteristics determined by [facility] in a manner consistent with CLIA requirements. This test has not been cleared or approved by the U.S. Food and Drug Administration. Test Performed by: [facility] - [facility] [address] [place] [address] Operator: Deanne Lawrence Ph.D.; CLIA# [id number] Blood 04/05/2025 2:47 PM CDT 04/05/2025 2:57 PM CDT Raul Zamudio HOSPITAL DIRECTOR LAB BLOOD ORDERABLES Final Result Performing Organization Address [facility] Co de Phone Number [facility] [address] [employer] [facility] [place] [address] [facility] ref [facility] * PTH (04/05/2025 2:47 PM CDT) Pathologist [facility] PTH 44 15 - 65 pg/mL Blood 04/05/2025 2:47 PM CDT 04/05/2025 2:57 PM CDT Raul Zamudio HOSPITAL DIRECTOR LAB BLOOD ORDERABLES Final Result Performing Organization Address [facility]/Good [facility] Phone Number [facility] [address] [employer] [facility] [place] [address] * Hemoglobin A1c (04/05/2025 2:47 PM CDT) Hgb A1C 4.7 4.0 - 5.6 % Estimated Average Glucose 88 mg/dL BOBY JEAN Comment: The ADA recommends reporting an estimated Average Glucose (eAG) with all Hemoglobin A1c results using the equation derived from a study of 507 normal and diabetic adults. Minority populations were underrepresented and children were not included. (Diabetes Care 31:5580-3616, 2008). The eAG is not equivalent to a fasting glucose. Blood 04/05/2025 2:47 PM CDT 04/05/2025 2:57 PM CDT Raul Zamudio NP LAB BLOOD ORDERABLES Final Result Performing Organization Address City/[facility]/ZIP Co de Phone Number BOBY WHITLEYCH [address] [facility]. [facility] [address] [place] [address] * Folate (04/05/2025 2:47 PM CDT) [facility] Folic acid 11.0 >=5.0 ng/mL Comment:Testing performed by : [facility], [address] [place] [address]., [id number] Blood 04/05/2025 2:47 PM CDT 04/05/2025 5:10 PM CDT Raul Zamudio NP LAB BLOOD ORDERABLES Final Result Performing Organization Address [facility] Co de Phone Number [facility] [address] [facility]. Department [address] [place] [address] * Ferritin (04/05/2025 2:47 PM CDT) [facility] Ferritin 63 13 - 150 ng/mL Comment:Testing performed by : [facility], [address] [place] [address]., [id number] Blood 04/05/2025 2:47 PM CDT 04/05/2025 5:10 PM CDT Raul Zamudio NP LAB BLOOD ORDERABLES Final Result Performing Organization Address City/[facility]/ZIP Co de Phone Number [facility] [address] [facility]. [facility] [address] [place] [address] * Vitamin B12 (04/05/2025 2:47 PM CDT) [facility] Vitamin B12 387 230 - 1,250 pg/mL Comment:Testing performed by : [facility], [facility], [place]., [address] Blood 04/05/2025 2:47 PM CDT 04/05/2025 5:10 PM CDT us Raul Bella Zamudio HOSPITAL DIRECTOR LAB BLOOD ORDERABLES Final Result [facility] [address] [facility]. Department [place] [address] * Lipid panel (04/05/2025 2:47 PM CDT) Cholesterol 161 30 - 199 mg/dL Comment: Interpretive Data Ages < or = 19 years Acceptable: <170 mg/dL Borderline high: 170-199 mg/dL High: >or= 200 mg/dL Ages > or = 20 years Desirable: <200 mg/dL Borderline high: 200-239 mg/dL High: >or= 240 mg/dL Literature References: 1. Expert Panel on Integrated Guidelines for Cardiovascular Health and Risk Reduction in Children and Adolescents. Pediatrics 2011;128:S213 2. NCEP Expert Panel. Circulation 2004;110:227 Current Interpretive Data was last revised on 2018. Triglycerides 86 <=149 mg/dL BOBY JEAN Comment: Interpretive Data Ages < or = 9 years Acceptable: <75 mg/dL Borderline high: 75-99 mg/dL High: >or= 100 mg/dL Ages 10 to 20 years Acceptable: <90 mg/dL Borderline high: 90-129 mg/dL High: >or= 130 mg/dL Ages > or = 20 years Desirable: <150 mg/dL Borderline high: 150-199 mg/dL High: 200-499 mg/dL Very high: >or= 499 mg/dL Literature References: 1. Expert Panel on Integrated Guidelines for Cardiovascular Health and Risk Reduction in Children and Adolescents. Pediatrics 2011;128:S213 2. NCEP Expert Panel. Circulation 2004;110:227 Current Interpretive Data was last revised on 2018. HDL 49 >=40 mg/dL BOBY JEAN Comment: Interpretive Data Ages < or = 19 years Acceptable: >45 mg/dL Borderline low: 40-45 mg/dL Low: <40 mg/dL Ages > or = 20 years Desirable: >or= 60 mg/dL Low: <40 mg/dL Literature References: 1. Expert Panel on Integrated Guidelines for Cardiovascular Health and Risk Reduction in Children and Adolescents. Pediatrics 2011;128:S213 2. NCEP Expert Panel. Circulation 2004;110:227 Current Interpretive Data was last revised on 2018. LDL, calculated 96 <=129 mg/dL BOBY JEAN Comment: Interpretive Data Ages < or = 19 years Acceptable: <110 mg/dL Borderline high: 110-129 mg/dL High: >or= 130 mg/dL Ages > or = 20 years Optimal: <100 mg/dL Near optimal: 100-129 mg/dL Borderline high: 130-159 mg/dL High: >160 mg/dL Calculated using the Lawson LDL-C estimating equation. This equation was implemented on 2024. Prior to this date LDL-C was estimated using the Friedewald equation. Literature References: 1. Expert Panel on Integrated Guidelines for Cardiovascular Health and Risk Reduction in Children and Adolescents. Pediatrics 2011;128:S213 2. NCEP Expert Panel. Circulation 2004;110:227 3. Lawson Ramírez et al. LUIS Cardiol. 2019November 17;5(5):540-548. doi: 10.1001/[email or web address].2020.0013 Current Interpretive Data was last revised on 2024. Non-HDL Cholesterol 112 mg/dL BOBY JEAN Comment: Interpretive Data Ages < or = 19 years Acceptable: <120 mg/dL Borderline high: 120-144 mg/dL High: >145 mg/dL Ages > or = 20 years When triglycerides are >200 mg/dL, Non-HDL cholesterol is a secondary target of therapy with treatment goals that are 30 mg/dL greater than the LDL cholesterol target. Literature References: 1. Expert Panel on Integrated Guidelines for Cardiovascular Health and Risk Reduction in Children and Adolescents. Pediatrics 2011;128:S213 2. NCEP Expert Panel. Circulation 2004;110:227 Current Interpretive Data was last revised on 2018. Chol/HDL ratio 3 BOBY JEAN Blood 04/05/2025 2:47 PM CDT 04/05/2025 2:57 PM CDT Raul Zamudio HOSPITAL DIRECTOR LAB BLOOD ORDERABLES Edited Result - Final BOBY JEAN [id number] [address] Department [place] [address] * Comprehensive metabolic panel (04/05/2025 2:47 PM CDT) Sodium 139 135 - 145 mmol/L Potassium, pl 4.1 3.3 - 4.9 mmol/L [facility] Chloride 103 97 - 110 mmol/L [facility] CO2 22 22 - 32 mmol/L [facility] Anion gap 14 2 - 15 mmol/L [facility] BUN 13 6 - 25 mg/dL [facility] Creatinine 0.71 0.60 - 1.10 mg/dL [facility] Glucose 82 70 - 199 mg/dL [facility] Comment: [...] interpretive data was last revised 2022. Calcium 9.4 8.5 - 10.3 mg/dL [facility] Bilirubin, total 0.4 0.1 - 1.2 mg/dL [facility] Protein, pl 7.8 6.5 - 8.5 g/dL [facility] Albumin 4.4 3.5 - 5.0 g/dL [facility] Alk phos 99 40 - 130 Units/L [facility] ALT 20 7 - 45 Units/L [facility] AST 24 10 - 45 Units/L [facility] Blood 04/05/2025 2:47 PM CDT 04/05/2025 2:57 PM CDT us Raul Zamudio HOSPITAL DIRECTOR LAB BLOOD ORDERABLES Edited Result - Final BOBY [facility] [address] [facility]. Department [place] [address] from Last 3 Months Insurance [facility] Advance Directives For more information, please contact: [phone] * Full Code (Latest Code Status on File) Date Activated Date Inactivated Comments 08/10/2024 1:20 PM 08/12/2024 7:18 PM Care Teams Store Administrative Assistant Relationship Specialty Start Date End Date Nimo Jacobs MD [facility] [address] [address] PCP - General Family Practice 07/29/24 Gelacio Smith MD [phone] [place] [address] Surgeon Colon and Rectal Surgery 08/02/24
--- NOTE | 2025-04-20 08:34 | SUR.PREOP ---
Patient called and spoke with scheduling. Patient says she will not be in for procedure today because she is sick. Scheduling transferred patient's call to GI office for rescheduling.
[2025-05-08 13:23] VITALS: BMI 57.1
--- NOTE | 2025-05-08 13:28 | SUR.PREOP ---
Spoke with patient and verified new date and time of EGD and Colonoscopy procedure. Patient stated there has been no change in medical history or home medications. Patient did not have any questions at this time.
--- OUTSIDE RECORDS SUMMARY | 2025-05-19 00:21 | XMS_ITS | Encounter Summary ---
Author Organization [facility] Address [address] [place] [address] Phone Care Team Providers Care Sail Finisher Machine Name Role Phone Nimo Jacobs MD Primary Care Provider Gelacio Smith MD Unavailable [phone] Encounter Details Date Type Department Care Team (Late st Contact Info) Description 04/06/2025 Results Follow-Up [facility] Medical Office Building [address] [place] [address] Raul Zamudio NP [address] [facility] [phone] [place] [address] Ferritin, Iron profile w/ IBC, [...] on filedocumented in this encounter Care Teams Sail Finisher Machine Relationship Specialty Start Date End Date Nimo Jacobs MD [address] [facility] [address] [address] PCP - General Family Practice 07/29/24 Gelacio Smith MD [phone] [place] [address] Surgeon Colon and Rectal Surgery 08/02/24 documented as of this encounter
--- OUTSIDE RECORDS SUMMARY | 2025-05-19 00:21 | XMS_ITS | Clinical Summary ---
Author Organization [facility] Virtual Care Address [address] [place] [phone] Phone Care Team Providers Care Client Account Representative Name Role Phone Nimo Jacobs MD Primary Care Provider Gelacio Smith MD Unavailable [phone] Allergies Active Allergy Reactions Criticality Noted Date Comments Nitrofurantoin Itching,Rash,Swellin g,Hi ves Medium 04/24/2021 Nitrofurantoin Monohyd/M-Cryst Itching Low 08/02/2024 Medications cholecalciferol (VITAMIN D-3) 96935 unit tablet Take 1,250 mcg by mouth 12/29/2024 Active ferrous sulfate 325 mg (65 mg of elemental iron) tablet 01/09/2025 Active dicyclomine (BENTYL) 10 mg capsule TAKE 1 TO 2 CAPSULES BY MOUTH EVERY 6 HOURS 12/26/2024 Active Active Problems Problem Noted Date Diagnosed [...] Encounters Date Type Department Care Team Description 05/09/2025 11:15 AM CDT Office Visit [facility] Medicine Pain Management [address] [place] [address] Hung Swan, PhD Morbid obesity (HCC) (Primary Dx); Anxiety; Persistent depressive disorder 04/06/2025 Results Follow-Up [facility] [address] [place] [address] Medical Office Building [address] [place] [phone] Raul Zamudio NP Ferritin, Iron profile w/ IBC, Vitamin B12, Additional followed-up results: 11 04/05/2025 2:25 PM CDT Lab [facility] [address] [place] [address] Morbid obesity (HCC); BMI 50.0-59.9, adult (HCC); Gastroesophageal reflux disease, unspecified whether esophagitis present 04/05/2025 2:00 PM CDT Office Visit [facility] Surgery [address] [place] [address] Office Building [address] [place] [address] Raul Zamudio NP Morbid obesity (HCC) (Primary [...] Labor Labor/2nd/3rd Weight Sex Type Anes PTL Ashil A1 A5 Name Clin Para Para Last [...] 02/2014, 02/01/2013 Medical Devices Implanted Type Area Recycling Collections Driver Device Identifier Shelf Expiration Date Model / Serial / Lot [employer] Strattice 8x6cm Reconstructive Matrix Tissue Porcine Dermis Latex Free [id number] - [id number] Implanted:Qty: 1 on 08/10/2024 by Gelacio Smith MD at [facility] Mesh N/A: Sacrum [employer] [id number] 08/19/2025 [id number] / / [id number] Procedures Procedure Name Priority Date/Time Associated [...] with Reflex Confirmation (04/05/2025 2:47 PM CDT) [facility] Amphetamine, ur Not Detected CutOff 500ng/mL Comment: Interpretive Data - Amphetamines: Samples containing greater than 500 ng/mL d-methamphetamine or other cross-reacting amphetamine compounds are reported as positive. Amphetamine immunoassays are subject to significant false positive rates due to cross-reactivity of non-amphetamine drugs. Confirmatory testing required for definitive results. Current Interpretive Data was last reviewed 2023. Barbiturates, ur Not Detected CutOff 200ng/mL CERLAUREN MARTINEZCH Comment: Interpretive Data - Barbiturates: Samples containing greater than 200 ng/mL secobarbital or other cross-reacting barbiturate compounds are reported as positive. False positive and false negative results are possible. Confirmatory testing required for definitive results. Current Interpretive Data was last reviewed 2023. Benzodiazepines, ur Not Detected CutOff 100ng/mL CERLAUREN MARTINEZCH Comment: Interpretive Data - Benzodiazepines: Samples containing greater than 100 ng/mL nordiazepam or other cross-reacting compounds are reported as positive. False positive and false negative results are possible. Confirmatory testing required for definitive results. Current Interpretive Data was last reviewed 2023. Cannabinoids, ur Not Detected CutOff 50 ng/mL CERLAUREN MARTINEZCH Comment: Interpretive Data - Cannabinoids: Samples containing [...] Fentanyl, Ur Not Detected Cutoff 1 ng/mL CERLAUREN MARTINEZCH Comment: Interpretive Data - Fentanyl: Samples containing greater than 1 ng/mL fentanyl or other cross-reacting fentanyl compounds are reported as positive. False positive and false negative results are possible. Confirmatory testing required for definitive results. Current Interpretive Data was last reviewed 2023. Methadone, ur Not Detected CutOff 300ng/mL CERLAUREN [facility] Comment: Interpretive Data - Methadone: Samples containing greater than 300 ng/mL d,l-methadone or other cross-reacting compounds are reported as positive. False positive and false negative results are possible. Confirmatory testing required for definitive results. Current Interpretive Data was last reviewed 2023. Opiates, ur Not Detected CutOff 300ng/mL BOBY JEAN Comment: Interpretive Data - Opiates: Samples [...] Phencyclidine, ur Not Detected CutOff 25 ng/mL BOBY JEAN Comment: Interpretive Data - Phencyclidine: Samples [...] Zamudio NP LAB URINE ORDERABLES Final Result BOBY MARTINEZCH [address] [facility]. [place] [address] * eGFR (04/05/2025 2:47 PM CDT) eGFR [...] 04/05/2025 2:57 PM CDT us Raul Zamudio RAILCAR SWITCHMAN LAB BLOOD ORDERABLES Final Result BOBY MARTINEZ[facility] [address] [facility]. Department of [facility] [place], [place] [id number] * Differential, auto (04/05/2025 2:47 PM CDT) Neutrophil abs 5.14 1.50 - 6.50 K/cumm Imm gran abs 0.01 0.00 - 0.10 K/cumm CERNER [facility] Lymphocyte abs 2.13 0.80 - 3.30 K/cumm C[facility]ER [facility] Monocyte abs 0.51 0.20 - 0.80 K/cumm CERNER [facility] Eosinophil abs 0.18 0.00 - 0.50 K/cumm CERNER [facility] Basophil abs 0.04 0.00 - 0.10 K/cumm BOBY JEAN Neutrophil pct 64.2 % BOBY MARTINEZ Comment: Interpretive Data Percent cell count reference ranges are not reported, since discordance with absolute values may lead to misinterpretation of CBC data. Current Interpretive Data was last revised on 2017. Imm gran pct 0.1 % BOBY MARTINEZ Comment: Interpretive Data Percent cell count reference ranges are not reported, since discordance with absolute values may lead to misinterpretation of CBC data. Current Interpretive Data was last revised on 2017. Lymphocyte pct 26.6 % BOBY JEAN Comment: Interpretive Data Percent cell count reference ranges are not reported, since discordance with absolute values may lead to misinterpretation of CBC data. Current Interpretive Data was last revised on 2017. Monocyte pct 6.4 % BOBY MARTINEZ Comment: Interpretive Data Percent cell count reference ranges are not reported, since discordance with absolute values may lead to misinterpretation of CBC data. Current Interpretive Data was last revised on 2017. Eosinophil pct 2.2 % BOBY MARTINEZ Comment: Interpretive Data Percent cell count reference ranges are not reported, since discordance with absolute values may lead to misinterpretation of CBC data. Current Interpretive Data was last revised on 2017. Basophil pct 0.5 % [facility] Comment: Interpretive Data Percent cell count reference ranges are not reported, since discordance with absolute values may lead to misinterpretation of CBC data. Current Interpretive Data was last revised on 2017. Blood 04/05/2025 2:47 PM CDT 04/05/2025 2:57 PM CDT us Raul Zamudio RAILCAR SWITCHMAN LAB BLOOD ORDERABLES Final Result BOBY JEAN [address] [facility]. [place] [address] * (ABNORMAL) Iron profile w/ IBC (04/05/2025 2:47 PM CDT) Iron 42 35 - 145 mcg/dL Comment:Testing performed by : [facility], [address] [place] [address]., [address] TIBC 276 250 - 400 mcg/dL [facility] Comment:Testing performed by : [facility], [address] [place] [address]., [address] Transferrin saturation 15(L) 20 - 50 % [facility] Comment:Testing performed by : [facility], [address] [place] [address]., [address] Blood 04/05/2025 2:47 PM CDT 04/05/2025 5:10 PM CDT Raul Zamudio NP LAB BLOOD ORDERABLES Final Result BOBY JEAN [address] [facility]. [place] [address] * (ABNORMAL) CBC with auto differential (04/05/2025 2:47 PM CDT) [facility] WBC 8.01 3.80 - 9.90 K/cumm Hgb 12.9 11.9 - 15.5 g/dL [facility] Hct 39.3 35.6 - 45.5 % [facility] Plt 379 150 - 400 K/cumm [facility] MPV 9.2 9.1 - 12.3 fL [facility] RBC 5.09 3.90 - 5.20 M/cumm [facility] MCV 77.2(L) 81.3 - 96.4 fL [facility] MCH 25.3(L) 27.1 - 33.3 pg [facility] MCHC 32.8 32.3 - 35.7 g/dL [facility] RDW CV 13.5 11.1 - 14.9 % [facility] RDW SD 37.7 35.7 - 48.1 fL [facility] NRBC abs 0.00 0.00 - 0.01 K/cumm [facility] Blood 04/05/2025 2:47 PM CDT 04/05/2025 2:57 PM CDT Raul Zamudio NP LAB BLOOD ORDERABLES Final Result Performing Organization Address [facility] Co de Phone Number BOBY [facility] [address] [address] [facility] [place] [address] * Vitamin A (04/05/2025 2:47 PM CDT) Vitamin A 32.7 32.5 - 78.0 mcg/dL [facility] Comment: ADDITIONAL INFORMATION This test was developed and its performance characteristics determined by [facility] in a manner consistent with CLIA requirements. This test has not been cleared or approved by the U.S. Food and Drug Administration. Test Performed by: [place] [address] Fire Protection Engineering Technician: Deanne Lawrence Ph.D.; CLIA# [id number] Blood 04/05/2025 2:47 PM CDT 04/05/2025 2:57 PM CDT Raul Zamudio NP LAB BLOOD ORDERABLES Final Result Performing Organization Address [facility] de Phone Number BOBY [facility] [address] [place] [address] [place] [facility] * H. pylori breath test (04/05/2025 2:47 PM CDT) H. pylori, breath test Negative Negative [facility] Comment: Result indicates the absence of current Helicobacter pylori infection. Test Performed by: [place] [address] Fire Protection Engineering Technician: Deanne Lawrence Ph.D.; CLIA# [id number] Breath 04/05/2025 2:47 PM CDT 04/05/2025 3:43 PM CDT Raul Zamudio NP LAB BODY FLUIDS AND STOOLS ORDERABLES Final Result Performing Organization Address [facility] de Phone Number BOBY JEAN [address] [address] [facility] [place] [address] [place] [facility] * (ABNORMAL) Vitamin K (04/05/2025 2:47 PM CDT) Phylloquinone (Vit K) 0.09(L) 0.10 - 2.20 ng/mL [place] Comment: ADDITIONAL INFORMATION This test was developed and its performance characteristics determined by [facility] in a manner consistent with CLIA requirements. This test has not been cleared or approved by the U.S. Food and Drug Administration. Test Performed by: [place] [address] Fire Protection Engineering Technician: Deanne Lawrence Ph.D.; CLIA# [id number] Blood 04/05/2025 2:47 PM CDT 04/05/2025 2:57 PM CDT Raul Zamudio NP LAB BLOOD ORDERABLES Final Result Performing Organization Address [facility] de Phone Number BOBY [facility] [address] [address] [facility]. [place] [address] [place] [facility] * Nicotine metabolite screen, urine (04/05/2025 2:47 PM CDT) Nicotine, ur <5.0 <5.0 ng/mL [facility] Cotinine, ur <5.0 <5.0 ng/mL BOBY JEAN Anabasine ur <2.0 <2.0 ng/mL BOBY MARTINEZCH Comment: ADDITIONAL INFORMATION This test was developed and its performance characteristics determined by [facility] in a manner consistent with CLIA requirements. This test has not been cleared or approved by the U.S. Food and Drug Administration. Test Performed by: [facility] - [address] [address] Fire Protection Engineering Technician: Deanne Lawrence Ph.D.; CLIA# [id number] Nornicotine, ur <2.0 <2.0 ng/mL [facility] Urine 04/05/2025 2:47 PM CDT 04/05/2025 2:57 PM CDT Raul Zamudio NP LAB URINE ORDERABLES Final Result Performing Organization Address City/[facility]/ZIP Co de Phone Number [facility] [address] [address] [facility] [place] [address] [place] [facility] * (ABNORMAL) Vitamin D 25 hydroxy (04/05/2025 2:47 PM CDT) Pathologist [facility] Vitamin D 25-OH 28(L) 30 - 80 ng/mL Blood 04/05/2025 2:47 PM CDT 04/05/2025 2:57 PM CDT Raul Zamudio LAB BLOOD ORDERABLES Final Result Performing Organization Address City/[facility]/ZIP Co de Phone Number [facility] [address] [address] [facility] [place] [address] * Vitamin E (04/05/2025 2:47 PM CDT) Pathologist [facility] Tocopherol (Vit E) 6.4 5.5 - 17.0 mg/L [place] [facility] Comment: ADDITIONAL INFORMATION This test was developed and its performance characteristics determined by [facility] in a manner consistent with CLIA requirements. This test has not been cleared or approved by the U.S. Food and Drug Administration. Test Performed by: [facility] - [place] [id number] Fire Protection Engineering Technician: Deanne Lawrence Ph.D.; CLIA# [id number] Blood 04/05/2025 2:47 PM CDT 04/05/2025 2:57 PM CDT Raul Zamudio NP LAB BLOOD ORDERABLES Final Result Performing Organization Address [facility] de Phone Number BOBY [facility] [address] [address] [facility] [place], [place] [id number] [place] [facility] * TSH (04/05/2025 2:47 PM CDT) Thyroid Stimulating Hormone 0.95 0.30 - 4.20 mcIUnit/mL Blood 04/05/2025 2:47 PM CDT 04/05/2025 2:57 PM CDT Raul Zamudio RAILCAR SWITCHMAN LAB BLOOD ORDERABLES Edited Result - Final Performing Organization Address [facility] de Phone Number BOBY [facility] [address] [address] [facility] [place] [address] * Vitamin B1 (04/05/2025 2:47 PM CDT) Thiamine (Vit B1) 109 70 - 180 nmol/L [place] [facility] Comment: ADDITIONAL INFORMATION This test was developed and its performance characteristics determined by [facility] in a manner consistent with CLIA requirements. This test has not been cleared or approved by the U.S. Food and Drug Administration. Test Performed by: [facility] - [address] [address] Fire Protection Engineering Technician: Deanne Lawrence Ph.D.; CLIA# [id number] Blood 04/05/2025 2:47 PM CDT 04/05/2025 2:57 PM CDT Raul Zamudio NP LAB BLOOD ORDERABLES Final Result Performing Organization Address City/[facility]/ZIP Co de Phone Number [facility] [address] [facility] [place] [address] [place] [facility] * PTH (04/05/2025 2:47 PM CDT) [facility] PTH 44 15 - 65 pg/mL Blood 04/05/2025 2:47 PM CDT 04/05/2025 2:57 PM CDT Raul Bella Zamudio NP LAB BLOOD ORDERABLES Final Result Performing Organization Address [facility] Phone Number [facility] [address] [facility]. [facility] [place] [address] * Hemoglobin A1c (04/05/2025 2:47 PM CDT) [facility] Hgb A1C 4.7 4.0 - 5.6 % Estimated Average Glucose 88 mg/dL [facility] Comment: The ADA recommends reporting an estimated Average Glucose (eAG) with all Hemoglobin A1c results using the equation derived from a study of 507 normal and diabetic adults. Minority populations were underrepresented and children were not included. (Diabetes Care 31:7085-7819, 2008). The eAG is not equivalent to a fasting glucose. Blood 04/05/2025 2:47 PM CDT 04/05/2025 2:57 PM CDT Raul Zamudio NP LAB BLOOD ORDERABLES Final Result Performing Organization Address [facility] Co de Phone Number [facility] [address] [facility]. [facility] [place] [address] * Folate (04/05/2025 2:47 PM CDT) [facility] Folic acid 11.0 >=5.0 ng/mL Comment:Testing performed by : [facility], [address] [place]., [address] Blood 04/05/2025 2:47 PM CDT 04/05/2025 5:10 PM CDT Raul Zamudio NP LAB BLOOD ORDERABLES Final Result BOBY [facility] [address] [facility]. [facility] [place] [address] * Ferritin (04/05/2025 2:47 PM CDT) Pathologist [facility] Ferritin 63 13 - 150 ng/mL Comment:Testing performed by : [facility], [address] [place] [address]., [address] Blood 04/05/2025 2:47 PM CDT 04/05/2025 5:10 PM CDT Raul Zamudio NP LAB BLOOD ORDERABLES Final Result Performing Organization Address [facility] Co de Phone Number [facility] [address] [facility]. [facility] [place] [address] * Vitamin B12 (04/05/2025 2:47 PM CDT) [facility] Vitamin B12 387 230 - 1,250 pg/mL Comment:Testing performed by : [facility], [address] [place] [address]., [address] Blood 04/05/2025 2:47 PM CDT 04/05/2025 5:10 PM CDT Raul Zamudio RAILCAR SWITCHMAN LAB BLOOD ORDERABLES Final Result [facility] [address] [facility]. [facility] [place] [address] * Lipid panel (04/05/2025 2:47 PM CDT) [facility] Cholesterol 161 30 - 199 mg/dL Comment: [...] CDT Raul Zamudio NP LAB BLOOD ORDERABLES Edited Result - Final [facility] [address] [facility]. [place] [address] * Comprehensive metabolic panel (04/05/2025 2:47 PM [...] CDT Raul Zamudio NP LAB BLOOD ORDERABLES Edited Result - Final Performing Organization Address City/State/[facility] Co de Phone Number [facility] [address] [facility] [place] [address] from Last 3 Months Insurance [facility] Advance Directives For more information, please contact: [phone] * Full Code (Latest Code Status on File) Date Activated Date Inactivated Comments 08/10/2024 1:20 PM 08/12/2024 7:18 PM Care Teams Client Account Representative Relationship Specialty Start Date End Date Nimo Jacobs MD [address] [place] [address] [place] [address] PCP - General Family Practice 07/29/24 Gelacio Smith MD [phone] [place] [address] Surgeon Colon and Rectal Surgery 08/02/24
--- OUTSIDE RECORDS SUMMARY | 2025-05-19 00:21 | XMS_ITS | Clinical Summary ---
Author Organization [facility] [facility] Address [address] [place] [address] Care Team Providers Care Lineman Service Or Work Dispatcher Name Role Phone Unavailable Primary Care Provider Unavailabl e Social History Tobacco Use Types Packs/Day Years Used Date Smoking Tobacco: Never Assessed Comments Unknown Sex and Gender Information Value Date Recorded Sex Assigned at Not on file Legal Sex Female 2:50 PM CDT Gender Identity Not on file Sexual Orientation Not on file Plan of Treatment Upcoming Encounters Date Type Department Care Team (Late st Contact Info) Description 07/10/2025 11:30 AM TEMPLATE MAKER Office Visit [facility] Oncology and Hematology - [place] [address] [place] [address] Jihan Trevino MD [address] [place] [address] Health Maintenance Due Date Last Done Comments CHLAMYDIA SCREENING (ANNUAL) 11-24 YEARS 2014 HPV VACCINES (1 - 3-dose series) 2018 DTAP/TDAP/TD VACCINES (1 - Tdap) 2022 HEPATITIS B VACCINES (1 of 3 - 19+ 3-dose series) 01/17 CERVICAL CANCER SCREENING 01/30/2024 HPV/Cotest (21-29) 01/30/2024 PAP SMEAR 01/30/2024 INFLUENZA VACCINE (#1) 2025 Insurance [facility] MEDICAID
--- OUTSIDE RECORDS SUMMARY | 2025-05-19 00:21 | XMS_ITS | Clinical Summary ---
Author Organization [facility] Address [facility] [place] [address] Care Team Providers Care Coconut Candy Maker Name Role Phone None, Provider MD Primary [...] C 2021 COVID-19 Vaccine (2 - season) 2025 11/13/2021 Influenza Adult (#1) 2025 07/03/2021, 05/09/2014, 04/14/2009, Additional history exists DTaP, Tdap and Td Vaccines (8 - [...] 02/2014, 02/01/2013 Meningococcal Vaccine Completed 02/21/2019, 014 Hepatitis A Vaccines Aged Out No long er eligible based on patient's age to complete this topic RSV Immunizations Under 20 Months Aged Out No longer eligible based on patient's age to complete this topic Insurance [employer] [facility] [employer] Care Teams Coconut Candy Maker Relationship Specialty Start Date End Date None, Provider, MD PCP - General UNKNOWN PHYSICIAN SPECIALTY 01/31/23
--- OUTSIDE RECORDS SUMMARY | 2025-05-19 00:21 | XMS_ITS | Clinical Summary ---
Author Organization [facility] Address [address] [place] [address] Care Team Providers Care Christmas Bell Ringer Name Role Phone Unavailable Primary Care Provider Unavailabl e Source Comments [facility],non-owned Affiliates and Associated Physician Practices is amultiple site organization consisting of ambulatory clinics and hospital sitesin [place], [place], [place] and [place]. This disclosure is being madepursuant to the Care Everywhere program and may not contain all information available regarding this patient. Last updated 18.[facility] Allergies Active Allergy Reactions Criticality Noted Date [...] drink = 0.6 oz pur e alcohol) [place] Depression Scale Answer Date Recorded [place] Depression Scale Total 16 12/16/2023 The thought of harming myself has occurred to me . 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 Blood BLOOD SPECIMEN / Unknown Venipuncture / Unknown 12/25/2020 6:46 PM CDT 12/25/2020 7:28 PM CDT Mahesh Chamberlain MD LAB - CHEMISTRY ORDERABLES Final Result Performing Organization Address City/State/[facility] Co de Phone Number [facility] [address] [place] [phone], [facility] [phone] * CHLAMYDIA + GC AMPLIFIED PROBE (STL) (12/25/2020 6:30 PM CDT) [facility] Chlamydia Amplified Probe Negative Negative 12/26/2020 2:53 AM CDT [facility] GC Amplified Probe Negative Negative 12/26/2020 2:53 AM CDT [facility] Microbiology URINE / Unknown Collection / Unknown 12/25/2020 6:30 PM CDT 12/25/2020 6:42 PM CDT Narrative [facility] - 12/26/2020 2:53 AM CDT Results based on detection/no detection of ribosomal RNA by amplified method. Mahesh Chamberlain MD LAB - MICROBIOLOGY ORDERABLES Fi nal Result [facility] [address] [place] [address], [facility] [phone] from Last 3 Months or Most Recently Relevant to Health Maintenance Insurance [employer]
[2025-05-19 12:01] VITALS: BP 143/97; PULSE 65; RESP 18; TEMP 36.6; O2SAT 100
[2025-05-19 12:03] LABS: BEDSIDEPREGUCG Negative (Negative)
[2025-05-19] MEDS: LACTATED RINGERS 1,000 ML 150 ML IV CONT (12:12)
--- NOTE | 2025-05-19 12:30 | P.PNAN_ITS ---
Anes - Initial Pre Proc Eval Procedure: Operation Date: 05/19/25 13:30 Proposed Procedures p EGD & Diagnostic Colonoscopy - Chase Crockett MD Date/Time: 05/19/25 12:30 Surgeon: Chase Crockett MD Pre Op Diagnosis: GERD/COLITIS Patient Data Age: 20 Gender: F Height: 1.6 m Weight: 146.1 kg Last Vital Signs Temp 36.6 C 05/19/25 12:01 Pulse 65 05/19/25 12:01 Resp 18 05/19/25 12:01 BP 143/97 H 05/19/25 12:01 Pulse Ox 100 05/19/25 12:01 O2 Del Method Room Air 05/19/25 12:01 Allergies Allergy/AdvReac Type Severity Reaction Status Date / Time nitrofurantoin (From Allergy Hives Verified 05/08/25 13:22 Macrobid) Home Medications ?Medication ?Instructions ?Recorded ?Confirmed ?Type cholecalciferol (vitamin D3) 1,250 1,250 mcg PO WEEKLY #14 tabs 12/29/24 05/19/25 Rx mcg (50,000 unit) tablet ferrous sulfate 325 mg (65 mg 325 mg PO DAILY #90 tabs 01/09/25 04/19/25 Rx iron) tablet,delayed release Laboratory Tests 05/19/25 12:01 POC Urine HCG, Qual Negative (Negative) Patient hx anesthesia problems: none Family hx anesthesia problems: none Results Review: All pre-operative results and documents have been reviewed as part of the pre- operative evaluation. [facility] Past Medical History Medical History Anxiety Iron deficiency anemia GERD (gastroesophageal reflux disease) Depression Hypertension affecting (~10/2023) Morbid obesity with BMI of 50.0-59.9, adult Fatigue Asthma as a child Morbid obesity Perirectal abscess (~05/2019) I&D depression Surgical History Surgical History Hx laparoscopic cholecystectomy 03/02/2025 Robotic assisted cholecystectomy Vaginal delivery 09/11/21 S/P section (~04/2024) History of back surgery (~07/2024) distal sacrectomy and excision of large presacral cyst Delivery by section (05/01/24) History of tonsillectomy (~2009) Family History Family History Grandparent Diabetes mellitus paternal grandmother Hypertension Thyroid disorder Mother Depression Grandparent Diabetes mellitus Other No pertinent family history Social History Social History Smoking status: Never smoker Alcohol intake: never Substance use: never Substance use type: does not use Do You Feel Safe in your Home?: Yes Lack of Transportation: No Lack of Food: Never True Current Housing: Decline to Answer Concerned About Future Housing: Decline to Answer Difficulty Paying Gas/Electric Bills: Decline to Answer Difficulty Paying for Meds: Decline to Answer Currently Unemployed: Decline to Answer Education: Decline to Answer Difficulty w/ Childcare or Family Care: Decline to Answer Living arrangements: with family Additional living arrangements comments: daughter Occupation/Education: occupation Gender identity (if verbalized by the patient): Female Sexual Orientation (if Verbalized by the Patient): Straight or Heterosexual Spiritual care concerns: No Anes - Eval Final PreProcedure Day of Procedure 05/19/25 12:30 Patient weight: super morbidly obese Heart: regular rate and rhythm Lungs: clear to auscultation Airway: Mallampati scale class II Neurological: alert and oriented Last oral intake: >/= 8 hours ASA classification: III Emergent: no Anesthetic plan: proceed Anesthesia type and monitoring: general GIVS and standard monitoring Results Review: All pre-operative results and documents have been reviewed as part of the pre- operative evaluation. Informed Consent: The patient's anesthetic plan and its attendant risks and benefits were discussed with the patient/family/POA. Questions were solicited and answers provided to the satisfaction of the patient/family/POA.
--- NOTE | 2025-05-19 12:56 | PM.HPGS ---
History of Present Illness History of Present Illness Consent: Risks, benefits, and alternatives have been discussed and questions answered. Patient agrees to proceed with procedure. Chief complaint: GERD/COLITIS Narrative: Janessa Mendoza is a 20 year old female here for first egd/colonoscopy, h/o gerd and diarrhea Review of Systems Review of Systems: All systems reviewed & are unremarkable except as noted in HPI and below PMFSH Past Medical History Medical History (Updated 05/19/25 @ 13:02 by Chase Crockett MD) Diarrhea Anxiety Iron deficiency anemia GERD (gastroesophageal reflux disease) Depression Hypertension affecting (~10/2023) Morbid obesity with BMI of 50.0-59.9, adult Fatigue Asthma as a child Morbid obesity Perirectal abscess (~05/2019) I&D depression Surgical History Surgical History Hx laparoscopic cholecystectomy 03/02/2025 Robotic assisted cholecystectomy Vaginal delivery 09/11/21 S/P section (~04/2024) History of back surgery (~07/2024) distal sacrectomy and excision of large presacral cyst Delivery by section (05/01/24) History of tonsillectomy (~2009) Family History Family History Grandparent Diabetes mellitus paternal grandmother Hypertension Thyroid disorder Mother Depression Grandparent Diabetes mellitus Other No pertinent family history Social History Social History Smoking status: Never smoker Alcohol intake: never Substance use: never Substance use type: does not use Do You Feel Safe in your Home?: Yes Lack of Transportation: No Lack of Food: Never True Current Housing: Decline to Answer Concerned About Future Housing: Decline to Answer Difficulty Paying Gas/Electric Bills: Decline to Answer Difficulty Paying for Meds: Decline to Answer Currently Unemployed: Decline to Answer Education: Decline to Answer Difficulty w/ Childcare or Family Care: Decline to Answer Living arrangements: with family Additional living arrangements comments: daughter Occupation/Education: occupation Gender identity (if verbalized by the patient): Female Sexual Orientation (if Verbalized by the Patient): Straight or Heterosexual Spiritual care concerns: No Meds Home Medications and Allergies Home Medications ?Medication ?Instructions ?Recorded ?Confirmed ?Type cholecalciferol (vitamin D3) 1,250 1,250 mcg PO WEEKLY #14 tabs 12/29/24 05/19/25 Rx mcg (50,000 unit) tablet ferrous sulfate 325 mg (65 mg 325 mg PO DAILY #90 tabs 01/09/25 04/19/25 Rx iron) tablet,delayed release Allergies Allergy/AdvReac Type Severity Reaction Status Date / Time nitrofurantoin (From Allergy Hives Verified 05/08/25 13:22 Macrobid) Vital Signs Vital Signs - 24 hr 05/19/25 12:01 Temperature 97.9 F Pulse Rate 65 Respiratory Rate 18 Blood Pressure 143/97 H Pulse Oximetry 100 Oxygen Delivery Room Air Exam Const: General: cooperative Nutritional Appearance: obese Orientation/consciousness: patient oriented x3 Assessment and Plan Assessment and plan (1) GERD (gastroesophageal reflux disease): Qualifiers: Esophagitis presence: without esophagitis Qualified Code(s): K21.9 - Gastro-esophageal reflux disease without esophagitis Code(s): K21.9 - Gastro-esophageal reflux disease without esophagitis Status: Acute Assessment and Plan: egd (2) Diarrhea: Code(s): R19.7 - Diarrhea, unspecified Status: Acute Assessment and Plan: colonoscopy (3) Morbid obesity with BMI of 50.0-59.9, adult: Code(s): E66.01 - Morbid (severe) obesity due to excess calories; Z68.43 - Body mass index [BMI] 50.0-59.9, adult Status: Acute
--- NOTE | 2025-05-19 12:58 | S_PTH ---
PATIENT: Janessa Mendoza LOC: [facility] Gray#:[id number] AGE/SX: 20/F ROOM: RE05/19/[address]: Chase Crockett MD : 2005 BED: DIS: 05/19/2025 SPEC #: [id number] RECD: 05/19/25 14:00 STATUS: ELIDIA RODRIGUEZ #: [id number] MIROSLAVA: 05/19/25 12:[address]: Chase Crockett DEPT: [facility] Surgical RECD BY: Kim Flores ENTERED: 05/19/25 14:00 SP TYPE: Surgical OTHR DR: Nimo Jacobs MD Tissues: A - Small Bowel Bx B - Gastric Biopsy C - Colon Biopsy Procedures: Hematoxylin and Eosin Stain Gross and Microscopic Level 4
--- NOTE | 2025-05-19 13:02 | SUR.OPER ---
EGD ended at 1300, Colon began at 1305
[2025-05-19 13:17] VITALS: BP 100/56; PULSE 67; RESP 20; O2SAT 100
[2025-05-19 13:27] VITALS: BP 113/70; PULSE 62; RESP 15; O2SAT 100
[2025-05-19 13:37] VITALS: BP 124/81; PULSE 65; RESP 19; O2SAT 100
== END 2025-05-19 13:56 | disposition home or self-care (01) ==
PROVIDERS: Anesthesiology; PCP Family Medicine; Referring Provider Nurse Practitioner; Visit Provider Internal Medicine Gastroenterology
PROC: 0DJ08ZZ Inspection of Upper Intestinal Tract, Via Natural or Artificial Opening Endoscopic (ICD-10-PCS; CPT 45378; principal; 2025-05-19 13:30)
DX: R19.7 Diarrhea, unspecified (principal); K21.9 Gastro-esophageal reflux disease without esophagitis; E66.01 Morbid (severe) obesity due to excess calories; Z68.43 Body mass index [BMI] 50.0-59.9, adult
CPT/HCPCS: 45380; 43239; 88305; J2003; J2704; J7120

== ENCOUNTER 2025-07-11 11:05 | Outpatient (CLI) | payer OTHER, SELFPAY ==
--- OUTSIDE RECORDS SUMMARY | 2025-07-10 11:30 | XMS_ITS | Encounter Summary ---
Author Organization [facility] Alejandro [facility] Address [address] [place] [address] Care Team Providers Care Extractor Filler Name Role Phone Unavailable Primary Care Provider Unavailabl e Reason for Visit * Reason Comments Anemia Encounter Details Date Type Department Care Team (Late st Contact Info) Description 07/10/2025 11:30 AM SALES SPECIALIST Office Visit [facility]3] Oncology and Hematology - [address] [place] [address] Neris Yeh MD [address] [place] [address] Iron deficiency anemia due to chronic blood loss (Primary Dx); Chronic blood loss anemia; Vitamin B12 deficiency (non anemic) Social History Tobacco Use Types Packs/Day Years Used Date Smoking Tobacco: Never Smokeless Tobacco: Never Alcohol Use Standard Drinks/Week Comments Never 0 (1 standard drink = 0.6 oz pur e alcohol) Comments Unknown Sex and Gender Information Value Date Recorded Sex Assigned at Not on file Legal Sex Female 2:50 PM CDT Gender Identity Not on file Sexual Orientation Not on file documented as of this encounter Last Filed Vital Signs Vital Sign Reading Time Taken Comments Blood Pressure 139/86 07/10/2025 11:43 AM SALES SPECIALIST Pulse 70 07/10/2025 11:43 AM SALES SPECIALIST Temperature 36.7 C (98.1 F) 07/10/2025 11:43 AM SALES SPECIALIST Respiratory Rate 15 07/10/2025 11:43 AM SALES SPECIALIST Oxygen Saturation 97% 07/10/2025 11:43 AM SALES SPECIALIST Inhaled Oxygen Concentration - - Weight 146.1 kg (322 lb) 07/10/2025 11:43 AM SALES SPECIALIST Height 160 cm (5' 3) 07/10/2025 11:43 AM SALES SPECIALIST Body Mass Index 57.04 07/10/2025 11:43 AM SALES SPECIALIST documented in this encounter Progress Notes * Neris Yeh MD - 07/10/2025 11:55 AM CST Hematology-oncology consult Note Requesting Physician Primary Care Physician No primary care provider on file. Problem list There is no problem list on file for this patient. Course: 04/05/2025: Serum ferritin 63, iron 42, TIBC 276, transferrin saturation 15%.B12 at 387, vitamin D at 28; hemoglobin-12.9 g/dL, hematocrit 39.3, platelets 379 MCV 77.2, folate normal at 11, vitamin K low at 0.09 07/10/2025: Established care with hematology for anemia management. ? Reason for Visit Janessa Mendoza is a 20 y.o. female who was referred for consultation for management of anemia. History of present illness She reported having vitamin deficiencies ever since she had her first daughter. She takes iron every day since April 2024. She reported constipation. She also takes vitamin D every day and despite oral intake, levels remain low per patient. Patient also reported having dizziness/syncopal episodes. She has been following up with cardiologyand workup so far has been negative. She has not received iron infusions in the past. Her MCV has been chronically low and she was worried whether she is having clotting disorder. She has morbid obesity and is scheduled for bariatric surgery evaluation on August 02, 2025. She reported heavy menstrual cycles with 7-day menstruation and innumerable times that she changes pads during the day. Past Medical History Past Medical History: Diagnosis Date Depression Vascular disease Surgical History Past Surgical History: Procedure Laterality Date HX BACK SURGERY Tailbone/mass removal HX SECTION HX CHOLECYSTECTOMY Medications Current Outpatient Medications Medication Sig Dispense Refill ferrous sulfate 325 mg (65 mg iron) Tablet, Delayed Release (E.C.) Take 325 mg by mouth daily. cholecalciferol, vitamin D3, 5,000 unit Take 400 Units by mouth daily. No current facility-administered medications for this visit. Allergies Allergies Allergen Reactions Nitrofurantoin Hives, Itching, Rash and Swelling Immunizations: There is no immunization history on file for this patient. Family History Family History Problem Relation Name Age of Onset No Known Problems Father No Known Problems Mother No Known Problems Brother No Known Problems Brother No Known Problems Brother No Known Problems Child No Known Problems Child Social History Social History Tobacco Use Smoking status: Never Smokeless tobacco: Never Substance Use Topics Alcohol use: Never Review of Systems Negative except as listed in HPI Physical Exam Vitals: As per nursing note Constitutional: Well developed, well nourished, no acute distress, non-toxic appearance Teeth and gum. No signs of infection or swelling. Eyes: PERRL, conjunctiva normal/pale HEENT: Atraumatic, external ears normal, nose normal, oropharynx moist, no pharyngeal exudates. no sinus tenderness Neck- normal range of motion, no tenderness, supple Respiratory: No respiratory distress, normal breath sounds, no rales, no wheezing Cardiovascular: Normal rate, normal rhythm GI: Soft, nondistended, normal bowel sounds, nontender, no splenomegaly, no hepatomegaly, no mass, no rebound, no guarding : No costovertebral angle tenderness Musculoskeletal: No edema, no tenderness, no deformities. Back- no tenderness Integument: Well hydrated, no rash, Digits and nails inspection normal Lymphatic: No lymphadenopathy noted Neurologic: Alert & oriented x 3 Psychiatric: Speech and behavior appropriate ? labs No results found for this or any previous visit (from the past 24 hours). Pathology ? Imaging & Other Studies Performance Status? ECO Assessment / Plan: ? Ms. Thang Mendoza is an extremely pleasant 20-year-old female who is referred for management of anemia. She does have morbid obesity, vitamin D deficiency, iron deficiency anemia and B12 deficiency based on laboratory testing from March 2025. She has been taking oral iron, vitamin D. I discussed with the patient the plan to recheck the labs to help gain an understanding of her most recent laboratory results given ongoing management. - Check CBC, CMP, iron panel, vitamin B12, folate, LDH - Return to clinic in 2 weeks with infusion appointment to follow-up on results and for evaluation of IV iron. Patient is scheduled for bariatric surgery evaluation on August 02. If iron panel demonstrates evidence of iron deficiency, plan for IV iron administration in 2-3 weeks. - Oral cyanocobalamin oral can be prescribed if her B12 level continues to be less than 400 - Advised patient to pursue diet rich in iron - Also advised patient to take stool softener together with iron pills - Most importantly advised her to take ferrous sulfate tablet every other day to help with improvedabsorption TOBACCO COUNSELING She is not a tobacco/nicotine user. Neris Yeh MD ,07/10/2025 12:15 PM ? Total time spent 60 minutes, two third of the total time spent counseling patient [id number]. CC:? S SPECIALIST documented in this encounter Plan of Treatment Upcoming Encounters Date Type Department Care Team (Late st Contact Info) Description 07/26/2025 4:30 PM SALES SPECIALIST Telephone Check Up [facility]3] Oncology and Hematology - [address] [facility] [address] [place] [address] Cristiano Gonzalez MD [address] [place] [address] Scheduled Orders Name Type Priority Associated Diagnoses Orde r Schedule CBC WITH DIFFERENTIAL Lab Stat Iron deficiency anemia due to chronic blood loss Chronic blood loss anemia Vitamin B12 deficiency (non anemic) Expected: 07/10/2025, Expires: 07/10/2026 COMPREHENSIVE METABOLIC PANEL Lab Stat Iron deficiency anemia due to chronic blood loss Chronic blood loss anemia Vitamin B12 deficiency (non anemic) Expected: 07/10/2025, Expires: 07/10/2026 FERRITIN Lab Routine Iron deficiency anemia due to chronic blood loss Chronic blood loss anemia Vitamin B12 deficiency (non anemic) Expected: 07/10/2025, Expires: 07/10/2026 IRON, TIBC, AND PERCENT SATURATION Lab Routine Iron deficiency anemia due to chronic blood loss Chronic blood loss anemia Vitamin B12 deficiency (non anemic) Expected: 07/10/2025, Expires: 07/10/2026 LACTATE DEHYDROGENASE Lab Routine Iron deficiency anemia due to chronic blood loss Chronic blood loss anemia Vitamin B12 deficiency (non anemic) Expected: 07/10/2025, Expires: 07/10/2026 METHYLMALONIC ACID Lab Routine Iron deficiency anemia due to chronic blood loss Chronic blood loss anemia Vitamin B12 deficiency (non anemic) Expected: 07/10/2025, Expires: 07/10/2026 TRANSFERRIN RECEPTOR TFR SOLUBLE Lab Routine Iron deficiency anemia due to chronic blood loss Chronic blood loss anemia Vitamin B12 deficiency (non anemic) Expected: 07/10/2025, Expires: 07/10/2026 VITAMIN B12 AND FOLATE Lab Routine Iron deficiency anemia due to chronic blood loss Chronic blood loss anemia Vitamin B12 deficiency (non anemic) Expected: 07/10/2025, Expires: 07/10/2026 TSH Lab Routine Iron deficiency anemia due to chronic blood loss Chronic blood loss anemia Vitamin B12 deficiency (non anemic) Ordered: 07/10/2025 PERIPHERAL BLOOD SMEAR PATHOLOGY INTERP Lab Routine Iron deficiency anemia due to chronic blood loss Chronic blood loss anemia Vitamin B12 deficiency (non anemic) Ordered: 07/10/2025 SEDIMENTATION RATE Lab Routine Iron deficiency anemia due to chronic blood loss Chronic blood loss anemia Vitamin B12 deficiency (non anemic) Ordered: 07/10/2025 RETICULOCYTES Lab Routine Iron deficiency anemia due to chronic blood loss Chronic blood loss anemia Vitamin B12 deficiency (non anemic) Ordered: 07/10/2025 documented as of this encounter Visit Diagnoses Diagnosis Iron deficiency anemia due to chronic blood loss- Primary Iron deficiency anemia secondary to blood loss (chronic) Chronic blood loss anemia Iron deficiency anemia secondary to blood loss (chronic) Vitamin B12 deficiency (non anemic) Other B-complex deficiencies documented in this encounter
--- NOTE | 2025-07-11 | CONSULT_PTH ---
PATIENT: Janessa Mendoza LOC: [facility] U#:[id number] AGE/SX: 20/F ROOM: RE07/11/[address]: Neris Yeh MD : 2005 BED: DIS: 07/11/2025 SPEC #: [id number] RECD: 07/11/25 12:19 STATUS: ELIDIA REBrandon #: [id number] MIROSLAVA: 07/11/25 00:[address]: Neris Yeh DEPT: [facility] Consult RECD BY: Subhash Bucio MLT ENTERED: 07/11/25 12:22 SP TYPE: Consult OT DR: UNKNOWN,DOCTOR Tissues: A - Peripheral Smear Procedures: Hematology Consult
--- OUTSIDE RECORDS SUMMARY | 2025-07-11 11:34 | XMS_ITS | Data Portability ---
Author Organization [facility] [employer], Main Office Address [address] [place] [address] Assessment Encounter Date Assessment Date Assessment LastModified [...] Lab urinalysis , dipstick 2022 023 [id number] [facility], [address] [address], [place], [address], 15:24:21 Referral None recorded. Procedures None recorded. Surgeries None recorded. Imaging None recorded. Medication Orders None recorded. Patient TargetsNo targets recorded. Patient InstructionsNo instructions recorded. Reason for Referral None Reported. Results Created Date Observation Date Name Description Value Unit Range Abnormal Flag Note LastModifiedBy Organization Detail LastModifiedTime 04/01/202022 urina lysis , dipst ick Leukocytes (reference range: negative litzy/ l) Negati ve Not Available [address], [address], 04/01/2022 15:48:09 04/01/20 22 04/01/2022 urina lysis , dipst ick Nitrite (reference rage: negative mg/dl) negati ve Not Available [address], [address], 04/01/2022 15:48:04/01/20 22 04/01/2022 urina lysis , dipst ick Urobilinogen (reference range: 0.2-1 mg/dl) 0.2 Not Available [address], [address], 04/01/2022 15:48:04/01/20 22 04/01/2022 urina lysis , dipst ick Protein (reference range: negative mg/dl) Negati ve Not Available [address], [address], 04/01/2022 15:48:04/01/20 22 04/01/2022 urina lysis , dipst ick pH (reference range: 5-7) 6.0 Not Available [address], [address], 04/01/2022 15:48:04/01/20 22 04/01/2022 urina lysis , dipst ick Blood (reference range: negative Donte/ l) Negati ve Not Available [address], [place], [address], 04/01/2022 15:48:04/01/2004/01/2022 urina lysis , dipst ick Specific [place] (reference range: 1.005-1.030) 1.020 Not Available [address], [address], 04/01/2022 15:48:04/01/20 22 04/01/2022 urina lysis , dipst ick Ketone (reference range: negative mg/dl) Negati ve Not Available [address] [address], [place], [address], 04/01/2022 15:48:09 04/01/20 22 04/01/2022 urina lysis , dipst ick Bilirubin (reference range: negative mg/dl) Negati ve Not Available [address], [address], 04/01/2022 15:48:04/01/20 22 04/01/2022 urina lysis , dipst ick Glucose (reference range: negative mg/dl) Negati ve Not Available [address], [address], 04/01/2022 15:48:04/01/2004/01/2022 urina lysis , dipst ick Appearance Clear Not Available [address], [address], 04/01/2022 15:48:04/01/20 22 04/01/2022 urina lysis , dipst ick Color Yellow Not Available [address], [address], 04/01/2022 15:48:09 04/15/20 22 04/15/2022 urina lysis , dipst ick Leukocytes (reference range: negative litzy/ l) Trace Not Available [address], [address], 04/15/2022 14:34:49 04/15/20 22 04/15/2022 urina lysis , dipst ick Nitrite (reference rage: negative mg/dl) negati ve Not Available [address], [address], 04/15/2022 14:34:49 04/15/20 22 04/15/2022 urina lysis , dipst ick Urobilinogen (reference range: 0.2-1 mg/dl) 0.2 Not Available [address], [address], 04/15/2022 14:34:49 04/15/20 22 04/15/2022 urina lysis , dipst ick Protein (reference range: negative mg/dl) Negati ve Not Available [address], [address], 04/15/2022 14:34:49 04/15/20 22 04/15/2022 urina lysis , dipst ick pH (reference range: 5-7) 6.0 Not Available [address], [address], 04/15/2022 14:34:49 04/15/20 22 04/15/2022 urina lysis , dipst ick Blood (reference range: negative Donte/ l) Non-He molyze d: Trace Not Available [address], [address], 04/15/2022 14:34:49 04/15/20 22 04/15/2022 urina lysis , dipst ick Specific [place] (reference range: 1.005-1.030) 1.025 Not Available [address], [address], 04/15/2022 14:34:49 04/15/20 22 04/15/2022 urina lysis , dipst ick Ketone (reference range: negative mg/dl) Negati ve Not Available [address], [address], 04/15/2022 14:34:49 04/15/20 22 04/15/2022 urina lysis , dipst ick Bilirubin (reference range: negative mg/dl) Negati ve Not Available [address], [address], 04/15/2022 14:34:49 04/15/20 22 04/15/2022 urina lysis , dipst ick Glucose (reference range: negative mg/dl) Negati ve Not Available [address], [address], 04/15/2022 14:34:49 04/15/20 22 04/15/2022 urina lysis , dipst ick Appearance Clear Not Available [facility] [address] [place] [address], [address], [place], [address], 04/15/2022 14:34:49 04/15/20 22 04/15/2022 urina lysis , dipst ick Color Yellow Not Available [facility] [address] [place] [address], [address], [place], [address], 04/15/2022 14:34:49 10/15/19 23 10/14/2022 urina lysis , dipst ick Leukocytes (reference range: negative litzy/ l) Negati ve Not Available [facility] [address], [place], [address], 10/14/2022 15:10:29 10/15/19 23 10/14/2022 urina lysis , dipst ick Nitrite (reference rage: negative mg/dl) negati ve Not Available [facility] [address], [place], [address], 10/14/2022 15:10:29 10/15/19 23 10/14/2022 urina lysis , dipst ick Urobilinogen (reference range: 0.2-1 mg/dl) 0.2 Not Available [facility] [address], [place], [address], 10/14/2022 15:10:29 10/15/19 23 10/14/2022 urina lysis , dipst ick Protein (reference range: negative mg/dl) Negati ve Not Available [facility] [address], [place], [address], 10/14/2022 15:10:29 10/15/19 23 10/14/2022 urina lysis , dipst ick pH (reference range: 5-7) 6.0 Not Available [facility] [address], [place], [address], 10/14/2022 15:10:29 10/15/19 23 10/14/2022 urina lysis , dipst ick Blood (reference range: negative Donte/ l) Negati ve Not Available [facility] [address], [place], [address], 10/14/2022 15:10:10/15/19 23 10/14/2022 urina lysis , dipst ick Specific [place] (reference range: 1.005-1.030) 1.020 Not Available [facility] [address], [place], [address], 10/14/2022 15:10:10/15/19 23 10/14/2022 urina lysis , dipst ick Ketone (reference range: negative mg/dl) Negati ve Not Available [facility] [address], [place], [address], 10/14/2022 15:10:29 10/15/19 23 10/14/2022 urina lysis , dipst ick Bilirubin (reference range: negative mg/dl) Negati ve Not Available [facility] [address], [place], [address], 10/14/2022 15:10:10/15/19 23 10/14/2022 urina lysis , dipst ick Glucose (reference range: negative mg/dl) Negati ve Not Available [facility] [address], [place], [address], 10/14/2022 15:10:29 10/15/19 23 10/14/2022 urina lysis , dipst ick Appearance Clear Not Available [facility] [address], [place], [address], 10/14/2022 15:10:29 10/15/19 23 10/14/2022 urina lysis , dipst ick Color Yellow Not Available [facility] [address], [place], [address], 10/14/2022 15:10:29 12/27/19 23 12/26/2022 urina lysis , dipst ick Leukocytes (reference range: negative litzy/ l) Negati ve Not Available [facility] [address], [place], [address], 12/26/2022 14:41:56 12/27/19 23 12/26/2022 urina lysis , dipst ick Nitrite (reference rage: negative mg/dl) negati ve Not Available [facility] [address], [place], [address], 12/26/2022 14:41:56 12/27/19 23 12/26/2022 urina lysis , dipst ick Urobilinogen (reference range: 0.2-1 mg/dl) 0.2 Not Available [facility] [address], [place], [address], 12/26/2022 14:41:56 12/27/19 23 12/26/2022 urina lysis , dipst ick Protein (reference range: negative mg/dl) Negati ve Not Available [facility] [address], [place], [address], 12/26/2022 14:41:56 12/27/19 23 12/26/2022 urina lysis , dipst ick pH (reference range: 5-7) 6.5 Not Available [facility] [address], [place], [address], 12/26/2022 14:41:56 12/27/1912/26/2022 urina lysis , dipst ick Blood (reference range: negative Donte/ l) Negati ve Not Available [facility] [address], [place], [address], 12/26/2022 14:41:56 12/27/19 23 12/26/2022 urina lysis , dipst ick Specific [place] (reference range: 1.005-1.030) 1.015 Not Available [facility] [address], [place], [address], 12/26/2022 14:41:56 12/27/19 23 12/26/2022 urina lysis , dipst ick Ketone (reference range: negative mg/dl) Negati ve Not Available [facility] [address], [place], [address], 12/26/2022 14:41:56 12/27/19 23 12/26/2022 urina lysis , dipst ick Bilirubin (reference range: negative mg/dl) Negati ve Not Available [facility] [address], [place], [address], 12/26/2022 14:41:56 12/27/19 23 12/26/2022 urina lysis , dipst ick Glucose (reference range: negative mg/dl) Negati ve Not Available [facility] [address], [place], [address], 12/26/2022 14:41:56 12/27/19 23 12/26/2022 urina lysis , dipst ick Appearance Clear Not Available [facility] [address], [place], [address], 12/26/2022 14:41:56 12/27/19 23 12/26/2022 urina lysis , dipst ick Color Dark Yellow Not Available [facility] [address] [facility] [address], [place], [address], 12/26/2022 14:41:56 03/13/20 22 03/12/2022 US, kidne y No observ ation record ed. [id number], [place], [address], 09/17/2022 21:12:49 04/05/20 22 04/05/2022 CT, abdom en + pelvi s, w/wo contr ast No observ ation record ed. [id number] [address] [place], [address], 09/17/2022 21:12:49 04/11/20 22 04/11/2022 CT, abdom en + pelvi s, w/wo contr ast No observ ation record ed. [id number], [place], [address], 09/17/2022 21:12:49 10/14/19 23 10/08/2022 CT, abdom en + pelvi s, w/ contr ast No observ ation record ed. BARCODE Not Available 2022 11:26:31 Result Notes None recorded. Problems Name Problem SNOMED Code Status Onset Date Resolution Date Notes Provider Name and Address Organization Details Recorded Time 67669814 Active 2020 Not Available [employer] 3 21:12:02 Recurrent urinary tract infection 641420164 Active 2022 Gelacio Longo MD [address], [place], [address] , [place] [facility] 3 15:23:28 Epidermoid cyst 366236101 Active 2022 Malcolm ragland MD [address] [facility], [facility] [address], [place], [address] , [facility] [employer] 3 13:38:43 Acute urinary tract infection 961335708 Active 2022 Lakesha Arzola MA [facility], [place] [employer] 3 14:42:15 Problem Notes None recorded. Procedures Surgical History Date Name Laterality Status Provider Name and Address Organization Details Recorded Time incision and drainage completed Not Available [facility] 09/17/2022 21:11:45 Tonsillectomy completed Not Available [facility] 09/17/2022 21:11:45 Imaging Results None recorded. Procedure Notes None recorded. Medical Equipment None Reported. Allergies Allergen ID Allergen Name Allergen Category Reaction Reaction Severity Criticality Documentation Date Start Date Code Code System Note Provider Name and Address Organization Details Recorded Time 31726 Macrobid medicatio n itching Not available Not available 09/17/2022 91559 1 RxNorm Not Available [facility] 3 21:12:47 Medications Name Sig Start Date [...] Available Not Available Not Available [employer] Fe 1.30 (28) 1.5 mg-30 mcg (21)/75 mg (7) tablet active Not Available Not Available Not Available Vitals Date Recorded Body height Body weight Body mass index (BMI) Heart rate Oxygen saturation Systolic And Diastolic Provider Name and Address Organization Details Last Updated DateTime 5 160.02 cm 356429. 63 g 54.9 kg/m2 80 /min 99 % 140/88 mm[Hg] Man Mabry Denae [place] [email or web address] [facility] 5 10:39:29 Date Recorded Body height Body mass index (BMI) Body mass index (BMI) [Percentile] Per age and sex Body weight Heart rate Body temperature Respiratory rate Oxygen saturation Systolic And Diastolic Provider Name and Address Organization Details Last Updated DateTime 3 160.02 cm 49.6 kg/m2 99 % 021292. 86 g 98 /min 97.5 [degF] 14 /min 98 % 120/82 mm[Hg] Lucy Lydia [place] [employer] [facility] [employer] 3 11:23:01 Date Recorded Body height Provider Name an d Address Organization Details Last Updated DateTime 10/14/2022 160.02 cm Lakesha Arzola MA [facility] [employer] 10/14/2022 15:06:47 Date Recorded Body mass index (BMI) [Percentile] Per age and sex Body mass index (BMI) Body weight Body temperature Heart rate Oxygen saturation Systolic And Diastolic Provider Name and Address Organization Details Last Updated DateTime 3 99 % 54.9 kg/m2 017556. 63 g 98.1 [degF] 81 /min 98 % 141/90 mm[Hg] Sree Vale [facility] [employer] [facility] [employer] [facility] 3 15:10:12 Date Recorded Body mass index (BMI) Body height Oxygen saturation Heart rate Body temperature Body weight Provider Name and Address Organization Details Last Updated DateTime 2 53.1 kg/m2 160.02 cm 98 % 94 /min 97.9 [degF] 523233. 71 g Not Available [facility] 3 21:11:50 Date Recorded Body mass index (BMI) Body height Oxygen saturation Body temperature Body weight Provider Name and Address Organization Details Last Updated DateTime 04/15/2022 53.1 kg/m2 160.02 cm 99 % 98.2 [degF] 920610. 71 g Not Available [facility] 3 21:11:50 Social History Question Answer Notes LastModified by Organizat ion Details LastModified Time Tobacco Smoking Status Never Smoker Lilia segura [place] [employer] [facility] [employer] 10/14/2022 14:53:48 What Is Your Level Of Caffeine Consumption? Moderate [id number] Information not available 09/17/2022 Which Illicit Or Recreational Drugs Have You Used? No Information not available 10/14/2022 Has Tobacco Cessation Counseling Been Provided? No Information not available 10/14/2022 Sex: Unknown Functional Status Question Answer Note LastModified by Organizat ion Details LastModified Time Do you use any illicit or recreational drugs? No Information not available 10/14/2022 Do you or have you ever used any other forms of tobacco or nicotine? No Information not available 10/14/2022 What is your level of alcohol consumption? None [id number] Information not available 09/17/2022 Do you or have you ever used smokeless tobacco? Never used smokeless tobacco [id number] Information not available 09/17/2022 Do you or have you ever used e-cigarettes or vape? Never used electronic cigarettes Information not available 10/14/2022 What is your exercise level? Occasional [id number] Information not available 09/17/2022 Mental Status None recorded. Family History Relationship Description Onset Age of this Age Resolved Age Notes LastModified by Organization Details LastModified Time Paternal Grandmother Diabetes mellitus [id number] Not available 09/17/2022 21:11:45 Unspecified Relation Kidney stone Not available 14:53:48 Unspecified Relation Hypertensive disorder [id number] Not available 09/17/2022 21:11:45 Medical History Condition [...] HAVE YOU BEEN HOSPITALIZED OR SEEN IN [facility] IN THE PAST YEAR ? N [...] Diagnosis SNOMED-CT Code Diagnosis ICD10 Code Diagnosis IMO Codes Diagnosis Note [id number] [facility] _ATHENA_M IGRATION_ DEFAULT_1 _1 , 10/02/2020 00:00:00 10/02/2020 12:29:32 [id number] [facility] _ATHENA_M IGRATION_ DEFAULT_1 _1 , 10/15/2020 00:00:00 10/15/2020 12:06:40 [id number] [facility] _ATHENA_M IGRATION_ DEFAULT_1 _1 , 01/25/2021 00:00:00 01/25/2021 14:28:08 [id number] [facility] _ATHENA_M IGRATION_ DEFAULT_1 _1 , 02/11/2021 00:00:00 02/11/2021 11:09:56 [id number] [facility] _ATHENA_M IGRATION_ DEFAULT_1 _1 , 02/28/2021 00:00:00 02/28/2021 14:08:22 [id number] [facility] _ATHENA_M IGRATION_ DEFAULT_1 _1 , 04/03/2021 00:00:00 04/03/2021 12:43:00 [id number] [facility] _ATHENA_M IGRATION_ DEFAULT_1 _1 , 05/01/2021 00:00:00 05/01/2021 15:16:25 [id number] [facility] _ATHENA_M IGRATION_ DEFAULT_1 _1 , 05/29/2021 00:00:00 05/29/2021 17:09:35 [id number] [facility] _ATHENA_M IGRATION_ DEFAULT_1 _1 , 07/01/2021 00:00:00 07/01/2021 14:54:25 [id number] Bhavin Hussein NP [facility] [address] 02/24/2022 00:00:00 02/24/2022 15:48:51 [id number] Gelacio Longo MD [facility] [address] [address] 04/01/2022 00:00:00 04/02/2022 12:21:31 [id number] Gelacio Longo MD [facility] [address] [address] 04/15/2022 00:00:00 04/15/2022 14:47:02 [id number] Malcolm ragland MD [facility] General Surgery [address] [address] 10/14/2022 11:12:56 10/14/2022 12:40:22 Epidermoid cyst 032448635 K09.8 anal [id number] Gelacio Longo MD [facility] [address] [address] 10/14/2022 14:49:23 10/14/2022 15:22:37 Recurrent urinary tract infection 595734289 N39.0 No recurrence on conservati ve measures ,went over them again. Will call if has trouble. [id number] Malcolm ragland MD [facility] General Surgery [address] [address] 07/21/2024 10:34:20 07/21/2024 12:51:53 Epidermoid cyst 208184721 K09.8 anal Health Concerns Section Related Observation LastModified by Organization Detai ls LastModified Time None Recorded Concern Status LastModified by Organization Details LastModified Time None Recorded Advance Directives Directive None Recorded Payers Insurance Date Sequence Insurance Name Policy Number Policy Salgado Covered Member ID Salgado Member ID Guarantor Name 07/21/2024 1 [facility] - DOS ON OR AFTER 21 (MEDICAID REPLACEMENT - HMO) [place] [id number] [place] 07/21/2024 2 [place] [facility] [place] [id number] [place] 03/07/2025 1 [facility] - DOS ON OR AFTER 21 (MEDICAID REPLACEMENT - HMO) [place] [id number] [place] 03/07/2025 2 [place] [facility] [place] [id number] [place] Notes Date Note Type Note Provider Name and Address Organization Details Recorded Time 10/14/2022 text/html Recurrent UTIReported by PatientPt is doing fine, no more utis, no dysuria or hematuria.Prior evaluation with ct was negative. Gelacio Longo MD [address], [place], [address], [employer] 10/14/2022 15:24:25 10/14/2022 text/html Patient presents to [...] Briceño MD [address], [place], [address], [employer] 10/16/2022 13:38:49 07/21/2024 text/html patient following up for perianal cyst. Patient recently had a 2nd child and on follow-up had a CT scan at outside facility which presumably showed the cyst to be quite large thick. Patient complains of pressure with sitting down the as well as pain around that area. Denies fevers or chills. Denies trouble with bowel movements or urination. Malcolm Briceño MD [address] [address], [place], [address], [place] - [facility] [employer] [facility] 07/21/2024 15:07:15 OBGyn Episode No OBEpisode recorded.
--- OUTSIDE RECORDS SUMMARY | 2025-07-11 11:34 | XMS_ITS | Clinical Summary ---
Author Organization [facility] Address [address] [place] [address] Care Team Providers Care Scientific [employer]formatics Project Leader Name Role Phone Unavailable Primary Care Provider Unavailabl e Source Comments [facility],non-owned Affiliates and Associated Physician Practices is amultiple site organization consisting of ambulatory clinics and hospital sitesin [place], [place], [place] and [place]. This disclosure is being madepursuant to the Care Everywhere program and may not contain all information available regarding this patient. Last updated 18.[facility] Allergies Active Allergy Reactions Criticality Noted Date [...] drink = 0.6 oz pur e alcohol) Caro Depression Scale Answer Date Recorded Caro Depression Scale Total 16 12/16/2023 The thought of harming myself has occurred to me . 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 Blood BLOOD SPECIMEN / Unknown Venipuncture / Unknown 12/25/2020 6:46 PM CDT 12/25/2020 7:28 PM CDT Mahesh Chamberlain MD LAB - CHEMISTRY ORDERABLES Final Result Performing Organization Address City/State/[facility] Co de Phone Number [facility] [address] [place] [id number], [facility] [phone] * CHLAMYDIA + GC AMPLIFIED PROBE (STL) (12/25/2020 6:30 PM CDT) [facility] Chlamydia Amplified Probe Negative Negative 12/26/2020 2:53 AM CDT [facility] MICRO[facility]OLOGY GC Amplified Probe Negative Negative 12/26/2020 2:53 AM CDT [facility]CRO[facility] Microbiology URINE / Unknown Collection / Unknown 12/25/2020 6:30 PM CDT 12/25/2020 6:42 PM CDT Narrative [facility]CRO[facility] - 12/26/2020 2:53 AM CDT Results based on detection/no detection of ribosomal RNA by amplified method. Mahesh Chamberlain MD LAB - MICROBIOLOGY ORDERABLES Fi nal Result [facility] [address] [place] [address], [facility] [phone] from Last 3 Months or Most Recently Relevant to Health Maintenance Insurance [facility] [employer]ETNA
--- OUTSIDE RECORDS SUMMARY | 2025-07-11 11:34 | XMS_ITS | Clinical Summary ---
Author Organization [facility] Caty Jane Address [address] [place] [address] Care Team Providers Care Biodiesel Product Development Manager Name Role Phone Unavailable Primary Care Provider Unavailabl e Allergies Active Allergy Reactions Criticality Noted Date Comments Nitrofurantoin Hives,Itching,Rash,Swelling High 12/2020 Medications ferrous sulfate 325 mg (65 mg iron) Tablet, Delayed Release (E.C.) Take 325 mg by mouth daily. 01/09/2025 Active cholecalciferol, vitamin D3, 5,000 unit Take 400 Units by mouth daily. Active Active Problems Problem Noted Date Diagnosed Date Iron deficiency anemia 07/10/2025 Encounters Date Type Department Care Team Description 07/10/2025 11:30 AM BROADBAND TECHNICIAN Office Visit [facility] Oncology and Hematology - [address] [address] Neris Yeh MD Iron deficiency anemia due to chronic blood loss (Primary Dx); Chronic blood loss anemia; Vitamin B12 deficiency (non anemic) from Last 3 Months Family History Medical History Relation Name Comments No Known Problems Brother 1 No Known Problems Brother 2 No Known Problems Brother 3 No Known Problems Child 1 No Known Problems Child 2 No Known Problems Father No Known Problems Mother Relation Name Status Comments Brother 1 Alive Brother 2 Alive Brother 3 Alive Child 1 Alive Child 2 Alive Father Alive Mother Alive Social History [...] Comments Blood Pressure 139/86 07/10/2025 11:43 AM BROADBAND TECHNICIAN Pulse 70 07/10/2025 11:43 AM BROADBAND TECHNICIAN Temperature 36.7 C (98.1 F) 07/10/2025 11:43 AM BROADBAND TECHNICIAN Respiratory Rate 15 07/10/2025 11:43 AM BROADBAND TECHNICIAN Oxygen Saturation 97% 07/10/2025 11:43 AM BROADBAND TECHNICIAN Inhaled Oxygen Concentration - - Weight 146.1 kg (322 lb) 07/10/2025 11:43 AM BROADBAND TECHNICIAN Height 160 cm (5' 3) 07/10/2025 11:43 AM BROADBAND TECHNICIAN Body Mass Index 57.04 07/10/2025 11:43 AM BROADBAND TECHNICIAN Plan of Treatment Upcoming Encounters Date Type Department Care Team (Late st Contact Info) Description 07/26/2025 4:30 PM BROADBAND TECHNICIAN Telephone Check Up [facility] Oncology and Hematology [facility] [address] [facility] [address] [place] [address] Cristiano Gonzalez MD [address] [facility] [address] [place] [address] Health Maintenance Due Date Last Done Comments CHLAMYDIA SCREENING (ANNUAL) 11-24 YEARS 2014 CERVICAL CANCER SCREENING 01/30/2024 HPV/Cotest (21-29) 01/30/2024 PAP SMEAR 01/30/2024 INFLUENZA VACCINE (#1) 2025 07/03/2021, 2013 DTAP/TDAP/TD VACCINES (8 - T d or Tdap) 09/12/2031 09/12/2021, 01/24/2014, 01/10/2008, Additional history exists HEPATITIS B VACCINES Completed 2003, 2003, 2003 HPV VACCINES Completed 05/29/2014, 02/2014, 02/01/2013 Insurance [facility] MEDICAID
--- OUTSIDE RECORDS SUMMARY | 2025-07-11 11:34 | XMS_ITS | Clinical Summary ---
Author Organization [facility] Address [facility] [place] [address] Care Team Providers Care Safety Coordinator Name Role Phone None, Provider MD Primary [...] patient's age to complete this topic Insurance [facility] Care Teams Safety Coordinator Relationship Specialty Start Date End Date None, Provider, MD PCP - General UNKNOWN PHYSICIAN SPECIALTY 01/31/23
--- OUTSIDE RECORDS SUMMARY | 2025-07-11 11:34 | XMS_ITS | Clinical Summary ---
Author Organization [employer] Address [address] [place] [address] Care Team Providers Care Smart Grid Engineer Name Role Phone PcpTaryn Primary Care Provider [phone] Social History Tobacco Use Types Packs/Day Years Used Date Smoking Tobacco: Never Assessed Comments Unknown Sex and Gender Information Value Date Recorded Sex Assigned at Not on file Legal Sex Female 10:22 PM EST Gender Identity Not on file Sexual Orientation Not on file Plan of Treatment Not on file Medical Devices Not on file Care Teams Smart Grid Engineer Relationship Specialty Start Date End Date Taryn Mar PCP - General Family Medicine 03/17/22
--- OUTSIDE RECORDS SUMMARY | 2025-07-11 11:34 | XMS_ITS | Clinical Summary ---
Author Organization [facility] Address [address] [place] [address] Phone Care Team Providers Care White Washer Piler Name Role Phone Nimo Jacobs MD Primary Care Provider Gelacio mSith MD Unavailable [phone] Allergies Active Allergy Reactions Criticality Noted Date Comments Nitrofurantoin Itching,Rash,Swellin g,Hi ves Medium 04/24/2021 Nitrofurantoin Monohyd/M-Cryst Itching Low 08/02/2024 Medications cholecalciferol (VITAMIN D-3) 32771 unit tablet Take 1,250 mcg by mouth 5 Active ferrous sulfate 325 mg (65 mg of elemental iron) tablet 5 Active dicyclomine (BENTYL) 10 mg capsule TAKE 1 TO 2 CAPSULES BY MOUTH EVERY 6 HOURS 5 Active cyclobenzaprine (FLEXERIL) 10 mg tabletIndicatio ns:Muscle Spasm Take 1 tablet (10 mg total) by mouth every 8 (eight) hours Post surgery: Every 8 hours for 4 days 12 tablet 5 Active cyanocobalamin (Vitamin B-12) 500 mcg tabletIndicatio ns:Prevention of Vitamin B12 Deficiency Take 1 tablet (500 mcg total) by mouth daily Start taking post op day 5 90 tablet 3 5 07/05/20 26 Active ferrous sulfate 325 mg (65 mg of elemental iron) tabletIndicatio ns:Iron Deficiency Anemia Take 1 tablet (325 mg total) by mouth daily Start taking post op day 5. Take with food and avoid taking within 2 hours of calcium 90 tablet 3 5 07/05/20 26 Active calcium citrate-vitamin D3 200 mg-6.25 mcg (250 unit) tabletIndicatio ns:Hypocalcemia Prevention Take 2 tablets by mouth 3 (three) times a day Start taking post op day 5 540 tablet 3 5 07/05/20 26 Active ondansetron (ZOFRAN) 4 mg tabletIndicatio ns:Prevention of Post-Operative Nausea and Vomiting Take 1 tablet (4 mg total) by mouth every 8 (eight) hours as needed for nausea or vomiting Start post-surgery 20 tablet 2 5 Active polyethylene glycol (MIRALAX) 17 gram/dose bulk powderIndicatio ns:constipation Take 17 g by mouth 2 (two) times a day Start post-surgery 1020 g 5 08/04/19 26 Active hyoscyamine (LEVSIN) 0.125 mg SL tabletIndicatio ns:Gastric Cramping Take 1 tablet (0.125 mg total) by mouth every 6 (six) hours for 4 days Start post-surgery 16 tablet 5 Active omeprazole (PriLOSEC) 20 mg capsule Take 1 capsule (20 mg total) by mouth 2 (two) times a day START POST SURGERY 60 capsule 5 Active multivitamin with minerals tablet Take 2 tablets by mouth daily Start taking post op day 5 60 tablet 11 5 07/05/20 26 Active scopolamine 1 mg over 3 days patch 3 dayIndications: Prevention of Post-Operative Nausea and Vomiting Place 1 patch on the skin once for 72 hours for [address] behind ear at 8pm the night prior to surgery 1 patch 5 07/05/20 25 aprepitant (EMEND) 40 mg capsuleIndicati ons:Prevention of Post-Operative Nausea and Vomiting Take 1 capsule (40 mg total) by mouth once for 1 dose Take at 8pm on the night prior to surgery 1 capsule 5 07/05/20 25 acetaminophen 500 mg tablet Take 2 tablets (1,000 mg total) by mouth every 8 (eight) hours for 4 days Start post-surgery 24 tablet 5 07/09/20 25 Active Problems Problem Noted Date Diagnosed Date Morbid obesity 06/12/2025 Syncope and collapse 12/30/2024 Disruption of external [...] Encounters Date Type Department Care Team Description 07/05/2025 9:00 AM FRUIT PACKER Telemedicine [facility] Minimally Invasive Surgery [address] [place] [address] Medical Office Building [address] [place] [id number] Morbid obesity (HCC) (Primary Dx) 06/08/2025 3:00 PM FRUIT PACKER Office Visit [facility] Minimally Invasive Surgery [address] [place] [address] Medical Office Building [address] [place] [address] Eddi Liao MD Morbid obesity (HCC) (Primary Dx) 05/25/2025 12:30 PM FRUIT PACKER Clinical Support [facility] Diabetes and Nutrition [address] [place] [address] [place] [id number] Morbid obesity (HCC); BMI 50.0-59.9, adult (HCC); Gastroesophageal reflux disease, unspecified whether esophagitis present 05/25/2025 Telephone [facility] Medicine Surgery [address] [facility] Floor [address] [place] [address] Raul Zamudio NP 05/09/2025 11:15 AM CDT Office Visit [facility] Medicine Pain Management [address] [place] [address] Hung Swan, PhD Morbid obesity (HCC) (Primary Dx); Anxiety; Persistent depressive disorder from Last 3 Months Immunizations Immunization Administration [...] you have a drink containing alcohol? Never 06/08/2025 Q2: How many drinks containi ng alcohol do you have on a typical day when you are drinking? Patient does not drink Q3: How often do you have si x or more drinks on one occasion? Never 06/08/2025 Personal Safety Answer Date Recorded Have you [...] Sign Reading Time Taken Comments Blood Pressure 137/89 06/08/2025 2:28 PM FRUIT PACKER Pulse 76 06/08/2025 2:28 PM FRUIT PACKER Temperature 36.7 C (98.1 F) 01/11/2025 6:18 AM CDT Respiratory Rate 21 01/11/2025 10:30 AM CDT Oxygen Saturation 98% 06/08/2025 2:28 PM FRUIT PACKER Inhaled Oxygen Concentration - - Weight 147.4 kg (325 lb) 06/08/2025 2:28 PM FRUIT PACKER Height 160 cm (5' 3) 06/08/2025 2:28 PM FRUIT PACKER Body Mass Index 57.57 06/08/2025 2:28 PM FRUIT PACKER Plan of Treatment Upcoming Encounters Date Type Department Care Team (Latest Contact Info) Description 08/02/2025 10:49 AM FRUIT PACKER Hospital Encounter [facility] Operating Room [address] [place] [address] Eddi Liao MD [address] [facility] [phone] [place] [address] 08/02/2025 10:49 AM FRUIT PACKER - 08/02/2025 2:14 PM FRUIT PACKER Surgery [facility] Operating Room [address] [place] [address] Eddi Liao MD [address] [facility] [phone] [place] [address] XI GASTRIC BYPASS - LAPAROSCOPIC ROBOTIC ASSISTED Scheduled Procedures Name Priority Associated Diagnoses Date/Ti me XI GASTRIC BYPASS - LAPAROSCOPIC ROBOTIC ASSISTED Morbid obesity (HCC) 08/02/2025 10:49 AM FRUIT PACKER Health Maintenance Due Date Last Done Comments Cervical Cancer Screening 2003 Chlamydia and Gonorrhea (GC/ CT) Screening 2003 Depression Screening 2003 Hepatitis C Screening 2003 Meningococcal B Vaccine (1 o f 2 - Standard) 2019 Regular Well Visit/Exam 18-64 2021 Covid-19 Vaccine (2 - Jansse n risk series) 12/11/2021 11/13/2021 Influenza Vaccine (#1) 2025 , 06/07/2022, 07/03/2021, Additional history exists DTaP/Tdap/Td Vaccine (9 - Td or Tdap) 03/25/2034 03/25/2024, 09/12/2021, 01/24/2014, Additional history exists Hepatitis B Screening Completed 2003 , 2003, 2003 Pneumococcal vaccine <65 Completed 004, 2003, 2003, Additional history exists Varicella Vaccines Completed 01/10/2008, 02/12/2004 HPV Vaccines Completed 05/29/2014, 02/2014, 02/01/2013 Medical Devices Implanted Type Area Television Host Device Identifier Shelf Expiration Date Model / Serial / Lot [employer] Strattice 8x6cm Reconstructive Matrix Tissue Porcine Dermis Latex Free [id number] - [id number] Implanted:Qty: 1 on 08/10/2024 by Gelacio Smith MD at [facility] Mesh N/A: Sacrum [employer] [id number] 08/19/2025 [id number] / / [id number] Insurance [facility] Advance Directives For more information, please contact: [phone] * Full Code (Latest Code Status on File) Date Activated Date Inactivated Comments 08/10/2024 1:20 PM 08/12/2024 7:18 PM Care Teams White Washer Piler Relationship Specialty Start Date End Date Nimo Jacobs MD [address] [facility] [address] [address] PCP - General Family Practice 07/29/24 Gelacio Smith MD [address] [phone] [place] [address] Surgeon Colon and Rectal Surgery 08/02/24
[2025-07-11 11:44] LABS: Hematocrit 37.2 % (37.0-47.0); Hemoglobin 12.2 g/dL (12.0-15.0); Immature Granulocyte Percent A 0.3 % (0-0.5); Immature Reticulocyte Fraction 9.1 % (3.0-15.9); Lymphocytes Absolute Auto 1.95 K/mm3 (0.9-3.2); Mean Corpuscular HGB Conc 32.8 g/dl (32-36); Mean Corpuscular Hemoglobin 25.9 pg (26-34); Mean Corpuscular Volume 79.0 fl (80-100); Nucleated Red Blood Cells Absolute Auto 0.000 K/mm3 (0.0-0.012); Nucleated Red Blood Cells Perc 0.0 % (0.0-0.2); Platelet Count Result 347 k/mm3 (150-375); Red Blood Count 4.71 M/mm3 (4.2-5.4); Reticulocyte Hemoglobin Conten 28.7 pg (28.2-36.6); Reticulocytes Absolute 0.07 10^6/uL (0.02-0.10); White Blood Count 6.5 K/mm3 (4.5-10.0)
[2025-07-11 12:17] LABS: Alanine Aminotransferase 27 U/L (6-35); Albumin Level 4.1 g/dL (3.5-5.1); Alkaline Phosphatase 89 U/L (38-126); Anion Gap 6 mmol/L (4-12); Aspartate Amino Transferase 34 U/L (14-36); Bilirubin,Total 0.4 mg/dL (0.2-1.3); Blood Urea Nitrogen 12 mg/dL (7-17); Calcium 9.1 mg/dL (8.4-10.2); Carbon Dioxide 29 mmol/L (22-30); Chloride 104 mmol/L (98-107); Estimated Glomerular Filt Rate > 60; Glucose 98 mg/dL (65-110); Iron 40 ug/dL (37-170); Potassium 4.0 mmol/L (3.4-5.0); Sodium 139 mmol/L (137-145); Total Protein 7.7 g/dL (6.3-8.2)
[2025-07-11 12:26] LABS: Percent Iron Saturation 15 % (20-50)
[2025-07-11 12:53] LABS: Thyroid Stimulating Hormone 0.753 uIU/mL (0.465-4.680)
[2025-07-11 12:59] LABS: Ferritin 22.50 ng/mL (6.24-137)
[2025-07-11 13:29] LABS: Vitamin B12 347.0 pg/mL (239-931)
== END 2025-07-11 11:06 | disposition home or self-care (01) ==
PROVIDERS: Visit Provider Internal Medicine Hematology & Oncology
DX: D50.0 Iron deficiency anemia secondary to blood loss (chronic) (principal); E53.8 Deficiency of other specified B group vitamins
CPT/HCPCS: 36415; 80053; 82607; 82728; 82746; 83540; 83550; 83615; 83921; 84238; 84443; 85025; 85046; 85652